=== PATIENT | female | born 1940 | race Caucasian/White ===

== ENCOUNTER → 2016-04-09 | Outpatient (CLI) | payer OTHER ==
[~2016-04-09] MED LIST: ASPCH81 PO; ASPI-232 PO; ATOR-24 PO; ATV5 PO; CEPH500C PO; CHOL1000 PO; CITA40TA12 PO; FLUT0.15 NAE; FRS/40 PO; HYDR0.5T PO; HYDR200T5 PO; LEVO150T9 PO; LORA0.5T12 PO; MCR/40125 PO; MECL1TAB42 PO; METO100T44 PO; METO25TA3 PO; METO25TA56 PO; METO50TA7 PO; MULT-1092 PO; NTRGSL/4 UT; NXM/40 PO; ONDA4TAB10 SL; OXGN; POTA10CA28 PO; RANI300T2 PO; SYN150 PO; TOLT4CAP PO; TRAM-10 PO; VITACAP37 PO
--- NOTE | 2016-04-15 09:46 | CODING QUERY MEDICAL NECESSITY ---
SUPPORTING DIAGNOSIS NEEDED A supporting diagnosis is required for the test/procedure performed on this patient in order for us to be reimbursed by the patient's insurance. Please provide a supporting diagnosis for the following test/procedure listed below next to the test name along with your signature. *If there is no additional diagnosis for this patient that would support the following test/procedure please document that below next to the test/procedure. Test(s)/Procedure(s) that require a supporting diagnosis: DOS 04/09 * Bone Density Study DIAGNOSIS: Provider Signature: Date: Thank you Randi Osuna Health Information Management Once completed, please kindly fax back to [phone] For questions please call [phone]
== END | disposition home or self-care (01) ==
LOC: C.MAMM 13:33
PROVIDERS: ATTEND Internal Medicine Geriatric Medicine
DX: M35.00 Sjogren syndrome, unspecified (principal)

== ENCOUNTER → 2016-06-26 | Outpatient (CLI) | payer OTHER ==
[~2016-06-26] MED LIST changes: -METO100T44 PO; +METO1TAB69 PO
[2016-06-26 15:47] LABS: BASO % 0.2 %; BASO ABS # 0.01 K/uL (0-0.2); COMPLETE YES; EOS % 4.7 %; HEMATOCRIT 40.3 % (37-47); IG% 0.4 %; LYMPH ABS # 0.75 K/uL (1.2-3.4); MEAN CELL VOLUME 87.2 fL (80-100); MEAN CORPUSCULAR HEMOGLOBIN 29.7 pg (25-34); MEAN PLATELET VOLUME 10.9 fL (7.4-10.4); MONO % 12.2 %; NEUT % 68.5 %; PLATELET COUNT 115 K/uL (130-400); RED BLOOD COUNT 4.62 M/uL (4.2-5.4); WHITE BLOOD COUNT 5.34 K/uL (4.8-10.8)
[2016-06-26 16:09] LABS: BLOOD UREA NITROGEN 19 mg/dl (7-18); BUN/CREATININE RATIO 19.8 (10-20); CALCIUM 9.5 mg/dl (8.5-10.1); CARBON DIOXIDE 30 mmol/L (21-32); CHLORIDE 104 mmol/L (98-107); CREATININE 0.97 mg/dl (0.60-1.20); GLUCOSE 94 mg/dl (70-99); POTASSIUM 4.3 mmol/L (3.5-5.1); SODIUM 141 mmol/L (136-145)
== END | disposition home or self-care (01) ==
LOC: C.LAB 14:44
PROVIDERS: ATTEND Internal Medicine Geriatric Medicine
DX: D47.9 Neoplasm of uncertain behavior of lymphoid, hematopoietic and related tissue, unspecified (principal); E55.9 Vitamin D deficiency, unspecified; I10 Essential (primary) hypertension; R73.9 Hyperglycemia, unspecified

== ENCOUNTER → 2016-07-12 | Outpatient (CLI) | payer OTHER ==
[~2016-07-12] MED LIST changes: +METO100T44 PO; -METO1TAB69 PO
--- NOTE | 2016-07-12 07:43 | DIAGNOSTIC IMAGING REPORT ---
ABDOMINAL ULTRASOUND, RIGHT UPPER QUADRANT HISTORY: Hepatic cirrhosis CIRRHOSIS. COMPARISON: None. FINDINGS: Pancreas: The pancreas demonstrates a normal echotexture. Liver: Unremarkable. Gallbladder: No gallbladder wall thickening. No gallstones. CBD: 4 mm Right kidney: No hydronephrosis. IMPRESSION: Normal study Electronically signed by: Artur Woodward M.D. 07/12/2016 7:41 AM Dictated Date/Time: 07/12/2016 7:39 AM
[2016-07-12 09:47] LABS: INR 1.1 (0.9-1.1); PROTHROMBIN TIME (PATIENT) 11.8 SECONDS (9.0-12.0)
[2016-07-12 10:26] LABS: ALT/SGPT 34 U/L (12-78); AST/SGOT 27 U/L (15-37); BLOOD UREA NITROGEN 18 mg/dl (7-18); BUN/CREATININE RATIO 20.6 (10-20); CALCIUM 9.4 mg/dl (8.5-10.1); CARBON DIOXIDE 31 mmol/L (21-32); CHLORIDE 104 mmol/L (98-107); CREATININE 0.87 mg/dl (0.60-1.20); GLUCOSE 112 mg/dl (70-99); POTASSIUM 3.8 mmol/L (3.5-5.1); SODIUM 141 mmol/L (136-145)
[2016-07-12 10:29] LABS: ALB/GLOB RATIO 1.1 (0.9-2); ALKALINE PHOSPHATASE 70 U/L (45-117)
== END | disposition home or self-care (01) ==
LOC: C.ULTR 07:18
PROVIDERS: ATTEND Internal Medicine Gastroenterology
DX: K74.60 Unspecified cirrhosis of liver (principal)

== ENCOUNTER → 2016-07-31 | Outpatient (CLI) | payer OTHER ==
--- NOTE | 2016-07-31 17:10 | MAMMOGRAPHY REPORT ---
BILATERAL DIGITAL SCREENING MAMMOGRAM WITH CAD: 07/31/2016 CLINICAL HISTORY: Routine screening. Patient has no complaints. TECHNIQUE: Bilateral CC and MLO views were obtained. Current study was also evaluated with a Compu ter Aided Detection (CAD) system. COMPARISON: Comparison is made to exams dated: 07/31/2015 mammogram, 07/26/2014 mammogram, 07/15/2013 mammogram, 07/10/2012 mammogram, and 06/27/2011 mammogram - [facility]. BREAST COMPOSITION: The tissue of both breasts is heterogeneously dense, which may obscure small ma sses. FINDINGS: There is a stable metallic biopsy marker in the approximate 9:00 middle one third of the l eft breast, at the site of benign stereotactic biopsy. There is mild architectural distortion surro unding the biopsy marker clip which has also been stable since 2011, likely representing post biopsy changes as a large hematoma was identified on the post procedure images performed after the biopsy. There are scattered and grouped benign-appearing punctate microcalcifications and a few benign coa rse calcifications throughout the breasts. No new suspicious mass, architectural distortion or clus ter of microcalcifications is seen. IMPRESSION: ACR BI-RADS CATEGORY 1: NEGATIVE There is no mammographic evidence of malignancy. A 1 year screening mammogram is recommended. The p atient will receive written notification of the results. Approximately 10% of breast cancers are not detected with mammography. A negative mammographic repor t should not delay biopsy if a clinically suggestive mass is present. Khadijah Barragan M.D. ay/:07/31/2016 16:21:00 Data Modeler: Vero Catherine, [facility] letter sent: Normal 1/2 BI-RADS Code: ACR BI-RADS Category 1: Negative
== END | disposition home or self-care (01) ==
LOC: C.MAMM 13:51
PROVIDERS: ATTEND Internal Medicine Geriatric Medicine
DX: Z12.31 Encounter for screening mammogram for malignant neoplasm of breast (principal)

== ENCOUNTER → 2016-08-01 | Outpatient (CLI) | payer OTHER ==
[~2016-08-01] MED LIST changes: +OPTIRAY 320 IV PRN
--- NOTE | 2016-08-01 13:58 | DIAGNOSTIC IMAGING REPORT ---
CT ANGIOGRAM OF THE NECK COMBO CLINICAL HISTORY: Carotid artery stenosis. COMPARISON STUDY: Carotid artery ultrasound dated 06/13/2008. CT scan of the neck dated 08/09/2008. TECHNIQUE: Before and following the IV administration of 110 of Optiray 320, CT angiogram of the neck was performed from the aortic arch to the skull base. Images are reviewed in the axial, sagittal, and coronal planes. 3-D MIPS images are created and assessed. IV contrast was administered without complication. All measurements were calculated based on NASCET criteria. CT DOSE: 969.75 mGy.cm FINDINGS: Thoracic aorta: There is atherosclerotic calcification of the imaged thoracic aorta which is normal in caliber. The aortic arch demonstrates standard 3-vessel anatomy. Subclavian arteries: There is mild stenosis at the origin of the left subclavian artery (less than 50%). The remainder of the left subclavian as well as the right subclavian artery are widely patent. Right carotid arterial system: The right common carotid artery is widely patent. There is dense calcific plaque identified in the right carotid bulb with near complete occlusion of the bulb. Only trace flow is identified and this extends 8 mm in length. The remainder of the right internal carotid artery as well as the right external carotid artery are widely patent. Left carotid arterial system: The left common carotid artery is widely patent, as are the left internal and external carotid arteries. There is mild atherosclerotic plaque in the left carotid bulb. Vertebral arteries: The vertebral arteries are widely patent and codominant. Intracranial vasculature: The imaged intracranial vessels at the skull base appear patent. Jugular veins: Widely patent bilaterally. Brain parenchyma: The visualized brain parenchyma the skull base is within normal limits. Upper chest: Midline sternotomy wires are noted. Intralobular septal thickening is present in the lower lobes and there is mild perihilar groundglass attenuation. The appearance suggests congestive failure. Mildly enlarged mediastinal lymph nodes identified. A high right peritracheal node measures 9 mm in short axis. A right paratracheal node on image #92 at the thoracic inlet measures 1.9 x 1.5 cm. Soft tissues: The visualized pharyngeal soft tissues are normal in appearance noting angiographic phase technique. The oropharyngeal airway appears widely patent. The thyroid gland is atrophic. The salivary gland are normal in appearance. No cervical lymphadenopathy is seen. Orbits: The bony orbits are intact. Orbital contents are within normal limits. Skeletal structures: The visualized calvarium at the skull base appears intact. The imaged cervical spine is within normal limits. Sinuses and mastoids: There is evidence of previous paranasal sinus surgery. The paranasal sinuses and mastoid air cells are clear. IMPRESSION: 1. There is dense calcified plaque causing near complete thrombosis of the right carotid bulb with only trace flow identified. This extends 8 mm in length. 2. The carotid arterial vessels are otherwise widely patent bilaterally. 3. The vertebral arteries are widely patent. 4. The appearance of the upper lobe lung parenchyma suggests congestive failure. Correlation with clinical findings will be required. Consider chest x-ray for further assessment. 5. There are mildly enlarged mediastinal lymph nodes. The largest is in the right paratracheal region at the thoracic inlet and measures up to 1.9 cm. These have increased in size from the 2009 examination. Electronically signed by: Go Trujillo M.D. 08/01/2016 1:57 PM Dictated Date/Time: 08/01/2016 1:45 PM
== END | disposition home or self-care (01) ==
LOC: C.CTS 12:37
PROVIDERS: ATTEND Physician Assistant
DX: I65.21 Occlusion and stenosis of right carotid artery (principal)

== ENCOUNTER 2016-08-02 11:04 | Emergency (ER) | payer OTHER ==
[~2016-08-02] VITALS: Ht 160 cm; Wt 82.2 kg
[~2016-08-02 11:04] MED LIST changes: -ASPI-232 PO; -CEPH500C PO; -CHOL1000 PO; -FLUT0.15 NAE; -HYDR200T5 PO; -LEVO150T9 PO; -LORA0.5T12 PO; -MECL1TAB42 PO; -METO25TA3 PO; -METO25TA56 PO; -METO50TA7 PO; -MULT-1092 PO; -ONDA4TAB10 SL; -OPTIRAY 320 IV PRN; -TRAM-10 PO; -VITACAP37 PO
[2016-08-02 11:11] VITALS: TEMP 36.4; Ht 160 cm; Wt 82.2 kg
--- NOTE | 2016-08-02 12:19 | EMERGENCY ROOM VISIT NOTE ---
History Report prepared by Yanet: Dwayne Peterson Under the Supervision of: Dr. Tianna Cervantes D.O. First contact with patient: 11:59 Chief Complaint: DIZZY Stated Complaint: DIZZY - SICK STOMACH History of Present Illness The patient is a 76 year old female who presents to the Emergency Room with complaints of persistent nausea that started around 0300 this morning. She says that she got up to go to the bathroom around 0300, and while walking through the hallway, she had to stagger against the wall and hold onto the wall. She went to the bathroom and then went back to bed. However, when she woke up this morning, she stood up off the bed, but then had to lay back onto the bed because she felt nauseous and off-balance. She says that the room has been spinning intermittently for her. The patient then ate 3 bites of oatmeal, but vomited. She also notes that she had a headache this morning. The patient's symptoms have mostly resolved, except for the nausea, which has persisted. She notes that her stomach is empty, because she could not eat anything this morning. The patient says that she was very restless last night, and it took her a couple hours to fall asleep, which is unusual for her. She also notes that she took a fluid pill last night around dinner time, because her primary care physician told her to take a fluid pill if she gets short of breath on exertion. The patient felt a bit of chest pain last night when going up and down stairs, and felt a bit wheezy, so she decided to take the fluid pill. The patient says that she rarely takes the pill. The patient's states that the patient has had balance problems in the past, and has gone to therapy for it. Her primary care physician has noted that the patient has vertigo. The patient says that her symptoms today are different than when she had vertigo, because the room is not spinning too much for her today. The patient notes that she is checked by her primary care physician every 3 months due to intermittent hypotension. She is slated to have surgery with Dr. 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 The patient's left carotid artery only has 1% blockage. The patient had a heart attack and a quadruple bypass in 1998. She refused an echo stress 6 months ago, even though her primary care physician recommended it. The patient denies any chest pain, shortness of breath, ringing in ears, blurry vision, double vision, change in bowels, urinary symptoms, or swelling in legs. The patient is an ex-smoker and does not drink any alcohol. She notes that she has been having seasonal allergies, with a cough. She uses Flonase for the allergies. The patient has no CHF history. Source of History: patient, spouse/significant other Onset: 0300 this morning Position: other (global - nausea) Timing: other (persistent) Associated Symptoms: + vomiting, No SOB, No chest pain, No urinary symptoms Note: Associated symptoms: Off-balance. Room spinning intermittently. Denies ringing in ears, blurry vision, double vision, change in bowels, leg swelling. Review of Systems See HPI for pertinent positives & negatives. A total of 10 systems reviewed and were otherwise negative. Past Medical & Surgical Medical Problems: (1) Asthma (2) Bronchitis (3) CAD (coronary artery disease) (4) ITP (idiopathic thrombocytopenic purpura) (5) Lymphadenopathy (6) IL (myocardial infarction) (7) Sj gren's syndrome (8) Splenomegaly Surgical Problems: (1) H/O hysterectomy with oophorectomy Family History Diabetes mellitus Heart disease Hypertension Lung disease Social History Smoking Status: Former Smoker Alcohol Use: none Drug Use: none Marital Status: Housing Status: lives with family Occupation Status: retired Current/Historical Medications Scheduled Aspirin (Aspir-81), 1 TAB PO DAILY Atorvastatin (Lipitor), 40 MG PO HS Cephalexin Monohydrate (Keflex), 500 MG PO BID Cholecalciferol (Vitamin D3), 3 TAB PO DAILY Citalopram Hydrobromide (Celexa), 20 MG PO HS Esomeprazole Magnesium (Nexium), 40 MG PO QAM Hydroxychloroquine Sulfate (Plaquenil), 200 MG PO BID Levothyroxine Sodium (Levothyroxine Sodium), 1 TAB PO DAILY Metoprolol Tartrate (Lopressor) (Lopressor), 1 TAB PO QAM Metoprolol Tartrate (Lopressor) (Lopressor), 50 MG PO QPM Nitroglycerin (Nitrostat), 0.4 MG UT PRN Ondasetron Odt (Zofran Odt), 4 MG SL Q6H Oxygen (Oxygen), 2 LITERS NA HS Ranitidine Hcl (Zantac), 300 MG PO HS Telmisartan/Hctz (Micardis Hct 40MG/12.5MG), 1 TAB PO QAM Tolterodine Tartrate (Detrol La), 4 MG PO QAM Scheduled PRN Furosemide (Lasix), 40 MG PO DAILY PRN for SWELLING Lorazepam (Lorazepam), 1 TAB PO BID PRN for Anxiety Meclizine Hcl (Meclizine Hcl), 25 MG PO TID PRN for Dizziness Potassium Chloride (Micro-K Ext Rel), 10 MEQ PO DAILY PRN PRN for WITH FUROSEMIDE Allergies Coded Allergies: Ciprofloxacin (Verified Allergy, Intermediate, RASH, 08/02/16) patient gets a periorbital redness and discharge from the tear ducts Meperidine (Verified Allergy, Mild, 08/02/16) Morphine (Verified Allergy, Mild, 08/02/16) Adhesives (Verified Allergy, Unknown, ADHESIVE TAPE, 08/02/16) Codeine (Unverified Allergy, Unknown, Nausea, 08/02/16) Acetaminophen (Verified Adverse Reaction, Severe, NAUSEA/VOMITING, 08/02/16 ) CAN ONLY TAKE TYLENOL FOR PAIN Oxycodone (Verified Adverse Reaction, Severe, NAUSEA/VOMITING, 08/02/16) CAN ONLY TAKE TYLENOL FOR PAIN Physical Exam Vital Signs Date Time Temp Pulse Resp B/P Pulse Ox O2 Delivery O2 Flow Rate FiO2 08/02/16 16:49 58 16 146/55 96 08/02/16 16:13 61 20 140/52 96 Nasal Cannula 2.0 08/02/16 14:55 59 08/02/16 14:40 60 12 142/60 94 Nasal Cannula 1.0 08/02/16 13:58 61 20 133/64 95 Nasal Cannula 2.0 08/02/16 13:12 62 133/64 89 Room Air 08/02/16 12:48 96 Nasal Cannula 1.0 08/02/16 12:36 95 Nasal Cannula 2.0 08/02/16 12:34 60 08/02/16 12:29 58 14 143/61 95 Room Air 08/02/16 12:03 52 16 152/63 89 Room Air 08/02/16 11:11 36.4 56 18 169/77 90 Room Air Physical Exam GENERAL: alert, well appearing, well nourished, no distress, non-toxic EYE EXAM: normal conjunctiva, PERRL and EOM's grossly intact OROPHARYNX: no exudate, no erythema, lips, buccal mucosa, and tongue normal and mucous membranes are moist NECK: supple, no nuchal rigidity, no adenopathy, non-tender LUNGS: Clear to auscultation. Normal chest wall mechanics CHEST: Well-healed vertical midline sternotomy scar. HEART: no murmurs, S1 normal and S2 normal ABDOMEN: abdomen soft, non-tender, normo-active bowel sounds, no masses, no rebound or guarding. BACK: Back is symmetrical on inspection and there is no deformity, no midline tenderness, no CVA tenderness. SKIN: no rashes and no bruising UPPER EXTREMITIES: upper extremities are grossly normal. LOWER EXTREMITIES: No pitting edema. NEURO EXAM: Normal sensorium, cranial nerves II-XII grossly intact, normal speech, no gross weakness of arms, no gross weakness of legs. Negative pronator drift. Finger to nose intact. Gross sensation intact. HINTS exam normal. Medical Decision & Procedures ER Provider Diagnostic Interpretation: Xray results per the radiologist and my interpretation. Other results have been interpreted by the radiologist and reviewed by me. CT SCAN OF THE BRAIN WITHOUT IV CONTRAST CLINICAL HISTORY: Nausea and dizziness. COMPARISON STUDY: CT of the brain dated 09/08/2007. TECHNIQUE: Unenhanced axial CT scan of the brain is performed from the vertex to the skull base. CT DOSE: 638.56 mGycm FINDINGS: Brain parenchyma: There are age-related involutional changes noting mild subcortical and periventricular microangiopathic change. There is no hemorrhage, mass effect, or evidence of acute territorial ischemia by CT criteria. Garces-white matter is preserved. No extra-axial fluid collection is seen. Ventricles, sulci, cisterns: Prominent secondary to involutional change. Intracranial vasculature: There is atherosclerotic calcification of the cavernous carotid and vertebral arteries. Calvarium: Unremarkable. Sinuses and mastoids: There is evidence of previous paranasal sinus surgery. The visualized paranasal sinuses are clear. The mastoid air cells are well pneumatized. Orbits: The bony orbits are grossly intact. There are bilateral ocular lens implants. IMPRESSION: There is no hemorrhage, mass effect, or evidence of acute territorial ischemia by CT criteria. Electronically signed by: Go Trujillo M.D. 08/02/2016 1:17 PM Dictated Date/Time: 08/02/2016 1:15 PM CHEST ONE VIEW PORTABLE CLINICAL HISTORY: dizzy NAUSEA COMPARISON STUDY: 12/28/2014 FINDINGS: The heart is borderline enlarged. There are postsurgical changes of a midline sternotomy. There is mild interstitial thickening. There is no focal pulmonary consolidation. There are no pleural effusions. There is a calcified right midlung zone granuloma.[ IMPRESSION: No active disease in the chest. Electronically signed by: Guerrero Hughes M.D. 08/02/2016 12:38 PM Dictated Date/Time: 08/02/2016 12:37 PM Laboratory Results 08/02/16 11:55 Red Blood Count 4.56, Mean Corpuscular Volume 87.9, Mean Corpuscular Hemoglobin 30.0, Mean Corpuscular Hemoglobin Concent 34.2, Mean Platelet Volume 10.8, Neutrophils (%) (Auto) 82.5, Lymphocytes (%) (Auto) 6.5, Monocytes (%) (Auto) 8.1, Eosinophils (%) (Auto) 2.3, Basophils (%) (Auto) 0.2, Neutrophils # (Auto) 4.57, Lymphocytes # (Auto) 0.36, Monocytes # (Auto) 0.45, Eosinophils # (Auto) 0.13, Basophils # (Auto) 0.01 08/02/16 11:55 Test 08/02/16 11:55 08/02/16 13:53 08/02/16 16:11 White Blood Count 5.54 K/uL (4.8-10.8) Red Blood Count 4.56 M/uL (4.2-5.4) Hemoglobin 13.7 g/dL (12.0-16.0) Hematocrit 40.1 % (37-47) Mean Corpuscular Volume 87.9 fL (80-100) Mean Corpuscular Hemoglobin 30.0 pg (25-34) Mean Corpuscular Hemoglobin Concent 34.2 g/dl (32-36) Platelet Count 106 K/uL (130-400) Mean Platelet Volume 10.8 fL (7.4-10.4) Neutrophils (%) (Auto) 82.5 % Lymphocytes (%) (Auto) 6.5 % Monocytes (%) (Auto) 8.1 % Eosinophils (%) (Auto) 2.3 % Basophils (%) (Auto) 0.2 % Neutrophils # (Auto) 4.57 K/uL (1.4-6.5) Lymphocytes # (Auto) 0.36 K/uL (1.2-3.4) Monocytes # (Auto) 0.45 K/uL (0.11-0.59) Eosinophils # (Auto) 0.13 K/uL (0-0.5) Basophils # (Auto) 0.01 K/uL (0-0.2) RDW Standard Deviation 44.1 fL (36.4-46.3) RDW Coefficient of Variation 13.7 % (11.5-14.5) Immature Granulocyte % (Auto) 0.4 % Immature Granulocyte # (Auto) 0.02 K/uL (0.00-0.02) Anion Gap 7.0 mmol/L (3-11) Est Creatinine Clear Calc Drug Dose 51.7 ml/min Estimated GFR () 70.0 Estimated GFR (Non- 60.4 BUN/Creatinine Ratio 19.8 (10-20) Calcium Level 9.6 mg/dl (8.5-10.1) Total Bilirubin 1.6 mg/dl (0.2-1) Aspartate Amino Transf (AST/SGOT) 26 U/L (15-37) Alanine Aminotransferase (ALT/SGPT) 33 U/L (12-78) Alkaline Phosphatase 76 U/L (45-117) Pro-B-Type Natriuretic Peptide 300 pg/ml (0-1800) Total Protein 7.6 gm/dl (6.4-8.2) Albumin 3.9 gm/dl (3.4-5.0) Globulin 3.7 gm/dl (2.5-4.0) Albumin/Globulin Ratio 1.1 (0.9-2) Urine Color YELLOW Urine Appearance CLOUDY (CLEAR) Urine pH 6.5 (4.5-7.5) Urine Specific [place] 1.021 (1.000-1.030) Urine Protein NEG (NEG) Urine Glucose (UA) NEG (NEG) Urine Ketones NEG (NEG) Urine Occult Blood NEG (NEG) Urine Nitrite POS (NEG) Urine Bilirubin NEG (NEG) Urine Urobilinogen NEG (NEG) Urine Leukocyte Esterase LARGE (NEG) Urine WBC (Auto) >30 /hpf (0-5) Urine RBC (Auto) 0-4 /hpf (0-4) Urine Hyaline Casts (Auto) 1-5 /lpf (0-5) Urine Epithelial Cells (Auto) 0-5 /lpf (0-5) Urine Bacteria (Auto) 4+ (NEG) Troponin I < 0.015 ng/ml (0-0.045) Laboratory results per my review. Medications Administered Medications (Trade) Dose Ordered Sig/Luis Route Start Time Stop Time Status Last Admin Dose Admin Sodium Chloride (Nss 1000ml) 1,000 ml @ 125 mls/hr Q8H STAT IV 08/02/16 12:23 08/02/16 17:50 DC 08/02/16 12:28 125 MLS/HR Ondansetron HCl (Zofran Inj) 4 mg NOW STAT IV 08/02/16 12:23 08/02/16 12:24 DC 08/02/16 12:27 4 MG Meclizine HCl (Antivert Tab) 25 mg NOW STAT PO 08/02/16 14:09 08/02/16 14:10 DC 08/02/16 14:39 25 MG Cephalexin Monohydrate (Keflex Cap) 500 mg NOW ONCE PO 08/02/16 16:30 08/02/16 16:31 DC 08/02/16 16:49 500 MG ECG Indication: nausea Rate (beats per minute): 56 Rhythm: sinus bradycardia Findings: 1st degree AV block, no acute ischemic change, no ectopy, other ( normal axis, normal intervals) ED Course 1200: The patient was evaluated in room C2B. A complete history and physical exam was performed. 1223: Ordered Zofran Inj 4 mg IV, NSS 1000 ml @ 125 mls/hr IV. 1334: I reevaluated the patient and she is resting comfortably. 1406: I discussed the patient with Dr. Ruth Amaro vascular surgery - he does not think her symptoms are coming from the neck. He does not think the patient needs any more imaging. 1409: Ordered Antivert Tab 25 mg PO. 1520: I reevaluated the patient and she feels much better. 1600: I reevaluated the patient and she denies any shortness of breath, chest pain, or chest pressure. She wears oxygen at night only, and is able to go up and down stairs comfortably at home. The patient verbally expressed understanding and agreement of the treatment plan. The patient will be discharged. 1630: Ordered Keflex Cap 500 mg PO. 1635: I discussed the patient with Sol Paz from Dr. Muniz's office - she states that the patient has been mildly hypoxic in the past, and has been worked up, and has never been symptomatic. They are happy to do close follow up next week with the patient. 1642: I reevaluated the patient and she is resting comfortably. The patient verbally expressed understanding and agreement of the treatment plan. The patient will be discharged. Medical Decision Differential diagnosis includes etiologies such as benign positional vertigo, dehydration, hypovolemia, anemia, tumor, infection, hypoglycemia, electrolyte abnormalities, cardiac sources, intracerebral event, toxicologic, neurologic, as well as others were entertained. Patient improved her family remonstration of Zofran and meclizine. No recurrent vomiting and able to tolerate by mouth. Patient's imaging and labs reassuring, and no evidence of cardiac etiology. Patient found to have urinary tract infection also which may explain patient's symptoms. Patient started on antibiotics, and culture sent. Patient with episode of desatting off oxygen. Patient with pulmonary history and wears home O2 at night. Doubt ACS, PE, effusion, infiltrate, dissection. In light of this case discussed with FERNANDO for patient's primary care physician who upon review of old records That This Is Chronic for the Patient. Patient Was Asymptomatic during This Event. Patient Also Previously Had an Evaluation for This As an Outpatient. Patient Infiltrated with a Steady Gait at Discharge and Well-Appearing. Patient Aware of All Results and Need for Close Follow-Up with Family Doctor, Taking Antibiotics As Prescribed, and Continued Plan for Follow-Up with Vascular Surgery. Discussed with Patient's Symptoms Watch and Return for, She and Verbalized Understanding of All This, All Questions Were Answered Bedside, and They Were Agreeable with Plan. Patient with history of chronic thrombocytopenia. Consults Time Called: 1350 Consulting Physician: Dr. Ruth Amaro vascular surgery Returned Call: [phone] I discussed the patient with Dr. Ruth Amaro vascular surgery - he does not think her symptoms are coming from the neck. He does not think the patient needs any more imaging. If the patient if fine, Dr. Miranda is comfortable with the patient going home. Additional Consults: Time Called: 1620 Consulted Physician: Sol Paz from Dr. Muniz's office Returned Call: [phone] Additional Comments: I discussed the patient with Sol Paz from Dr. Muniz's office - she states that the patient has been mildly hypoxic in the past, and has been worked up, and has never been symptomatic. They are happy to do close follow up next week with the patient. Impression Primary Impression: Dizziness Additional Impression: UTI (urinary tract infection) Scribe Attestation The scribe's documentation has been prepared under my direction and personally reviewed by me in its entirety. I confirm that the note above accurately reflects all work, treatment, procedures, and medical decision making performed by me. Departure Information Dispostion Home / Self-Care Prescriptions Ondasetron Odt (ZOFRAN ODT) 4 Mg Tab 4 MG SL Q6H for Nausea, #20 TAB Prov: Tianna Cervantes, DO 08/02/16 Meclizine Hcl (MECLIZINE HCL) 25 Mg Tab 25 MG PO TID Y for Dizziness, #20 TAB Prov: Tianna Cervantes, DO 08/02/16 Cephalexin Monohydrate (Keflex) 500 Mg Cap 500 MG PO BID, #14 CAP Prov: Tianna Cervantes, DO 08/02/16 Referrals Yaya Muniz M.D. (PCP) Patient Instructions My [facility] Additional Instructions Please take the antibiotic as prescribed. Please continue your other medications. Please keep your appointment preprocedure next week. He may use the dizzy medication as needed and the nausea medication as prescribed. If you have any recurrent episodes of worsening sense of off balance or dizziness, develop fevers or chills, abdominal pain, chest pain, trouble breathing, noticed a change in her bowel or bladder function, develop trouble speaking or swallowing, a change in your vision, or you have any other new or concerning symptoms, please return to emergency room. Problem Qualifiers Additional Impression: UTI (urinary tract infection) Urinary tract infection type: acute cystitis Hematuria presence: without hematuria Qualified Codes: N30.00 - Acute cystitis without hematuria
[2016-08-02] MEDS ORDERED: ONDANSETRON INJ 2 MG/ML 2 ML VIAL IV STA (12:23)
[2016-08-02] MEDS ORDERED: SODIUM CHLORIDE 0.9% 1000ML 1,000 ML IV STA (12:23)
[2016-08-02 12:31] LABS: BASO % 0.2 %; BASO ABS # 0.01 K/uL (0-0.2); COMPLETE YES; EOS % 2.3 %; HEMATOCRIT 40.1 % (37-47); IG% 0.4 %; LYMPH % 6.5 %; LYMPH ABS # 0.36 K/uL (1.2-3.4); MEAN CELL VOLUME 87.9 fL (80-100); MEAN CORPUSCULAR HGB CONC 34.2 g/dl (32-36); MEAN PLATELET VOLUME 10.8 fL (7.4-10.4); MONO % 8.1 %; NEUT % 82.5 %; PLATELET COUNT 106 K/uL (130-400); RED BLOOD COUNT 4.56 M/uL (4.2-5.4); WHITE BLOOD COUNT 5.54 K/uL (4.8-10.8)
[2016-08-02 12:37] LABS: ALT/SGPT 33 U/L (12-78); BLOOD UREA NITROGEN 18 mg/dl (7-18); BUN/CREATININE RATIO 19.8 (10-20); CARBON DIOXIDE 31 mmol/L (21-32); CHLORIDE 101 mmol/L (98-107); CREATININE 0.91 mg/dl (0.60-1.20); GLUCOSE 131 mg/dl (70-99); POTASSIUM 3.9 mmol/L (3.5-5.1); SODIUM 139 mmol/L (136-145)
[2016-08-02 12:39] LABS: CALCIUM 9.6 mg/dl (8.5-10.1)
--- NOTE | 2016-08-02 12:39 | DIAGNOSTIC IMAGING REPORT ---
CHEST ONE VIEW PORTABLE CLINICAL HISTORY: dizzy NAUSEA COMPARISON STUDY: 12/28/2014 FINDINGS: The heart is borderline enlarged. There are postsurgical changes of a midline sternotomy. There is mild interstitial thickening. There is no focal pulmonary consolidation. There are no pleural effusions. There is a calcified right midlung zone granuloma.[ IMPRESSION: No active disease in the chest. Electronically signed by: Guerrero Hughes M.D. 08/02/2016 12:38 PM Dictated Date/Time: 08/02/2016 12:37 PM
[2016-08-02 12:43] LABS: ALB/GLOB RATIO 1.1 (0.9-2); ALKALINE PHOSPHATASE 76 U/L (45-117); AST/SGOT 26 U/L (15-37)
[2016-08-02] MEDS ORDERED: CHOL1000 PO (12:54)
[2016-08-02] MEDS ORDERED: METO25TA3 PO (12:54)
[2016-08-02] MEDS ORDERED: LORA0.5T12 PO (12:54)
[2016-08-02] MEDS ORDERED: LEVO150T9 PO (12:54)
[2016-08-02] MEDS ORDERED: METO50TA7 PO (12:54)
[2016-08-02] MEDS ORDERED: ASPI-232 PO (12:54)
[2016-08-02] MEDS ORDERED: HYDR200T5 PO (12:54)
[2016-08-02] MEDS ORDERED: METO25TA56 PO ×2 (12:58)
--- NOTE | 2016-08-02 13:19 | DIAGNOSTIC IMAGING REPORT ---
CT SCAN OF THE BRAIN WITHOUT IV CONTRAST CLINICAL HISTORY: Nausea and dizziness. COMPARISON STUDY: CT of the brain dated 09/08/2007. TECHNIQUE: Unenhanced axial CT scan of the brain is performed from the vertex to the skull base. CT DOSE: 638.56 mGycm FINDINGS: Brain parenchyma: There are age-related involutional changes noting mild subcortical and periventricular microangiopathic change. There is no hemorrhage, mass effect, or evidence of acute territorial ischemia by CT criteria. Garces-white matter is preserved. No extra-axial fluid collection is seen. Ventricles, sulci, cisterns: Prominent secondary to involutional change. Intracranial vasculature: There is atherosclerotic calcification of the cavernous carotid and vertebral arteries. Calvarium: Unremarkable. Sinuses and mastoids: There is evidence of previous paranasal sinus surgery. The visualized paranasal sinuses are clear. The mastoid air cells are well pneumatized. Orbits: The bony orbits are grossly intact. There are bilateral ocular lens implants. IMPRESSION: There is no hemorrhage, mass effect, or evidence of acute territorial ischemia by CT criteria. Electronically signed by: Go Trujillo M.D. 08/02/2016 1:17 PM Dictated Date/Time: 08/02/2016 1:15 PM
[2016-08-02] MEDS ORDERED: MECLIZINE HCL 25 MG TAB PO STA (14:09)
[2016-08-02 14:21] LABS: MANUAL MICROSCOPIC REQUIRED? NO; REVIEW REQ? NO; URINE APPEARANCE CLOUDY (CLEAR); URINE BILIRUBIN NEG (NEG); URINE COLOR YELLOW; URINE EPITHELIAL CELL AUTO 0-5 /lpf (0-5); URINE NITRITE POS (NEG); URINE PH 6.5 (4.5-7.5); URINE SPECIFIC GRAVITY 1.021 (1.000-1.030); UROBILINOGEN NEG (NEG); ZZUR CULT IF INDIC CLEAN CATCH YES
[2016-08-02] MEDS ORDERED: CEPHALEXIN MONOHYDRATE 250 MG CAP PO ONE (16:30)
[2016-08-02] MEDS ORDERED: MECL1TAB42 PO (16:40)
[2016-08-02] MEDS ORDERED: ONDA4TAB10 SL (16:40)
[2016-08-02] MEDS ORDERED: CEPH500C PO (16:40)
[2016-08-02 16:49] VITALS: BP 146/55; PULSE 58; O2SAT 96
[2016-08-14] MEDS ORDERED: VITACAP37 PO (15:03)
[2016-08-14] MEDS ORDERED: MECL1TAB42 PO (15:05)
[2016-08-14] MEDS ORDERED: FLUT0.15 NAE (15:05)
[2016-09-12] MEDS ORDERED: TRAM-10 PO (07:46)
== END 2016-08-02 16:51 | disposition home or self-care (01) ==
LOC: C.EDB 11:05 → C.EDC 16:51
DX: R42 Dizziness and giddiness (principal); N39.0 Urinary tract infection, site not specified; I25.10 Atherosclerotic heart disease of native coronary artery without angina pectoris; J45.909 Unspecified asthma, uncomplicated; I25.2 Old myocardial infarction; Z87.891 Personal history of nicotine dependence; Z90.710 Acquired absence of both cervix and uterus; Z79.82 Long term (current) use of aspirin; Z79.899 Other long term (current) drug therapy; Z88.2 Allergy status to sulfonamides; Z88.5 Allergy status to narcotic agent; Z88.6 Allergy status to analgesic agent; Z88.8 Allergy status to other drugs, medicaments and biological substances; Z83.3 Family history of diabetes mellitus; Z82.49 Family history of ischemic heart disease and other diseases of the circulatory system

== ENCOUNTER → 2016-08-06 | Outpatient (CLI) | payer OTHER ==
[~2016-08-06] MED LIST changes: -ASPCH81 PO; +ASPI-232 PO; -ATV5 PO; +CEPH500C PO; +CHOL1000 PO; +FLUT0.15 NAE; -HYDR0.5T PO; +HYDR200T5 PO; +LEVO150T9 PO; +LORA0.5T12 PO; +MECL1TAB42 PO; -METO100T44 PO; +METO25TA56 PO; +MULT-1092 PO; +ONDA4TAB10 SL; -SYN150 PO; +TRAM-10 PO; +VITACAP37 PO
[2016-08-06 17:00] LABS: URINE APPEARANCE CLEAR (CLEAR); URINE BILIRUBIN NEG (NEG); URINE COLOR YELLOW; URINE EPITHELIAL CELL AUTO 0-5 /lpf (0-5); URINE NITRITE NEG (NEG); URINE PH 6.5 (4.5-7.5); URINE SPECIFIC GRAVITY 1.007 (1.000-1.030); UROBILINOGEN NEG (NEG)
[2016-08-06 17:01] LABS: MANUAL MICROSCOPIC REQUIRED? NO; REVIEW REQ? NO
== END | disposition home or self-care (01) ==
LOC: C.LABBC 13:02
PROVIDERS: ATTEND Physician Assistant Medical
DX: N39.0 Urinary tract infection, site not specified (principal)

== ENCOUNTER → 2016-08-22 | Outpatient (CLI) | payer OTHER ==
[~2016-08-22] MED LIST changes: -CEPH500C PO; -ONDA4TAB10 SL; +REGADENOSON 0.4 MG/5 ML SYR ONE
--- NOTE | 2016-08-22 22:15 | MYOCARDIAL PERFUSION SCAN ---
NUCLEAR STRESS TEST STUDY REQUESTED BY: Ar Fish PA-C. PRIMARY CARE PHYSICIAN: Yaya Muniz M.D. STUDY TITLE: ONE-DAY NUCLEAR MEDICINE TECHNETIUM-99M CARDIOLITE MYOCARDIAL PERFUSION SCAN. INDICATION: Preoperative evaluation, history of prior coronary artery disease status post prior CABG. ELECTROCARDIOGRAM: Sinus rhythm with first degree AV block and nonspecific ST abnormality. STRESS ELECTROCARDIOGRAM: Resting heart rate 57 up to 85 with Lexiscan representing 59% of maximum predicted heart rate. There were no significant stress induced ST changes or arrhythmias. Blood pressure esthela from 150/60-166/71. The patient was asymptomatic. TECHNIQUE: For the stress portion of the study 31.6 mCi of technetium-99m Cardiolite IV was injected at 11:20 a.m. on 08/22/2016. Thirty minutes following injection, imaging of the heart was performed in multiple projections. For the rest portion of the study, 10.7 mCi of technetium-99m Cardiolite IV was injected at 9:30 a.m. One hour following injection, imaging of the heart was performed in the same projections. FINDINGS: Raw images were reviewed in detail. There was a significant gut uptake impacting the inferior imaging border of the heart. There was a uniform breast shadow over the anterior anterolateral surface of the heart. There was no significant extracardiac pathologic uptake. The short axis, vertical long axis, horizontal long axis images were reviewed in detail. There was no significant visual TID. There was a small primarily fixed inferior inferolateral defect involving the mid and apical segments in this corresponding region, there were no significant wall motion abnormalities and feel this defect likely represents an artifact in the setting of significant gut bordering uptake. LV function was normal with an EF of 67% and no regional wall motion abnormalities. LV size was normal with an end-diastolic volume of 58 mL IMPRESSION: 1. Negative Lexiscan myocardial perfusion scan for ischemia. 2. Small mild inferior-inferolateral fixed resting perfusion defect in the setting of normal regional wall motion abnormality that likely represents artifact. Less likely small PDA/posterolateral branch distribution infarct. 3. Normal left ventricular size and function, ejection fraction 67% with no regional wall motion abnormalities. 4. Nondiagnostic Lexiscan electrocardiogram due to inability to reach target heart rate. MTDD
== END | disposition home or self-care (01) ==
LOC: C.NUCL 09:03
PROVIDERS: ATTEND Physician Assistant Medical
DX: I20.8 Other forms of angina pectoris (principal); I25.10 Atherosclerotic heart disease of native coronary artery without angina pectoris

== ENCOUNTER 2016-09-11 05:23 | Inpatient (IN) | payer OTHER ==
[2016-08-14 15:07] VITALS: Ht 160 cm; Wt 78.8 kg
--- NOTE | 2016-08-14 15:59 | PAT Medication Instructions ---
Service Date August 14, 2016. Current Home Medication List Aspirin (Aspir-81), 1 TAB PO QAM Atorvastatin (Lipitor), 40 MG PO HS Cholecalciferol (Vitamin D3), 3,000 UNITS PO QAM Citalopram Hydrobromide (Celexa), 20 MG PO HS Esomeprazole Magnesium (Nexium), 40 MG PO QAM Fluticasone Propionate (Nasal) (Flonase Allergy Relief), 1 SPRAY KRISTAL QAM PRN for RN Furosemide (Lasix), 40 MG PO DAILY PRN for SWELLING Hydroxychloroquine Sulfate (Plaquenil), 400 MG PO QPM Levothyroxine Sodium (Levothyroxine Sodium), 1 TAB PO QAM Lorazepam (Lorazepam), 1 TAB PO HS PRN for Anxiety Meclizine Hcl (Meclizine Hcl), 1 TAB PO TID PRN for N Metoprolol Tartrate (Lopressor) (Lopressor), 1 TAB PO QAM Metoprolol Tartrate (Lopressor) (Lopressor), 50 MG PO QPM Nitroglycerin (Nitrostat), 0.4 MG UT PRN Oxygen (Oxygen), 2 LITERS NA HS Potassium Chloride (Micro-K Ext Rel), 10 MEQ PO DAILY PRN PRN for WITH FUROSEMIDE Ranitidine Hcl (Zantac), 300 MG PO HS Telmisartan/Hctz (Micardis Hct 40MG/12.5MG), 1 TAB PO QAM Tolterodine Tartrate (Detrol La), 4 MG PO QAM Vitamin E (E-400), 400 UNITS PO QAM Medication Instructions For Your Scheduled Surgery Hydroxychloroquine Sulfate (Plaquenil), 400 MG PO QPM (patient will check with Dr Muniz for instructions) Meclizine Hcl (Meclizine Hcl), 1 TAB PO TID PRN (not taking currently) Nitroglycerin (Nitrostat), 0.4 MG UT PRN (if needed) - Hold the following medications 2 weeks prior to surgery: Vitamin E (E-400), 400 UNITS PO QAM - Hold the following medications the morning of surgery: Tolterodine Tartrate (Detrol La), 4 MG PO QAM Telmisartan/Hctz (Micardis Hct 40MG/12.5MG), 1 TAB PO QAM Potassium Chloride (Micro-K Ext Rel), 10 MEQ PO DAILY PRN PRN for WITH FUROSEMIDE Furosemide (Lasix), 40 MG PO DAILY PRN for SWELLING Fluticasone Propionate (Nasal) (Flonase Allergy Relief), 1 SPRAY KRISTAL QAM PRN for RN Cholecalciferol (Vitamin D3), 3,000 UNITS PO QAM - Take the following medications the morning of surgery with a sip of water: Metoprolol Tartrate (Lopressor) (Lopressor), 1 TAB PO QAM Levothyroxine Sodium (Levothyroxine Sodium), 1 TAB PO QAM Esomeprazole Magnesium (Nexium), 40 MG PO QAM Aspirin (Aspir-81), 1 TAB PO QAM (continue per surgeon) - Take the following medications as scheduled the night before surgery: Ranitidine Hcl (Zantac), 300 MG PO HS Oxygen (Oxygen), 2 LITERS NA HS Metoprolol Tartrate (Lopressor) (Lopressor), 50 MG PO QPM Lorazepam (Lorazepam), 1 TAB PO HS PRN for Anxiety Citalopram Hydrobromide (Celexa), 20 MG PO HS Atorvastatin (Lipitor), 40 MG PO HS If you have any questions please call us at [phone] or [phone] ( Jacqueline) or [phone]
[2016-08-14 16:24] LABS: BASO % 0.2 %; BASO ABS # 0.01 K/uL (0-0.2); COMPLETE YES; HEMATOCRIT 39.2 % (37-47); IG% 0.2 %; LYMPH % 12.8 %; LYMPH ABS # 0.62 K/uL (1.2-3.4); MEAN CELL VOLUME 90.5 fL (80-100); MEAN CORPUSCULAR HEMOGLOBIN 30.3 pg (25-34); MEAN CORPUSCULAR HGB CONC 33.4 g/dl (32-36); MEAN PLATELET VOLUME 10.8 fL (7.4-10.4); MONO % 12.6 %; NEUT % 68.2 %; PLATELET COUNT 116 K/uL (130-400); RED BLOOD COUNT 4.33 M/uL (4.2-5.4); WHITE BLOOD COUNT 4.85 K/uL (4.8-10.8)
[2016-08-14 16:42] LABS: INR 1.1 (0.9-1.1); PARTIAL THROMBOPLASTIN RATIO 1.1; PROTHROMBIN TIME (PATIENT) 11.9 SECONDS (9.0-12.0)
[2016-08-14 17:20] LABS: BUN/CREATININE RATIO 22.3 (10-20); CALCIUM 9.3 mg/dl (8.5-10.1); CREATININE 0.94 mg/dl (0.60-1.20); POTASSIUM 4.5 mmol/L (3.5-5.1)
[~2016-09-11] VITALS: Ht 160 cm; Wt 78.8 kg
[2016-09-11] VITALS (8 sets, daily range): BP systolic 97–128; BP diastolic 47–68; PULSE 55–66; TEMP 36.4–36.9; O2SAT 93–96
[~2016-09-11 05:23] MED LIST changes: -MULT-1092 PO; -REGADENOSON 0.4 MG/5 ML SYR ONE; -TRAM-10 PO
[2016-09-11] MEDS ORDERED: LACTATED RINGER'S 1000ML 1,000 ML IV SCH (06:00)
[2016-09-11] MEDS ORDERED: SODIUM CHLORIDE 0.9% 1000ML IV SCH (06:00)
--- NOTE | 2016-09-11 06:24 | History and Physical ---
History & Physical Date of Service Sep 11, 2016. History & Physical CC: Carotid artery stenosis, right side HPI: Ms. Varela states she had no known history of carotid artery disease, although she does have a history of coronary artery disease, which previously required coronary stents as well as a 4-vessel bypass. The patient denies any complaints related to this aside from occasional vertigo or balance issues, but that she has never fallen from it or had any severe problems. The patient states that on a routine followup by her family physician, he was concerned due to hearing "something in her neck" and sent her for an ultrasound. She states that she was referred here a day or two later. She denies any vision changes or amaurosis. She had a CTA which showed a severe right intrernal carotid artery stenosis. She denies facial droop, difficulty speaking or swallowing and unilateral extremity weakness, numbness or tingling. She denies headaches, fevers, chills, dizziness, chest pain, shortness of breath, abdominal pain, nausea, vomiting, diarrhea, constipation, dysuria, hematuria, rest pain, claudication, nonhealing wounds or ulcers or other complaints. ALLERGIES: CODEINE, MORPHINE AND TAPE . HOME MEDICATIONS: Reconciled and include the following: Aspirin, atorvastatin , Centrum Silver, citalopram, Detrol-LA, Flonase, fluconazole, furosemide, hydroxychloroquine, levothyroxine, lorazepam, metoprolol succinate, metoprolol tartrate, Micardis HCT, Nexium, Nitrostat, oxygen at bedtime, potassium chloride , ranitidine, vitamin D3, vitamin E and Voltaren gel. PAST MEDICAL HISTORY: Positive for asthma, anxiety, coronary artery disease status post CABG, liver cirrhosis and fatty liver, dyslipidemia, gastroesophageal reflux disease, hypertension, hypothyroidism, Sjogren's syndrome, osteoarthritis, myocardial infarction, osteopenia, lymphoproliferative disease and vertigo. PAST SURGICAL HISTORY: Positive for colonoscopy, esophageal biopsy, breast biopsy, coronary artery angioplasty with stent insertion, coronary artery bypass graft x4, a second colonoscopy, shave biopsy, tonsillectomy, adenoidectomy and total abdominal hysterectomy and bilateral salpingo- oophorectomy. FAMILY HISTORY: Positive for cancer, LA in her father, COPD, diabetes mellitus , hypertension and varicose veins in her mother. SOCIAL HISTORY: Positive for a past history of tobacco use. The patient used to smoke one pack a day for 20 years and quit in 1983. On physical exam, her vital signs today were as follows: Blood pressure of 138/ 64 in the right, 138/60 in the left, heart rate 58, oxygen 94% on room air. The patient is 160.02 cm tall and weighs 82.6 kilograms. Constitutional: In general, patient is a generally healthy for age appearing, well-nourished, well- developed elderly female in no acute distress. She is active, alert and oriented x4 with normal recent and remote memory. Head is normocephalic, atraumatic. Eyes are EOMI. Her ENMT exam demonstrates no hearing loss, rhinorrhea or pharyngeal erythema. Neck is supple, nontender with midline trachea without masses or crepitus. Lung exam demonstrates no dyspnea. They are decreased somewhat, but clear bilaterally. Cardiovascular exam demonstrates a nondisplaced apical impulse and a regular rate and rhythm. She does have a loud systolic ejection murmur which does radiate to her bilateral carotids. There are no gallops or heaves. Her vascular exam demonstrates normal pulses in her carotid, brachial, radial and femoral pulses. Bilateral lower extremity distal pulses are +2. She has brisk capillary refill and no signs of distal ischemia. The patient does demonstrate bilateral carotid bruits versus radiation of her systolic ejection murmur. She has no abdominal or femoral bruits. Abdomen is soft, nontender with normoactive bowel sounds in all 4 quadrants without guarding or rebound. There is no flank or CVA tenderness. I am unable to appreciate any pulsatile mass. Her bilateral upper extremities demonstrate no cyanosis, edema, clubbing, varicosities or ulcers. Her bilateral lower extremities do demonstrate 1+ edema of her left ankle, which she says is chronic since she had her saphenous vein removed for her bypass. She does have some varicosities, superficial spider varicosities in that area. Neurologic: The patient has grossly intact cranial nerves and grossly intact sensation. There are no focal deficits. Imp: Severe right internal caroitd artery stenosis Plan: Patient is admitted for a RCEA. I have discussed the risks options and benefits of the procedure with the patient. The patient understands the risks options and benefits and agrees to the procedure.
[2016-09-11] MEDS ORDERED: FENTANYL CITRATE INJ 50 MCG/1 ML 2 ML VIAL ONE (06:38)
[2016-09-11] MEDS ORDERED: MIDAZOLAM HCL 1 MG/ML 2ML VIAL ONE (06:38)
[2016-09-11] MEDS ORDERED: LIDOCAINE HCL 1% 20 ML VIAL ONE (07:04)
[2016-09-11] MEDS ORDERED: GELATIN SPONGE SZ 100 ONE (07:04)
[2016-09-11] MEDS ORDERED: BUPIVACAINE/EPINEPHRINE 0.5% MPF 1:200,000 30 ML VIAL ONE (07:04)
[2016-09-11] MEDS ORDERED: THROMBIN FOR SOLN 20000 UNIT KIT ONE (07:04)
[2016-09-11] MEDS ORDERED: HEPARIN SOD (PORCINE) 1000 UNIT/ML 10 ML VIAL ONE ×2 (07:04→09:15)
[2016-09-11] MEDS ORDERED: BACITRACIN 50000 UNIT VIAL ONE (07:05)
[2016-09-11] MEDS ORDERED: CEFAZOLIN SOD 1 GM VIAL ONE (07:10)
[2016-09-11] MEDS: CEFAZOLIN 2000 MG/60 ML D5W IV SCH ×3 (07:30→08:35)
[2016-09-11] MEDS ORDERED: DEXAMETHASONE SOD INJ 4 MG/ML VIAL ONE (08:14)
[2016-09-11] MEDS ORDERED: NITROGLYCERIN 5 MG/ML 10 ML VIAL ONE (08:14)
[2016-09-11] MEDS ORDERED: GLYCOPYRROLATE INJ 0.2 MG/ML VIAL ONE (08:14)
[2016-09-11] MEDS ORDERED: NEOSTIGMINE METHYLSULFATE 5 MG/5 ML SYR ONE (08:14)
[2016-09-11] MEDS ORDERED: ESMOLOL HCL 10 MG/ML 10 ML VIAL ONE (08:14)
[2016-09-11] MEDS ORDERED: LIDOCAINE HCL 2% 2 ML VIAL (20MG/ML) ONE (08:14)
[2016-09-11] MEDS ORDERED: PROPOFOL IV EMULSION 10 MG/ML 20 ML VIAL IV ONE (08:14)
[2016-09-11] MEDS ORDERED: ONDANSETRON INJ 2 MG/ML 2 ML VIAL ONE (08:14)
[2016-09-11] MEDS ORDERED: EpHEDrine SULFATE 50MG/5ML SYR ONE (08:44)
[2016-09-11] MEDS ORDERED: PHENYLEPHRINE HCL INJ 10 MG/ML VIAL ONE (08:44)
[2016-09-11] MEDS ORDERED: FENTANYL CITRATE INJ 50 MCG/1 ML 2 ML VIAL IV PRN (08:45)
[2016-09-11] MEDS ORDERED: EpHEDrine SULFATE INJ 50 MG/ML AMP IV PRN (08:45)
[2016-09-11] MEDS ORDERED: ONDANSETRON INJ 2 MG/ML 2 ML VIAL IV PRN ×2 (08:45→11:00)
[2016-09-11] MEDS ORDERED: PROMETHAZINE HCL INJ 6.25 MG in SODIUM CHLORIDE 0.9% 50ML 50 ML IV PRN (08:45)
[2016-09-11] MEDS ORDERED: ATROPINE SULFATE 0.1 MG/ML 5ML SYR IV PRN (08:45)
[2016-09-11] MEDS ORDERED: LARYING-O-JET KIT (LTA) ONE ×2 (08:50)
[2016-09-11] MEDS ORDERED: SODIUM NITROPRUSSIDE SOLN INJ 50 MG in DEXTROSE 5% 500ML 500 ML IV PRN (10:52)
[2016-09-11] MEDS ORDERED: PHENYLEPHRINE HCL INJ 20 MG in DEXTROSE 5% 500ML 500 ML IV PRN (10:52)
[2016-09-11] MEDS ORDERED: NITROGLYCERIN/D5W 100 MCG/ML 250 ML IV PRN (10:52)
--- NOTE | 2016-09-11 10:52 | [facility] Post Operative Brief Note ---
Immediate Operative Summary Operative Date Sep 11, 2016. Pre-Operative Diagnosis Severe right internal carotid artery stenosis Post-Operative Diagnosis Same as pre-operative Procedure(s) Performed Right carotid endarterectomy with patch graft Surgeon Dr. Serafin Miranda MD Coordinate Measuring Machine Programmer Surgeon(s) Lyndsey Cisneros MD Estimated Blood Loss 80 Findings severe stenosis right ica Specimens Plaque from right carotid artery Anesthesia Gen Complication(s) None Disposition Recovery Room / PACU
[2016-09-11] MEDS ORDERED: LORAZEPAM 0.5 MG TAB PO PRN (11:00)
[2016-09-11] MEDS ORDERED: ACETAMINOPHEN 325 MG TAB PO PRN (11:00)
[2016-09-11] MEDS ORDERED: FUROSEMIDE 40 MG TAB PO PRN (11:00)
[2016-09-11] MEDS ORDERED: METOPROLOL TARTRATE 1 MG/ML VIAL IV PRN (11:00)
[2016-09-11] MEDS ORDERED: MECLIZINE HCL 25 MG TAB PO PRN (11:00)
[2016-09-11] MEDS ORDERED: POTASSIUM CHLORIDE 10 MEQ TABCR PO PRN (11:00)
[2016-09-11] MEDS ORDERED: TRAMADOL HCL 50 MG TAB PO PRN (11:00)
[2016-09-11] MEDS ORDERED: NITROGLYCERIN 0.4 MG SL PER TAB CHARGE UT PRN (11:00)
[2016-09-11] MEDS ORDERED: FLUTICASONE PROPIONATE NA SPR 16 GM BTL NAE PRN (11:00)
--- NOTE | 2016-09-11 11:36 | Anesthesiology Progress Note ---
Anesthesia Post Op Note Date & Time Sep 11, 2016 at 11:34 Vital Signs Pain Intensity: 0 Vital Signs Past 12 Hours Date Time Temp Pulse Resp B/P (MAP) Pulse Ox O2 Delivery O2 Flow Rate FiO2 09/11/16 11:05 63 18 99/58 (72) 96 Mask 10 124/54 09/11/16 10:55 65 15 113/49 92 Mask 10 127/53 09/11/16 10:47 36.8 64 16 116/40 93 Mask 10 09/11/16 06:07 36.9 58 18 128/68 93 Room Air 112/66 Notes Mental Status: alert / awake / arousable, participated in evaluation Pt Amnestic to Procedure: Yes Nausea / Vomiting: adequately controlled Pain: adequately controlled Airway Patency, RR, SpO2: stable & adequate BP & HR: stable & adequate Hydration State: stable & adequate Anesthetic Complications: no major complications apparent Patient had some lower facial asymmetry noted in recovery. Otherwise her neurologic exam was non focal and the patient had no pain or mental status changes. Suspect that this may be temporary due to nerve retraction in the surgical field. Dr Miranda also evaluated the patient in recovery and will follow her clinical course in the ICU/Floor.
--- NOTE | 2016-09-11 11:49 | OPERATIVE REPORT ---
DATE OF OPERATION: 09/11/2016 PREOPERATIVE DIAGNOSIS: Severe right internal carotid artery stenosis. POSTOPERATIVE DIAGNOSIS: Severe right internal carotid artery stenosis. PROCEDURE: Right carotid endarterectomy with [place] Acuseal patch angioplasty. SURGEON: Dr. Serafin Miranda. TOBACCO DRYING MACHINE OPERATOR: Dr. Maria Elena Cisneros. ESTIMATED BLOOD LOSS: 80 mL. COMPLICATIONS: None. CONDITION: Stable. INDICATIONS: Mrs. Yulisa Varela is a 76-year-old woman with history of asthma, anxiety, coronary artery disease, status post CABG, cirrhosis, hyperlipidemia, GERD, hypertension, hypothyroidism, Sjogren's syndrome, [place], osteopenia, lymphoproliferative disease, vertigo, and asymptomatic severe right internal carotid artery stenosis. Given that she has progressed to severe right-sided carotid stenosis she was recommended to undergo right carotid endarterectomy for prevention of stroke. Risks, benefits and alternatives to the procedure were discussed with the patient and she consented to the procedure. DESCRIPTION OF PROCEDURE: The patient was taken to the operating room and placed in a supine position. General anesthesia was induced by our anesthesia colleagues and a right-sided A-line was placed in her radial artery. The patient's right neck and chest were prepped and draped in the usual sterile fashion. A safety timeout was performed and the patient, procedure, and side were all correctly identified. An incision was made along the anterior border of the right sternocleidomastoid muscle. Electrocautery was used to dissect through subcutaneous tissues. The platysma was divided. The sternocleidomastoid was identified. Dissection was continued along the anterior border of the sternocleidomastoid and the internal jugular was identified. We entered the carotid sheath and identified the common carotid artery. We extended our dissection more proximally and identified the facial vein which was ligated and divided with 2-0 silk ties. The external carotid, superior thyroid, and internal carotid, and common carotid were all dissected circumferentially. A 2-0 silk tie was used to control the superior thyroid artery, a red vessel loop was placed around the external carotid artery. The patient was systemically heparinized with 7000 units of IV heparin. After approximately 5 minutes, clamps were placed on first the internal carotid, then common carotid, then external carotid artery was controlled with the vessel loops. An 11 blade scalpel was used to make a longitudinal arteriotomy. This was extended with Park scissors. A shunt with Doppler cord was brought onto the field and placed into the internal carotid artery through the arteriotomy and at the previously placed clamp was replaced with a [place] clamp. There was brisk backbleeding from the internal carotid through the shunt. The distal end of the shunt was then placed into the common carotid artery and the previously placed clamp was exchanged for a [place] clamp as well. The Doppler cord was connected and there appeared to be good flow through the shunt. We then extended our arteriotomy proximally and distally. We turned our attention to the plaque. A plaque elevator was used to remove the carotid plaque which appeared focal. There were no signs of hemorrhage or ulceration. Following plaque removal, the artery was flushed with heparinized saline and any small areas of plaque were removed. At the proximal aspect of the internal carotid there was an area of plaque that was difficult to remove. A 7-0 stitch was placed to tack this area of plaque to the artery wall. The artery was flushed again and there did not appear to be any residual loose plaque. An Acuseal patch was brought onto the field. This was sewn into place using a Brisbane-Chaka CV6 suture beginning at the internal carotid. A second CV [place]-Chaka suture was brought onto the field and used to secure the distal end of the patch to the common carotid artery. The anastomosis was completed in a 4 quadrant fashion. When we were near completion of the lateral aspect of the patch, the shunt was removed and all arteries were back bled. There appeared to be good backbleeding from all arteries. The patch was completed and Gelfoam and thrombin was used to control small bleeding from needle holes. There was a good pulse in the patch following completion. The wound was irrigated and appeared hemostatic. The platysma was closed with 3-0 Vicryl. Skin was reapproximated with 4-0 Vicryl in a running subcuticular fashion. Dermabond skin glue was applied to the surgical incision. The patient was awakened from anesthesia and was moving all 4 extremities and following commands in all 4 extremities. Her tongue protruded midline. She appeared to have tolerated the procedure well and was in stable condition. She was transferred to the postanesthesia care unit for further monitoring. Dr. Serafin Miranda was present and scrubbed for the entire procedure. I, Dr. Miranda was present and scrubed for the entire procedure. I attest to the content of the Intraoperative Record and any orders documented therein. Any exceptions are noted below. MTDD
[2016-09-11] MEDS: CEFAZOLIN IV 2,000 MG in DEXTROSE 5% 50ML 50 ML IV SCH ×2 (14:01→21:38)
[2016-09-11] MEDS: D5W AND 1/2NSS 1,000 ML IV SCH ×2 (14:11→21:38)
--- NOTE | 2016-09-11 16:22 | Critical Care Consultation ---
Critical Care Consultation Date of Consultation: Sep 11, 2016. Attending Physician: Serafin Miranda M.D. Reason for Consultation: Post-CEA, ICU Management History of Present Illness Mrs Varela is a 76 yo F with known CAD s/p CABG in 2000 and known carotid artery stenosis, who underwent R carotid endartectomy with Dr Miranda today. She denies any pain or concerns. She had some numbness in her hand after the procedure initially but this has resolved now. She has no weakness in her arms or legs otherwise. Past Medical/Surgical History Medical Problems: (1) Asthma (2) Bronchitis (3) CAD (coronary artery disease) (4) ITP (idiopathic thrombocytopenic purpura) (5) Lymphadenopathy (6) FL (myocardial infarction) (7) Sj gren's syndrome (8) Splenomegaly (9) Stenosis of right internal carotid artery Surgical Problems: (1) H/O hysterectomy with oophorectomy (2) CABG x 4 Family History Diabetes mellitus Heart disease Hypertension Lung disease Social History Smoking Status: Former Smoker Drug Use: none Marital Status: Housing Status: lives with family Occupation Status: retired Allergies Coded Allergies: Ciprofloxacin (Verified Allergy, Intermediate, RASH, 09/11/16) patient gets a periorbital redness and discharge from the tear ducts Meperidine (Verified Allergy, Mild, NAUSEA AND VOMITING, 09/11/16) Morphine (Verified Allergy, Mild, NAUSEA AND VOMITING, 09/11/16) Adhesives (Verified Allergy, Unknown, ADHESIVE TAPE-BLISTERS, 09/11/16) Clindamycin (Unverified Allergy, Unknown, per PCP records , 09/11/16) Codeine (Unverified Allergy, Unknown, Nausea, 09/11/16) Oxycodone (Verified Adverse Reaction, Severe, NAUSEA/VOMITING, 09/11/16) CAN ONLY TAKE TYLENOL FOR PAIN Home Medications Scheduled Aspirin (Aspir-81), 1 TAB PO QAM Atorvastatin (Lipitor), 40 MG PO HS Cholecalciferol (Vitamin D3), 3,000 UNITS PO QAM Citalopram Hydrobromide (Celexa), 20 MG PO HS Esomeprazole Magnesium (Nexium), 40 MG PO QAM Hydroxychloroquine Sulfate (Plaquenil), 400 MG PO QPM Levothyroxine Sodium (Levothyroxine Sodium), 1 TAB PO QAM Metoprolol Tartrate (Lopressor) (Lopressor), 1 TAB PO QAM Metoprolol Tartrate (Lopressor) (Lopressor), 50 MG PO QPM Nitroglycerin (Nitrostat), 0.4 MG UT PRN Oxygen (Oxygen), 2 LITERS NA HS Ranitidine Hcl (Zantac), 300 MG PO HS Telmisartan/Hctz (Micardis Hct 40MG/12.5MG), 1 TAB PO QAM Tolterodine Tartrate (Detrol La), 4 MG PO QAM Vitamin E (E-400), 400 UNITS PO QAM Scheduled PRN Fluticasone Propionate (Nasal) (Flonase Allergy Relief), 1 SPRAY KRISTAL QAM PRN for RN Furosemide (Lasix), 40 MG PO DAILY PRN for SWELLING Lorazepam (Lorazepam), 1 TAB PO HS PRN for Anxiety Meclizine Hcl (Meclizine Hcl), 1 TAB PO TID PRN for N Potassium Chloride (Micro-K Ext Rel), 10 MEQ PO DAILY PRN PRN for WITH FUROSEMIDE Tramadol (Ultram), 50 MG PO Q8H PRN for Pain Current Inpatient Medications Current Inpatient Medications Medications (Trade) Dose Ordered Sig/Luis Route Start Time Stop Time Status Last Admin Dose Admin Cefazolin Sodium 60 ml @ 100 mls/hr PREOP IV 09/11/16 06:00 09/11/16 18:00 09/11/16 07:50 100 MLS/HR Sodium Chloride 1,000 ml @ 80 mls/hr [id number] IV 09/11/16 06:00 09/11/16 18:00 Lactated Ringer's 1,000 ml @ 15 mls/hr Q24H IV 09/11/16 06:00 09/11/16 18:00 Acetaminophen (Tylenol Tab) 650 mg Q4H PRN PO 09/11/16 11:00 10/11/16 10:59 Ondansetron HCl (Zofran Inj) 4 mg Q6H PRN IV 09/11/16 11:00 10/11/16 10:59 Cefazolin Sodium 2000 mg/Dextrose 60 ml @ 100 mls/hr Q8H IV 09/11/16 14:00 09/11/16 22:35 09/11/16 14:01 100 MLS/HR Metoprolol Tartrate (Lopressor Iv) 5 mg Q10M PRN IV 09/11/16 11:00 10/11/16 10:59 Nitroglycerin/ Dextrose 250 ml @ 0 mls/hr Q0M PRN IV 09/11/16 10:52 10/11/16 10:51 Sodium Nitroprusside 50 mg/Dextrose 502 ml @ 0 mls/hr Q0M PRN IV 09/11/16 10:52 10/11/16 10:51 Dextrose/Sodium Chloride 1,000 ml @ 125 mls/hr Q8H IV 09/11/16 13:30 10/11/16 10:51 09/11/16 14:11 125 MLS/HR Phenylephrine HCl 20 mg/Dextrose 502 ml @ 0 mls/hr Q0M PRN IV 09/11/16 10:52 10/11/16 10:51 Tramadol HCl (Ultram Tab) 50 mg Q4H PRN PO 09/11/16 11:00 10/11/16 10:59 Aspirin (Ecotrin Tab) 81 mg QAM PO 09/12/16 09:00 10/12/16 08:59 Atorvastatin Calcium (Lipitor Tab) 40 mg HS PO 09/11/16 21:00 10/11/16 20:59 Cholecalciferol (Vitamin D Tab) 3,000 inter.unit QAM PO 09/12/16 09:00 10/12/16 08:59 Citalopram Hydrobromide (celeXA TAB) 20 mg HS PO 09/11/16 21:00 10/11/16 20:59 Fluticasone Propionate (Flonase Nasal [place]) 1 sprays QAM PRN KRISTAL 09/11/16 11:00 10/11/16 10:59 Furosemide (Lasix Tab) 40 mg DAILY PRN PO 09/11/16 11:00 10/11/16 10:59 Hydroxychloroquine Sulfate (Plaquenil Tab) 400 mg QPM PO 09/11/16 21:00 10/11/16 20:59 Levothyroxine Sodium (Synthroid Tab) 150 mcg DAILYBB PO 09/12/16 06:00 10/12/16 05:59 Lorazepam (Ativan Tab) 0.5 mg HS PRN PO 09/11/16 11:00 10/11/16 10:59 Meclizine HCl (Antivert Tab) 25 mg TID PRN PO 09/11/16 11:00 10/11/16 10:59 Metoprolol Tartrate (Lopressor Tab) 25 mg QAM PO 09/12/16 09:00 10/12/16 08:59 Metoprolol Tartrate (Lopressor Tab) 50 mg QPM PO 09/11/16 21:00 10/11/16 20:59 Nitroglycerin (Nitrostat Tab) 0.4 mg PRN PRN UT 09/11/16 11:00 10/11/16 10:59 Potassium Chloride (Klor-Con M10) 10 meq DAILY PRN PO 09/11/16 11:00 10/11/16 10:59 Ranitidine HCl (zANTac TAB) 300 mg HS PO 09/11/16 21:00 10/11/16 20:59 Tolterodine Tartrate (Detrol LA Cap) 4 mg QAM PO 09/12/16 09:00 10/12/16 08:59 eg-Lvmns-Agxpdojalt Acetate (Vitamin E Cap) 400 interunit QAM PO 09/12/16 09:00 10/12/16 08:59 Pantoprazole Sodium (Protonix Tab) 40 mg QAM PO 09/12/16 09:00 10/12/16 08:59 Telmisartan (Micardis Tab) 40 mg QAM PO 09/12/16 09:00 10/12/16 08:59 Hydrochlorothiazide (Hydrochlorothiazide Tab) 12.5 mg QAM PO 09/12/16 09:00 10/12/16 08:59 Review of Systems Constitutional: No fever, No chills, No sweats, No weight loss, No weakness Eyes: No worsening of vision ENT: No hearing loss Respiratory: No cough, No sputum, No shortness of breath, No dyspnea on exertion, No dyspnea at rest Cardiovascular: No chest pain, No edema Abdomen: No pain, No nausea, No vomiting, No diarrhea Musculoskeletal: No joint pain Genitourinary - Female: No dysuria, No hematuria Neurologic: No memory loss, No weakness, No numbness/tingling, No vertigo Psychiatric: No depression symptoms, No anxiety Endocrine: No fatigue Hematologic / Lymphatic: No abnormal bleeding/bruising Integumentary: No rash Allergic / Immunologic: No environmental allergies Physical Exam Date Time Temp Pulse Resp B/P (MAP) Pulse Ox O2 Delivery O2 Flow Rate FiO2 09/11/16 14:00 36.5 64 22 99/52 (68) 93 4.0 09/11/16 12:15 62 13 107/53 (68) 97 Nasal Cannula 4 97/41 (60) 09/11/16 12:00 58 15 104/48 (67) 97 Nasal Cannula 4 95/42 (58) 09/11/16 11:45 62 13 121/52 94 Nasal Cannula 4 96/66 (72) 09/11/16 11:35 36.8 57 12 108/49 96 Nasal Cannula 4 109/46 (68) 09/11/16 11:25 63 15 111/56 93 Nasal Cannula 4 94/65 (74) 09/11/16 11:15 60 16 92 Nasal Cannula 4 115/52 (73) 09/11/16 11:05 63 18 99/58 (72) 96 Mask 10 124/54 09/11/16 10:55 65 15 113/49 92 Mask 10 127/53 09/11/16 10:47 36.8 64 16 116/40 93 Mask 10 09/11/16 06:07 36.9 58 18 128/68 93 Room Air 112/66 GENERAL: Awake, alert, well-appearing, in no acute distress, ice pack over R neck HENT: Normocephalic, atraumatic. Oropharynx unremarkable. EYES: Normal conjunctiva. Sclera non-icteric. NECK: Supple. No nuchal rigidity. FROM. No JVD. RESPIRATORY: Clear to auscultation. CARDIAC: Regular rate, normal rhythm. Extremities warm and well perfused. Pulses equal. ABDOMEN: Soft, non-distended. No tenderness to palpation. No rebound or guarding. No masses. MUSCULOSKELETAL: Chest examination reveals no tenderness. The back is symmetrical on inspection without obvious abnormality. There is no CVA tenderness to palpation. No joint edema. LOWER EXTREMITIES: Calves are equal size bilaterally and non-tender. No edema. No discoloration. NEURO: Normal sensorium. No sensory or motor deficits noted. SKIN: No rash or jaundice noted. Assessment & Plan NEURO: No pain, no concerns about mental status CVS: Telemetry monitoring overnight Home meds restarted GI: Resume regular diet as tolerated ENDO: BSG AC and HS ID: Cefazolin post-op x 2 doses RENAL: D5NS at 125mL/hour CODE STATUS: FULL DISPO: Monitor in telemetry overnight Resident Physician Supervision Note: Dr. Lakhani was resident physician during care of patient. I separately evaluated patient and did history and exam. I discussed the case with the resident and generally agree with the findings and plan. Routine post-op management Documented By: Michael Tim DO Resident Tracking Resident Involvement: Resident Care Provided Care Provided: Adult [facility]
[2016-09-11] MEDS ORDERED: RANITIDINE HCL 150 MG TAB PO SCH (21:00)
[2016-09-11] MEDS ORDERED: CITALOPRAM 20 MG TAB PO SCH (21:00)
[2016-09-11] MEDS ORDERED: METOPROLOL TARTRATE 50 MG TAB PO SCH (21:00)
[2016-09-11] MEDS ORDERED: ATORVASTATIN 40 MG TAB PO SCH (21:00)
[2016-09-11] MEDS ORDERED: HYDROXYCHLOROQUINE SULFATE 200 MG TAB PO SCH (21:00)
[2016-09-12] VITALS (9 sets, daily range): BP systolic 104–139; BP diastolic 45–59; PULSE 52–58; TEMP 36.5; O2SAT 93–97
[2016-09-12 05:46] LABS: HEMATOCRIT 31.9 % (37-47); MEAN CELL VOLUME 88.9 fL (80-100); MEAN CORPUSCULAR HGB CONC 32.6 g/dl (32-36); RED BLOOD COUNT 3.59 M/uL (4.2-5.4)
--- NOTE | 2016-09-12 05:57 | Critical Care Progress Note ---
Critical Care Progress Note Date of Service Sep 12, 2016. ICU Day ICU Day Number: [address] Tim Subjective No acute events over night. Pt remains stable s/p Right CEA by Dr. Miranda. Pt was out of bed and walked around the ICU twice overnight. She has been up to urinate regularly as well overnight without dizziness or lightheadedness. Pt denies fever, chills, chest pain or trouble breathing. Does complain of 4/10 throat pain with swallowing. She refuses pain medications; stating she can handle what minimal discomfort she has. Objective Vital Signs - as noted Laboratory Data - as noted Physical Exam: General - NAD, resting comfortably in bed Eyes - PERRL, EOMI No icterus, gaze conjugate ENT - Mucosa moist, no lesions or candidiasis Neck - Supple, trachea midline, no masses or lymphadenopathy, no JVD or bruits, CEA incision dry and intact, minimal swelling noted Lungs - No paradoxical chest wall movement, clear to auscultation bilaterally, no wheezes, rales, or rhonchi Heart - Reg rate and rhythm, No murmur, rubs, clicks, or gallops appreciated Abdomen - BS present, no bruits noted, tympanic to percussion, soft, mild chronic tenderness to LUQ (enlarged spleen noted), nondistended Extremities - No edema, pedal pulses intact Neuro - A&O X 4 Strength extremities equal and appropriate bilaterally Reflexes: normal and equal CN:PERRL, EOMI, no facial asymmetry, uvula/tongue midline Current SOFA Score SOFA Score Response (Comments) Value Platelets (x10) < 150 1 Bilirubin (mg/dL) < 1.2 0 Sherita Coma Score 15 0 Level of Hypotension No Hypotension 0 Creatinine (mg/dL) < 1.2 0 Total 1 Assessment & Plan Neuro: * No acute changes overnight * No unilateral symptoms * Pain well controlled Pulm: * Pt on room air and clear * Monitor Saturations * Supplemental O2 as needed Cards: * NSR with occasional asymptomatic bradycardia overnight * Hemodynamically stable * Continue home medications: * ASA * Lipitor * Lopressor * Nitro * Monitor on telemetry : * Adequate UOP; continue to monitor output * D5 1/2nss @ 125mL/hr * Follow daily labs * Continue home medications as documented in chart Endocrine: * Hypothyroidism * Continue home dose of Levothyroxine GI: * Tolerating diet well * Monitor for BM * Continue home Ranitidine dose * GI Prophylaxis: Not indicated but on home H2 Vikram I.D.: * Prophylactic david-surgical antibiotics given. * Completed Cefazolin 2g * Monitor fever curve * Monitor daily CBC Heme: * H&H stable; review today's AM labs * DVT Prophylaxis: SCDs in place Access: [address] Disposition: Stable for downgrading CCT: 0minutes Level 2 In-patient Billing; Not including any billable procedures. Thank you for including us in the care of this patient. Please review Dr. Michael Tim's addendum for further recommendations. I have personally evaluated and examined this patient. I agree with assessment and plan of Timmy Dewey home today after discussion with Dr. Miranda Consults & Procedures Consultants: None Procedures: Arterial Line placed in O.R. 09/11/16 [Removed prior to ICU transfer] Data Medications: Current Inpatient Medications Medications (Trade) Dose Ordered Sig/Luis Route Start Time Stop Time Status Last Admin Dose Admin Acetaminophen (Tylenol Tab) 650 mg Q4H PRN PO 09/11/16 11:00 10/11/16 10:59 Ondansetron HCl (Zofran Inj) 4 mg Q6H PRN IV 09/11/16 11:00 10/11/16 10:59 Metoprolol Tartrate (Lopressor Iv) 5 mg Q10M PRN IV 09/11/16 11:00 10/11/16 10:59 Nitroglycerin/ Dextrose 250 ml @ 0 mls/hr Q0M PRN IV 09/11/16 10:52 10/11/16 10:51 Sodium Nitroprusside 50 mg/Dextrose 502 ml @ 0 mls/hr Q0M PRN IV 09/11/16 10:52 10/11/16 10:51 Dextrose/Sodium Chloride 1,000 ml @ 125 mls/hr Q8H IV 09/11/16 13:30 10/11/16 10:51 09/11/16 21:38 125 MLS/HR Phenylephrine HCl 20 mg/Dextrose 502 ml @ 0 mls/hr Q0M PRN IV 09/11/16 10:52 10/11/16 10:51 Tramadol HCl (Ultram Tab) 50 mg Q4H PRN PO 09/11/16 11:00 10/11/16 10:59 Aspirin (Ecotrin Tab) 81 mg QAM PO 09/12/16 09:00 10/12/16 08:59 Atorvastatin Calcium (Lipitor Tab) 40 mg HS PO 09/11/16 21:00 10/11/16 20:59 09/11/16 20:22 40 MG Cholecalciferol (Vitamin D Tab) 3,000 inter.unit QAM PO 09/12/16 09:00 10/12/16 08:59 Citalopram Hydrobromide (celeXA TAB) 20 mg HS PO 09/11/16 21:00 10/11/16 20:59 09/11/16 20:22 20 MG Fluticasone Propionate (Flonase Nasal [place]) 1 sprays QAM PRN KRISTAL 09/11/16 11:00 10/11/16 10:59 Furosemide (Lasix Tab) 40 mg DAILY PRN PO 09/11/16 11:00 10/11/16 10:59 Hydroxychloroquine Sulfate (Plaquenil Tab) 400 mg QPM PO 09/11/16 21:00 10/11/16 20:59 09/11/16 20:21 400 MG Levothyroxine Sodium (Synthroid Tab) 150 mcg DAILYBB PO 09/12/16 06:00 10/12/16 05:59 Lorazepam (Ativan Tab) 0.5 mg HS PRN PO 09/11/16 11:00 10/11/16 10:59 Meclizine HCl (Antivert Tab) 25 mg TID PRN PO 09/11/16 11:00 10/11/16 10:59 Metoprolol Tartrate (Lopressor Tab) 25 mg QAM PO 09/12/16 09:00 10/12/16 08:59 Metoprolol Tartrate (Lopressor Tab) 50 mg QPM PO 09/11/16 21:00 10/11/16 20:59 Nitroglycerin (Nitrostat Tab) 0.4 mg PRN PRN UT 09/11/16 11:00 10/11/16 10:59 Potassium Chloride (Klor-Con M10) 10 meq DAILY PRN PO 09/11/16 11:00 10/11/16 10:59 Ranitidine HCl (zANTac TAB) 300 mg HS PO 09/11/16 21:00 10/11/16 20:59 09/11/16 20:22 300 MG Tolterodine Tartrate (Detrol LA Cap) 4 mg QAM PO 09/12/16 09:00 10/12/16 08:59 za-Qsoef-Dxruyrweuh Acetate (Vitamin E Cap) 400 interunit QAM PO 09/12/16 09:00 10/12/16 08:59 Pantoprazole Sodium (Protonix Tab) 40 mg QAM PO 09/12/16 09:00 10/12/16 08:59 Telmisartan (Micardis Tab) 40 mg QAM PO 09/12/16 09:00 10/12/16 08:59 Hydrochlorothiazide (Hydrochlorothiazide Tab) 12.5 mg QAM PO 09/12/16 09:00 10/12/16 08:59 Vital Signs: Date Time Temp Pulse Resp B/P (MAP) Pulse Ox O2 Delivery O2 Flow Rate FiO2 09/12/16 04:02 36.5 57 26 135/59 (84) 96 2.0 09/12/16 04:00 96 Nasal Cannula 2.0 09/12/16 03:02 58 13 104/46 (65) 95 09/12/16 02:02 58 21 139/59 (85) 96 09/12/16 01:02 55 14 107/51 (69) 94 09/12/16 00:02 36.5 57 16 107/49 94 09/12/16 00:02 36.5 57 19 107/49 (68) 94 09/11/16 23:59 96 Nasal Cannula 3.0 09/11/16 23:02 57 16 125/53 (77) 96 2.0 09/11/16 22:00 55 20 111/48 (69) 94 Nasal Cannula 3.0 09/11/16 20:00 36.4 58 18 125/61 (82) 96 Nasal Cannula 3.0 09/11/16 20:00 96 Nasal Cannula 3.0 09/11/16 18:00 36.5 56 16 110/50 (70) 96 Nasal Cannula 4.0 09/11/16 16:00 36.5 66 22 97/47 (64) 93 Nasal Cannula 4.0 09/11/16 16:00 Nasal Cannula 4.0 09/11/16 14:00 36.5 64 22 99/52 (68) 93 4.0 09/11/16 12:15 62 13 107/53 (68) 97 Nasal Cannula 4 97/41 (60) 09/11/16 12:00 58 15 104/48 (67) 97 Nasal Cannula 4 95/42 (58) 09/11/16 11:45 62 13 121/52 94 Nasal Cannula 4 96/66 (72) 09/11/16 11:35 36.8 57 12 108/49 96 Nasal Cannula 4 109/46 (68) 09/11/16 11:25 63 15 111/56 93 Nasal Cannula 4 94/65 (74) 09/11/16 11:15 60 16 92 Nasal Cannula 4 115/52 (73) 09/11/16 11:05 63 18 99/58 (72) 96 Mask 10 124/54 09/11/16 10:55 65 15 113/49 92 Mask 10 127/53 09/11/16 10:47 36.8 64 16 116/40 93 Mask 10 09/11/16 06:07 36.9 58 18 128/68 93 Room Air 112/66 Laboratory Results: Last 24 Hours Test 09/11/16 17:09 09/11/16 20:34 09/12/16 04:44 Bedside Glucose 201 mg/dl 143 mg/dl
[2016-09-12] MEDS ORDERED: LEVOTHYROXINE 150 MCG TAB PO SCH (06:00)
[2016-09-12 06:18] LABS: MEAN PLATELET VOLUME 10.4 fL (7.4-10.4); PLATELET COUNT 92 K/uL (130-400)
[2016-09-12 06:22] LABS: BUN/CREATININE RATIO 17.1 (10-20); CREATININE 0.74 mg/dl (0.60-1.20); MAGNESIUM 2.1 mg/dl (1.8-2.4); POTASSIUM 3.9 mmol/L (3.5-5.1)
[2016-09-12 06:23] LABS: PHOSPHORUS 3.3 mg/dl (2.5-4.9); PLT ESTIMATE DECREASED
[2016-09-12] MEDS: D5W AND 1/2NSS 1,000 ML IV SCH (06:28)
[2016-09-12] MEDS ORDERED: TRAM-10 PO (07:46)
--- NOTE | 2016-09-12 07:48 | Discharge Instructions ---
Discharge Instructions Date of Service Sep 12, 2016. Admission Reason for Admission: Right Internal Carotid Artery Stenosis Discharge Discharge Diagnosis / Problem: Right internal carotid artery stenosis, post endarterectomy Discharge Goals Goal(s): Therapeutic intervention Activity Recommendations Activity Limitations: per Instructions/Follow-up section Lifting Limitations: no more than 25 pounds Exercise/Sports Limitations: gradually increase as tolerated Shower/Bathe: no limitations Driving or Machine Use: resume 3 days after discharge . Instructions / Follow-Up Instructions / Follow-Up Call [phone] to schedule a follow up appointment if one not already scheduled. SPECIAL CARE INSTRUCTIONS: Medications: * Continue to take Aspirin as directed. Incision Care: * You may shower, but do not rub incision. You may let the warm soapy water run over it. Be sure to dry the incision well after bathing. * Do not shave directly over the incision until it is healed. * DO NOT IMMERSE THE INCISION IN A TUB/POOL/etc. UNTIL HEALED. Restrictions: * Do not drive for at least one week or if you are still taking any narcotic pain medication. * Do not lift anything heavier than a gallon of milk for one week after going home. Possible Complications: * Numbness - It is normal to have some numbness around the incision. Numbness can extend beyond the incision to areas of the neck, ear and face. The numbness is due to bruising of nerves during the surgery and will gradually improve over a period of months. * Hoarseness/Difficulty Speaking and Swallowing - The bruising of nerves in the neck can also cause a hoarse voice, difficulty speaking or swallowing. This may improve over time, HOWEVER, if it continues for more than a few days please contact our office ([phone]). * Excessive Swelling - There will be some swelling immediately after surgery which usually resolves within one week. If you notice that the swelling is getting worse, notify your surgeon ([phone]). * Drainage/Bleeding - If there is any drainage or bleeding, it should be a very small amount (less than a teaspoon per day). If you have excessive bleeding or drainage from the incision, call your surgeon ([phone]) right away. ACTIVATION OF EMERGENCY MEDICAL SYSTEM: Call [phone], immediately, if you experience any of the following: Warning Signs and Symptoms of Stroke: * Sudden numbness or weakness of the face, arm or leg, especially on one side of the body * Sudden confusion, trouble speaking or understanding * Sudden trouble seeing in one or both eyes * Sudden trouble walking, dizziness, loss of balance or coordination * Sudden severe headache with no cause Do not delay calling 911 if you experience any warning signs or symptoms of a stroke. Delay in seeking medical attention may affect what treatments can be given to you. Risk Factors for Stroke: You can reduce your chances of stroke by working with your medical provider to adopt a healthy lifestyle. Some specific ways to lower your chance of stroke are: * If you are a smoker, now is the time to stop smoking cigarettes * If you are diabetic, improve the control of your blood sugars * Avoid excessive amounts of alcohol * Control high blood pressure * Lose weight if you are overweight * Be sure to lead an active lifestyle * Eat a healthy diet low in salt, cholesterol and fat You should know about other risk factors for stroke that you are unable to control. These include: * Age 55 years or older * Male gender * Certain racial groups: , or / * Family History of Stroke, Mini stroke or Heart Attack * Sickle Cell Disease You will be receiving a call from the Vascular Surgery Nurse after you are discharged. FOLLOW UP VISIT: It is important for you to keep your follow up appointments with your medical provider. Keep any scheduled doctor appointments. Current Hospital Diet Patient's current hospital diet: AHA Diet (Heart Healthy) Discharge Diet Recommended Diet: AHA Diet (Heart Healthy) Procedures Procedures Performed: Right carotid endarterectomy with patch graft Pending Studies Studies pending at discharge: no Medical Emergencies . Who to Call and When: Medical Emergencies: If at any time you feel your situation is an emergency, please call 911 immediately. . Non-Emergent Contact Non-Emergency issues call your: Surgeon . "Provider Documentation" section prepared by Serafin Miranda. . VTE Core Measure Inpt VTE Proph given/why not?: SCD's
--- NOTE | 2016-09-12 07:53 | Progress Note ---
Progress Note Date of Service: Sep 12, 2016. Subjective Awake and alert. No complaints. Swallowing without difficulty Problem List Medical Problems: (1) Dizziness Status: Acute (2) UTI (urinary tract infection) Status: Acute Objective Vital Signs Vital Signs Past 12 Hours Date Time Temp Pulse Resp B/P (MAP) Pulse Ox O2 Delivery O2 Flow Rate FiO2 09/12/16 06:00 52 16 119/45 (69) 97 Room Air 09/12/16 04:02 36.5 57 26 135/59 (84) 96 2.0 09/12/16 04:00 96 Nasal Cannula 2.0 09/12/16 03:02 58 13 104/46 (65) 95 09/12/16 02:02 58 21 139/59 (85) 96 09/12/16 01:02 55 14 107/51 (69) 94 09/12/16 00:02 36.5 57 16 107/49 94 09/12/16 00:02 36.5 57 19 107/49 (68) 94 09/11/16 23:59 96 Nasal Cannula 3.0 09/11/16 23:02 57 16 125/53 (77) 96 2.0 09/11/16 22:00 55 20 111/48 (69) 94 Nasal Cannula 3.0 09/11/16 20:00 36.4 58 18 125/61 (82) 96 Nasal Cannula 3.0 09/11/16 20:00 96 Nasal Cannula 3.0 Exam VSS Afebrile Incision clean and dry. Minimal swelling. No neuro deficits. Laboratory and Microbiology Results Past 24 Hours Test 09/11/16 17:09 09/11/16 20:34 09/12/16 05:15 Range/Units Bedside Glucose 201 143 70-90 mg/dl White Blood Count 5.90 4.8-10.8 K/uL Red Blood Count 3.59 4.2-5.4 M/uL Hemoglobin 10.4 12.0-16.0 g/dL Hematocrit 31.9 37-47 % Mean Corpuscular Volume 88.9 80-100 fL Mean Corpuscular Hemoglobin 29.0 25-34 pg Mean Corpuscular Hemoglobin Concent 32.6 32-36 g/dl RDW Standard Deviation 44.5 36.4-46.3 fL RDW Coefficient of Variation 13.7 11.5-14.5 % Platelet Count 92 130-400 K/uL Mean Platelet Volume 10.4 7.4-10.4 fL Platelet Estimate DECREASED Sodium Level 139 136-145 mmol/L Potassium Level 3.9 3.5-5.1 mmol/L Chloride Level 103 98-107 mmol/L Carbon Dioxide Level 32 21-32 mmol/L Anion Gap 4.0 3-11 mmol/L Blood Urea Nitrogen 13 7-18 mg/dl Creatinine 0.74 0.60-1.20 mg/dl Est Creatinine Clear Calc Drug Dose 64.0 ml/min Estimated GFR () 89.9 Estimated GFR (Non- 77.6 BUN/Creatinine Ratio 17.1 10-20 Random Glucose 127 70-99 mg/dl Calcium Level 8.0 8.5-10.1 mg/dl Phosphorus Level 3.3 2.5-4.9 mg/dl Magnesium Level 2.1 1.8-2.4 mg/dl Microbiology Results 09/11/16 MRSA DNA Surveillance Screen - Final, Complete Specimen Negative for MRSA by DNA Probe Imp: Post right CEA Plan: Patient doing well. Will d/c today.
[2016-09-12] MEDS ORDERED: PANTOprazole SOD 40 MG TAB PO SCH (09:00)
[2016-09-12] MEDS ORDERED: HCTZ PO SCH (09:00)
[2016-09-12] MEDS ORDERED: CHOLECALCIFEROL 1000 INTER.UNIT TAB PO SCH (09:00)
[2016-09-12] MEDS ORDERED: TOCOPHERYL, DL-ALPHA 400 INTER.UNIT CAP PO SCH (09:00)
[2016-09-12] MEDS ORDERED: TELMISARTAN 40 MG TAB PO SCH (09:00)
[2016-09-12] MEDS ORDERED: METOPROLOL TARTRATE 25 MG TAB PO SCH (09:00)
[2016-09-12] MEDS ORDERED: TOLTERODINE TARTRATE LA 4 MG CAPCR PO SCH (09:00)
[2016-09-12] MEDS ORDERED: ASPIRIN 81 MG ECTAB PO SCH (09:00)
[2016-09-12] MEDS ORDERED: HYDROCHLOROTHIAZIDE 25 MG TAB PO SCH (09:00)
[2016-09-12] MEDS ORDERED: TELMISARTAN PO SCH (09:00)
--- NOTE | 2016-09-13 13:15 | DISCHARGE SUMMARY ---
ADMISSION DIAGNOSIS: Severe right internal carotid artery stenosis. DISCHARGE DIAGNOSES: 1. Status post right carotid endarterectomy with patch. 2. Severe right internal carotid artery stenosis. DISCHARGE CONDITION: Stable. CONSULTATIONS IN THE HOSPITAL: Included a critical care during her overnight stay there. PROCEDURE IN THE HOSPITAL: Included: 1. Right carotid endarterectomy with patch which was performed on 09/11/2016 and was performed without any significant complications. She did have an EBL of 80 mL. HISTORY OF PRESENT ILLNESS: Ms. Varela is a 76-year-old female who initially presented to our office due to asymptomatic right internal carotid artery stenosis which was noted on a recent testing. The patient stated that she had had an ultrasound performed after her family physician, heard "something in her neck" and sent her for ultrasound, the ultrasound demonstrated severe stenosis and she underwent a CTA evaluation for verification. She did not have any symptoms at that time. She specifically denied any severe headaches, unilateral weakness, numbness or tingling, vision changes or amaurosis, or other complaints. She was recommended to consider undergoing her right carotid endarterectomy due to over 90% stenosis of her right internal carotid artery. The procedure, risks, benefits, alternatives were discussed with the patient. She expressed understanding and agreement to proceed. HOSPITAL COURSE: The patient was admitted on 09/11/2016 after undergoing her right carotid endarterectomy. This was performed without any significant complications and an EBL of 80 mL. Her labs remained essentially stable. Her vital signs remained stable as well postoperatively. She did generally well. She increased her activity level. Her pain was under good control. She had neurological deficits and was felt to be stable enough for discharge on postop day #1. PHYSICAL EXAMINATION: VITAL SIGNS: On day of discharge, her vital signs were as follows: A temperature of 36.5, pulse of 57, respiratory rate of 16, blood pressure of 107/59, pulse oximetry 94% on room air. CONSTITUTIONAL AND GENERAL: The patient is a mildly chronically ill appearing elderly female in no acute distress. She is active, alert and oriented x4 with normal recent and remote memory. HEAD: Normocephalic and atraumatic. EYES: EOMI. ENT: Demonstrated no hearing loss, rhinorrhea or pharyngeal erythema. On the right side of her neck, did have a moderate tenderness and ecchymosis and edema; however, her trachea remained midline and there was no drainage or erythema noted from her incision. LUNGS: Demonstrated no dyspnea, decreased somewhat, but clear bilaterally. CARDIOVASCULAR: Demonstrated nondisplaced apical impulse with a regular rate and rhythm. She does have a systolic ejection murmur which radiates to her carotids. VASCULAR: Demonstrated normal pulses in her carotid, brachial, radial and femoral pulses. Lower extremity distal pulses were +2. She had no abdominal or femoral bruits. ABDOMEN: Soft, nontender with normoactive bowel sounds in all 4 quadrants without guarding or rebound. EXTREMITIES: Her bilateral upper extremity demonstrated no cyanosis, edema, clubbing, varicosities or ulcers. Lower extremity did demonstrate 1+ edema of her ankles. NEUROLOGIC: She had grossly intact cranial nerves and grossly intact sensation without any focal deficits. DIET UPON DISCHARGE: Should be a low-cholesterol AHA diet. MEDICATIONS UPON DISCHARGE: Were reconciled in the chart and are as per her discharge instructions. FOLLOWUP: Should be with Dr. Miranda or his PA, Saima Coles in 2 weeks for evaluation. She was advised to call the office with any other questions or concerns.
== END 2016-09-12 10:10 | disposition home or self-care (01) | DRG 39 ==
LOC: C.ACU 05:23 → C.MSICU 10:57 → ENRESERV 12:06
PROVIDERS: ADMIT Surgery Vascular Surgery; ATTEND Surgery Vascular Surgery
PROC: 03UK0JZ Supplement Right Internal Carotid Artery with Synthetic Substitute, Open Approach (ICD-10-PCS; principal; 2016-09-11 07:30)
PROC: 03CK0ZZ Extirpation of Matter from Right Internal Carotid Artery, Open Approach (ICD-10-PCS; principal; 2016-09-11 07:30)
DX: I65.21 Occlusion and stenosis of right carotid artery (principal); E78.5 Hyperlipidemia, unspecified; K21.9 Gastro-esophageal reflux disease without esophagitis; I10 Essential (primary) hypertension; E03.9 Hypothyroidism, unspecified; I25.2 Old myocardial infarction; Z79.82 Long term (current) use of aspirin; Z79.899 Other long term (current) drug therapy; Z95.1 Presence of aortocoronary bypass graft; Z87.891 Personal history of nicotine dependence; M35.00 Sjogren syndrome, unspecified

== ENCOUNTER → 2016-10-01 | Outpatient (CLI) | payer OTHER ==
[~2016-10-01] MED LIST changes: +TRAM-10 PO
[2016-10-01 12:12] LABS: BASO % 0.5 %; BASO ABS # 0.03 K/uL (0-0.2); COMPLETE YES; EOS % 4.7 %; HEMATOCRIT 39.5 % (37-47); IG% 0.3 %; LYMPH % 11.6 %; LYMPH ABS # 0.74 K/uL (1.2-3.4); MEAN CELL VOLUME 89.4 fL (80-100); MEAN CORPUSCULAR HEMOGLOBIN 30.1 pg (25-34); MEAN CORPUSCULAR HGB CONC 33.7 g/dl (32-36); MEAN PLATELET VOLUME 10.1 fL (7.4-10.4); MONO % 9.7 %; NEUT % 73.2 %; PLATELET COUNT 136 K/uL (130-400); RED BLOOD COUNT 4.42 M/uL (4.2-5.4); WHITE BLOOD COUNT 6.36 K/uL (4.8-10.8)
[2016-10-01 14:25] LABS: ALT/SGPT 27 U/L (12-78); BLOOD UREA NITROGEN 18 mg/dl (7-18); BUN/CREATININE RATIO 18.6 (10-20); CALCIUM 9.1 mg/dl (8.5-10.1); CARBON DIOXIDE 32 mmol/L (21-32); CHLORIDE 101 mmol/L (98-107); CHOLESTEROL 115 mg/dl (0-200); CREATININE 0.96 mg/dl (0.60-1.20); GLUCOSE 106 mg/dl (70-99); POTASSIUM 4.2 mmol/L (3.5-5.1); SODIUM 137 mmol/L (136-145); TRIGLYCERIDES 266 mg/dl (0-150); VERY LOW DENSITY LIPOPROT CALC 53 mg/dl
[2016-10-01 14:35] LABS: ALKALINE PHOSPHATASE 69 U/L (45-117); AST/SGOT 25 U/L (15-37); CHOLESTEROL/HDL RATIO 3.3; HDL CHOLESTEROL 35 mg/dl; LDL CHOLESTEROL CALCULATED 27 mg/dl
== END | disposition home or self-care (01) ==
LOC: C.LAB 11:27
PROVIDERS: ATTEND Internal Medicine Geriatric Medicine
DX: E78.5 Hyperlipidemia, unspecified (principal); I10 Essential (primary) hypertension; E03.9 Hypothyroidism, unspecified; D47.9 Neoplasm of uncertain behavior of lymphoid, hematopoietic and related tissue, unspecified; K74.60 Unspecified cirrhosis of liver

== ENCOUNTER 2016-10-22 08:53 | Emergency (ER) | payer OTHER ==
[~2016-10-22] VITALS: Ht 160 cm; Wt 84.3 kg
[2016-10-22 09:00] VITALS: TEMP 36.9; Ht 160 cm; Wt 84.3 kg
[2016-10-22] MEDS ORDERED: MULT-1092 PO (09:27)
[2016-10-22 10:00] LABS: BASO % 0.2 %; BASO ABS # 0.02 K/uL (0-0.2); COMPLETE YES; EOS % 2.5 %; HEMATOCRIT 36.2 % (37-47); IG% 0.1 %; LYMPH % 7.3 %; LYMPH ABS # 0.64 K/uL (1.2-3.4); MEAN CELL VOLUME 88.3 fL (80-100); MEAN PLATELET VOLUME 10.3 fL (7.4-10.4); MONO % 8.9 %; PLATELET COUNT 132 K/uL (130-400); WHITE BLOOD COUNT 8.73 K/uL (4.8-10.8)
[2016-10-22 10:09] LABS: INR 1.1 (0.9-1.1); PARTIAL THROMBOPLASTIN RATIO 1.1; PROTHROMBIN TIME (PATIENT) 11.4 SECONDS (9.0-12.0)
[2016-10-22 10:36] LABS: POTASSIUM 3.8 mmol/L (3.5-5.1)
[2016-10-22 10:39] LABS: BUN/CREATININE RATIO 20.4 (10-20); CALCIUM 8.8 mg/dl (8.5-10.1); CREATININE 0.85 mg/dl (0.60-1.20)
--- NOTE | 2016-10-22 10:58 | DIAGNOSTIC IMAGING REPORT ---
CAROTID DOPPLER NECK ART HISTORY: Pain. Status change. right sided neck swelling/lump COMPARISON: None. TECHNIQUE: Real-time, grayscale, and color Doppler sonography of the carotid arteries was performed. Imaging reviewed in the transverse and longitudinal planes. All measurements were calculated based on NASCET criteria. FINDINGS: Antegrade flow is seen in the bilateral vertebral arteries. The brachial pressures are hemodynamically similar. Moderate plaque bilaterally The peak systolic velocity within the right ICA is 61. The right systolic ratio is 0.8. The peak systolic velocity within the left ICA is 89. The left systolic ratio is 1.2. IMPRESSION: 1. Moderate plaque dimension bilaterally. 2. No significant stenosis of the internal or common carotid arteries. 3. Moderate stenosis right external carotid artery The above report was generated using voice recognition software. It may contain grammatical, syntax or spelling errors. Electronically signed by: Artur Woodward M.D. 10/22/2016 10:57 AM Dictated Date/Time: 10/22/2016 10:56 AM
[2016-10-22 11:01] VITALS: BP 126/56; PULSE 60; O2SAT 94
--- NOTE | 2016-10-22 11:17 | DIAGNOSTIC IMAGING REPORT ---
SOFT TISS HEAD/NECK-THYROID HISTORY: Right-sided neck swelling with palpable abnormality. History of prior carotid endarterectomy. COMPARISON: Head CT 08/02/2016, CTA of the neck 08/01/2016 TECHNIQUE: Multiple real time sonographic images of the right neck parotid area were obtained accessing carrizales scale appearance and color doppler flow. FINDINGS: The right parotid gland appears moderately heterogeneous and somewhat enlarged without focal mass or drainable collection identified. Linear hypoechoic avascular structure measuring up to 5 mm is seen suggesting dilated parotid duct without shadowing calculus. The left parotid was imaged for comparison and appears normal. IMPRESSION: 1. Enlarged heterogeneous right parotid gland without focal mass or drainable collection suggests parotiditis. 2. There also appears to be dilation of the right parotid duct without obstructing sialolith identified. These findings could be further evaluated with CT of the neck if clinically indicated. The above report was generated using voice recognition software. It may contain grammatical, syntax or spelling errors. Electronically signed by: Rocky Clements M.D. 10/22/2016 11:15 AM Dictated Date/Time: 10/22/2016 11:10 AM
--- NOTE | 2016-10-23 07:31 | EMERGENCY ROOM VISIT NOTE ---
ED Visit Note First contact with patient: 09:18 Chief Complaint: Right-sided facial swelling. History of Present Illness: Ms. Stevens is a 76-year-old white female who ambulates into the ED accompanied by her complaining of left-sided facial "swelling and a lump". Patient reports that she had right carotid endarterectomy on September 11; surgery was performed by Dr. Miranda, on her 2 week follow-up visit she reports she was feeling fine and had no concerning symptoms. Patient then reports this past Friday night, approximately 48 hours ago, she reports she noted some swelling and a lump over the body of the left mandible. Associated with the symptoms she reports intermittently she has been having a sore throat, painful swallowing and pain with opening her mouth. She has not identified any aggravating or alleviating factors related to these intermittent symptoms. They do wax and wane in intensity and coming go. She has not had a take any medications for these symptoms prior to arrival at the hospital. Her worst discomfort is swallowing which has gotten to a level of 5/10 here he currently she is pain-free. She denies fevers, chills, sweats, skin eruptions, skin color changes, headache , dizziness, lightheadedness, other upper respiratory tract symptoms, inability to swallow, voice changes, drooling, neck pain/stiffness, cough, wheezing, shortness of breath, abnormal neurological symptoms, decreased appetite, nausea/ vomiting. Review of Systems: As noted above in history of present illness. All body systems were reviewed and found to be negative as noted above. Past Medical History: As previously noted, nonalcoholic liver cirrhosis, rheumatoid arthritis, status post hysterectomy, nasal polyp removal Current Medications: Medications Dose Route/Sig Max Daily Dose Days Date Category Dose Instructions Centrum Silver 50+Women (Multiple Vitamins W/ Minerals) 1 Tab Tab 1 Tab PO DAILY 10/22/16 Reported Ultram (Tramadol HCl) 50 Mg Tab 50 Mg PO Q8H PRN 09/12/16 Rx Meclizine Hcl 25 Mg Tab 1 Tab PO TID PRN 10 08/14/16 Reported Flonase Allergy Relief (Fluticasone Propionate (Nasal)) 50 Mcg/Act Spr 1 [place] KRISTAL QAM PRN 08/14/16 Reported E-400 (Vitamin E) 400 Unit Cap 400 Units PO QAM 08/14/16 Reported Lopressor (Metoprolol Tartrate) 25 Mg Tab 50 Mg PO QPM 08/02/16 Reported Lopressor (Metoprolol Tartrate) 25 Mg Tab 1 Tab PO QAM 08/02/16 Reported Vitamin D3 (Cholecalciferol) 1,000 Unit Tab 3,000 Units PO QAM 08/02/16 Reported Aspir-81 (Aspirin) 81 Mg Tab 1 Tab PO QAM 08/02/16 Reported Plaquenil (Hydroxychloroquine Sulfate) 200 Mg Tab 400 Mg PO QPM 08/02/16 Reported Lorazepam 0.5 Mg Tab 1 Tab PO HS PRN 30 08/02/16 Reported Levothyroxine Sodium 150 Mcg Tab 1 Tab PO QAM 08/02/16 Reported Nitrostat (Nitroglycerin) 0.4 Mg Tab 0.4 Mg UT PRN 04/19/14 Reported DIRECTED Oxygen Gas 2 Liters NA HS 03/22/14 Reported Zantac (Ranitidine HCl) 300 Mg Tab 300 Mg PO HS 03/05/13 Reported Lasix (Furosemide) 40 Mg Tab 40 Mg PO DAILY PRN 03/05/13 Reported Detrol La (Tolterodine Tartrate) 4 Mg Cap 4 Mg PO QAM 03/05/13 Reported Celexa (Citalopram Hydrobromide) 40 Mg Tab 20 Mg PO HS 03/05/13 Reported Nexium (Esomeprazole Magnesium) 40 Mg Capcr 40 Mg PO QAM 03/05/13 Reported Micardis Hct 40MG/12.5MG (Telmisartan/Hydrochlorothiazide) Tab 1 Tab PO QAM 02/13/08 Reported Micro-K Ext Rel (Potassium Chloride) 10 Meq Capcr 10 Meq PO DAILY PRN PRN 02/13/08 Reported Lipitor (Atorvastatin Calcium) 40 Mg Tab 40 Mg PO HS 02/13/08 Reported Allergies to Medications: Adhesive tape, ciprofloxacin, clindamycin, codeine, meperidine, morphine, oxycodone. Social History: Patient is not employed; she just her and feels safe in her home environment; she denies tobacco and alcohol use. Physical Examination: Vital Signs: Date Time Temp Pulse Resp B/P (MAP) Pulse Ox O2 Delivery O2 Flow Rate FiO2 10/22/16 11:01 60 18 126/56 94 Room Air 10/22/16 09:24 68 10/22/16 09:00 36.9 71 18 152/67 91 Room Air GENERAL: 76-year-old female in mild distress due to symptoms, nontoxic-appearing , afebrile and hemodynamically stable. NEUROLOGICAL: Awake, alert and oriented to person, place and time. Answering questions appropriately and following commands. Normal gait. Good hand eye coordination. No focal motor sensory deficits. SKIN: Warm, dry and pink. No soft tissue eruptions or trauma noted. HEENT: Atraumatic and normocephalic. No external ear tenderness. Auditory canals are pink and patent. Tympanic membranes are obscured by wax. Sclera white and conjunctiva pink. No drainage from naris. Oral cavity moist and pink. Airway is patent. Pharynx is nonerythematous or edematous. Swallowing without erythema was noted over the parotid gland. No palpable stones. Speech normal. No lymphadenopathy. Trachea midline. No jugular venous distention. Surgical site is clean dry and intact without any signs of infection. BACK: No tenderness over the bony cervical and thoracic spine. Full range of motion of the cervical spine. THORAX: Lungs sounds are clear to auscultation and equal bilaterally with symmetrical chest wall. No wheezing, rales or rhonchi. No crepitus, tenderness , subcutaneous air or deformities noted. ED Course: Patient is assessed as noted above. Patient's medication list was reviewed. Laboratory Testing: Test 10/22/16 09:44 Range/Units White Blood Count 8.73 4.8-10.8 K/uL Red Blood Count 4.10 4.2-5.4 M/uL Hemoglobin 12.3 12.0-16.0 g/dL Hematocrit 36.2 37-47 % Mean Corpuscular Volume 88.3 80-100 fL Mean Corpuscular Hemoglobin 30.0 25-34 pg Mean Corpuscular Hemoglobin Concent 34.0 32-36 g/dl Platelet Count 132 130-400 K/uL Mean Platelet Volume 10.3 7.4-10.4 fL Neutrophils (%) (Auto) 81.0 % Lymphocytes (%) (Auto) 7.3 % Monocytes (%) (Auto) 8.9 % Eosinophils (%) (Auto) 2.5 % Basophils (%) (Auto) 0.2 % Neutrophils # (Auto) 7.06 1.4-6.5 K/uL Lymphocytes # (Auto) 0.64 1.2-3.4 K/uL Monocytes # (Auto) 0.78 0.11-0.59 K/uL Eosinophils # (Auto) 0.22 0-0.5 K/uL Basophils # (Auto) 0.02 0-0.2 K/uL RDW Standard Deviation 45.1 36.4-46.3 fL RDW Coefficient of Variation 13.9 11.5-14.5 % Immature Granulocyte % (Auto) 0.1 % Immature Granulocyte # (Auto) 0.01 0.00-0.02 K/uL Prothrombin Time 11.4 9.0-12.0 SECONDS Prothromb Time International Ratio 1.1 0.9-1.1 Activated Partial Thromboplast Time 28.4 21.0-31.0 SECONDS Partial Thromboplastin Ratio 1.1 Sodium Level 141 136-145 mmol/L Potassium Level 3.8 3.5-5.1 mmol/L Chloride Level 104 98-107 mmol/L Carbon Dioxide Level 29 21-32 mmol/L Anion Gap 4.0 3-11 mmol/L Blood Urea Nitrogen 17 7-18 mg/dl Creatinine 0.85 0.60-1.20 mg/dl Est Creatinine Clear Calc Drug Dose 56.1 ml/min Estimated GFR () 76.1 Estimated GFR (Non- 65.6 BUN/Creatinine Ratio 20.4 10-20 Random Glucose 132 70-99 mg/dl Calcium Level 8.8 8.5-10.1 mg/dl Carotid Doppler Ultrasound: Was reviewed by myself and read by the radiologist showing antegrade flow is seen and bilateral vertebral arteries, brachial pressures are hemodynamically similar, moderate plaque bilaterally, systolic velocity within the right internal carotid artery is 61 and the right systolic ratio is 0.8, peak systolic velocity in the left internal carotid artery is 89 and the systolic ratio is 1.2, moderate stenosis right internal carotid artery. Soft Tissue Neck Ultrasound: Was reviewed by myself and read by the radiologist showing enlarged heterogeneous right parotid gland without focal mass or drainable collection suggestion parotiditis, dilatation of the right parotid duct without obstructing sialolith. IV lock was initiated and patient refused medications. Patient was reassessed multiple times during her stay in the emergency department. Patient's case was reviewed with Dr. Whiteside; we agreed on diagnostic approach, treatment, disposition and plan. Patient's case was consulted with Dr. Miranda, vascular surgeon; patient was encouraged to continue her current follow-up scheduled. Patient was educated about today's findings and instructed on her treatment plan ; she verbalizes understanding and agreement with this plan. Clinical Impression: Acute parotiditis. Decision-Making: Initially my differential diagnosis I considered surgical infection, abscess, parotiditis, dental abscess, and other causes. Disposition: Patient discharged home in stable condition accompanied by her ; prior to departure she was reassessed and remained pain free. Plan: Patient was encouraged to continue her current medications as prescribed. Patient has a prescription for Ultram from her recent surgery and she was encouraged to use the Ultram as needed for pain. Patient was encouraged to contact her PCP for follow-up care and treatment. Patient was encouraged return the ED for worsening/uncontrolled pain, worsening facial swelling, fevers, inability to swallow or any new/concerning symptoms.
== END 2016-10-22 11:45 | disposition home or self-care (01) ==
LOC: C.EDB 08:55 → C.EDA 11:45
DX: K11.21 Acute sialoadenitis (principal); Z98.890 Other specified postprocedural states; K74.60 Unspecified cirrhosis of liver; M06.9 Rheumatoid arthritis, unspecified; Z90.710 Acquired absence of both cervix and uterus; Z79.899 Other long term (current) drug therapy; I65.23 Occlusion and stenosis of bilateral carotid arteries

== ENCOUNTER → 2016-10-30 | Outpatient (CLI) | payer OTHER ==
[~2016-10-30] MED LIST changes: +MULT-1092 PO; +OPTIRAY 320 IV PRN
--- NOTE | 2016-10-30 15:09 | DIAGNOSTIC IMAGING REPORT ---
SOFT TISSUE NECK WITH CLINICAL HISTORY: K11.20 Parotitis include parotid gland E X0D E [id number] pain TECHNIQUE: Transaxial acquisition with multi axial reformatted images COMPARISON STUDY: 08/01/2016 FINDINGS: Moderate nonspecific generalized infiltrative/inflammatory change of the right parotid. Slightly complex 1.3 cm nodule within the mid right parotid with a 4 mm low-density nodule in the deeper aspect of the parotid posterior to the right mandible. Additional 6 mm cystic nodule medially posterior to the parotid several small surrounding nodes measuring up to 6 mm. Left parotid appears to be unremarkable. The submandibular glands are symmetric. Structures the posterior oral and hypopharynx appear unremarkable. There are findings of mild infiltrative changes of the subcutaneous fat anterior to the right parotid gland and superficial to the right submandibular gland. IMPRESSION: 1. Nonspecific generalized infiltrative change of the right submandibular gland with several low-density nodules within the substance of the parotid as well as in the periparotid fat. 2. Diagnostic considerations include inflammatory process with microabscesses, versus the possibility of an inflammatory neoplastic process. Ultrasound may be of further assistance to quantify/evaluate the possibility of microabscesses versus nodular pathology. The above report was generated using voice recognition software. It may contain grammatical, syntax or spelling errors. Electronically signed by: Artur Woodward M.D. 10/30/2016 3:08 PM Dictated Date/Time: 10/30/2016 3:02 PM
== END | disposition home or self-care (01) ==
LOC: C.CTS 14:38
PROVIDERS: ATTEND Physician Assistant Medical
DX: K11.20 Sialoadenitis, unspecified (principal)

== ENCOUNTER → 2017-04-11 | Outpatient (CLI) | payer OTHER ==
[~2017-04-11] MED LIST changes: -OPTIRAY 320 IV PRN; -TRAM-10 PO
[2017-04-11 13:52] LABS: BASO % 0.2 %; BASO ABS # 0.01 K/uL (0-0.2); EOS % 5.2 %; EOS ABS # 0.29 K/uL (0-0.5); HEMATOCRIT 37.9 % (37-47); HEMOGLOBIN 12.9 g/dL (12.0-16.0); IG# 0.01 K/uL (0.00-0.02); LYMPH % 10.2 %; LYMPH ABS # 0.57 K/uL (1.2-3.4); MEAN CELL VOLUME 89.6 fL (80-100); MEAN CORPUSCULAR HEMOGLOBIN 30.5 pg (25-34); MEAN PLATELET VOLUME 11.6 fL (7.4-10.4); MONO % 10.2 %; MONO ABS # 0.57 K/uL (0.11-0.59); NEUT ABS # 4.12 K/uL (1.4-6.5); PLATELET COUNT 117 K/uL (130-400); RED CELL DISTRIBUTION WIDTH CV 14.7 % (11.5-14.5); RED CELL DISTRIBUTION WIDTH SD 47.8 fL (36.4-46.3); WHITE BLOOD COUNT 5.57 K/uL (4.8-10.8)
[2017-04-11 15:18] LABS: BLOOD UREA NITROGEN 27 mg/dl (7-18); CALCIUM 9.1 mg/dl (8.5-10.1); CARBON DIOXIDE 30 mmol/L (21-32); CREATININE 0.93 mg/dl (0.60-1.20); GLUCOSE 89 mg/dl (70-99); POTASSIUM 3.9 mmol/L (3.5-5.1); SODIUM 135 mmol/L (136-145)
== END | disposition home or self-care (01) ==
LOC: C.LABBC 10:02
PROVIDERS: ATTEND Internal Medicine Geriatric Medicine
DX: I10 Essential (primary) hypertension (principal); E03.9 Hypothyroidism, unspecified; D47.9 Neoplasm of uncertain behavior of lymphoid, hematopoietic and related tissue, unspecified

== ENCOUNTER → 2017-07-14 | Outpatient (CLI) | payer OTHER ==
--- NOTE | 2017-07-14 09:07 | DIAGNOSTIC IMAGING REPORT ---
ABDOMINAL ULTRASOUND, RIGHT UPPER QUADRANT HISTORY: CIRRHOSIS. COMPARISON: Abdomen and pelvis CT 12/17/2013. FINDINGS: Pancreas: There is a 2.2 x 2.0 x 1.0 cm hypoechoic lobulated nodule adjacent to the pancreatic head. This favors a lymph node. Otherwise, the visualized pancreas is unremarkable. The pancreatic tail is obscured by overlying bowel gas. Liver: Slightly nodular contour to the liver consistent with cirrhosis. The liver is normal in size. No hepatic masses. Gallbladder: No gallbladder wall thickening. No gallstones. CBD: 5 mm. Right kidney: No hydronephrosis. IMPRESSION: 1. Cirrhotic liver. No hepatic masses. 2. A 2.2 x 2.0 1.0 cm lobulated hypoechoic nodule adjacent to the pancreatic head. This favors a lymph node. Electronically signed by: Meet Henry M.D. 07/14/2017 9:06 AM Dictated Date/Time: 07/14/2017 9:04 AM
== END | disposition home or self-care (01) ==
LOC: C.ULTR 08:23
PROVIDERS: ATTEND Internal Medicine Gastroenterology
DX: K74.60 Unspecified cirrhosis of liver (principal); K86.89 Other specified diseases of pancreas

== ENCOUNTER → 2017-08-01 | Outpatient (CLI) | payer OTHER | END | disposition home or self-care (01) | LOC: C.LABSPEC 10:01 | PROVIDERS: ATTEND Internal Medicine Geriatric Medicine | DX: R19.7 Diarrhea, unspecified (principal) ==

== ENCOUNTER → 2017-08-01 | Outpatient (CLI) | payer OTHER ==
--- NOTE | 2017-08-04 07:50 | MAMMOGRAPHY REPORT ---
BILATERAL DIGITAL SCREENING MAMMOGRAM TOMOSYNTHESIS WITH CAD: 08/01/2017 CLINICAL HISTORY: Routine screening. TECHNIQUE: Breast tomosynthesis in addition to standard 2D mammography was performed. Current study was also evaluated with a Computer Aided Detection (CAD) system. COMPARISON: Comparison is made to exams dated: 07/31/2016 mammogram, 07/31/2015 mammogram, 07/26/2014 m ammogram, 07/15/2013 mammogram, 07/10/2012 mammogram, and 06/27/2011 mammogram - [facility] nter. BREAST COMPOSITION: The tissue of both breasts is heterogeneously dense, which may obscure small mas ses. FINDINGS: No suspicious masses, calcifications, or areas of architectural distortion are noted in ei ther breast. There has been no significant interval change compared to prior exams. Scattered bilater al benign-appearing calcifications are not significantly changed. A biopsy marker clip and associate d postbiopsy architectural distortion is again noted within the left upper inner quadrant. IMPRESSION: ACR BI-RADS CATEGORY 2: BENIGN There is no mammographic evidence of malignancy. A 1 year screening mammogram is recommended. The pa tient will receive written notification of the results. Approximately 10% of breast cancers are not detected with mammography. A negative mammographic report should not delay biopsy if a clinically suggestive mass is present. Judy Hanna M.D. /:08/01/2017 14:39:24 Mail Processing Clerk: Raegan DAVIS)(Lupe), [facility] letter sent: Normal 1/2 BI-RADS Code: ACR BI-RADS Category 2: Benign
== END | disposition home or self-care (01) ==
LOC: C.MAMM 14:00
PROVIDERS: ATTEND Internal Medicine Geriatric Medicine
DX: Z12.31 Encounter for screening mammogram for malignant neoplasm of breast (principal)

== ENCOUNTER 2019-11-25 11:48 | Inpatient (IN) ==
[2019-11-25] MEDS ORDERED: ASPIRIN CHEW 324 MG PO STA (12:22)
[2019-11-25] MEDS ORDERED: NITROGLYCERIN SL 0.4 MG/TAB TAB SL PRN (12:22)
--- NOTE | 2019-11-25 12:27 | Emergency Department Note ---
Impression & Plan Non-ST elevation NJ (NSTEMI), Chest pain, Hypoxia ED Provider Note NAME: RICO SCHMITZ AGE: 79 SEX: F : 1940 ARRIVES VIA: Walk-In INFORMANT: Patient ED PROVIDER(S): Hermann Victoria DO CHIEF COMPLAINT: Chest pain HPI: Patient is an 79-year-old female that presents the ER for chest pain. She notes that she was at her doctor's office around 11 AM to give a urine was unable to. She got sick to her stomach and vomited as she got very upset because she was unable to give a UA. Pt has been having left-sided chest pain since then. She describes as an ache. She denies any shortness of breath. Goes up to bilateral jaws. Her arms and legs feel weak. Pain is a 5 out of 10 currently. It has not gone away. She notes that she does have a history of a CABG back in 1998 and a previous NJ. She has had pain with exertion and will go away with rest. No other exacerbating or remitting factors at this time. ROS: See above HPI for pertinent positives & negatives. A total of 10 systems reviewed and were otherwise negative. PAST MEDICAL HISTORY:See Below PAST SURGICAL HISTORY:See Below FAMILY HISTORY:See Below SOCIAL HISTORY:See Below HOME MEDICATIONS:See Below ALLERGIES:See Below VITALS:See Below PHYSICAL EXAMINATION: GENERAL: Sitting up in bed, alert, no acute distress, anxious EYE EXAM: normal conjunctiva. NECK: supple, no nuchal rigidity, no adenopathy, non-tender LUNGS: Clear to auscultation. Normal chest wall mechanics HEART: no murmurs, S1 normal and S2 normal ABDOMEN: abdomen soft, non-tender, normo-active bowel sounds, no masses, no re bound or guarding. BACK: Back is symmetrical on inspection and there is no deformity, no midline te nderness, no CVA tenderness. SKIN: no rashes and no bruising UPPER EXTREMITIES: upper extremities are grossly normal. LOWER EXTREMITIES: No pitting edema. Calves are equal bilateral NEURO EXAM: Normal sensorium, cranial nerves II-XII grossly intact, normal speech, no gross weakness of arms, no gross weakness of legs. MEDICAL DECISION MAKING: Patient is an 79-year-old female with a past medical history of a CABG that presents the ER for chest pain. She notes that all started when she got worked up at her doctor's office because she was unable to give a urine. She started having chest pain at that time. She came to the ER. IV was established blood was obtained. Labs show no significant leukocytosis or anemia. INR was unremarkable. BMP with mild hyponatremia. LFTs were unremarkable. Bilirubin slightly elevated at 1.9. Troponin was elevated at 0.4. Lipase is negative. She was given aspirin nitroglycerin in the ER. Her chest pain completely lupe madelyn. Her EKG did not show any acute ischemia. She was slightly hypoxic. Uncertain of the true cause of this consequently CT Liv of the chest was performed and showed no PEs pneumonia or pleural effusion. On reevaluation she was comfortable with no complaints. We did repeat a troponin which again showed no overt ischemia and she was asymptomatic. At this time I discussed with the hospitalist for admission as she was pain-free with a positive troponin with hypoxia. She was found to be 83 to 85% on room air. Patient remained on 2 L nasal cannula throughout her stay in the ER. I question if the elevated troponin is secondary to this versus true ACS versus d stress from her working herself up at the office. Triage Nursing notes reviewed. Prior medical records reviewed Vital Signs: reviewed and remarkable for hypertensive Differential diagnosis: Differential diagnoses includes but is not limited to acute coronary syndrome, myocardial infarction, pericarditis, pulmonary embolus, aortic dissection, pneumonia, pneumothorax, musculoskeletal, shingles, esophageal. ER treatment provided: See below Diagnostics interpreted by me: ECG: Sinus rhythm rate of 68 First-degree AV block Normal axis Incomplete right bundle branch block Normal QTC Nonspecific T wave flattening in the inferior leads Cardiac Monitoring: An order was placed for continuous cardiac monitoring. The monitor shows a rate of 63 with sinus rhythm. Laboratory studies: As stated above and show below. Imaging studies: CT Liv of the chest shows no PEs. Chest x-ray was unremarkable. Consultation(s): Discussed with hospitalist for admission ED COURSE: Procedures: none Critical Care: I have personally spent 35 minutes of critical care time in the direct management of this patient. This includes bedside care, interpretation of diagnostic studies, and testing, discussion with consultants, patient, and family members, and other required patient management activities. This 35 minutes is in excess of all separately billable procedures. Past Med/Surg History Medical History Allergic rhinitis Aortic stenosis, mild Asthma CAD (coronary artery disease) Chronic osteoarthritis Chronic stable angina Cirrhosis, nonalcoholic Followed By Sondra Chao Dependence on nocturnal oxygen therapy Dependence on nocturnal oxygen therapy (~2015) Depression with anxiety Dupuytren's contracture of hand Dyslipidemia GERD (gastroesophageal reflux disease) Hypertension Hypothyroidism ITP (idiopathic thrombocytopenic purpura) (~09/2011) Knee pain, bilateral NJ (myocardial infarction) Sjogrens syndrome Splenomegaly (~09/2011) Surgical History H/O colonoscopy 06/2015 neg, 10 yr f/u Dr. Harman History of carotid endarterectomy Right, 2016 History of cataract surgery History of heart artery stent History of hysterectomy History of tonsillectomy Hx of CABG 1997 Family History Unknown Hypertension Mother Diabetes Father Heart disease Myocardial infarction Hypertension Cancer Aunt Lung cancer Denies family history of Ovarian cancer Prostate cancer Breast cancer Colorectal cancer Stroke Social History Smoking Status: Former smoker Smoking End Date: 1983; Second Hand Exposure: No; Hx Alcohol Use: No Hx Substance Use: No Preferred Language: Tuvaluan Communication Ability: Effective Visual Impairment: Limited Hearing Ability: Normal Remote Control Assembler Required: No Beliefs That Will Affect Care: None marital status: Current Living Situation: Spouse current occupational status: retired How many Children do You have: 1 Other Information That Helps Us Care for You: No Feels Safe at Home: Yes Safety Concerns: Feels Safe At This Time Childhood Exposure to Second-Hand Smoke: Yes caffeine: Yes Dental Care, Regularly: Yes Physical Activity Frequency: 1-2 Times per Week Seatbelt Use: always Sunscreen Use: Yes Allergies Allergies Allergy/AdvReac Type Severity Reaction Status Date / Time Cipro Allergy Intermediate RASH Verified 10/22/16 09:26 meperidine Allergy Mild NAUSEA AND Verified 11/25/19 14:54 VOMITING morphine Allergy Mild NAUSEA AND Verified 11/25/19 14:54 VOMITING adhesive Allergy Unknown ADHESIVE Verified 11/25/19 14:54 TAPE-BLISTERS clindamycin Allergy Unknown per PCP Verified 11/25/19 14:54 records codeine Allergy Unknown Nausea Verified 11/25/19 14:54 ciprofloxacin Allergy Verified 11/25/19 14:54 oxycodone AdvReac Severe NAUSEA/VOMI Verified 11/25/19 14:54 TING Home Meds Home Medications Medication Instructions Recorded Confirmed vitamin E (dl, acetate) 400 unit 400 units PO QAM 10/27/18 11/25/19 capsule nitroglycerin 0.4 mg sublingual 0.4 mg SL ONCE PRN #25 tab 11/24/18 11/25/19 tablet lactobacillus combination no.9 4 4,000 mmu cells PO QAM 02/04/19 11/25/19 billion cell capsule citalopram 40 mg tablet 20 mg PO HS tab 05/17/19 11/25/19 famotidine 20 mg tablet 20 mg PO HS 06/14/19 11/25/19 levothyroxine 175 mcg tablet 175 mcg PO QAM 06/14/19 11/25/19 Oxygen Home #1 ea 08/11/19 11/11/19 cholecalciferol (vitamin D3) 100 5,000 units PO QAM cap 08/11/19 11/25/19 mcg (4,000 unit) capsule aspirin 81 mg PO QAM 11/25/19 11/25/19 atorvastatin 40 mg PO HS 11/25/19 11/25/19 azelastine 2 sprays INTNAS HS 11/25/19 11/25/19 esomeprazole magnesium [Nexium] 40 mg PO QAM 11/25/19 11/25/19 fluticasone propionate 2 spray INTNAS QAM 11/25/19 11/25/19 hydroxychloroquine 400 mg PO QDD 11/25/19 11/25/19 isosorbide mononitrate 120 mg PO QAM 11/25/19 11/25/19 metoprolol tartrate 50 mg PO HS 11/25/19 11/25/19 telmisartan-hydrochlorothiazid 1 tab PO QAM 11/25/19 11/25/19 tolterodine [Detrol LA] 4 mg PO QAM 11/25/19 11/25/19 Previous Rx's Medication Instructions Recorded furosemide 40 mg tablet 40 mg PO .COMPLEX #24 tab 06/16/19 potassium chloride 10 mEq 10 meq PO .COMPLEX #24 cap 06/16/19 capsule,extended release diclofenac sodium 1 % topical gel 4 gm TOPICAL QID PRN #300 gm 08/11/19 metoprolol tartrate 25 mg tablet 25 mg PO QAM #90 tab 08/23/19 lorazepam 0.5 mg tablet 0.5 mg PO DAILY PRN #30 tab 11/19/19 Results & Data (ED) Vital Signs Vital Signs - 24 hr 11/25/19 11:54 11/25/19 12:17 11/25/19 13:10 Temperature 36.8 C Temperature Source Oral Pulse Rate 70 65 Pulse Rate from SpO2 Sensor 65 Respiratory Rate 20 Blood Pressure 162/77 H 130/62 Blood Pressure Mean 105 90 Pulse Oximetry 93 82 L Oxygen Delivery Method Room Air Room Air Room Air Oxygen Flow Rate Sepsis Recent Fever Within 48 Hours No Sepsis New/Unexplained Change in Mental Status No Sepsis Action Taken by Nursing No Action Required Oxygen Flow Rate - Titration Pulse Oximetry Post Tiitration 11/25/19 13:12 11/25/19 13:25 11/25/19 13:30 Temperature Temperature Source Pulse Rate 60 Pulse Rate from SpO2 Sensor 61 Respiratory Rate Blood Pressure 138/64 Blood Pressure Mean 96 Pulse Oximetry 82 L 99 97 Oxygen Delivery Method Room Air Nasal Cannula Nasal Cannula Oxygen Flow Rate 0 4 2 Sepsis Recent Fever Within 48 Hours Sepsis New/Unexplained Change in Mental Status Sepsis Action Taken by Nursing Oxygen Flow Rate - Titration 4 2 Pulse Oximetry Post Tiitration 97 97 11/25/19 14:10 11/25/19 14:30 11/25/19 15:16 Temperature Temperature Source Pulse Rate 67 67 Pulse Rate from SpO2 Sensor 70 67 67 Respiratory Rate 20 20 23 Blood Pressure 165/71 H 148/73 H 145/70 H Blood Pressure Mean 88 103 106 Pulse Oximetry 98 95 97 Oxygen Delivery Method Nasal Cannula Nasal Cannula Nasal Cannula Oxygen Flow Rate 2 2 2 Sepsis Recent Fever Within 48 Hours Sepsis New/Unexplained Change in Mental Status Sepsis Action Taken by Nursing Oxygen Flow Rate - Titration Pulse Oximetry Post Tiitration 11/25/19 15:30 11/25/19 16:00 11/25/19 16:19 Temperature Temperature Source Pulse Rate 67 70 66 Pulse Rate from SpO2 Sensor 67 69 65 Respiratory Rate 19 19 17 Blood Pressure 155/69 H 167/79 H 133/67 Blood Pressure Mean 105 104 82 Pulse Oximetry 96 97 93 Oxygen Delivery Method Nasal Cannula Nasal Cannula Nasal Cannula Oxygen Flow Rate 2 2 2 Sepsis Recent Fever Within 48 Hours Sepsis New/Unexplained Change in Mental Status Sepsis Action Taken by Nursing Oxygen Flow Rate - Titration Pulse Oximetry Post Tiitration Laboratory Data Result diagrams: 11/25/19 13:00 11/25/19 13:00 Lab Results 11/25/19 11/25/19 11/25/19 Range/Units 13:00 13:00 13:00 WBC 10.45 (4.8-10.8) K/uL RBC 4.22 (4.2-5.4) M/uL Hgb 12.6 (12.0-16.0) g/dL Hct 36.3 L (37-47) % MCV 86.0 (80-100) fL MCH 29.9 (25-34) pg MCHC 34.7 (32-36) g/dL RDW Std Deviation 43.0 (36.4-46.3) fL RDW Coeff of Suleman 13.7 (11.5-14.5) % Plt Count 161 (130-400) K/uL MPV 10.1 (7.4-10.4) fL Immature Gran % (Auto) 0.3 % Neut % (Auto) 87.6 % Lymph % (Auto) 7.3 % Calhoun % (Auto) 2.6 % Eos % (Auto) 2.0 % Baso % (Auto) 0.2 % Neut # (Auto) 9.16 H (1.4-6.5) K/uL Lymph # (Auto) 0.76 L (1.2-3.4) K/uL Calhoun # (Auto) 0.27 (0.11-0.59) K/uL Eos # (Auto) 0.21 (0-0.5) K/uL Baso # (Auto) 0.02 (0-0.2) K/uL Immature Gran # (Auto) 0.03 H (0.00-0.02) K/uL PT 11.3 (9.0-12.0) Seconds INR 1.1 (0.9-1.1) APTT 28.5 (21.0-31.0) Seconds PTT Ratio 1.0 Sodium 131 L (136-145) mmol/L Potassium 4.0 (3.5-5.1) mmol/L Chloride 94 L (98-107) mmol/L Carbon Dioxide 30 (21-32) mmol/L Anion Gap 6.0 (3-11) BUN 24 H (7-18) mg/dl Creatinine 1.01 (0.6-1.2) mg/dl Est Cr Clr Drug Dosing 44.8 ml/min Est GFR ( Amer) 60.5 Est GFR (Non-Af Amer) 52.2 BUN/Creatinine Ratio 23.7 H (10-20) Glucose 120 H (70-99) mg/dl Calcium 9.3 (8.5-10.1) mg/dl Total Bilirubin 1.9 H (0.2-1) mg/dl AST 25 (15-37) U/L ALT 22 (12-78) U/L Alkaline Phosphatase 63 (45-117) U/L Troponin I 0.492 H* (0-0.045) ng/ml Total Protein 7.4 (6.4-8.2) gm/dl Albumin 3.9 (3.4-5.0) gm/dl Globulin 3.5 (2.5-4.0) gm/dl Albumin/Globulin Ratio 1.1 (0.9-2) Lipase 87 (73-393) U/L 11/25/19 Range/Units 16:15 WBC (4.8-10.8) K/uL RBC (4.2-5.4) M/uL Hgb (12.0-16.0) g/dL Hct (37-47) % MCV (80-100) fL MCH (25-34) pg MCHC (32-36) g/dL RDW Std Deviation (36.4-46.3) fL RDW Coeff of Suleman (11.5-14.5) % Plt Count (130-400) K/uL MPV (7.4-10.4) fL Immature Gran % (Auto) % Neut % (Auto) % Lymph % (Auto) % Calhoun % (Auto) % Eos % (Auto) % Baso % (Auto) % Neut # (Auto) (1.4-6.5) K/uL Lymph # (Auto) (1.2-3.4) K/uL Calhoun # (Auto) (0.11-0.59) K/uL Eos # (Auto) (0-0.5) K/uL Baso # (Auto) (0-0.2) K/uL Immature Gran # (Auto) (0.00-0.02) K/uL PT (9.0-12.0) Seconds INR (0.9-1.1) APTT (21.0-31.0) Seconds PTT Ratio Sodium (136-145) mmol/L Potassium (3.5-5.1) mmol/L Chloride (98-107) mmol/L Carbon Dioxide (21-32) mmol/L Anion Gap (3-11) BUN (7-18) mg/dl Creatinine (0.6-1.2) mg/dl Est Cr Clr Drug Dosing ml/min Est GFR ( Amer) Est GFR (Non-Af Amer) BUN/Creatinine Ratio (10-20) Glucose (70-99) mg/dl Calcium (8.5-10.1) mg/dl Total Bilirubin (0.2-1) mg/dl AST (15-37) U/L ALT (12-78) U/L Alkaline Phosphatase (45-117) U/L Troponin I 1.520 H* (0-0.045) ng/ml Total Protein (6.4-8.2) gm/dl Albumin (3.4-5.0) gm/dl Globulin (2.5-4.0) gm/dl Albumin/Globulin Ratio (0.9-2) Lipase (73-393) U/L Administered Medications Heparin Sodium/Dextrose (Heparin Sodium/Dextrose) 25,000 units in 500 mls @ 16 mls/hr IV .Q24H MAURICIO; Protocol Stop: 12/25/19 15:59 Last Admin: 11/25/19 16:25 Dose: 800 units/hr, 16 mls/hr Documented by: [id number] Cosigned by: [id number] Nitroglycerin (Nitroglycerin Sl 0.4 Mg/Tab Tab) 0.4 mg SL PRN PRN PRN Reason: cp Stop: 12/25/19 12:21 Last Admin: 11/25/19 16:14 Dose: 0.4 mg Documented by: [id number] Nitroglycerin (Nitroglycerin 2% Ointment 30gm Tube) 1 inch EXT Q6H MAURICIO Stop: 12/25/19 17:59 Last Admin: 11/25/19 18:36 Dose: Not Given Documented by: [id number] Discontinued Medications Acetaminophen (Acetaminophen 325 Mg Tab) 650 mg PO NOW STA Stop: 11/25/19 16:19 Last Admin: 11/25/19 16:49 Dose: 650 mg Documented by: [id number] Aspirin (Aspirin Chew 324 Mg) 324 mg PO NOW STA Stop: 11/25/19 12:23 Last Admin: 11/25/19 13:09 Dose: 324 mg Documented by: [id number] Heparin Sodium (Porcine) (Heparin Sod 5,000 Unit/0.5 Ml Vial) Confirm Administered Dose 5,000 units .ROUTE .STK-MED ONE Stop: 11/25/19 16:12 Last Admin: 11/25/19 16:25 Dose: 4,000 units Documented by: [id number] Cosigned by: [id number] Heparin Sodium/Dextrose (Heparin Iv Low Dose With Bolus) 1 ea IV NOW STA; Protocol Stop: 11/25/19 14:45 Last Admin: 11/25/19 14:59 Dose: Not Given Documented by: [id number] Heparin Sodium/Dextrose (Heparin 60007 Unit/500 Ml D5w) Confirm Administered Dose 25,000 units IV .STK-MED ONE Stop: 11/25/19 16:12 Last Admin: 11/25/19 16:28 Dose: Not Given Documented by: [id number] Heparin Sodium/Dextrose (Heparin Sodium/Dextrose) 25,000 units in 500 mls @ 0.02 mls/hr IV .Q24H [facility]; Protocol Stop: 12/25/19 14:44 Last Admin: 11/25/19 14:59 Dose: Not Given Documented by: [id number] Ioversol (Optiray 320 125ml) 120 ml IV ONCE ONE Stop: 11/25/19 14:00 Last Admin: 11/25/19 13:59 Dose: 120 ml Documented by: [id number] Menthol (Cough Drop (Sugar Free) Teddy 24 Teddy/1 Box) Confirm Administered Dose 24 teddy BUCCAL .STK-MED ONE Stop: 11/25/19 18:16 Last Admin: 11/25/19 18:36 Dose: 24 teddy Documented by: [id number] Nitroglycerin (Nitroglycerin 2% Ointment 30gm Tube) Confirm Administered Dose 18 inch .ROUTE .STK-MED ONE Stop: 11/25/19 16:40 Last Admin: 11/25/19 16:53 Dose: 18 inch Documented by: [id number] Ondansetron HCl (Ondansetron Inj 2 Mg/Ml 2 Ml Vial) Confirm Administered Dose 4 mg .ROUTE .STK-MED ONE Stop: 11/25/19 13:06 Last Admin: 11/25/19 13:07 Dose: 4 mg Documented by: [id number] Ondansetron HCl (Ondansetron Inj 2 Mg/Ml 2 Ml Vial) 4 mg IV NOW STA Stop: 11/25/19 13:08 Last Admin: 11/25/19 13:10 Dose: Not Given Documented by: [id number] Discharge Plan Visit Data Chief Complaint: Cardiac Assessment Stated Complaint: JAW PAIN & SICK IN STOMACH ED Provider: Hermann Victoria Discharge Problem: Non-ST elevation [place] (NSTEMI), Chest pain, Hypoxia Patient Disposition: Admitted As Inpatient Discharge Instructions Interventions: ED Discharge Assessment Last Done: 11/25/19 17:32 Discharge Problem: Chest pain Qualifiers: Chest pain type: unspecified Qualified Code(s): R07.9 - Chest pain, unspecified
[2019-11-25] MEDS ORDERED: ONDANSETRON INJ 2 MG/ML 2 ML VIAL ONE (13:05)
[2019-11-25] MEDS ORDERED: ONDANSETRON INJ 2 MG/ML 2 ML VIAL IV STA (13:07)
[2019-11-25 13:10] LABS: Basophils # (auto) 0.02 K/uL (0-0.2); Basophils % (auto) 0.2 %; Eosinophils # (auto) 0.21 K/uL (0-0.5); Hematocrit (blood only) 36.3 % (37-47); Hemoglobin 12.6 g/dL (12.0-16.0); Immature Granulocytes # (auto) 0.03 K/uL (0.00-0.02); Immature Granulocytes % (auto) 0.3 %; Lymphocytes # (auto) 0.76 K/uL (1.2-3.4); Lymphocytes % (auto) 7.3 %; Mean Corpuscular Hemoglobin 29.9 pg (25-34); Mean Corpuscular Hgb Conc 34.7 g/dL (32-36); Mean Platelet Volume 10.1 fL (7.4-10.4); Monocytes # (auto) 0.27 K/uL (0.11-0.59); Monocytes % (auto) 2.6 %; Neutrophils # (auto) 9.16 K/uL (1.4-6.5); Neutrophils % (auto) 87.6 %; Platelet Count 161 K/uL (130-400); RDW Coefficient of Variation 13.7 % (11.5-14.5); Red Blood Count 4.22 M/uL (4.2-5.4); White Blood Count 10.45 K/uL (4.8-10.8)
[2019-11-25 13:24] LABS: INR 1.1 (0.9-1.1); Partial Thromboplastin Time 28.5 Seconds (21.0-31.0); Prothrombin Time 11.3 Seconds (9.0-12.0)
--- NOTE | 2019-11-25 13:30 | XRay Report ---
XR chest 1V portable HISTORY: Atypical Chest Pain COMPARISON: Chest 08/12/2018. FINDINGS: No pneumothorax. No pleural effusions. The heart remains mildly enlarged. There is progress lauri interstitial and vascular thickening consistent with mild congestive change. There are poststerno salud changes. No new focal lung consolidations to suggest pneumonia. Calcified right midlung zone gra nuloma. Linear scarlike densities within the right lower lung zone are noted. IMPRESSION: Cardiomegaly with mild congestive change. This has slightly progressed in the interval. ACT 112: Negative or not required by law. Electronically signed by: Meet Henry M.D. 11/25/2019 1:29 PM
[2019-11-25 13:31] LABS: Albumin Level 3.9 gm/dl (3.4-5.0); BUN Creatinine Ratio 23.7 (10-20); Calcium 9.3 mg/dl (8.5-10.1); Creatinine Clr Calc Pharmacy 44.8 ml/min; Est GFR (African American) 60.5; Est GFR (Non-African American) 52.2
[2019-11-25 13:42] LABS: Albumin Globulin Ratio 1.1 (0.9-2); Bilirubin,Total 1.9 mg/dl (0.2-1); Globulin 3.5 gm/dl (2.5-4.0); Total Protein 7.4 gm/dl (6.4-8.2); Troponin I 0.492 ng/ml (0-0.045)
[2019-11-25] MEDS ORDERED: OPTIRAY 320 125ml IV ONE (13:59)
--- NOTE | 2019-11-25 14:18 | CT Scan Report ---
CT ANGIOGRAM OF THE CHEST CLINICAL HISTORY: Atypical chest pain. Hypoxia. COMPARISON STUDY: 11/22/2015 TECHNIQUE: Following the IV administration of 120 mL of Optiray-320, CT angiogram of the thorax was p erformed from the thoracic inlet to the lung bases utilizing the pulmonary embolus protocol. Images a re reviewed in the axial, sagittal, and coronal planes. IV contrast was administered without complica tion. MIP imaging was performed. A dose lowering technique was utilized adhering to the principles o f ALARA. CT DOSE: 522.65 mGycm FINDINGS: There is suspected splenomegaly. There is a small hiatal hernia. There are mildly enlarged mediastinal lymph nodes. A pretracheal node measures 12 mm in short axis. T hese nodes remain similar to the preceding study. There was no evidence of thoracic aortic dilatation. There were no pulmonary artery filling defects to indicate acute pulmonary embolism. No pleural effusions are visualized. There is no lobar consolidation. There is mild thickening of the interlobular septa. There is a 1 cm groundglass nodule within the left lower lobe. There is a right lower lobe calcified granuloma. There is a right upper lobe calcified granuloma IMPRESSION: 1. No evidence of acute pulmonary embolism 2. Mildly enlarged mediastinal lymph nodes unchanged from the prior study 3. 1 cm groundglass nodule within the left lower lobe. 6-12 month follow-up is recommended per Fleisc hner guidelines. 4. Mild interlobular septal edema 5. Suspected mild splenomegaly Please refer to below summary of Fleischner criteria recommendations for follow-up of incidental CT n odules (Paula Cabrera, Guidelines for management of small pulmonary nodules detected on CT scans: A sta tement from the Fleischner Society, Radiology 237: [phone].) SOLID NODULES Solitary nodule size: <6 mm * low risk patients: no follow-up needed * high risk patients: optional CT at 12 months Solitary nodule size: 6-8 mm * low risk patients: follow-up at 6-12 months, then consider further follow-up at 18-24 months * high risk patients: initial follow-up CT at 6-12 months and then at 18-24 months if no change Solitary nodule size: >8 mm * either low or high risk patients - consider follow-up CT at 3 months, and/or CT-PET, and/or biopsy Multiple nodules size: <6 mm * low risk patients: no routine follow-up * high risk patients: optional CT at 12 months Multiple nodules size: 6-8 mm * low risk patients: follow-up at 3-6 months, then consider further follow-up at 18-24 months * high risk patients: follow-up at 3-6 months, then at 18-24 months if no change Multiple nodules size: >8 mm * low risk patients: follow-up at 3-6 months, then consider further follow-up at 18-24 months * high risk patients: follow-up at 3-6 months, then at 18-24 months if no change Note: newly detected indeterminate nodule in persons 35 years of age or older. * low risk patients: minimal or absent history of smoking and/or other known risk factors * high risk patients: history of smoking or of other known risk factors (e.g. first degree relative with lung cancer, or exposure to asbestos, radon, uranium) * if a nodule up to 8 mm is partly solid or is ground glass further follow-up is required after [address] to exclude possible slow growing adenocarcinoma (LATASHA) SUBSOLID NODULES Solitary pure ground-glass nodule * nodule size <6 mm - no CT follow-up required * nodule size >=6 mm - follow-up CT at 6-12 months, then every 2 years until 5 years Solitary part-solid nodule * nodule size <6 mm - no CT follow-up required * nodule size >=6 mm - follow-up CT at 3-6 months. If unchanged, and solid component remains <6 mm, then annual follow-up for 5 years Multiple subsolid nodules * nodule size <6 mm - follow-up CT at 3-6 months, consider further follow-up at 2 and 4 years if sta ble * nodule size >=6 mm - follow-up CT at 3-6 months, subsequent management based on the most suspiciou s nodule(s) ACT 112: Negative or not required by law. Electronically signed by: Guerrero Hguhes M.D. 11/25/2019 2:17 PM
[2019-11-25] MEDS ORDERED: Heparin IV Low Dose WITH Bolus IV STA (14:44)
[2019-11-25] MEDS ORDERED: HEPARIN SODIUM/DEXTROSE 25,000 UNITS/500 ML BAG IV SCH (14:45)
--- NOTE | 2019-11-25 15:58 | History & Physical Report ---
Date of Service November 25, 2019 Assessment & Plan (1) NSTEMI (non-ST elevated myocardial infarction): ASA 324mg PO given in ER. Continue 81 mg p.o. daily. Add Plavix if cardiac catheterization not planned Continue her usual metoprolol tartrate dosing with 25 mg every morning and 50 mg at bedtime Continue atorvastatin 40 mg p.o. daily Second EKG reported as atrial fibrillation although P waves, irregularity appears to be junctional/PACs, monitor on telemetry in PCU Nitropaste 1 inch If ongoing left shoulder/jaw/chest pain will need to transfer to ICU for nitroglycerin IV drip TTE HbA1c and lipid panel with a.m. labs Trend troponin overnight N.p.o. after midnight Consult cardiology for potential need of cardiac cath (2) Hypoxia: Possibly secondary to mild interlobular septal edema seen on CTA versus reduced cardiac output due to NSTEMI. Aim O2 sats > 94% in setting of NSTEMI above. (3) Hyponatremia: Mild pulmonary edema on CT however she does not appear hypervolemic, therefore will defer treatment with Lasix at present. Mucous membranes are dry but this may be due to her Sjogren's. She does not usually take Lasix at home, but has this PRN. Does not weigh herself daily. No increased leg swelling per patient. Hold hydrochlorothiazide Repeat BMP with a.m. labs (4) Cirrhosis, nonalcoholic: Notable history of this increasing likelihood of hypovolemic state. (5) Depression with anxiety: Continue citalopram 20 mg p.o. at bedtime Lorazepam as needed (6) Hypothyroidism: TSH recently WNL Continue levothyroxine 175 mcg p.o. every morning (7) GERD (gastroesophageal reflux disease): Switch his omeprazole for pantoprazole as per hospital formulary Continue her usual famotidine 20 mg p.o. at bedtime (8) Sjogrens syndrome: Suspect this is why she takes hydroxychloroquine 400 mg p.o. daily. Recommend rheumatology follow-up given her liver cirrhosis. (9) DVT prophylaxis: On heparin IV drip as above Admission and Anticipated Discharge Date Admission Date: 11/25/2019 History of Present Illness Chief Complaint: Chest pain Primary Care Provider: DO Jeffery Berrya Avery is an 79-year-old female with known coronary artery disease s/p CABG and chronic stable angina who presents to the ER with chest pain radiating to her jaw and left arm. The pain started around 11 AM when she was giving her annual urine drug screen. Started on the left side of her chest but radiated up to her left shoulder and left arm, severity 6/10, worse on exertion but was persistent until she came to the ER and was given aspirin. Initially she reported her chest pain had resolved although on further questioning she was still having left arm and left shoulder pain, which subsequently was relieved with sublingual nitroglycerin. She reports taking all her usual medications morning. The pain today was different from her usual stable anginal pain which is substernal and relieved with rest. In addition she is having left-sided back pain that came on while in the ER and was not present earlier. This is worse on palpation and movements. Left side of her back. Aching. Severity 6/10 when seen. This was not present earlier when seen by the ER physician. Allergies Allergy/AdvReac Type Severity Reaction Status Date / Time Cipro Allergy Intermediate RASH Verified 10/22/16 09:26 meperidine Allergy Mild NAUSEA AND Verified 11/25/19 14:54 VOMITING morphine Allergy Mild NAUSEA AND Verified 11/25/19 14:54 VOMITING adhesive Allergy Unknown ADHESIVE Verified 11/25/19 14:54 TAPE-BLISTERS clindamycin Allergy Unknown per PCP Verified 11/25/19 14:54 records codeine Allergy Unknown Nausea Verified 11/25/19 14:54 ciprofloxacin Allergy Verified 11/25/19 14:54 oxycodone AdvReac Severe NAUSEA/VOMI Verified 11/25/19 14:54 TING Home Medications Home Medications Medication Instructions Recorded Confirmed Type vitamin E (dl, acetate) 400 unit 400 units PO QAM 10/27/18 11/25/19 History capsule nitroglycerin 0.4 mg sublingual 0.4 mg SL ONCE PRN #25 tab 11/24/18 11/25/19 History tablet lactobacillus combination no.9 4 4,000 mmu cells PO QAM 02/04/19 11/25/19 History billion cell capsule citalopram 40 mg tablet 20 mg PO HS tab 05/17/19 11/25/19 History famotidine 20 mg tablet 20 mg PO HS 06/14/19 11/25/19 History levothyroxine 175 mcg tablet 175 mcg PO QAM 06/14/19 11/25/19 History furosemide 40 mg tablet 40 mg PO .COMPLEX #24 tab 06/16/19 11/25/19 Rx potassium chloride 10 mEq 10 meq PO .COMPLEX #24 cap 06/16/19 11/25/19 Rx capsule,extended release Oxygen Home #1 ea 08/11/19 11/11/19 History cholecalciferol (vitamin D3) 100 5,000 units PO QAM cap 08/11/19 11/25/19 History mcg (4,000 unit) capsule diclofenac sodium 1 % topical gel 4 gm TOPICAL QID PRN #300 gm 08/11/19 11/25/19 Rx metoprolol tartrate 25 mg tablet 25 mg PO QAM #90 tab 08/23/19 11/25/19 Rx lorazepam 0.5 mg tablet 0.5 mg PO DAILY PRN #30 tab 11/19/19 11/25/19 Rx aspirin 81 mg PO QAM 11/25/19 11/25/19 History atorvastatin 40 mg PO HS 11/25/19 11/25/19 History azelastine 2 sprays INTNAS HS 11/25/19 11/25/19 History esomeprazole magnesium [Nexium] 40 mg PO QAM 11/25/19 11/25/19 History fluticasone propionate 2 spray INTNAS QAM 11/25/19 11/25/19 History hydroxychloroquine 400 mg PO QDD 11/25/19 11/25/19 History isosorbide mononitrate 120 mg PO QAM 11/25/19 11/25/19 History metoprolol tartrate 50 mg PO HS 11/25/19 11/25/19 History telmisartan-hydrochlorothiazid 1 tab PO QAM 11/25/19 11/25/19 History tolterodine [Detrol LA] 4 mg PO QAM 11/25/19 11/25/19 History Past Med/Surg History Medical History Allergic rhinitis Aortic stenosis, mild Asthma CAD (coronary artery disease) Chronic osteoarthritis Chronic stable angina Cirrhosis, nonalcoholic Followed By Sondra Chao 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 Harman History of carotid endarterectomy Right, 2016 History of cataract surgery History of heart artery stent History of hysterectomy History of tonsillectomy Hx of CABG 1997 Family History Unknown Hypertension Mother Diabetes Father Heart disease Myocardial infarction Hypertension Cancer Aunt Lung cancer Denies family history of Ovarian cancer Prostate cancer Breast cancer Colorectal cancer Stroke Social History Smoking Status: Former smoker Smoking End Date: 1983; Second Hand Exposure: No; Hx Alcohol Use: No Hx Substance Use: No Preferred Language: Turkmen Communication Ability: Effective Visual Impairment: Limited Hearing Ability: Normal 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 Beliefs That Will Affect Care: None marital status: Current Living Situation: Spouse current occupational status: retired How many Children do You have: 1 Other Information That Helps Us Care for You: No Feels Safe at Home: Yes Safety Concerns: Feels Safe At This Time Childhood Exposure to Second-Hand Smoke: Yes caffeine: Yes Dental Care, Regularly: Yes Physical Activity Frequency: 1-2 Times per Week Seatbelt Use: always Sunscreen Use: Yes Review of Systems Review of Systems: All systems reviewed & are unremarkable except as noted in HPI & below Psychiatric: High anxiety levels with her current chest pain Physical Exam Constitutional: well developed, well nourished and + obese; no acute distress Eyes: + anicteric sclerae; normal pupil size ENMT: external ear and nose normal, oropharynx normal Neck: trachea midline, no thyromegaly Respiratory: normal respiratory effort, lungs clear to auscultation Cardiovascular: Rate/Rhythm: regular rate and regular rhythm (Occasional skipped beats) Heart Sounds: no murmur Vessels: no JVD Extremities: normal capillary refill and + pedal edema (Trace bilateral ankles, equal); no calf tenderness Gastrointestinal (Abdomen): normal bowel sounds, soft, nontender, no hepatosplenomegaly Musculoskeletal: no cyanosis or clubbing, extremities motor strength 5/5 Skin: no rashes, warm and dry Neurologic: moves all extremities and awake; not confused Psychiatric: A+Ox3, euthymic affect Lymphatic: no cervical or axillary lymphadenopathy Results & Data Results & Data ([facility]) Vital Signs (Past 12 Hours) Vital Signs Temp Pulse Resp BP Pulse Ox 11/25/19 13:30 60 138/64 97 11/25/19 13:25 99 11/25/19 13:12 82 L 11/25/19 13:10 65 130/62 82 L 11/25/19 11:54 36.8 C 70 20 162/77 H 93 Diagnostic Findings XR chest 1V portable IMPRESSION: Cardiomegaly with mild congestive change. This has slightly progressed in the interval. CT ANGIOGRAM OF THE CHEST IMPRESSION: 1. No evidence of acute pulmonary embolism 2. Mildly enlarged mediastinal lymph nodes unchanged from the prior study 3. 1 cm groundglass nodule within the left lower lobe. 6-12 month follow-up is recommended per Fleischner guidelines. 4. Mild interlobular septal edema 5. Suspected mild splenomegaly Code Status & VTE Plan Code Status Full VTE Prophylaxis Plan VTE Prophylaxis will be ordered: Yes PG Care Time/CCT Total # of Minutes Spent Total Time Spent with Patient: Total time spent is greater than 50% in coordination of care (as documented) at patient's floor/unit and/or counseling patient: Coding Level of Care Code 92885 Initial Inpt Care Lvl 3 Diagnoses NSTEMI (non-ST elevated myocardial infarction) I21.4 Hypoxia R09.02 Hyponatremia E87.1 Cirrhosis, nonalcoholic K74.60 Depression with anxiety F41.8 Hypothyroidism E03.9 GERD (gastroesophageal reflux disease) K21.9 Sjogrens syndrome M35.00 DVT prophylaxis Z29.9
[2019-11-25] MEDS ORDERED: Heparin IV Low Dose WITH Bolus IV SCH (16:02)
[2019-11-25] MEDS ORDERED: HEPARIN 25000 UNIT/500 ML D5W IV ONE (16:11)
[2019-11-25] MEDS ORDERED: HEPARIN SOD 5,000 UNIT/0.5 ML VIAL ONE (16:11)
[2019-11-25] MEDS ORDERED: ACETAMINOPHEN 325 MG TAB PO STA (16:18)
[2019-11-25] MEDS: HEPARIN SODIUM/DEXTROSE 25,000 UNITS/500 ML BAG IV SCH (16:25)
[2019-11-25] MEDS ORDERED: NITROGLYCERIN 2% OINTMENT 30GM TUBE ONE (16:39)
[2019-11-25 17:16] LABS: Troponin I 1.52 ng/ml (0-0.045)
[2019-11-25] MEDS ORDERED: DICLOFENAC SOD 1% GEL 100 GM TUBE EXT PRN (17:52)
[2019-11-25] MEDS ORDERED: ACETAMINOPHEN 325 MG TAB PO PRN (17:52)
[2019-11-25] MEDS ORDERED: COUGH DROP (SUGAR FREE) LOZ 24 LOZ/1 BOX BUCCAL ONE (18:15)
[2019-11-25] MEDS: NITROGLYCERIN 2% OINTMENT 30GM TUBE EXT SCH (18:36)
[2019-11-25] MEDS: HYDROXYCHLOROQUINE SULFATE 200 MG TAB PO SCH (18:41)
[2019-11-25] MEDS: LORazepam 0.5 MG TAB PO PRN (20:29)
[2019-11-25] MEDS: METOPROLOL TARTRATE 50 MG TAB PO SCH (20:29)
[2019-11-25] MEDS: FAMOTIDINE 20 MG TAB PO SCH (20:30)
[2019-11-25] MEDS: ATORVASTATIN 40 MG TAB PO SCH (20:30)
[2019-11-25] MEDS: CITALOPRAM 20 MG TAB PO SCH (20:30)
[2019-11-25] MEDS ORDERED: NON-FORMULARY MEDICATION (Azelastine 2 SPRAYS) INTNAS SCH (21:00)
[2019-11-25 23:14] LABS: Partial Thromboplastin Ratio 2.3
[2019-11-25 23:20] LABS: Partial Thromboplastin Time 63.5 Seconds (21.0-31.0)
[2019-11-26] MEDS: NITROGLYCERIN 2% OINTMENT 30GM TUBE EXT SCH ×2 (00:14→06:09)
--- NOTE | 2019-11-26 05:39 | Electrocardiogram Report ---
Test Reason : Blood Pressure : / mmHG Vent. Rate : 068 BPM Atrial Rate : 068 BPM P-R Int : 296 ms QRS Dur : 122 ms QT Int : 434 ms P-R-T Axes : 041 025 016 degrees QTc Int : 461 ms Sinus rhythm with 1st degree A-V block RSR' or QR pattern in V1 suggests right ventricular conduction delay Borderline ECG When compared with ECG of 02-AUG-2016 11:45, No significant change was found Confirmed by José Luis Araujo ([id number]) on 11/26/2019 5:39:06 AM Referred By: REFERRED SELF Confirmed By:José Luis Araujo
--- NOTE | 2019-11-26 05:53 | Electrocardiogram Report ---
Test Reason : Blood Pressure : / mmHG Vent. Rate : 067 BPM Atrial Rate : 375 BPM P-R Int : 300 ms QRS Dur : 124 ms QT Int : 438 ms P-R-T Axes : 000 043 035 degrees QTc Int : 463 ms Sinus rhythm with 1st degree A-V block Premature atrial complexes RSR' or QR pattern in V1 suggests right ventricular conduction delay Abnormal ECG When compared with ECG of 25-Nov-2019 12:08, Premature atrial complexes are now Present Confirmed by José Luis Araujo ([id number]) on 11/26/2019 5:52:59 AM Referred By: REFERRED SELF Confirmed By:José Luis Araujo
[2019-11-26] MEDS: LEVOTHYROXINE SODIUM 175 MCG TABLET PO SCH (06:05)
[2019-11-26 07:02] LABS: Basophils # (auto) 0.02 K/uL (0-0.2); Basophils % (auto) 0.3 %; Eosinophils # (auto) 0.33 K/uL (0-0.5); Eosinophils % (auto) 5.3 %; Hematocrit (blood only) 35.5 % (37-47); Hemoglobin 12.1 g/dL (12.0-16.0); Immature Granulocytes # (auto) 0.03 K/uL (0.00-0.02); Immature Granulocytes % (auto) 0.5 %; Lymphocytes # (auto) 0.57 K/uL (1.2-3.4); Lymphocytes % (auto) 9.1 %; Mean Corpuscular Hemoglobin 30.2 pg (25-34); Mean Corpuscular Hgb Conc 34.1 g/dL (32-36); Mean Corpuscular Volume 88.5 fL (80-100); Mean Platelet Volume 10.1 fL (7.4-10.4); Monocytes # (auto) 0.72 K/uL (0.11-0.59); Monocytes % (auto) 11.5 %; Neutrophils # (auto) 4.57 K/uL (1.4-6.5); Neutrophils % (auto) 73.3 %; Platelet Count 137 K/uL (130-400); RDW Coefficient of Variation 13.8 % (11.5-14.5); RDW Standard Deviation 45.1 fL (36.4-46.3); Red Blood Count 4.01 M/uL (4.2-5.4); White Blood Count 6.24 K/uL (4.8-10.8)
[2019-11-26 07:14] LABS: Estimated Average Glucose 100 mg/dl; Hemoglobin A1C 5.1 % (4.5-5.6)
[2019-11-26 07:24] LABS: BUN Creatinine Ratio 22.1 (10-20); Calcium 9.1 mg/dl (8.5-10.1); Creatinine Clr Calc Pharmacy 39.4 ml/min; Est GFR (African American) 51.7; Est GFR (Non-African American) 44.6; Potassium 3.7 mmol/L (3.5-5.1)
[2019-11-26 07:31] LABS: Partial Thromboplastin Time 55.5 Seconds (21.0-31.0)
[2019-11-26 07:37] LABS: Troponin I 1.29 ng/ml (0-0.045)
[2019-11-26] MEDS: FLUTICASONE PROPIONATE NA SPR 16 GM BTL NAE SCH (08:13)
[2019-11-26] MEDS: ASPIRIN 81 MG ECTAB PO SCH (08:13)
[2019-11-26] MEDS: TOLTERODINE TARTRATE LA 4 MG CAPCR PO SCH (08:13)
[2019-11-26] MEDS: METOPROLOL TARTRATE 25 MG TAB PO SCH (08:14)
[2019-11-26] MEDS: ISOSORBIDE MONO EXTENDED REL 60 MG TABCR PO SCH (08:14)
[2019-11-26] MEDS: LACTOBACILLUS ACIDOPHILUS (FLORANEX) TAB PO SCH (08:14)
[2019-11-26] MEDS: TELMISARTAN 40 MG TAB PO SCH (08:15)
[2019-11-26] MEDS: TOCOPHERYL, DL-ALPHA 400 UNITS CAP PO SCH (08:15)
[2019-11-26] MEDS: PANTOprazole 40 MG TAB PO SCH (08:15)
[2019-11-26] MEDS: CHOLECALCIFEROL 1,000 UNITS 25 MCG TAB PO SCH (08:15)
[2019-11-26] MEDS ORDERED: TELMISARTAN HYDROCHLOROTHIAZID PO SCH (09:00)
[2019-11-26] MEDS ORDERED: hydroCHLOROthiazide 25 MG TAB PO SCH (09:00)
[2019-11-26] MEDS ORDERED: POTASSIUM CHLORIDE 20 MEQ TABCR PO STA (09:22)
[2019-11-26] MEDS ORDERED: FUROSEMIDE 40 MG in SYRINGE 0 ML IV ONE (10:00)
[2019-11-26] MEDS ORDERED: Nursing to Pharmacy Communication SCH (10:15)
[2019-11-26] MEDS ORDERED: CLOPIDOGREL BISULFATE 300 MG TAB PO STA (10:16)
[2019-11-26] MEDS: cefTRIAXone SODIUM 2,000 MG in DEXTROSE 5% 50 ML IV SCH (10:39)
--- NOTE | 2019-11-26 11:42 | Hospitalist Progress Note ---
Date of Service November 26, 2019 Assessment & Plan (1) NSTEMI (non-ST elevated myocardial infarction): Continue heparin drip. Cardiology consultation appreciated. Patient refuses to consider cardiac catheterization and medical management is the prescribed course of action at this time. Continue aspirin, metoprolol, and atorvastatin. Cardiac echo reveals normal left ventricular ejection fraction with no regional wall motion abnormalities. (2) Hypoxia: Due to acute diastolic CHF. Supplemental oxygen to maintain saturation greater than 90%. Treat underlying CHF. Wean oxygen off as tolerated. (3) Hyponatremia: Mild. Treat CHF. Serial lab studies. (4) Cirrhosis, nonalcoholic: Noted. Supportive care (5) Depression with anxiety: Continue citalopram 20 mg p.o. at bedtime Lorazepam as needed (6) Hypothyroidism: TSH recently WNL Continue levothyroxine 175 mcg p.o. every morning (7) GERD (gastroesophageal reflux disease): Pantoprazole therapy . Continue her usual famotidine 20 mg p.o. at bedtime (8) Sjogrens syndrome: Suspect this is why she takes hydroxychloroquine 400 mg p.o. daily. Recommend rheumatology follow-up given her liver cirrhosis. (9) DVT prophylaxis: On heparin IV drip as above (10) Acute diastolic (congestive) heart failure: Preserved ejection fraction with no regional wall motion abnormalities on cardiac echo. Lasix diuresis today. Serial chest x-ray (11) UTI (urinary tract infection): Obtain urine analysis and urine culture. Start Rocephin, day 1 Admission and Anticipated Discharge Date Admission Date: November 25, 2019 Subjective Alert and oriented. No current chest pain. Case discussed with cardiology. She will not consider cardiac catheterization at this time. Medical management is indicated. She does have dysuria and foul-smelling urine. Urine analysis and urine culture ordered and Rocephin started. She appears to have mild congestive heart failure with BNP 3930. Will administer intravenous Lasix today. She remains on a heparin drip Review of Systems Review of Systems: Constitutional-no fever or chills ENT-no blurred vision, no double vision, no epistaxis, no sore throat Respiratory-no cough, no wheezing, no shortness of breath Cardiac-no palpitations, no syncope. Chest discomfort has resolved GI-no nausea, vomiting, diarrhea, melena, hematochezia -dysuria for several days. No hematuria Musculoskeletal-no joint pain, no muscle tenderness Skin-no bruising, no rashes, no pruritus Neuro-no isolated weakness, no paresthesia, no weakness Psych-no depression, no anxiety Physical Exam Physical Exam: General-alert and oriented x3, no fevers, no chills HEENT-head atraumatic and normocephalic, TMs intact bilaterally, pupils equal and reactive to light, extraocular muscles intact Neck-no lymphadenopathy or thyromegaly, trachea midline Chest-bibasilar inspiratory fine rales. No dullness to percussion. No wheezing Cardiac-regular rate and rhythm, normal S1 and S2, no murmurs Abdomen-normal bowel sounds, nontender, no hepatosplenomegaly Extremities-no cyanosis, clubbing, or edema Neuro-cranial nerves II through XII intact, motor and sensory function within normal limits, strength symmetrical 5/5, no focal deficits Psych-normal affect, normal mood Results & Data Results & [facility] ([facility]) Vital Signs (Past 12 Hours) Vital Signs Temp Pulse Resp BP Pulse Ox 11/26/19 10:43 36.5 C 50 L 19 117/59 L 95 11/26/19 07:53 36.6 C 57 L 19 125/66 94 11/26/19 03:20 36.7 C 53 L 16 113/67 95 11/25/19 23:38 36.8 C 52 L 18 126/65 98 Laboratory Results 11/26/19 06:46 11/26/19 06:46 PG Care Time/CCT Total # of Minutes Spent Total Time Spent with Patient: Total time spent is greater than 50% in coordination of care (as documented) at patient's floor/unit and/or counseling patient: Coding Level of Care Code 46142 Subseq Hosp Care Lvl 3 Diagnoses NSTEMI (non-ST elevated myocardial infarction) I21.4 Hypoxia R09.02 Hyponatremia E87.1 Cirrhosis, nonalcoholic K74.60 Depression with anxiety F41.8 Hypothyroidism E03.9 GERD (gastroesophageal reflux disease) K21.9 Sjogrens syndrome M35.00 DVT prophylaxis Z29.9 Acute diastolic (congestive) heart failure I50.31 UTI (urinary tract infection) N39.0
[2019-11-26 12:57] LABS: Appearance Urine Clear (Clear); Bacteria Urine Automated 2+ (Negative); Bilirubin Urine Negative (Negative); Blood Urine Negative (Negative); Color Urine Yellow; Epithelial Cell Urine Auto 0-5 /lpf (0-5); Glucose Urine UA Negative (Negative); Ketones Urine Negative (Negative); Leukocyte Esterase Urine 1+ (Negative); Nitrite Urine Positive (Negative); Protein Urine Negative (Negative); RBC Urine Automated 0-4 /hpf (0-4); Urobilinogen Urine Negative (Negative); pH Urine 6.5 (4.5-7.5)
--- NOTE | 2019-11-26 13:02 | Cardiology Consultation ---
Date of Consultation November 26, 2019 Assessment & Plan (1) Non-ST elevation [place] (NSTEMI): it is curious that the patient's symptoms yesterday were distinct from her typical angina. However, she does have elevated biomarkers in a pattern consistent with an event yesterday. We have had a discussion previously on an outpatient basis regarding the utility of cardiac catheterization. Apparently she had a bad experience during her initial catheterization over 2 decades ago. She is very reluctant to undergo repeat catheterization. While I did recommend this as the preferred approach given her circumstances, she has elected to try a more conservative therapy 1st. As such, will continue her heparin infusion for 48 hours. I will load her with Plavix and continue Plavix on a daily basis. At some point will need to assess her symptoms with ambulation. Her biomarkers appear to be trending downward. She continues to have some symptoms of neck discomfort but this may in fact be musculoskeletal in nature. I think we can try stopping the nitroglycerin. We can continue her outpatient isosorbide and metoprolol. (2) CAD (coronary artery disease): She reportedly underwent percutaneous intervention to an unknown vessel prior to her bypass in 1998. known bypass anatomy : BRITTON to LAD Saphenous vein graft to diagonal saphenous vein graft to PDA radial graft to circumflex will continue her on aggressive secondary prevention which includes metoprolol, aspirin and high-dose atorvastatin (3) Aortic stenosis, mild: this appears unchanged over the past few years. I do not believe this is producing symptoms. (4) Acute diastolic (congestive) heart failure: Dyspnea is not a prominent feature of her presentation. However, she is known to have an element of diastolic heart failure at times. N terminal proBNP was markedly elevated and she will be given an extra dose of Lasix. History of Present Illness Reason for Consultation: Chest pain Requesting Physician: Becca Attending Physician: Jason Jensen MD History of Present Illness 79-year-old woman with longstanding history of vascular disease to include carotid stenosis and coronary disease. For some time she has been having symptoms of exertional chest discomfort consistent with angina. This has been well controlled on medical therapy and not changed appreciably over several months. However, yesterday she was quite upset about an inability to produce a urine sample for renewal of her lorazepam prescription. Shortly after a prolonged attempt to produce urine sample she began to experience symptoms of jaw discomfort. She also had an element of left shoulder and left arm discomfort. This was atypical in nature and not characteristic of her typical a ngina. However, the symptoms persisted and she presented to the emergency room for evaluation. Apparently she did take a nitroglycerin was some improvement in the symptoms. She has a very mild associated dyspnea. She is not appear to have dizziness or lightheadedness. No sense of palpitation. In the emergency room her symptoms appear to have resolved and she is unclear what improved her pain. She also had some element of back discomfort that was felt to be reproducible with palpation. The patient was started on heparin and placed on transdermal nitroglycerin. Over the course of the evening she appeared to do well. Currently she is describing some neck pain. This appears to be mostly posterior. She continues to have an element of back discomfort. Both of these are positional and familiar to her as "arthritis". Allergies Allergy/AdvReac Type Severity Reaction Status Date / Time Cipro Allergy Intermediate RASH Verified 10/22/16 09:26 meperidine Allergy Mild NAUSEA AND Verified 11/25/19 14:54 VOMITING morphine Allergy Mild NAUSEA AND Verified 11/25/19 14:54 VOMITING adhesive Allergy Unknown ADHESIVE Verified 11/25/19 14:54 TAPE-BLISTERS clindamycin Allergy Unknown per PCP Verified 11/25/19 14:54 records codeine Allergy Unknown Nausea Verified 11/25/19 14:54 ciprofloxacin Allergy Verified 11/25/19 14:54 oxycodone AdvReac Severe NAUSEA/VOMI Verified 11/25/19 14:54 TING Home Medications Home Medications Medication Instructions Recorded Confirmed Type vitamin E (dl, acetate) 400 unit 400 units PO QAM 10/27/18 11/25/19 History capsule nitroglycerin 0.4 mg sublingual 0.4 mg SL ONCE PRN #25 tab 11/24/18 11/25/19 History tablet lactobacillus combination no.9 4 4,000 mmu cells PO QAM 02/04/19 11/25/19 History billion cell capsule citalopram 40 mg tablet 20 mg PO HS tab 05/17/19 11/25/19 History famotidine 20 mg tablet 20 mg PO HS 06/14/19 11/25/19 History levothyroxine 175 mcg tablet 175 mcg PO QAM 06/14/19 11/25/19 History furosemide 40 mg tablet 40 mg PO .COMPLEX #24 tab 06/16/19 11/25/19 Rx potassium chloride 10 mEq 10 meq PO .COMPLEX #24 cap 06/16/19 11/25/19 Rx capsule,extended release Oxygen Home #1 ea 08/11/19 11/11/19 History cholecalciferol (vitamin D3) 100 5,000 units PO QAM cap 08/11/19 11/25/19 History mcg (4,000 unit) capsule diclofenac sodium 1 % topical gel 4 gm TOPICAL QID PRN #300 gm 08/11/19 11/25/19 Rx metoprolol tartrate 25 mg tablet 25 mg PO QAM #90 tab 08/23/19 11/25/19 Rx lorazepam 0.5 mg tablet 0.5 mg PO DAILY PRN #30 tab 11/19/19 11/25/19 Rx aspirin 81 mg PO QAM 11/25/19 11/25/19 History atorvastatin 40 mg PO HS 11/25/19 11/25/19 History azelastine 2 sprays INTNAS HS 11/25/19 11/25/19 History esomeprazole magnesium [Nexium] 40 mg PO QAM 11/25/19 11/25/19 History fluticasone propionate 2 spray INTNAS QAM 11/25/19 11/25/19 History hydroxychloroquine 400 mg PO QDD 11/25/19 11/25/19 History isosorbide mononitrate 120 mg PO QAM 11/25/19 11/25/19 History metoprolol tartrate 50 mg PO HS 11/25/19 11/25/19 History telmisartan-hydrochlorothiazid 1 tab PO QAM 11/25/19 11/25/19 History tolterodine [Detrol LA] 4 mg PO QAM 11/25/19 11/25/19 History Patient History Medical History Allergic rhinitis Aortic stenosis, mild Asthma CAD (coronary artery disease) Chronic osteoarthritis Chronic stable angina Cirrhosis, nonalcoholic Followed By Sondra Chao Dependence on nocturnal oxygen therapy Dependence on nocturnal oxygen therapy (~2015) Depression with anxiety Dupuytren's contracture of hand Dyslipidemia GERD (gastroesophageal reflux disease) Hypertension Hypothyroidism ITP (idiopathic thrombocytopenic purpura) (~09/2011) Knee pain, bilateral KS (myocardial infarction) Sjogrens syndrome Splenomegaly (~09/2011) Surgical History H/O colonoscopy 06/2015 neg, 10 yr f/u Dr. Harman History of carotid endarterectomy Right, 2016 History of cataract surgery History of heart artery stent History of hysterectomy History of tonsillectomy Hx of CABG 1998 [facility] BRITTON to LAD, saphenous vein graft to PDA, saphenous vein graft to diagonal, radial graft to circumflex Family History Unknown Hypertension Mother Diabetes Father Heart disease Myocardial infarction Hypertension Cancer Aunt Lung cancer Denies family history of Ovarian cancer Prostate cancer Breast cancer Colorectal cancer Stroke Social History Smoking Status: Former smoker Smoking End Date: 1983; Second Hand Exposure: No; Hx Alcohol Use: No Hx Substance Use: No Preferred Language: Danish Communication Ability: Effective Visual Impairment: Limited Hearing Ability: Normal Traveling Missionary Required: No Beliefs That Will Affect Care: None marital status: Current Living Situation: Spouse current occupational status: retired How many Children do You have: 1 Other Information That Helps Us Care for You: No Feels Safe at Home: Yes Safety Concerns: Feels Safe At This Time Childhood Exposure to Second-Hand Smoke: Yes caffeine: Yes Dental Care, Regularly: Yes Physical Activity Frequency: 1-2 Times per Week Seatbelt Use: always Sunscreen Use: Yes Review of Systems Review of Systems: All systems reviewed & are unremarkable except as noted in HPI & below Physical Exam Physical Exam: She is alert and oriented x3. Mood affect appear normal. She answered all questions appropriately. HEENT: Sclerae are anicteric. Pupils are equal and reactive to light and accommodation. Extraocular movements were intact. Neuro: Cranial nerves intact Neck: Examination of the submandibular region did not reveal any significant lymphadenopathy. Carotids are palpable bilaterally and free of bruits on auscultation. There was no evidence of jugular venous distention. The thyroid was not enlarged. Lungs: Lungs are clear to auscultation bilaterally. There are no rales wheezes or rhonchi. She has normal respiratory effort without use of accessory muscles. There is normal pulmonary excursion. Cardiac: The rhythm was regular. S1 and S2 were normal. crescendo systolic. The PMI was not markedly displaced on palpation. Abdomen: The abdomen was soft and nontender. Extremities: normal right radial pulse. Absent left radial pulse. There is no evidence cyanosis or clubbing. There was no evidence of significant peripheral edema bilaterally. Somewhat diminished right femoral pulse without bruit Skin: There are no rashes noted on examination today. Results & Data ([facility]) Vital Signs (Past 12 Hours) Vital Signs Temp Pulse Resp BP Pulse Ox 11/26/19 10:43 36.5 C 50 L 19 117/59 L 95 11/26/19 07:53 36.6 C 57 L 19 125/66 94 11/26/19 03:20 36.7 C 53 L 16 113/67 95 Laboratory Results Abnormal Lab Results 11/25/19 11/25/19 11/25/19 13:00 13:00 13:00 WBC 10.45 RBC 4.22 Hgb 12.6 Hct 36.3 L MCV 86.0 MCH 29.9 MCHC 34.7 RDW Std Deviation 43.0 RDW Coeff of [place] 13.7 Plt Count 161 MPV 10.1 Immature Gran % (Auto) 0.3 Neut % (Auto) 87.6 Lymph % (Auto) 7.3 [place] % (Auto) 2.6 Eos % (Auto) 2.0 Baso % (Auto) 0.2 Neut # (Auto) 9.16 H Lymph # (Auto) 0.76 L [place] # (Auto) 0.27 Eos # (Auto) 0.21 Baso # (Auto) 0.02 Immature Gran # (Auto) 0.03 H PT 11.3 INR 1.1 APTT 28.5 PTT Ratio 1.0 Sodium 131 L Potassium 4.0 Chloride 94 L Carbon Dioxide 30 Anion Gap 6.0 BUN 24 H Creatinine 1.01 Est Cr Clr Drug Dosing 44.8 Est GFR ( Amer) 60.5 Est GFR (Non-Af Amer) 52.2 BUN/Creatinine Ratio 23.7 H Glucose 120 H Estimat Average Glucose Hemoglobin A1c Calcium 9.3 Magnesium Total Bilirubin 1.9 H AST 25 ALT 22 Alkaline Phosphatase 63 Troponin I 0.492 H* NT-Pro-B Natriuret Pep Total Protein 7.4 Albumin 3.9 Globulin 3.5 Albumin/Globulin Ratio 1.1 Triglycerides Cholesterol LDL Cholesterol, Calc VLDL Cholesterol, Calc HDL Cholesterol Cholesterol/HDL Ratio Lipase 87 11/25/19 11/25/19 11/25/19 16:15 22:28 22:28 WBC RBC Hgb Hct MCV MCH MCHC RDW Std Deviation RDW Coeff of [place] Plt Count MPV Immature Gran % (Auto) Neut % (Auto) Lymph % (Auto) [place] % (Auto) Eos % (Auto) Baso % (Auto) Neut # (Auto) Lymph # (Auto) [place] # (Auto) Eos # (Auto) Baso # (Auto) Immature Gran # (Auto) PT INR APTT 63.5 H* PTT Ratio 2.3 Sodium Potassium Chloride Carbon Dioxide Anion Gap BUN Creatinine Est Cr Clr Drug Dosing Est GFR ( Amer) Est GFR (Non-Af Amer) BUN/Creatinine Ratio Glucose Estimat Average Glucose Hemoglobin A1c Calcium Magnesium 2.0 Total Bilirubin AST ALT Alkaline Phosphatase Troponin I 1.520 H* 1.710 H* NT-Pro-B Natriuret Pep Total Protein Albumin Globulin Albumin/Globulin Ratio Triglycerides Cholesterol LDL Cholesterol, Calc VLDL Cholesterol, Calc HDL Cholesterol Cholesterol/HDL Ratio Lipase 11/26/19 11/26/19 11/26/19 06:46 06:46 06:46 WBC 6.24 RBC 4.01 L Hgb 12.1 Hct 35.5 L MCV 88.5 MCH 30.2 MCHC 34.1 RDW Std Deviation 45.1 RDW Coeff of [place] 13.8 Plt Count 137 MPV 10.1 Immature Gran % (Auto) 0.5 Neut % (Auto) 73.3 Lymph % (Auto) 9.1 [place] % (Auto) 11.5 Eos % (Auto) 5.3 Baso % (Auto) 0.3 Neut # (Auto) 4.57 Lymph # (Auto) 0.57 L [place] # (Auto) 0.72 H Eos # (Auto) 0.33 Baso # (Auto) 0.02 Immature Gran # (Auto) 0.03 H PT INR APTT PTT Ratio Sodium 131 L Potassium 3.7 Chloride 93 L Carbon Dioxide 30 Anion Gap 8.0 BUN 25 H Creatinine 1.15 Est Cr Clr Drug Dosing 39.4 Est GFR ( Amer) 51.7 Est GFR (Non-Af Amer) 44.6 BUN/Creatinine Ratio 22.1 H Glucose 95 Estimat Average Glucose 100 Hemoglobin A1c 5.1 Calcium 9.1 Magnesium Total Bilirubin AST ALT Alkaline Phosphatase Troponin I 1.290 H* NT-Pro-B Natriuret Pep Total Protein Albumin Globulin Albumin/Globulin Ratio Triglycerides 121 Cholesterol 109 LDL Cholesterol, Calc 44 VLDL Cholesterol, Calc 24 HDL Cholesterol 41 Cholesterol/HDL Ratio 3 Lipase 11/26/19 11/26/19 06:46 06:46 WBC RBC Hgb Hct MCV MCH MCHC RDW Std Deviation RDW Coeff of [place] Plt Count MPV Immature Gran % (Auto) Neut % (Auto) Lymph % (Auto) [place] % (Auto) Eos % (Auto) Baso % (Auto) Neut # (Auto) Lymph # (Auto) [place] # (Auto) Eos # (Auto) Baso # (Auto) Immature Gran # (Auto) PT INR APTT 55.5 H* PTT Ratio 2.0 Sodium Potassium Chloride Carbon Dioxide Anion Gap BUN Creatinine Est Cr Clr Drug Dosing Est GFR ( Amer) Est GFR (Non-Af Amer) BUN/Creatinine Ratio Glucose Estimat Average Glucose Hemoglobin A1c Calcium Magnesium Total Bilirubin AST ALT Alkaline Phosphatase Troponin I NT-Pro-B Natriuret Pep 3930 H Total Protein Albumin Globulin Albumin/Globulin Ratio Triglycerides Cholesterol LDL Cholesterol, Calc VLDL Cholesterol, Calc HDL Cholesterol Cholesterol/HDL Ratio Lipase Diagnostic Findings chest x-ray was obtained at the time of admission. No acute cardiopulmonary findings chest CTA was also obtained which revealed some lymphadenopathy but no evidence of aortic dissection or pulmonary embolus. Echocardiogram was performed today which revealed normal LV systolic function without regional wall motion abnormality. Mild aortic stenosis and regurgitation. Mild mitral regurgitation. Essentially unchanged from prior PG Care Time/CCT Total # of Minutes Spent Total Time Spent with Patient: Total time spent is greater than 50% in coordination of care (as documented) at patient's floor/unit and/or counseling patient: Coding Level of Care Code 10549 Initial Inpt Care Lvl 3 Diagnoses Non-ST elevation [place] (NSTEMI) I21.4 CAD (coronary artery disease) I25.119 Associated angina: with unspecified angina Coronary Disease-Associated Artery/Lesion type: unspecified vessel or lesion type [place] vs. transplanted heart: unspecified whether ute or transplanted heart Aortic stenosis, mild I35.0 Acute diastolic (congestive) heart failure I50.31 (1) CAD (coronary artery disease) Associated angina: with unspecified angina Coronary Disease-Associated Artery/Lesion type: unspecified vessel or lesion type [place] vs. transplanted heart: unspecified whether ute or transplanted heart Qualified Code(s): I25.119 - Atherosclerotic heart disease of [place] coronary artery with unspecified angina pectoris
--- NOTE | 2019-11-26 14:39 | Electrocardiogram Report ---
Test Reason : Blood Pressure : / mmHG Vent. Rate : 064 BPM Atrial Rate : 441 BPM P-R Int : 000 ms QRS Dur : 118 ms QT Int : 464 ms P-R-T Axes : 000 041 035 degrees QTc Int : 478 ms Normal sinus rhythm with 1st degree A-V block Incomplete right bundle branch block Abnormal ECG When compared with ECG of 25-NOV-2019 14:25, No significant change Confirmed by Master Ashley [id number]) on 11/26/2019 2:39:37 PM Referred By: REFERRED SELF Confirmed By:Master Ashley
--- NOTE | 2019-11-26 15:50 | XCELERA ---
[id number]
[2019-11-26] MEDS: HEPARIN SODIUM/DEXTROSE 25,000 UNITS/500 ML BAG IV SCH (16:22)
[2019-11-26] MEDS: HYDROXYCHLOROQUINE SULFATE 200 MG TAB PO SCH (16:53)
[2019-11-26] MEDS: ATORVASTATIN 40 MG TAB PO SCH (20:50)
[2019-11-26] MEDS: FAMOTIDINE 20 MG TAB PO SCH (20:50)
[2019-11-26] MEDS: CITALOPRAM 20 MG TAB PO SCH (20:50)
[2019-11-26] MEDS: METOPROLOL TARTRATE 50 MG TAB PO SCH (20:50)
[2019-11-27] MEDS: LORazepam 0.5 MG TAB PO PRN ×2 (00:30→20:39)
[2019-11-27] MEDS: HEPARIN SODIUM/DEXTROSE 25,000 UNITS/500 ML BAG IV SCH (00:31)
[2019-11-27] MEDS: LEVOTHYROXINE SODIUM 175 MCG TABLET PO SCH (06:35)
[2019-11-27 07:26] LABS: Basophils # (auto) 0.01 K/uL (0-0.2); Basophils % (auto) 0.2 %; Eosinophils % (auto) 5.5 %; Hematocrit (blood only) 35.5 % (37-47); Immature Granulocytes # (auto) 0.01 K/uL (0.00-0.02); Immature Granulocytes % (auto) 0.2 %; Lymphocytes # (auto) 0.55 K/uL (1.2-3.4); Mean Corpuscular Hemoglobin 30.2 pg (25-34); Mean Corpuscular Hgb Conc 33.8 g/dL (32-36); Mean Corpuscular Volume 89.4 fL (80-100); Mean Platelet Volume 10.5 fL (7.4-10.4); Monocytes # (auto) 0.69 K/uL (0.11-0.59); Monocytes % (auto) 12.6 %; Neutrophils # (auto) 3.92 K/uL (1.4-6.5); Neutrophils % (auto) 71.5 %; Platelet Count 127 K/uL (130-400); RDW Coefficient of Variation 13.7 % (11.5-14.5); RDW Standard Deviation 45.2 fL (36.4-46.3); Red Blood Count 3.97 M/uL (4.2-5.4); White Blood Count 5.48 K/uL (4.8-10.8)
[2019-11-27 07:40] LABS: BUN Creatinine Ratio 21.4 (10-20); Calcium 9.1 mg/dl (8.5-10.1); Est GFR (African American) 57.7; Est GFR (Non-African American) 49.8
[2019-11-27 07:44] LABS: Partial Thromboplastin Ratio 1.7
[2019-11-27 07:45] LABS: Partial Thromboplastin Time 48.4 Seconds (21.0-31.0)
[2019-11-27] MEDS: TELMISARTAN 40 MG TAB PO SCH (08:02)
[2019-11-27] MEDS: ASPIRIN 81 MG ECTAB PO SCH (08:02)
[2019-11-27] MEDS: PANTOprazole 40 MG TAB PO SCH (08:02)
[2019-11-27] MEDS: METOPROLOL TARTRATE 25 MG TAB PO SCH (08:02)
[2019-11-27] MEDS: TOLTERODINE TARTRATE LA 4 MG CAPCR PO SCH (08:02)
[2019-11-27] MEDS: LACTOBACILLUS ACIDOPHILUS (FLORANEX) TAB PO SCH (08:02)
[2019-11-27] MEDS: CHOLECALCIFEROL 1,000 UNITS 25 MCG TAB PO SCH (08:02)
[2019-11-27] MEDS: TOCOPHERYL, DL-ALPHA 400 UNITS CAP PO SCH (08:03)
[2019-11-27] MEDS: FLUTICASONE PROPIONATE NA SPR 16 GM BTL NAE SCH (08:03)
[2019-11-27] MEDS: ISOSORBIDE MONO EXTENDED REL 60 MG TABCR PO SCH (08:03)
[2019-11-27] MEDS: CLOPIDOGREL BISULFATE 75 MG TAB PO SCH (08:03)
[2019-11-27] MEDS: cefTRIAXone SODIUM 2,000 MG in DEXTROSE 5% 50 ML IV SCH (10:01)
--- NOTE | 2019-11-27 11:08 | Cardiology Progress Note ---
Date of Service November 27, 2019 Assessment & Plan (1) Non-ST elevation [place] (NSTEMI): She had a small myocardial infarction, her echocardiogram does not show wall motion abnormalities or left ventricular dysfunction and her cardiac enzymes were relatively low. Hopefully she will not have any difficulty with this. I would recommend continued aspirin and statin therapy. (2) Chest pain: She had some atypical left-sided chest discomfort today, I do not know that that was angina based on her feeling that it was not. She should try to walk around the halls today in anticipation of going home, if she continues to have chest discomfort suggestive of angina we should probably reconsider catheterization. She does not seem totally opposed to it although she would prefer medical therapy. Admission and Anticipated Discharge Date Admission Date: November 25, 2019 Subjective She has not been up and around very much, only to the bathroom. She still has IVs running. She tells me she had a little bit of left-sided chest discomfort lasting several minutes when she went to the bathroom and back to bed, but she also tells me that this is not the type of discomfort she gets when she has angina which she describes as being in her anterior chest. She has not had any of that but has not been very active. Her main complaint is that of nausea. Apparently this is ongoing. Physical Exam Physical Exam: Constitutional: Alert, cooperative and in no distress. HEENT: Unremarkable Neck: No jugular venous distention, carotid pulses are normal and equal bilaterally without bruits. Pulmonary: Clear to auscultation bilaterally. Cardiac: Regular rhythm with no murmur, gallop or rub. Abdomen: Soft, nontender with normal bowel sounds. Extremities: No edema. Distal pulses intact. Neurologic: No focal findings. Gait is steady. Skin: No rash, ecchymoses or petechiae. Results & Data ([facility]) Vital Signs (Past 12 Hours) Vital Signs Temp Pulse Pulse Resp BP BP Pulse Ox 11/27/19 08:00 54 L 11/27/19 07:14 36.7 C 55 L 18 125/67 98 11/27/19 04:02 36.4 C L 49 L 18 120/71 96 11/27/19 00:30 54 L Laboratory Results Coagulation 11/27/19 Range/Units 06:50 APTT 48.4 H* (21.0-31.0) Seconds CBC 11/27/19 Range/Units 06:50 WBC 5.48 (4.8-10.8) K/uL RBC 3.97 L (4.2-5.4) M/uL Hgb 12.0 (12.0-16.0) g/dL Hct 35.5 L (37-47) % Plt Count 127 L (130-400) K/uL Neut # (Auto) 3.92 (1.4-6.5) K/uL Lymph # (Auto) 0.55 L (1.2-3.4) K/uL [place] # (Auto) 0.69 H (0.11-0.59) K/uL Eos # (Auto) 0.30 (0-0.5) K/uL Baso # (Auto) 0.01 (0-0.2) K/uL Comprehensive Metabolic Panel 11/27/19 Range/Units 06:50 Sodium 132 L (136-145) mmol/L Potassium 4.0 (3.5-5.1) mmol/L Chloride 95 L (98-107) mmol/L Carbon Dioxide 31 (21-32) mmol/L BUN 23 H (7-18) mg/dl Creatinine 1.05 (0.6-1.2) mg/dl Glucose 105 H (70-99) mg/dl Calcium 9.1 (8.5-10.1) mg/dl Intake and Output 11/26/19 11/27/19 11/27/19 22:59 06:59 14:59 Intake Total 662.733 / 1578.133 176.000 / 1578.133 207.6 / 207.6 Output Total 900 / 1300 Balance -237.267 / 278.133 176.000 / 278.133 207.6 / 207.6 Intake: IV 187.733 / 528.133 76.000 / 528.133 207.6 / 207.6 HEPARIN SODIUM/DEXTROSE 25,000 187.733 / 458.133 76.000 / 458.133 137.6 / 137.6 units In 500 ml @ 800 UNITS/HR 16 mls/hr IV .Q24H MAURICIO Rx#: [id number] Rocephin 2,000 mg In D5w 50 ml 70 / 70 @ 100 mls/hr IV Q24H MAURICIO Rx#: [id number] Oral 475 / 1050 100 / 1050 Output: Urine 900 / 1300 Other: # Unmeasured Voids 1 Weight 83.3 kg Diagnostic Findings Telemetry: Sinus bradycardia, rate 40s to 50s. Echocardiogram November 26, 2019 shows normal left ventricular systolic function with mild aortic stenosis and mild aortic regurgitation. PG Care Time/CCT Total # of Minutes Spent Total Time Spent with Patient: Total time spent is greater than 50% in coordination of care (as documented) at patient's floor/unit and/or counseling patient: Coding Level of Care Code 46037 Subseq Hosp Care Lvl 3 Diagnoses Non-ST elevation [place] (NSTEMI) I21.4 Chest pain R07.9 Chest pain type: unspecified (1) Chest pain Chest pain type: unspecified Qualified Code(s): R07.9 - Chest pain, unspecified
[2019-11-27] MEDS: HYDROXYCHLOROQUINE SULFATE 200 MG TAB PO SCH (17:01)
[2019-11-27] MEDS ORDERED: SODIUM CHLORIDE 0.65% NA SOLN 45 ML (OCEAN) ONE (17:03)
[2019-11-27] MEDS ORDERED: SODIUM CHLORIDE 0.65% NA SOLN 45 ML (OCEAN) PRN (17:51)
--- NOTE | 2019-11-27 19:54 | Hospitalist Progress Note ---
Date of Service November 27, 2019 Assessment & Plan (1) Non-ST elevation IN (NSTEMI): Patient with prior history of CAD requiring stents 20 years ago at [facility] followed by open heart surgery Patient is ambivalent about further catheterization due to her poor experience at that time Patient had elevated troponins which have peaked are now trending downward Started on heparin drip as well as clopidogrel Continue aspirin, atorvastatin, metoprolol tartrate Continue on telemetry Ambulate prior to discharge to rule out chest pain with exertion (2) CAD (coronary artery disease): Previous history of intervention: * BRITTON to the LAD * Saphenous vein graft to diagonal * Saphenous vein graft to PDA * Radial graft to circumflex Continue beta-doug, aspirin, statin, clopidogrel (3) Acute diastolic (congestive) heart failure: Elevated proBNP on admission at 3930 Furosemide administered No significant dyspnea Patient does use chronic supplemental oxygen at home at 2 L at bedtime (4) Hypertension: Continue meds as listed above Currently well managed Cardiology consulted and following (5) UTI (urinary tract infection): Urine culture with pinpoint growth; re-incubating Continue ceftriaxone Afebrile No leukocytosis No difficulty with urination (6) Hypoxia: Most likely secondary to demand ischemia with non-ST elevated IN Patient does have supplemental oxygen at home for use at bedtime We will need a two-step prior to discharge No chest pain or discomfort (7) Sjogrens syndrome: Continue hydroxychloroquine Consider rheumatology consult on discharge secondary to cirrhosis (8) Hypothyroidism: Continue levothyroxine (9) GERD (gastroesophageal reflux disease): Pantoprazole daily (10) Dyslipidemia: Atorvastatin (11) Depression with anxiety: Citalopram daily for depression Lorazepam as needed (12) Hyponatremia: Sodium 132 Follow serial labs (13) Cirrhosis, nonalcoholic: Outpatient follow-up Supportive care (14) DVT prophylaxis: Chemical prophylaxis with heparin drip Ambulate in halls as tolerated No asymmetrical edema noted Admission and Anticipated Discharge Date Admission Date: November 25, 2019 Subjective Is a pleasant 79-year-old female that presented with chest pain and found to have a non-ST elevated IN. She was seen by cardiology and opted not to have cardiac catheterization. She was started on a heparin drip as well as clopidogrel and is currently being followed by cardiology. She has no further chest pain or tightness. She has no shortness of breath. She does have some irritation in the sinus area but nothing in the lower jaw or shoulder. She denies nausea or vomiting. She has no other acute complaints. Review of Systems Review of Systems: All systems reviewed & are unremarkable except as noted in HPI & below Physical Exam Physical Exam: GENERAL : No acute distress EYES: No icterus, gaze conjugate NOSE: No evidence of epistaxis MOUTH: No lesions or candidiasis NECK: Supple LUNGS: CTA B/L, no wheezes, rales or rhonchi HEART: Regular, rate controlled. No appreciation of murmur or ectopic beats ABDOMEN: Soft, NT, ND, BS Present EXTREMITIES: No LE edema, pedal pulses intact NEURO: A&OX3 Results & Data Results & Data ([facility]) Vital Signs (Past 12 Hours) Vital Signs Temp Pulse Pulse Resp BP BP Pulse Ox 11/27/19 16:55 54 L 11/27/19 15:05 36.5 C 48 L 16 109/66 92 11/27/19 11:12 36.4 C L 46 L 18 100/58 L 98 11/27/19 08:00 54 L Laboratory Results 11/27/19 06:50 11/27/19 06:50 INR 1.1 (0.9-1.1) 11/25/19 13:[address] ANGIOGRAM OF THE CHEST CLINICAL HISTORY: Atypical chest pain. Hypoxia. COMPARISON STUDY: 11/22/2015 TECHNIQUE: Following the IV administration of 120 mL of Optiray-320, CT angiogram of the thorax was performed from the thoracic inlet to the lung bases utilizing the pulmonary embolus protocol. Images are reviewed in the axial, sagittal, and coronal planes. IV contrast was administered without complication. MIP imaging was performed. A dose lowering technique was utilized adhering to the principles of ALARA. CT DOSE: 522.65 mGycm FINDINGS: There is suspected splenomegaly. There is a small hiatal hernia. There are mildly enlarged mediastinal lymph nodes. A pretracheal node measures 12 mm in short axis. These nodes remain similar to the preceding study. There was no evidence of thoracic aortic dilatation. There were no pulmonary artery filling defects to indicate acute pulmonary embolism. No pleural effusions are visualized. There is no lobar consolidation. There is mild thickening of the interlobular septa. There is a 1 cm groundglass nodule within the left lower lobe. There is a right lower lobe calcified granuloma. There is a right upper lobe calcified granuloma IMPRESSION: 1. No evidence of acute pulmonary embolism 2. Mildly enlarged mediastinal lymph nodes unchanged from the prior study 3. 1 cm groundglass nodule within the left lower lobe. 6-12 month follow-up is recommended per Fleischner guidelines. 4. Mild interlobular septal edema 5. Suspected mild splenomegaly Please refer to below summary of Fleischner criteria recommendations for follow- up of incidental CT nodules (Paula Cabrera, Guidelines for management of small pulmonary nodules detected on CT scans: A statement from the Fleischner Society, Radiology 237: [phone].) SOLID NODULES Solitary nodule size: <6 mm * low risk patients: no follow-up needed * high risk patients: optional CT at 12 months Solitary nodule size: 6-8 mm * low risk patients: follow-up at 6-12 months, then consider further follow-up at 18-24 months * high risk patients: initial follow-up CT at 6-12 months and then at 18-24 months if no change Solitary nodule size: >8 mm * either low or high risk patients - consider follow-up CT at 3 months, and/or CT-PET, and/or biopsy Multiple nodules size: <6 mm * low risk patients: no routine follow-up * high risk patients: optional CT at 12 months Multiple nodules size: 6-8 mm * low risk patients: follow-up at 3-6 months, then consider further follow-up at 18-24 months * high risk patients: follow-up at 3-6 months, then at 18-24 months if no change Multiple nodules size: >8 mm * low risk patients: follow-up at 3-6 months, then consider further follow-up at 18-24 months * high risk patients: follow-up at 3-6 months, then at 18-24 months if no change Note: newly detected indeterminate nodule in persons 35 years of age or older. * low risk patients: minimal or absent history of smoking and/or other known risk factors * high risk patients: history of smoking or of other known risk factors (e.g. first degree relative with lung cancer, or exposure to asbestos, radon, uranium) * if a nodule up to 8 mm is partly solid or is ground glass further follow-up is required after 24 months to exclude possible slow growing adenocarcinoma ([place]) SUBSOLID NODULES Solitary pure ground-glass nodule * nodule size <6 mm - no CT follow-up required * nodule size >=6 mm - follow-up CT at 6-12 months, then every 2 years until 5 years Solitary part-solid nodule * nodule size <6 mm - no CT follow-up required * nodule size >=6 mm - follow-up CT at 3-6 months. If unchanged, and solid component remains <6 mm, then annual follow-up for 5 years Multiple subsolid nodules * nodule size <6 mm - follow-up CT at 3-6 months, consider further follow-up at 2 and 4 years if stable * nodule size >=6 mm - follow-up CT at 3-6 months, subsequent management based on the most suspicious nodule(s) Electronically signed by: Guerrero Hughes M.D. 11/25/2019 2:17 PM PG Care Time/CCT Total # of Minutes Spent Total Time Spent with Patient: Total time spent is greater than 50% in coor dination of care (as documented) at patient's floor/unit and/or counseling patient: 35 minutes including discussion with Coding Level of Care Code 62208 Subseq Hosp Care Lvl 2 Diagnoses Non-ST elevation IN (NSTEMI) I21.4 CAD (coronary artery disease) I25.119 Associated angina: with unspecified angina Coronary Disease-Associated Artery/Lesion type: unspecified vessel or lesion type [place] vs. transplanted heart: unspecified whether [place] or transplanted heart Acute diastolic (congestive) heart failure I50.31 Hypertension I10 UTI (urinary tract infection) N39.0 Hypoxia R09.02 Sjogrens syndrome M35.00 Hypothyroidism E03.9 GERD (gastroesophageal reflux disease) K21.9 Dyslipidemia E78.5 Depression with anxiety F41.8 Hyponatremia E87.1 Cirrhosis, nonalcoholic K74.60 DVT prophylaxis Z29.9 Time Spent (min) 35 (1) CAD (coronary artery disease) Associated angina: with unspecified angina Coronary Disease-Associated Artery/Lesion type: unspecified vessel or lesion type [place] vs. transplanted heart: unspecified whether [place] or transplanted heart Qualified Code(s): I25.119 - Atherosclerotic heart disease of [place] coronary artery with unspecified angina pectoris
[2019-11-27] MEDS: ATORVASTATIN 40 MG TAB PO SCH (20:36)
[2019-11-27] MEDS: CITALOPRAM 20 MG TAB PO SCH (20:36)
[2019-11-27] MEDS: METOPROLOL TARTRATE 50 MG TAB PO SCH (20:37)
[2019-11-27] MEDS: FAMOTIDINE 20 MG TAB PO SCH (20:37)
[2019-11-28] MEDS: LEVOTHYROXINE SODIUM 175 MCG TABLET PO SCH (04:37)
[2019-11-28 05:29] LABS: Basophils # (auto) 0.01 K/uL (0-0.2); Basophils % (auto) 0.2 %; Eosinophils # (auto) 0.23 K/uL (0-0.5); Eosinophils % (auto) 5.2 %; Hemoglobin 11.3 g/dL (12.0-16.0); Immature Granulocytes # (auto) 0.01 K/uL (0.00-0.02); Immature Granulocytes % (auto) 0.2 %; Lymphocytes # (auto) 0.49 K/uL (1.2-3.4); Lymphocytes % (auto) 11.1 %; Mean Corpuscular Hemoglobin 29.8 pg (25-34); Mean Corpuscular Hgb Conc 34.2 g/dL (32-36); Mean Corpuscular Volume 87.1 fL (80-100); Mean Platelet Volume 10.1 fL (7.4-10.4); Monocytes # (auto) 0.65 K/uL (0.11-0.59); Monocytes % (auto) 14.7 %; Neutrophils # (auto) 3.03 K/uL (1.4-6.5); Neutrophils % (auto) 68.6 %; Platelet Count 114 K/uL (130-400); RDW Coefficient of Variation 13.6 % (11.5-14.5); RDW Standard Deviation 43.6 fL (36.4-46.3); Red Blood Count 3.79 M/uL (4.2-5.4); White Blood Count 4.42 K/uL (4.8-10.8)
[2019-11-28 05:45] LABS: BUN Creatinine Ratio 19.7 (10-20); Calcium 8.7 mg/dl (8.5-10.1); Est GFR (African American) 67.7; Est GFR (Non-African American) 58.4; Potassium 4.1 mmol/L (3.5-5.1)
[2019-11-28 05:49] LABS: Partial Thromboplastin Ratio 1.7
[2019-11-28 06:03] LABS: Partial Thromboplastin Time 46.3 Seconds (21.0-31.0)
[2019-11-28] MEDS: FLUTICASONE PROPIONATE NA SPR 16 GM BTL NAE SCH (08:03)
[2019-11-28] MEDS: CHOLECALCIFEROL 1,000 UNITS 25 MCG TAB PO SCH (08:04)
[2019-11-28] MEDS: ASPIRIN 81 MG ECTAB PO SCH (08:04)
[2019-11-28] MEDS: CLOPIDOGREL BISULFATE 75 MG TAB PO SCH (08:04)
[2019-11-28] MEDS: TOLTERODINE TARTRATE LA 4 MG CAPCR PO SCH (08:04)
[2019-11-28] MEDS: PANTOprazole 40 MG TAB PO SCH (08:04)
[2019-11-28] MEDS: TELMISARTAN 40 MG TAB PO SCH (08:04)
[2019-11-28] MEDS: LACTOBACILLUS ACIDOPHILUS (FLORANEX) TAB PO SCH (08:04)
[2019-11-28] MEDS: TOCOPHERYL, DL-ALPHA 400 UNITS CAP PO SCH (08:05)
[2019-11-28] MEDS: ISOSORBIDE MONO EXTENDED REL 60 MG TABCR PO SCH (08:05)
[2019-11-28] MEDS: METOPROLOL TARTRATE 25 MG TAB PO SCH (08:05)
[2019-11-28] MEDS: HEPARIN SODIUM/DEXTROSE 25,000 UNITS/500 ML BAG IV SCH (09:24)
[2019-11-28] MEDS: cefTRIAXone SODIUM 2,000 MG in DEXTROSE 5% 50 ML IV SCH (09:24)
--- NOTE | 2019-11-28 14:04 | Cardiology Progress Note ---
Date of Service November 28, 2019 Assessment & Plan (1) Non-ST elevation IA (NSTEMI): She had a small myocardial infarction, her echocardiogram does not show wall motion abnormalities or left ventricular dysfunction and her cardiac enzymes were relatively low. Hopefully she will not have any difficulty with this. I would recommend continued aspirin and statin therapy. (2) Chest pain: She continues to have atypical chest discomfort, she describes many different types of chest discomfort and is worried that some of them could represent coronary artery disease which is certainly possible although they are different from what she presented with which was left jaw and shoulder discomfort. She is still debating whether she should have a catheterization. She had some type of left-sided chest discomfort when she was ambulatory earlier, we are going to have her ambulate again and certainly if she gets typical chest discomfort we should consider catheterization, if not I think it is still optional. Her and her are leaning toward going home, I will leave that up to them if they do not want to consider catheterization although it has been indicated for some time. If she wants to stay for catheterization I would certainly agree with that. Admission and Anticipated Discharge Date Admission Date: November 25, 2019 Subjective She is feeling perhaps better, however she describes multiple different discomfort that she has been having in various places on her chest. Some of them seem exertional, some do not. She clearly describes having left jaw and left shoulder discomfort which sounds anginal on presentation, she is clear that she has not had that here. She is however worried about the other discomforts that she has. Physical Exam Physical Exam: Constitutional: Alert, cooperative and in no distress. HEENT: Unremarkable Neck: No jugular venous distention, carotid pulses are normal and equal bilaterally without bruits. Pulmonary: Clear to auscultation bilaterally. Cardiac: Regular rhythm with no murmur, gallop or rub. Abdomen: Soft, nontender with normal bowel sounds. Extremities: No edema. Distal pulses intact. Neurologic: No focal findings. Gait is steady. Skin: No rash, ecchymoses or petechiae. Results & Data ([facility]) Vital Signs (Past 12 Hours) Vital Signs Temp Pulse Pulse Pulse Resp BP BP 11/28/19 11:11 36.7 C 62 19 136/61 11/28/19 08:13 36.6 C 54 L 19 154/79 H 11/28/19 08:00 54 L 11/28/19 04:30 36.5 C 59 L 18 120/64 Pulse Ox 11/28/19 11:11 91 11/28/19 08:13 95 11/28/19 08:00 11/28/19 04:30 95 Laboratory Results Coagulation 11/28/19 Range/Units 05:15 APTT 46.3 H* (21.0-31.0) Seconds CBC 11/28/19 Range/Units 05:15 WBC 4.42 L (4.8-10.8) K/uL RBC 3.79 L (4.2-5.4) M/uL Hgb 11.3 L (12.0-16.0) g/dL Hct 33.0 L (37-47) % Plt Count 114 L (130-400) K/uL Neut # (Auto) 3.03 (1.4-6.5) K/uL Lymph # (Auto) 0.49 L (1.2-3.4) K/uL [place] # (Auto) 0.65 H (0.11-0.59) K/uL Eos # (Auto) 0.23 (0-0.5) K/uL Baso # (Auto) 0.01 (0-0.2) K/uL Comprehensive Metabolic Panel 11/28/19 Range/Units 05:15 Sodium 132 L (136-145) mmol/L Potassium 4.1 (3.5-5.1) mmol/L Chloride 96 L (98-107) mmol/L Carbon Dioxide 31 (21-32) mmol/L BUN 18 (7-18) mg/dl Creatinine 0.92 (0.6-1.2) mg/dl Glucose 103 H (70-99) mg/dl Calcium 8.7 (8.5-10.1) mg/dl Intake and Output 11/27/19 11/28/19 11/28/19 22:59 06:59 14:59 Intake Total 240 / 797.6 432.4 / 432.4 Balance 240 / 297.6 432.4 / 432.4 Intake: IV 432.4 / 432.4 HEPARIN SODIUM/DEXTROSE 25,000 362.4 / 362.4 units In 500 ml @ 800 UNITS/HR 16 mls/hr IV .[facility] Rx#: [id number] Rocephin 2,000 mg In D5w 50 ml 70 / 70 @ 100 mls/hr IV Q24H [facility] Rx#: [id number] Oral 240 / 590 Other: # Unmeasured Voids 2 Diagnostic Findings Telemetry: Sinus rhythm, rate 40 to 60 bpm PG Care Time/CCT Total # of Minutes Spent Total Time Spent with Patient: Total time spent is greater than 50% in coordination of care (as documented) at patient's floor/unit and/or counseling patient: Coding Level of Care Code 01301 Subseq Hosp Care Lvl 2 Diagnoses Non-ST elevation IA (NSTEMI) I21.4 Chest pain R07.9 Chest pain type: unspecified (1) Chest pain Chest pain type: unspecified Qualified Code(s): R07.9 - Chest pain, unspecified
[2019-11-28] MEDS: HYDROXYCHLOROQUINE SULFATE 200 MG TAB PO SCH (15:48)
--- NOTE | 2019-11-28 17:27 | Discharge Summary ---
Date of Service November 28, 2019 Admission HPI Per Admitting Provider Yulisa Varela is an 79-year-old female with known coronary artery disease s/p CABG and chronic stable angina who presents to the ER with chest pain radiating to her jaw and left arm. The pain started around 11 AM when she was giving her annual urine drug screen. Started on the left side of her chest but radiated up to her left shoulder and left arm, severity 6/10, worse on exertion but was persistent until she came to the ER and was given aspirin. Initially she reported her chest pain had resolved although on further questioning she was still having left arm and left shoulder pain, which subsequently was relieved with sublingual nitroglycerin. She reports taking all her usual medications morning. The pain today was different from her usual stable anginal pain which is substernal and relieved with rest. In addition she is having left-sided back pain that came on while in the ER and was not present earlier. This is worse on palpation and movements. Left side of her back. Aching. Severity 6/10 when seen. This was not present earlier when seen by the ER physician. Admission Exam Per Admitting Provider Constitutional: well developed, well nourished and + obese; no acute distress Eyes: + anicteric sclerae; normal pupil size ENMT: external ear and nose normal, oropharynx normal Neck: trachea midline, no thyromegaly Respiratory: normal respiratory effort, lungs clear to auscultation Cardiovascular: Rate/Rhythm: regular rate and regular rhythm (Occasional skipped beats) Heart Sounds: no murmur Vessels: no JVD Extremities: normal capillary refill and + pedal edema (Trace bilateral ankles, equal); no calf tenderness Gastrointestinal (Abdomen): normal bowel sounds, soft, nontender, no hepatosplenomegaly Musculoskeletal: no cyanosis or clubbing, extremities motor strength 5/5 Skin: no rashes, warm and dry Neurologic: moves all extremities and awake; not confused Psychiatric: A+Ox3, euthymic affect Lymphatic: no cervical or axillary lymphadenopathy Principal Diagnosis Non-ST elevated myocardial infarction Discharge Exam GENERAL : No acute distress EYES: No icterus, gaze conjugate NOSE: No evidence of epistaxis MOUTH: No lesions or candidiasis NECK: Supple LUNGS: CTA B/L, no wheezes, rales or rhonchi HEART: Regular, rate controlled ABDOMEN: Soft, NT, ND, BS Present EXTREMITIES: No LE edema, pedal pulses intact NEURO: A&OX3 Discharge Data Allergies Allergy/AdvReac Type Severity Reaction Status Date / Time Cipro Allergy Intermediate RASH Verified 10/22/16 09:26 meperidine Allergy Mild NAUSEA AND Verified 12/01/19 15:44 VOMITING morphine Allergy Mild NAUSEA AND Verified 12/01/19 15:44 VOMITING adhesive Allergy Unknown ADHESIVE Verified 12/01/19 15:44 TAPE-BLISTERS clindamycin Allergy Unknown per PCP Verified 12/01/19 15:44 records codeine Allergy Unknown Nausea Verified 12/01/19 15:44 ciprofloxacin Allergy Verified 12/01/19 15:44 oxycodone AdvReac Severe NAUSEA/VOMI Verified 12/01/19 15:44 TING Consultations 11/25/19 14:29 ED Decision to Admit Stat 11/25/19 16:30 Consult Cardiology Routine Ordered Studies 11/25/19 13:14 CT angio chest PE protocol Stat CT ANGIOGRAM OF THE CHEST CLINICAL HISTORY: Atypical chest pain. Hypoxia. COMPARISON STUDY: 11/22/2015 TECHNIQUE: Following the IV administration of 120 mL of Optiray-320, CT angiogram of the thorax was performed from the thoracic inlet to the lung bases utilizing the pulmonary embolus protocol. Images are reviewed in the axial, sagittal, and coronal planes. IV contrast was administered without complication. MIP imaging was performed. A dose lowering technique was utilized adhering to the principles of ALARA. CT DOSE: 522.65 mGycm FINDINGS: There is suspected splenomegaly. There is a small hiatal hernia. There are mildly enlarged mediastinal lymph nodes. A pretracheal node measures 12 mm in short axis. These nodes remain similar to the preceding study. There was no evidence of thoracic aortic dilatation. There were no pulmonary artery filling defects to indicate acute pulmonary embolism. No pleural effusions are visualized. There is no lobar consolidation. There is mild thickening of the interlobular septa. There is a 1 cm groundglass nodule within the left lower lobe. There is a right lower lobe calcified granuloma. There is a right upper lobe calcified granuloma IMPRESSION: 1. No evidence of acute pulmonary embolism 2. Mildly enlarged mediastinal lymph nodes unchanged from the prior study 3. 1 cm groundglass nodule within the left lower lobe. 6-12 month follow-up is recommended per Fleischner guidelines. 4. Mild interlobular septal edema 5. Suspected mild splenomegaly Please refer to below summary of Fleischner criteria recommendations for follow- up of incidental CT nodules (Paula Cabrera, Guidelines for management of small pulmonary nodules detected on CT scans: A statement from the Fleischner Society, Radiology 237: [phone].) SOLID NODULES Solitary nodule size: <6 mm * low risk patients: no follow-up needed * high risk patients: optional CT at 12 months Solitary nodule size: 6-8 mm * low risk patients: follow-up at 6-12 months, then consider further follow-up at 18-24 months * high risk patients: initial follow-up CT at 6-12 months and then at 18-24 months if no change Solitary nodule size: >8 mm * either low or high risk patients - consider follow-up CT at 3 months, and/or CT-PET, and/or biopsy Multiple nodules size: <6 mm * low risk patients: no routine follow-up * high risk patients: optional CT at 12 months Multiple nodules size: 6-8 mm * low risk patients: follow-up at 3-6 months, then consider further follow-up at 18-24 months * high risk patients: follow-up at 3-6 months, then at 18-24 months if no change Multiple nodules size: >8 mm * low risk patients: follow-up at 3-6 months, then consider further follow-up at 18-24 months * high risk patients: follow-up at 3-6 months, then at 18-24 months if no change Note: newly detected indeterminate nodule in persons 35 years of age or older. * low risk patients: minimal or absent history of smoking and/or other known risk factors * high risk patients: history of smoking or of other known risk factors (e.g. first degree relative with lung cancer, or exposure to asbestos, radon, uranium) * if a nodule up to 8 mm is partly solid or is ground glass further follow-up is required after 24 months to exclude possible slow growing adenocarcinoma ([place]) SUBSOLID NODULES Solitary pure ground-glass nodule * nodule size <6 mm - no CT follow-up required * nodule size >=6 mm - follow-up CT at 6-12 months, then every 2 years until 5 years Solitary part-solid nodule * nodule size <6 mm - no CT follow-up required * nodule size >=6 mm - follow-up CT at 3-6 months. If unchanged, and solid component remains <6 mm, then annual follow-up for 5 years Multiple subsolid nodules * nodule size <6 mm - follow-up CT at 3-6 months, consider further follow-up at 2 and 4 years if stable * nodule size >=6 mm - follow-up CT at 3-6 months, subsequent management based on the most suspicious nodule(s) ACT 112: Negative or not required by law. Electronically signed by: Guerrero Hughes M.D. 11/25/2019 2:17 PM Hospital Course (1) Non-ST elevation NE (NSTEMI): Patient with prior history of CAD requiring stents 20 years ago at [facility] followed by open heart surgery Patient is ambivalent about further catheterization due to her poor experience at that time Patient had elevated troponins which have peaked are now trending downward Started on heparin drip as well as clopidogrel Continue aspirin, atorvastatin, metoprolol tartrate and clopidogrel on discharge No indication for anticoagulation on discharge No chest pain with exertion while ambulating halls Follow-up with Dr. Mcdonald to evaluate for elective cardiac catheterization (2) CAD (coronary artery disease): Previous history of intervention: * BRITTON to the LAD * Saphenous vein graft to diagonal * Saphenous vein graft to PDA * Radial graft to circumflex Continue beta-doug, aspirin, statin, clopidogrel (3) Acute diastolic (congestive) heart failure: Elevated proBNP on admission at 3930 Furosemide administered No shortness of breath at time of discharge Patient does use chronic supplemental oxygen at home at 2 L at bedtime -continue (4) Hypertension: Continue meds as listed above Currently well managed Cardiology consulted and will continue to follow patient on discharge (5) UTI (urinary tract infection): Urine culture with pinpoint growth; re-incubating Completed course of ceftriaxone. Culture with lactobacillus species Afebrile No leukocytosis No difficulty with urination (6) Hypoxia: Most likely secondary to demand ischemia with non-ST elevated NE Patient does have supplemental oxygen at home for use at bedtime No chest pain or discomfort Oxygenating well on room air at time of discharge (7) Sjogrens syndrome: Continue hydroxychloroquine Consider rheumatology consult on discharge secondary to cirrhosis (8) Hypothyroidism: Continue levothyroxine (9) GERD (gastroesophageal reflux disease): Pantoprazole daily (10) Dyslipidemia: Atorvastatin (11) Depression with anxiety: Citalopram daily for depression Lorazepam as needed (12) Hyponatremia: Sodium stable at 132 Follow outpatient labs (13) Cirrhosis, nonalcoholic: Outpatient follow-up Supportive care (14) DVT prophylaxis: Chemical prophylaxis with heparin drip Ambulating in halls No asymmetrical edema noted (15) Pulmonary nodule 1 cm or greater in diameter: Incidental finding of 1 cm left lower lobe groundglass opacity Should have outpatient follow-up CT in 3 months We will follow Fleischner criteria Total Time Total Time Spent Total Time Spent (In Minutes): 40 Total Time Includes: Examination of the Patient, Discharge Planning, Medication Reconciliation, Communication With Other Providers and Other (Discussion with cardiology regarding outpatient plan) Discharge Plan Discharge Items Patient Disposition: Home - Self-Care Reason For Visit: NSTEMI Discharge Diagnosis: Non ST Elevated Myocardial Infarction Condition on Discharge: Fair Health Concerns: Risk for further cardiac events explained to patient and Goals: Follow up with Dr. Mcdonald ([facility]) to discuss cardiac catheterization as an outpatient Activity: Resume your previous activity Activity Comment: Report to the ED with any chest pain with exertion Lifting: Gradually increase as tolerated Bathing: No limitations Sexual Activity: When tolerated Exercise/Sports: Gradually increase as tolerated Driving/Machine Use: No limitations Weightbearing: Full weightbearing Non-emergency contact: Primary Care Provider and [employer] Call non-emergency contact if: you have any medication questions and your symptoms worsen Follow-up/Referrals: Michael Christie DO [Primary Care Provider] - 12/01/19 10:00 am Diet: Heart Healthy Addtl Attending Provider Instructions: Report immediately to the ED by ambulance with any chest pain with exertion Pending Studies at Discharge: No Stand-Alone Forms: [facility] Medications and DC Order Prescriptions: New clopidogrel 75 mg Tablet 75 mg PO QAM Qty: 30 RF: 0 telmisartan 40 mg Tablet 40 mg PO QAM Qty: 30 RF: 0 sodium chloride [Saline Mist] 0.65 % Aerosol,[place] 2 spray NA Q1H PRN (Reason: dry nasal passages) Qty: 15 RF: 0 Continued furosemide [Lasix] 40 mg tablet 40 mg PO .COMPLEX Qty: 24 RF: 3 potassium chloride 10 mEq capsule, extended release 10 meq PO .COMPLEX Qty: 24 RF: 3 metoprolol tartrate 25 mg tablet 25 mg PO QAM Qty: 90 RF: 3 nitroglycerin 0.4 mg tablet, sublingual 0.4 mg SL ONCE PRN (Reason: Chest Pain) Qty: 25 RF: 0 vitamin E (dl, acetate) 400 unit capsule 400 units PO QAM RF: 0 cholecalciferol (vitamin D3) 100 mcg (4,000 unit) capsule 5,000 units PO QAM RF: 0 (DME) Oxygen Home Liters Per Minute See Dose Instructions .ROUTE .MEDSUPPLY Qty: 1 RF: 0 Adult 50 Plus Probiotic 4 billion cell capsule 4,000 mmu cells PO QAM RF: 0 levothyroxine 175 mcg tablet 175 mcg PO QAM RF: 0 famotidine 20 mg tablet 20 mg PO HS RF: 0 diclofenac sodium 1 % gel 4 gm topical QID PRN (Reason: chronic osteoarthritis) Qty: 300 RF: 5 citalopram 40 mg tablet 20 mg PO HS RF: 0 aspirin 81 mg Tablet,Delayed Release (Dr/Ec) 81 mg PO QAM RF: 0 telmisartan-hydrochlorothiazid 40-12.5 mg tablet 1 tab PO QAM RF: 0 atorvastatin 40 mg tablet 40 mg PO HS RF: 0 tolterodine [Detrol LA] 4 mg capsule,extended release 24hr 4 mg PO QAM RF: 0 isosorbide mononitrate 120 mg tablet extended release 24 hr 120 mg PO QAM RF: 0 esomeprazole magnesium [Nexium] 40 mg capsule,delayed release(DR/EC) 40 mg PO QAM RF: 0 metoprolol tartrate 50 mg tablet 50 mg PO HS RF: 0 hydroxychloroquine 200 mg tablet 400 mg PO QDD RF: 0 fluticasone propionate 50 mcg/actuation spray,suspension 2 spray INTNAS QAM RF: 0 azelastine 0.15 % (205.5 mcg) spray,non-aerosol 2 sprays INTNAS HS RF: 0 No Action lorazepam 0.5 mg tablet 0.5 mg PO DAILY PRN (Reason: anxiety) Qty: 30 RF: 3 Discharge Orders: Discharge Order (Routine); Ordered 11/28/19 Ordered By: Go Lewis/Other Patient Handouts: Heart Attack: Leaving the Hospital, Heart Attack: Back at Home Admission Data Admit Date/Time: 11/25/19 16:20 Attending Provider: Dima Arias Admit Provider: Jerman Hudson Primary Care Provider: Michael Christie Other Providers: Ralph Mcdonald Other Interventions: Discharge Summary Assessment (RN) Last Done: 11/28/19 15:26 Supervising Physician Co-Signing Physician Notes During my face to face encounter with the patient, I discussed discharge plan with the patient and performed a physical examination. Patient had no further questions. I reviewed above document and agree with it after discussing case with Go PARKER. Patient was seen and evaluated for NSTEMI. Patient was heparinized and treated with metoprolol, clodiogrel, atorvastatin and ASA. Patient does not need anticoagulant on discharge. Coding Level of Care Code D/C Day Management >30 mins Diagnoses Non-ST elevation NE (NSTEMI) I21.4 CAD (coronary artery disease) I25.119 Associated angina: with unspecified angina Coronary Disease-Associated Artery/Lesion type: unspecified vessel or lesion type [place] vs. transplanted heart: unspecified whether [place] or transplanted heart Acute diastolic (congestive) heart failure I50.31 Hypertension I10 UTI (urinary tract infection) N39.0 Hypoxia R09.02 Sjogrens syndrome M35.00 Hypothyroidism E03.9 GERD (gastroesophageal reflux disease) K21.9 Dyslipidemia E78.5 Depression with anxiety F41.8 Hyponatremia E87.1 Cirrhosis, nonalcoholic K74.60 DVT prophylaxis Z29.9 Pulmonary nodule 1 cm or greater in diameter R91.1 Time Spent (min) 40
== END 2019-11-28 15:56 | disposition home or self-care (01) | DRG 280 ==
LOC: ED 11:48 → 2S 16:20 → SUATTDRO 16:20 → 2S 17:32

== ENCOUNTER 2021-08-09 19:07 | Observation (INO) ==
[2021-08-09] MEDS ORDERED: POTASSIUM CHLORIDE CRTAB 20 MEQ TABCR PO STA ×2 (19:44→22:22)
[2021-08-09] MEDS: SODIUM CHLORIDE 0.9% 1000ML 1,000 ML IV SCH (20:10)
--- NOTE | 2021-08-09 20:22 | Emergency Department Note ---
History of Present Illness General Chief complaint: Abnormal Labs/Diagnostic Testing Stated complaint: LOW POTASSIUM/SODIUM, IRREGULAR BLOOD WORK Time Seen by Provider: 08/09/21 19:20 Source: patient Mode of arrival: ambulatory Limitations: no limitations History of Present Illness Provider complaint: Abnormal outpatient labs Treatments prior to arrival: none This is an 81-year-old female who presents the emergency department after being referred to the emergency room by her PCP after finding abnormal outpatient labs. Patient states she was told she has low sodium and low potassium. She denies any prior similar events. Patient states she had been ill over the last week with nausea, weakness, and diarrhea. Patient states she has not had diarrhea now for 2 days and has started being able to tolerate eating and drinking again. Patient denied any abdominal pain, black or bloody stools. Patient denied any known sick contact. Unclear etiology of her symptoms. Patient states 2 weeks ago she did take a course of Bactrim for a UTI. Patient states she has felt very weak and dizzy, has had difficulty walking and her has had to help her even with using her cane. Patient denies any recent fevers although she states she had fevers and chills at the beginning of her ill ness. Patient denies any history of kidney problems. Pt seen during a time of high acuity and national emergency pandemic while wearing PPE. Home Medications Medication Instructions Recorded Confirmed Type vitamin E (dl, acetate) 180 mg 400 units PO QAM 10/27/18 08/09/21 History (400 unit) capsule lactobacillus combination no.9 4 4,000 mmu cells PO QAM 02/04/19 08/09/21 History billion cell capsule (Adult 50 Plus Probiotic) cholecalciferol (vitamin D3) 100 5,000 units PO QAM cap 08/11/19 08/09/21 H istory mcg (4,000 unit) capsule aspirin 81 mg tablet,delayed 81 mg PO QAM 11/25/19 08/09/21 History release nitroglycerin 0.4 mg sublingual 0.4 mg SL ONCE PRN #25 tab 12/07/19 08/09/21 Rx tablet furosemide 40 mg tablet (Lasix) 40 mg PO DAILY PRN tab 05/31/20 08/09/21 History potassium chloride 10 mEq 10 meq PO DAILY PRN #90 cap 10/06/20 08/09/21 Rx capsule,extended release fluticasone propionate 50 2 spray INTNAS QAM #15.8 ml 12/22/20 08/09/21 Rx mcg/actuation nasal spray,suspension isosorbide mononitrate 60 mg 60 mg PO DAILY #30 tab 01/22/21 08/09/21 Rx tablet,extended release 24 hr esomeprazole magnesium 40 mg 40 mg PO QAM #90 cap 03/05/21 08/09/21 Rx capsule,delayed release (Nexium) tolterodine 4 mg capsule,extended See Rx Instructions .ROUTE 03/08/21 08/09/21 Rx release 24 hr .COMPLEX #90 cap clopidogrel 75 mg tablet 75 mg PO QAM #90 tab 03/23/21 08/09/21 Rx mecobalamin (vitamin B12) 1,000 2,000 mcg PO DAILY tab 03/27/21 08/09/21 History mcg chewable tablet atorvastatin 80 mg tablet 80 mg PO QPM #90 tab 04/10/21 08/09/21 Rx levothyroxine 175 mcg tablet 175 mcg PO QAM #90 tab 05/02/21 08/09/21 Rx econazole 1 % topical cream See Rx Instructions TOPICAL DAILY 05/04/21 08/09/21 Rx PRN #30 gm icosapent ethyl 1 gram capsule 2 g PO BID #120 cap 05/08/21 08/09/21 Rx (Vascepa) famotidine 40 mg tablet 40 mg PO HS #90 tab 05/15/21 08/09/21 Rx lorazepam 0.5 mg tablet 0.5 mg PO Q OTHER DAY PRN #30 tab 05/25/21 08/09/21 Rx escitalopram oxalate 20 mg tablet 20 mg PO DAILY #30 tab 05/28/21 08/09/21 Rx amlodipine 2.5 mg tablet 2.5 mg PO DAILY #90 tab 06/15/21 08/09/21 Rx azelastine 205.5 mcg (0.15 %) 2 spray INTNAS HS #30 ml 06/19/21 08/09/21 Rx nasal spray metoprolol tartrate 25 mg tablet 25 mg PO BID #90 tab 06/29/21 08/09/21 Rx hydroxychloroquine 200 mg tablet 200 mg PO DAILY #90 tab 07/13/21 08/09/21 Rx mupirocin 2 % topical ointment 1 applic TOPICAL BID PRN 08/09/21 08/09/21 History Allergies Allergy/AdvReac Type Severity Reaction Status Date / Time Cipro Allergy Intermediate RASH Verified 10/22/16 09:26 meperidine Allergy Mild NAUSEA AND Verified 08/09/21 14:32 VOMITING morphine Allergy Mild NAUSEA AND Verified 08/09/21 14:32 VOMITING adhesive Allergy Unknown ADHESIVE Verified 08/09/21 14:32 TAPE-BLISTERS clindamycin Allergy Unknown per PCP Verified 08/09/21 14:32 records codeine Allergy Unknown Nausea Verified 08/09/21 14:32 ciprofloxacin Allergy Verified 08/09/21 14:32 oxycodone AdvReac Severe NAUSEA/VOMI Verified 08/09/21 14:32 TING Past Med/Surg History Medical History Allergic rhinitis Aortic stenosis, mild Asthma CAD (coronary artery disease) Chest pain Chronic osteoarthritis Chronic stable angina Cirrhosis, nonalcoholic Followed By Sondra Chao 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 Harman History of carotid endarterectomy Right, 2016 History of cataract surgery History of heart artery stent RCA stent 12/2019 History of hysterectomy History of tonsillectomy Hx of CABG 1998 [facility] to LAD, saphenous vein graft to PDA, saphenous vein graft to diagonal, radial graft to circumflex Family History Unknown Hypertension Mother Diabetes Father Heart disease Myocardial infarction Hypertension Cancer Aunt Lung cancer Denies family history of Ovarian cancer Prostate cancer Breast cancer Colorectal cancer Stroke Social History Smoking Status: Former smoker Tobacco Type: Cigarettes Cigarettes Per Day: 1 pack a day.; Second Hand Exposure: No; Hx Alcohol Use: No Hx Substance Use: No Preferred Language: Sammarinese Communication Ability: Effective Visual Impairment: Limited Hearing Ability: Normal [place] She[place] Required: No Beliefs That Will Affect Care: None marital status: Current Living Situation: Spouse current occupational status: retired How many Children do You have: 1 Feels Safe at Home: Yes Childhood Exposure to Second-Hand Smoke: Yes caffeine: Yes Dental Care, Regularly: Yes Physical Activity Frequency: 1-2 Times per Week Seatbelt Use: always Sunscreen Use: Yes Assistive Devices: None Review of Systems A total of 10 systems reviewed and were otherwise negative All systems reviewed & are unremarkable except as noted in HPI & below Physical Exam Vital Signs Vital Signs - 24 hr 08/09/21 19:15 08/09/21 21:30 Temperature 36.5 C Temperature Source Temporal Artery Scan Pulse Rate 65 Pulse Rate [Finger] 74 Respiratory Rate 18 18 Respiratory Effort / Characteristics Non-Labored Spontaneous Respiratory Depth Normal Respiratory Pattern Regular Blood Pressure 140/59 L Blood Pressure [Left Arm] 154/78 H Blood Pressure Mean 86 Blood Pressure Mean [Left Arm] 103 Blood Pressure Position Sitting Pulse Oximetry 96 96 Oxygen Delivery Method Room Air Room Air Sepsis Recent Fever Within 48 Hours No Sepsis New/Unexplained Change in Mental Status No Sepsis Action Taken by Nursing No Action Required GENERAL: alert, well appearing, well nourished, no distress, non-toxic EYE EXAM: normal conjunctiva, PERRL and EOM's grossly intact OROPHARYNX: no exudate, no erythema, lips, buccal mucosa, and tongue normal and mucous membranes are moist NECK: supple, no nuchal rigidity, no adenopathy, non-tender LUNGS: Clear to auscultation. Normal chest wall mechanics, no w/r/r HEART: no murmurs, S1 normal and S2 normal ABDOMEN: abdomen soft, non-tender, normo-active bowel sounds, no masses, no rebound or guarding. BACK: Back is symmetrical on inspection and there is no deformity, no midline tenderness, no CVA tenderness. SKIN: no rashes and no bruising UPPER EXTREMITIES: upper extremities are grossly normal. FROM, nml pulses b/l. LOWER EXTREMITIES: No pitting edema. FROM, nml pulses b/l. NEURO EXAM: Normal sensorium, cranial nerves II-XII grossly intact, normal speech, no gross weakness of arms, no gross weakness of legs. Gross sensation intact. Course Administered Medications Discontinued Medications Amlodipine Besylate (Amlodipine Besylate 5 Mg Tab) 2.5 mg PO DAILY [facility] Stop: 09/09/21 08:59 Last Admin: 08/11/21 07:32 Dose: 2.5 mg Documented by: [id number] Admin: 08/10/21 09:07 Dose: 2.5 mg Documented by: [id number] Aspirin (Aspirin 81 Mg Ectab) 81 mg PO [facility] Stop: 09/09/21 08:59 Last Admin: 08/11/21 07:32 Dose: 81 mg Documented by: [id number] Admin: 08/10/21 09:07 Dose: 81 mg Documented by: [id number] Atorvastatin Calcium (Atorvastatin 40 Mg Tab) 80 mg PO QPM [facility] Stop: 09/09/21 20:59 Last Admin: 08/10/21 20:17 Dose: 80 mg Documented by: [id number] Azelastine HCl (Azelastine Hcl 0.1% Nasal 200 Sprays/27,400 Mcg Btl) 2 sprays NA [facility] Stop: 09/09/21 20:59 Last Admin: 08/10/21 20:18 Dose: 2 sprays Documented by: [id number] Clopidogrel Bisulfate (Clopidogrel Bisulfate 75 Mg Tab) 75 mg PO [facility] Stop: 09/09/21 08:59 Last Admin: 08/11/21 07:32 Dose: 75 mg Documented by: [id number] Admin: 08/10/21 09:07 Dose: 75 mg Documented by: [id number] Escitalopram Oxalate (Escitalopram Oxalate 20 Mg Tab) 20 mg PO DAILY [facility] Stop: 09/09/21 08:59 Last Admin: 08/11/21 07:33 Dose: 20 mg Documented by: [id number] Admin: 08/10/21 09:07 Dose: 20 mg Documented by: [id number] Famotidine (Famotidine 40 Mg Tablet) 40 mg PO [facility] Stop: 09/09/21 20:59 Last Admin: 08/10/21 20:17 Dose: 40 mg Documented by: [id number] Fluticasone Propionate (Fluticasone Propionate Na Spr 16 Gm Btl) 2 sprays NA [facility] Stop: 09/09/21 08:59 Last Admin: 08/11/21 07:33 Dose: 2 sprays Documented by: [id number] Admin: 08/10/21 09:08 Dose: 2 sprays Documented by: [id number] Hydroxychloroquine Sulfate (Hydroxychloroquine Sulfate 200 Mg Tab) 200 mg PO DAILY [facility] Stop: 09/09/21 08:59 Last Admin: 08/11/21 07:32 Dose: 200 mg Documented by: [id number] Admin: 08/10/21 09:07 Dose: 200 mg Documented by: [id number] Sodium Chloride (Nss 1000ml) 1,000 mls @ 125 mls/hr IV .Q8H [facility] Stop: 09/08/21 19:44 Last Infusion: 08/10/21 11:10 Dose: 0 mls/hr Documented by: [id number] Admin: 08/10/21 07:36 Dose: 125 mls/hr Documented by: [id number] Infusion: 08/10/21 07:36 Dose: 125 mls/hr Documented by: [id number] Admin: 08/10/21 04:06 Dose: 125 mls/hr Documented by: [id number] Infusion: 08/10/21 04:06 Dose: 125 mls/hr Documented by: [id number] Admin: 08/09/21 20:10 Dose: 125 mls/hr Documented by: [id number] Isosorbide Mononitrate (Isosorbide [place] Extended Rel 60 Mg Tabcr) 60 mg PO DAILY [facility] Stop: 09/09/21 08:59 Last Admin: 08/11/21 07:32 Dose: 60 mg Documented by: [id number] Admin: 08/10/21 09:06 Dose: 60 mg Documented by: [id number] Levothyroxine Sodium (Levothyroxine Sodium 175 Mcg Tablet) 175 mcg PO DAILYBB [facility] Stop: 09/09/21 06:29 Last Admin: 08/11/21 06:19 Dose: 175 mcg Documented by: [id number] Admin: 08/10/21 06:17 Dose: 175 mcg Documented by: [id number] Metoprolol Tartrate (Metoprolol Tartrate 25 Mg Tab) 25 mg PO BID [facility] Stop: 09/09/21 08:59 Last Admin: 08/11/21 07:33 Dose: 25 mg Documented by: [id number] Admin: 08/10/21 20:17 Dose: 25 mg Documented by: [id number] Admin: 08/10/21 09:07 Dose: 25 mg Documented by: [id number] Miscellaneous (Vascepa~Order Awaiting Action) 1 ea N/A QS [facility] Stop: 09/09/21 07:59 Last Admin: 08/11/21 07:31 Dose: Not Given Documented by: [id number] Admin: 08/10/21 21:08 Dose: Not Given Documented by: [id number] Admin: 08/10/21 09:59 Dose: Not Given Documented by: [id number] Admin: 08/10/21 07:37 Dose: Not Given Documented by: [id number] Pantoprazole Sodium (Pantoprazole 40 Mg Tab) 40 mg PO QAM [facility] Stop: 09/09/21 08:59 Last Admin: 08/11/21 07:32 Dose: 40 mg Documented by: [id number] Admin: 08/10/21 09:06 Dose: 40 mg Documented by: [id number] Potassium Chloride (Potassium Chloride Crtab 20 Meq Tabcr) 40 meq PO NOW STA Stop: 08/09/21 19:45 Last Admin: 08/09/21 20:09 Dose: 40 meq Documented by: [id number] Potassium Chloride (Potassium Chloride Crtab 20 Meq Tabcr) 60 meq PO NOW STA Stop: 08/09/21 22:23 Last Admin: 08/09/21 22:39 Dose: 60 meq Documented by: [id number] Sodium Chloride (Sodium Chloride 1 Gm Tablet) 1 gm PO ONE ONE Stop: 08/10/21 16:40 Last Admin: 08/10/21 17:07 Dose: 1 gm Documented by: [id number] Tolterodine Tartrate (Tolterodine Tartrate [place] 4 Mg Capcr) 4 mg PO DAILY [facility] Stop: 09/09/21 08:59 Last Admin: 08/11/21 07:32 Dose: 4 mg Documented by: [id number] Admin: 08/10/21 09:06 Dose: 4 mg Documented by: [id number] Medical Decision Making Differential Diagnosis Differential Diagnosis includes but is not limited to dehydration, stroke, anemia, hypoglycemia, hyponatremia, hypernatremia, urinary tract infection, pneumonia, bronchitis, sepsis, gastroenteritis, additional abdominal pathology, metabolic abnormalities and infections. Medical Records Attestation: I reviewed the patient's medical records. Home Medications Current Medication List: was personally reviewed by me Laboratory Data Attestation: I reviewed the patient's lab results. Result diagrams: 08/11/21 08:27 Lab Results 08/09/21 08/09/21 08/09/21 Range/Units 20:05 20:35 21:01 Sodium (136-145) mmol/L Potassium (3.5-5.1) mmol/L Chloride (98-107) mmol/L Carbon Dioxide (21-32) mmol/L Anion Gap (3-11) BUN (6-23) mg/dl Creatinine (0.6-1.2) mg/dl Est Cr Clr Drug Dosing ml/min Est GFR ( Amer) ml/min Est GFR (Non-Af Amer) ml/min BUN/Creatinine Ratio (10-20) Glucose (70-99(Fasting)) mg/dl Osmolality (280-300) mOsm/kg Calcium (8.5-10.1) mg/dl Magnesium 1.8 (1.7-2.4) mg/dl Urine Color Yellow Urine Appearance Clear (Clear) Urine pH 5.5 (4.5-7.5) Ur Specific [place] 1.005 (1.000-1.030) Urine Protein Negative (Negative) Urine Glucose (UA) Negative (Negative) Urine Ketones Negative (Negative) Urine Blood Negative (Negative) Urine Nitrite Negative (Negative) Urine Bilirubin Negative (Negative) Urine Urobilinogen Negative (Negative) Ur Leukocyte Esterase Trace H (Negative) Urine WBC (Auto) 10-30 H (0-5) /hpf Urine RBC (Auto) 0-4 (0-4) /hpf U Hyaline Cast (Auto) 0 (0-5) /lpf U Epithel Cells (Auto) 10-20 H (0-5) /lpf Urine Bacteria (Auto) Negative (Negative) Urine Osmolality (500-800) mOsm/kg Ur Random Sodium mmol/L Anaplasma Smear See Comment Babesia Smear See Comment Lyme Disease IgG Ab (Negative) Lyme Disease IgM Ab (Negative) SARS-CoV-2, RNA, NAAT (NEGATIVE) 08/09/21 08/09/21 08/09/21 Range/Units 21:01 21:01 21:01 Sodium 127 L (136-145) mmol/L Potassium 2.7 L (3.5-5.1) mmol/L Chloride 89 L (98-107) mmol/L Carbon Dioxide 31 (21-32) mmol/L Anion Gap 7 (3-11) BUN 15 (6-23) mg/dl Creatinine 0.70 (0.6-1.2) mg/dl Est Cr Clr Drug Dosing 62.0 ml/min Est GFR ( Amer) 92.9 ml/min Est GFR (Non-Af Amer) 80.1 ml/min BUN/Creatinine Ratio 21.4 H (10-20) Glucose 119 H (70-99(Fasting)) mg/dl Osmolality 266 L (280-300) mOsm/kg Calcium 8.8 (8.5-10.1) mg/dl Magnesium (1.7-2.4) mg/dl Urine Color Urine Appearance (Clear) Urine pH (4.5-7.5) Ur Specific [place] (1.000-1.030) Urine Protein (Negative) Urine Glucose (UA) (Negative) Urine Ketones (Negative) Urine Blood (Negative) Urine Nitrite (Negative) Urine Bilirubin (Negative) Urine Urobilinogen (Negative) Ur Leukocyte Esterase (Negative) Urine WBC (Auto) (0-5) /hpf Urine RBC (Auto) (0-4) /hpf U Hyaline Cast (Auto) (0-5) /lpf U Epithel Cells (Auto) (0-5) /lpf Urine Bacteria (Auto) (Negative) Urine Osmolality (500-800) mOsm/kg Ur Random Sodium mmol/L Anaplasma Smear Babesia Smear Lyme Disease IgG Ab Negative (Negative) Lyme Disease IgM Ab Negative (Negative) SARS-CoV-2, RNA, NAAT (NEGATIVE) 08/09/21 08/09/21 08/09/21 Range/Units 21:01 21:01 22:20 Sodium (136-145) mmol/L Potassium (3.5-5.1) mmol/L Chloride (98-107) mmol/L Carbon Dioxide (21-32) mmol/L Anion Gap (3-11) BUN (6-23) mg/dl Creatinine (0.6-1.2) mg/dl Est Cr Clr Drug Dosing ml/min Est GFR ( Amer) ml/min Est GFR (Non-Af Amer) ml/min BUN/Creatinine Ratio (10-20) Glucose (70-99(Fasting)) mg/dl Osmolality (280-300) mOsm/kg Calcium (8.5-10.1) mg/dl Magnesium (1.7-2.4) mg/dl Urine Color Urine Appearance (Clear) Urine pH (4.5-7.5) Ur Specific [place] (1.000-1.030) Urine Protein (Negative) Urine Glucose (UA) (Negative) Urine Ketones (Negative) Urine Blood (Negative) Urine Nitrite (Negative) Urine Bilirubin (Negative) Urine Urobilinogen (Negative) Ur Leukocyte Esterase (Negative) Urine WBC (Auto) (0-5) /hpf Urine RBC (Auto) (0-4) /hpf U Hyaline Cast (Auto) (0-5) /lpf U Epithel Cells (Auto) (0-5) /lpf Urine Bacteria (Auto) (Negative) Urine Osmolality 170 L (500-800) mOsm/kg Ur Random Sodium 30 mmol/L Anaplasma Smear Babesia Smear Lyme Disease IgG Ab (Negative) Lyme Disease IgM Ab (Negative) SARS-CoV-2, RNA, NAAT NEGATIVE (NEGATIVE) MDM Narrative An order was placed for continuous cardiac monitoring. The monitor shows a rate of _78__ with _normal sinus_ rhythm. This is an 81-year-old female presents emergency department with generalized weakness, difficulty walking, recent GI illness including diarrhea, having followed up with your PCP and been found as an outpatient to have hyponatremia and hypokalemia and sent to the emergency room for additional evaluation and treatment. Patient does appear mildly dehydrated. Patient does have a prior history of CHF. Labs did not show significant hyponatremia at 126 which is worse compared to prior. Hypokalemia at 2.9. Patient denied any chest pain or palpitations. Patient was started on gentle IV fluid rehydration. However she will need to be monitored closely due to her history of congestive heart failure. No apparent ODTETE. Despite recent UTI with antibiotic treatment I do not suspect C. difficile. No significant leukocytosis, and diarrhea has since resolved. Patient was afebrile and hemodynamically stable while here. Case discussed with hospitalist for additional evaluation and management. Magnesium was added as a precaution. No ectopy or dysrhythmia noted on tele. Impression & Plan Generalized weakness, Hyponatremia, Hypokalemia, Diarrhea, Dehydration Discharge Plan Visit Data Chief Complaint: Abnormal Labs/Diagnostic Testing Stated Complaint: LOW POTASSIUM/SODIUM, IRREGULAR BLOOD WORK ED Provider: Tianna Cervantes Discharge Problem: Generalized weakness, Hyponatremia, Hypokalemia, Diarrhea, Dehydration Patient Disposition: Admitted As Inpatient Discharge Instructions Interventions: ED Discharge Assessment Last Done: 08/09/21 23:21 Discharge Problem: Diarrhea Qualifiers: Diarrhea type: unspecified type Qualified Code(s): R19.7 - Diarrhea, unspe cified
[2021-08-09 20:56] LABS: Appearance Urine Clear (Clear); Bacteria Urine Automated Negative (Negative); Bilirubin Urine Negative (Negative); Blood Urine Negative (Negative); Cast Urine Automated 0 /lpf (0-5); Color Urine Yellow; Glucose Urine UA Negative (Negative); Ketones Urine Negative (Negative); Leukocyte Esterase Urine Trace (Negative); Nitrite Urine Negative (Negative); Protein Urine Negative (Negative); RBC Urine Automated 0-4 /hpf (0-4); Specific Gravity Urine 1.005 (1.000-1.030); Urobilinogen Urine Negative (Negative); pH Urine 5.5 (4.5-7.5)
[2021-08-09 21:37] LABS: BUN Creatinine Ratio 21.4 (10-20); Calcium 8.8 mg/dl (8.5-10.1); Est GFR (African American) 92.9 ml/min; Est GFR (Non-African American) 80.1 ml/min; Potassium 2.7 mmol/L (3.5-5.1)
--- NOTE | 2021-08-09 22:13 | History & Physical Report ---
Date of Service August 09, 2021 Assessment & Plan (1) Sjogrens syndrome: (2) Dehydration with hyponatremia: (3) Hypokalemia: (4) Hypertension: (5) CAD (coronary artery disease): (6) Aortic stenosis, mild: (7) Dyslipidemia: (8) History of heart artery stent: (9) Cirrhosis, nonalcoholic: (10) Dependence on nocturnal oxygen therapy: (11) Hypothyroidism: (12) GERD (gastroesophageal reflux disease): (13) Depression with anxiety: Plan: Yulisa is an 81 year old female w/ PmHx CAD, NSTEMI, aortic stenosis on clopidogrel and aspirin, dyslipidemia, non-alcoholic cirrhosis, GERD, asthma, need for O2 at night, Sjogrens disease admitted for observation in the setting of dehydration with hyponatremia and hypokalemia. Weakness/Dehydration with Hyponatremia: -Serum Osm 266 (low), serum Na+ 126, urine osm 170, urine sodium 30. -W/ capillary refill ~3sec patient in hypovolemic hyponatremic state most likely 2/2 diarrhea + diuretic use. -Holding telmisartan-hydrochlorothiazide diuretic in setting of dehydration. -Tick panel ordered for possible contribution to weakness. Lyme negative. -Continue w/ 1L NSS @ 125ml/hr rehydration, can reassess fluid status after done for additional fluid bag. -Patient put on heart healthy diet. -AM CMP. Hypokalemia: -K+ 2.9 on admission, 2.7 six hours later. -Replenished 40meq + 60meq. -AM CMP Hx of non-alcoholic cirrhosis: -AST 46, ALT 59, T. bili 1.1 on admission. -Trend with AM CMP. CAD/Aortic stenosis: -Continue home clopidogrel, aspirin. HLD: -Continue home icosapent ethyl, atorvastatin. HTN: -Continue home amlodipine and metoprolol. -Hold home telmisartan-hydrochlorothiazide. GERD: -Continue home Nexium, famotidine. Depression/Anxiety: -Continue home escitalopram. Hypothyroidism: -Continue home levothyroxine. Sjogren's: -Continue home hydroxychloroquine and DVT Prophylaxis: SCDs + clopidogrel & Aspirin F/E/N/GI: Heart healthy diet. Code Status: Full code Dispo: Med/Surg. History of Present Illness Chief Complaint: Weakness/Dehydration Primary Care Provider: Michael Christie DO Márquez is an 81 year old female w/ PmHx CAD, NSTEMI, aortic stenosis on clopidogrel and aspirin, dyslipidemia, non-alcoholic cirrhosis, GERD, asthma, need for O2 at night, Sjogrens disease coming in for weakness for the past few days. According to the patient she had been treated for a UTI w/ Bactrim two weeks ago, finished the course of the antibiotic last Friday. She started to get feverish with a temperature up to 101-102F over the weekend along with bouts of diarrhea. However diarrhea went away 2 days prior and she had a normal bowel movement. She has not had a bowel movement since two days ago. Denies nausea except when eating and patient endorses drinking a lot over the past few days. Denies any current fevers, chills, shortness of breath, chest pain, abdominal pain. Patient saying she feels better already with the hydration she has received so far. Allergies Allergy/AdvReac Type Severity Reaction Status Date / Time Cipro Allergy Intermediate RASH Verified 10/22/16 09:26 meperidine Allergy Mild NAUSEA AND Verified 08/09/21 14:32 VOMITING morphine Allergy Mild NAUSEA AND Verified 08/09/21 14:32 VOMITING adhesive Allergy Unknown ADHESIVE Verified 08/09/21 14:32 TAPE-BLISTERS clindamycin Allergy Unknown per PCP Verified 08/09/21 14:32 records codeine Allergy Unknown Nausea Verified 08/09/21 14:32 ciprofloxacin Allergy Verified 08/09/21 14:32 oxycodone AdvReac Severe NAUSEA/VOMI Verified 08/09/21 14:32 TING Home Medications Medication Instructions Recorded Confirmed Type vitamin E (dl, acetate) 180 mg 400 units PO QAM 10/27/18 08/09/21 History (400 unit) capsule lactobacillus combination no.9 4 4,000 mmu cells PO QAM 02/04/19 08/09/21 History billion cell capsule (Adult 50 Plus Probiotic) cholecalciferol (vitamin D3) 100 5,000 units PO QAM cap 08/11/19 08/09/21 History mcg (4,000 unit) capsule aspirin 81 mg tablet,delayed 81 mg PO QAM 11/25/19 08/09/21 History release nitroglycerin 0.4 mg sublingual 0.4 mg SL ONCE PRN #25 tab 12/07/19 08/09/21 Rx tablet furosemide 40 mg tablet (Lasix) 40 mg PO DAILY PRN tab 05/31/20 08/09/21 History potassium chloride 10 mEq 10 meq PO DAILY PRN #90 cap 10/06/20 08/09/21 Rx capsule,extended release fluticasone propionate 50 2 spray INTNAS QAM #15.8 ml 12/22/20 08/09/21 Rx mcg/actuation nasal spray,suspension isosorbide mononitrate 60 mg 60 mg PO DAILY #30 tab 01/22/21 08/09/21 Rx tablet,extended release 24 hr telmisartan 80 1 tab PO DAILY #90 tab 02/27/21 08/09/21 Rx mg-hydrochlorothiazide 12.5 mg tablet esomeprazole magnesium 40 mg 40 mg PO QAM #90 cap 03/05/21 08/09/21 Rx capsule,delayed release (Nexium) tolterodine 4 mg capsule,extended See Rx Instructions .ROUTE 03/08/21 08/09/21 Rx release 24 hr .COMPLEX #90 cap clopidogrel 75 mg tablet 75 mg PO QAM #90 tab 03/23/21 08/09/21 Rx mecobalamin (vitamin B12) 1,000 2,000 mcg PO DAILY tab 03/27/21 08/09/21 History mcg chewable tablet atorvastatin 80 mg tablet 80 mg PO QPM #90 tab 04/10/21 08/09/21 Rx levothyroxine 175 mcg tablet 175 mcg PO QAM #90 tab 05/02/21 08/09/21 Rx econazole 1 % topical cream See Rx Instructions TOPICAL DAILY 05/04/21 08/09/21 Rx PRN #30 gm icosapent ethyl 1 gram capsule 2 g PO BID #120 cap 05/08/21 08/09/21 Rx (Vascepa) famotidine 40 mg tablet 40 mg PO HS #90 tab 05/15/21 08/09/21 Rx lorazepam 0.5 mg tablet 0.5 mg PO Q OTHER DAY PRN #30 tab 05/25/21 08/09/21 Rx escitalopram oxalate 20 mg tablet 20 mg PO DAILY #30 tab 05/28/21 08/09/21 Rx amlodipine 2.5 mg tablet 2.5 mg PO DAILY #90 tab 06/15/21 08/09/21 Rx azelastine 205.5 mcg (0.15 %) 2 spray INTNAS HS #30 ml 06/19/21 08/09/21 Rx nasal spray metoprolol tartrate 25 mg tablet 25 mg PO BID #90 tab 06/29/21 08/09/21 Rx hydroxychloroquine 200 mg tablet 200 mg PO DAILY #90 tab 07/13/21 08/09/21 Rx mupirocin 2 % topical ointment 1 applic TOPICAL BID PRN 08/09/21 08/09/21 History Past Med/Surg History Medical History Allergic rhinitis Aortic stenosis, mild Asthma CAD (coronary artery disease) Chest pain Chronic osteoarthritis Chronic stable angina Cirrhosis, nonalcoholic Followed By Sondra Chao Dependence on nocturnal oxygen therapy Dependence on nocturnal oxygen therapy (~2015) Depression with anxiety Dupuytren's contracture of hand Dyslipidemia GERD (gastroesophageal reflux disease) Gout Hip pain Hypertension Hypothyroidism Hypoxia ITP (idiopathic thrombocytopenic purpura) (~09/2011) Knee pain, bilateral VT (myocardial infarction) Sjogrens syndrome Splenomegaly (~09/2011) Surgical History H/O colonoscopy 06/2015 neg, 10 yr f/u Dr. Harman History of carotid endarterectomy Right, 2016 History of cataract surgery History of heart artery stent RCA stent 12/2019 History of hysterectomy History of tonsillectomy Hx of CABG 1998 [facility] [place] to LAD, saphenous vein graft to PDA, saphenous vein graft to diagonal, radial graft to circumflex Family History Unknown Hypertension Mother Diabetes Father Heart disease Myocardial infarction Hypertension Cancer Aunt Lung cancer Denies family history of Ovarian cancer Prostate cancer Breast cancer Colorectal cancer Stroke Social History Smoking Status: Never smoker Tobacco Type: Cigarettes Second Hand Exposure: No; Hx Alcohol Use: No Hx Substance Use: No Preferred Language: [place] Communication Ability: Effective Visual Impairment: Limited Hearing Ability: Normal Sales Supervisor Required: No Beliefs That Will Affect Care: None marital status: Current Living Situation: Spouse current occupational status: retired How many Children do You have: 1 Feels Safe at Home: Yes Childhood Exposure to Second-Hand Smoke: Yes caffeine: Yes Dental Care, Regularly: Yes Physical Activity Frequency: 1-2 Times per Week Seatbelt Use: always Sunscreen Use: Yes Assistive Devices: Glasses Review of Systems Constitutional: as per Subjective / HPI Physical Exam Constitutional: WD/WN, vitals as above Eyes: PERRL, conjunctivae normal, anicteric sclerae Respiratory: normal respiratory effort, lungs clear to auscultation Cardiovascular: RRR, no murmur, no edema Capillary refill 3 seconds. Gastrointestinal (Abdomen): normal bowel sounds, soft, nontender, no hepatosplenomegaly Results & Data Results & Data ([facility]) Vital Signs (Past 12 Hours) Vital Signs Temp Pulse Resp BP Pulse Ox 08/09/21 19:15 36.5 C 65 18 140/59 L 96 Resident Activity Tracking Resident Involvement: Resident Care Provided Care Provided: Adult Hospital Medicine (1) CAD (coronary artery disease) Associated angina: with unspecified angina Coronary Disease-Associated Artery/Lesion type: unspecified vessel or lesion type [place] vs. transplanted heart: unspecified whether [place] or transplanted heart Qualified Code(s): I25.119 - Atherosclerotic heart disease of [place] coronary artery with unsp ecified angina pectoris
[2021-08-09 22:15] LABS: Lyme Ab IgG w/WB Rflx Negative (Negative); Lyme Ab IgM w/WB Rflx Negative (Negative)
--- NOTE | 2021-08-10 01:33 | Billing Data ---
Date of Service August 09, 2021 Coding Level of Care Code 06463 Initial Inpt Care Lvl 2
[2021-08-10] MEDS: SODIUM CHLORIDE 0.9% 1000ML 1,000 ML IV SCH ×2 (04:06→07:36)
[2021-08-10] MEDS: LEVOTHYROXINE SODIUM 175 MCG TABLET PO SCH (06:17)
[2021-08-10] MEDS: VASCEPA~ORDER AWAITING ACTION SCH ×3 (07:37→21:08)
--- NOTE | 2021-08-10 07:50 | Hospitalist Progress Note ---
Date of Service August 10, 2021 Assessment & Plan (1) Dehydration with hyponatremia: Plan: Yulisa is an 81 year old female w/ PmHx CAD, NSTEMI, aortic stenosis on clopidogrel and aspirin, dyslipidemia, non-alcoholic cirrhosis, GERD, asthma, need for O2 at night, Sjogrens disease admitted for observation in the setting of dehydration with hyponatremia and hypokalemia. 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 hypovolemic hyponatremic state most likely 2/2 diarrhea + diuretic use. -Holding telmisartan-hydrochlorothiazide diuretic in setting of dehydration. -Tick panel ordered Lyme negative no anaplasmosis or babesia on peripheral smear. -now place on fluid restriction and give one gm of salt . (2) Sjogrens syndrome: (3) Hypokalemia: (4) Hypertension: (5) CAD (coronary artery disease): (6) Aortic stenosis, mild: (7) Dyslipidemia: (8) History of heart artery stent: (9) Cirrhosis, nonalcoholic: (10) Dependence on nocturnal oxygen therapy: (11) Hypothyroidism: (12) GERD (gastroesophageal reflux disease): (13) Depression with anxiety: Plan: Hypokalemia:replete Hx of non-alcoholic cirrhosis: -AST 46, ALT 59, T. bili 1.1 on admission. -no ascites on exam CAD/Aortic stenosis: -Continue home clopidogrel, aspirin. HLD: -Continue home icosapent ethyl, atorvastatin. HTN: -Continue home amlodipine and metoprolol. -Hold home telmisartan-hydrochlorothiazide. GERD: -Continue home Nexium, famotidine. Depression/Anxiety: -Continue home escitalopram. Hypothyroidism: -Continue home levothyroxine. Sjogren's: -Continue home hydroxychloroquine and DVT Prophylaxis: SCDs + clopidogrel & Aspirin F/E/N/GI: Heart healthy diet. Code Status: Full code Dispo: Med/Surg. Admission and Anticipated Discharge Date Admission Date: August 09, 2021 Subjective pt feels much improved, her sodium esthela to 132 but then fell to 131 she states she has resolved confusion, inial eval and ua is negative for other reversible causes Review of Systems Review of Systems: no further distress or fatigue no headache, no visual changes no speech or swallowing issues no chest pain, pressure or palpitations no shortness of breath, cough or wheezes no abdominal pain, nausea or vomiting, no further diarrhea in fact no bowel movements for 2 days no dysuria, hematuria or frequency no focal joint pain or swelling no back pain, CVA tenderness or radicular pain no bruising, bleeding or rashes no focal signs of weakness or numbness or altered sensation no complaints of anxiety or depression.. Physical Exam Physical Exam: The patient appeared well nourished and normally developed. Vital signs as documented. Head exam is normocephalic atraumatic Neck is without JVD, thyromegaly, or carotid bruits. Lungs are clear to auscultation, no focal loss of breath sounds Cardiac exam, Rhythm is regular.. JORGE A Abdominal exam reveals normal bowel sounds, soft non tender, no masses Extremities are nonedematous and both pedal pulses are present Neurologic exam is alert and oriented, no focal loss of strength or sensation Skin is without bruises or rashes Psychologically is without concerns for anxiety or depression.. Results & Data Results & Data ([facility]) Vital Signs (Past 12 Hours) Vital Signs Temp Pulse Resp BP Pulse Ox 08/09/21 23:25 97.7 F 78 14 175/68 H 93 08/09/21 23:00 75 16 152/83 H 96 08/09/21 21:30 74 18 154/78 H 96 PG Care Time/CCT Total # of Minutes Spent Total Time Spent with Patient: Total time spent is greater than 50% in coordination of care (as documented) at patient's floor/unit and/or counseling patient: Coding Level of Care Code 05584 Subseq Hosp Care Lvl 2 Diagnoses Sjogrens syndrome M35.00 Dehydration with hyponatremia E86.0; E87.1 Hypokalemia E87.6 Hypertension I10 CAD (coronary artery disease) I25.119 Associated angina: with unspecified angina Coronary Disease-Associated Artery/Lesion type: unspecified vessel or lesion type [place] vs. transplanted heart: unspecified whether [place] or transplanted heart Aortic stenosis, mild I35.0 Dyslipidemia E78.5 History of heart artery stent Z95.5 Cirrhosis, nonalcoholic K74.60 Dependence on nocturnal oxygen therapy Z99.81 Hypothyroidism E03.9 GERD (gastroesophageal reflux disease) K21.9 Depression with anxiety F41.8 (1) CAD (coronary artery disease) Associated angina: with unspecified angina Coronary Disease-Associated Artery/Lesion type: unspecified vessel or lesion type [place] vs. transplanted heart: unspecified whether [place] or transplanted heart Qualified Code(s): I25.119 - Atherosclerotic heart disease of [place] coronary artery with unspecified angina pectoris
[2021-08-10] MEDS: ISOSORBIDE MONO EXTENDED REL 60 MG TABCR PO SCH (09:06)
[2021-08-10] MEDS: TOLTERODINE TARTRATE LA 4 MG CAPCR PO SCH (09:06)
[2021-08-10] MEDS: PANTOprazole 40 MG TAB PO SCH (09:06)
[2021-08-10] MEDS: HYDROXYCHLOROQUINE SULFATE 200 MG TAB PO SCH (09:07)
[2021-08-10] MEDS: amLODIPine BESYLATE 5 MG TAB PO SCH (09:07)
[2021-08-10] MEDS: ASPIRIN 81 MG ECTAB PO SCH (09:07)
[2021-08-10] MEDS: METOPROLOL TARTRATE 25 MG TAB PO SCH ×2 (09:07→20:17)
[2021-08-10] MEDS: ESCITALOPRAM OXALATE 20 MG TAB PO SCH (09:07)
[2021-08-10] MEDS: CLOPIDOGREL BISULFATE 75 MG TAB PO SCH (09:07)
[2021-08-10] MEDS: FLUTICASONE PROPIONATE NA SPR 16 GM BTL SCH (09:08)
[2021-08-10 09:11] LABS: Albumin Globulin Ratio 1.2 (0.9-2); Albumin Level 3.1 gm/dl (3.4-5.0); BUN Creatinine Ratio 18.8 (10-20); Bilirubin,Total 0.8 mg/dl (0.2-1.0); Calcium 8.3 mg/dl (8.5-10.1); Creatinine Clr Calc Pharmacy 65.7 ml/min; Est GFR (African American) 95.6 ml/min; Est GFR (Non-African American) 82.5 ml/min; Globulin 2.5 gm/dl (2.5-4.0); Potassium 3.9 mmol/L (3.5-5.1); Total Protein 5.6 gm/dl (6.0-8.3)
[2021-08-10 15:16] LABS: BUN Creatinine Ratio 18.2 (10-20); Calcium 8.5 mg/dl (8.5-10.1); Creatinine Clr Calc Pharmacy 63.7 ml/min; Est GFR (African American) 94.7 ml/min; Est GFR (Non-African American) 81.7 ml/min; Potassium 3.8 mmol/L (3.5-5.1)
[2021-08-10] MEDS ORDERED: SODIUM CHLORIDE 1 GM TABLET PO ONE (16:39)
[2021-08-10] MEDS ORDERED: ATORVASTATIN 40 MG TAB PO SCH (21:00)
[2021-08-10] MEDS ORDERED: FAMOTIDINE 40 MG TABLET PO SCH (21:00)
[2021-08-10] MEDS ORDERED: AZELASTINE HCL 0.1% NASAL 200 SPRAYS/27,400 MCG BTL SCH (21:00)
[2021-08-11] MEDS: LEVOTHYROXINE SODIUM 175 MCG TABLET PO SCH (06:19)
[2021-08-11] MEDS: VASCEPA~ORDER AWAITING ACTION SCH (07:31)
[2021-08-11] MEDS: CLOPIDOGREL BISULFATE 75 MG TAB PO SCH (07:32)
[2021-08-11] MEDS: HYDROXYCHLOROQUINE SULFATE 200 MG TAB PO SCH (07:32)
[2021-08-11] MEDS: ASPIRIN 81 MG ECTAB PO SCH (07:32)
[2021-08-11] MEDS: TOLTERODINE TARTRATE LA 4 MG CAPCR PO SCH (07:32)
[2021-08-11] MEDS: PANTOprazole 40 MG TAB PO SCH (07:32)
[2021-08-11] MEDS: amLODIPine BESYLATE 5 MG TAB PO SCH (07:32)
[2021-08-11] MEDS: ISOSORBIDE MONO EXTENDED REL 60 MG TABCR PO SCH (07:32)
[2021-08-11] MEDS: ESCITALOPRAM OXALATE 20 MG TAB PO SCH (07:33)
[2021-08-11] MEDS: FLUTICASONE PROPIONATE NA SPR 16 GM BTL SCH (07:33)
[2021-08-11] MEDS: METOPROLOL TARTRATE 25 MG TAB PO SCH (07:33)
[2021-08-11 09:24] LABS: BUN Creatinine Ratio 16.9 (10-20); Calcium 8.6 mg/dl (8.5-10.1); Creatinine Clr Calc Pharmacy 64.7 ml/min; Est GFR (African American) 95.2 ml/min; Est GFR (Non-African American) 82.1 ml/min; Potassium 3.8 mmol/L (3.5-5.1)
--- NOTE | 2021-08-11 11:25 | Discharge Summary ---
Date of Service August 11, 2021 Admission HPI Per Admitting Provider Yulisa is an 81 year old female w/ PmHx CAD, NSTEMI, aortic stenosis on clopidogrel and aspirin, dyslipidemia, non-alcoholic cirrhosis, GERD, asthma, need for O2 at night, Sjogrens disease coming in for weakness for the past few days. According to the patient she had been treated for a UTI w/ Bactrim two weeks ago, finished the course of the antibiotic last Friday. She started to get feverish with a temperature up to 101-102F over the weekend along with bouts of diarrhea. However diarrhea went away 2 days prior and she had a normal bowel movement. She has not had a bowel movement since two days ago. Denies nausea except when eating and patient endorses drinking a lot over the past few days. Denies any current fevers, chills, shortness of breath, chest pain, abdominal pain. Patient saying she feels better already with the hydration she has received so far. Principal Diagnosis symptomatic hyponatremia resolved Discharge Exam The patient appeared well Vital signs as documented. Lungs are clear to auscultation and appear unlabored Cardiac exam, Rhythm is regular.. Systolic ejection murmur Abdominal exam reveals normal bowel sounds, soft non tender, no masses Extremities are nonedematous and both pedal pulses are normal. Neurologic exam is alert and oriented, no focal loss of strength or sensation Skin is without bruises or rashes Psychologically is without concerns for anxiety or depression. Discharge Data Allergies Allergy/AdvReac Type Severity Reaction Status Date / Time Cipro Allergy Intermediate RASH Verified 10/22/16 09:26 meperidine Allergy Mild NAUSEA AND Verified 08/09/21 14:32 VOMITING morphine Allergy Mild NAUSEA AND Verified 08/09/21 14:32 VOMITING adhesive Allergy Unknown ADHESIVE Verified 08/09/21 14:32 TAPE-BLISTERS clindamycin Allergy Unknown per PCP Verified 08/09/21 14:32 records codeine Allergy Unknown Nausea Verified 08/09/21 14:32 ciprofloxacin Allergy Verified 08/09/21 14:32 oxycodone AdvReac Severe NAUSEA/VOMI Verified 08/09/21 14:32 TING Consultations 08/09/21 20:26 ED Decision to Admit Stat Hospital Course (1) Dehydration with hyponatremia: Yulisa is an 81 year old female w/ PmHx CAD, NSTEMI, aortic stenosis on clopidogrel and aspirin, dyslipidemia, non-alcoholic cirrhosis, GERD, asthma, need for O2 at night, Sjogrens disease admitted for observation in the setting of dehydration with hyponatremia and hypokalemia. 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 hypovolemic hyponatremic state most likely 2/2 diarrhea + diuretic use. -Holding telmisartan-hydrochlorothiazide and lasix diuretic at the time of discharge with lab recheck next week -Tick panel ordered Lyme negative no anaplasmosis or babesia on peripheral smear. -now place on fluid restriction and give one gm of salt . (2) Sjogrens syndrome: (3) Hypokalemia: (4) Hypertension: (5) CAD (coronary artery disease): (6) Aortic stenosis, mild: (7) Dyslipidemia: (8) History of heart artery stent: (9) Cirrhosis, nonalcoholic: (10) Dependence on nocturnal oxygen therapy: (11) Hypothyroidism: (12) GERD (gastroesophageal reflux disease): (13) Depression with anxiety: Hypokalemia:replete Hx of non-alcoholic cirrhosis: -AST 46, ALT 59, T. bili 1.1 on admission. -no ascites on exam CAD/Aortic stenosis: -Continue home clopidogrel, aspirin. HLD: -Continue home icosapent ethyl, atorvastatin. HTN: -Continue home amlodipine and metoprolol. -Holding home telmisartan-hydrochlorothiazide and lasix prn GERD: -Continue home Nexium, famotidine. Depression/Anxiety: -Continue home escitalopram. Hypothyroidism: -Continue home levothyroxine. Sjogren's: -Continue home hydroxychloroquine DVT Prophylaxis: SCDs + clopidogrel & Aspirin F/E/N/GI: Heart healthy diet. Code Status: Full code Dispo: Med/Surg. Total Time Total Time Spent Total Time Spent (In Minutes): The patient appeared well Vital signs as documented. Lungs are clear to auscultation and appear unlabored Cardiac exam, Rhythm is regular.. No murmurs, rubs or gallops. Abdominal exam reveals normal bowel sounds, soft non tender, no masses Extremities are nonedematous and both pedal pulses are normal. Neurologic exam is alert and oriented, no focal loss of strength or sensation Skin is without bruises or rashes Psychologically is without concerns for anxiety or depression. Discharge Plan Discharge Items Patient Disposition: Home - Self-Care Reason For Visit: DEHYDRATION, HYPONATREMIA Discharge Diagnosis: low blood sodium causing confusion Activity: Per Instructions section Non-emergency contact: Primary Care Provider and Dough Machine Operator Call non-emergency contact if: your symptoms worsen Follow-up/Referrals: Michael Christie, [Primary Care Provider] - Diet: Heart Healthy Ambulatory Orders: Basic Metabolic Panel (Routine) Timeframe: 1 Week Location: Determined by Patient Ordered By: Jerry Pereira Attending Provider Instructions: you did have low blood sodium that was influenced by some of your medicines, we will ask that you only drink fluids if you are thirst and try to drink fluids other than plain water as that may dilute your sodium we will ask that you not limit sodium containing foods, and follow up with your primary care doctor this week. Please get some blood work the day prior to your appointment so your doctor can review at your appointment Pending Studies at Discharge: No Stand-Alone Forms: [facility] [employer], Smoking Cessation Medications and DC Order Prescriptions: Continued potassium chloride 10 mEq capsule, extended release 10 meq PO DAILY PRN (Reason: with lasix) Qty: 90 RF: 1 fluticasone propionate 50 mcg/actuation spray,suspension 2 spray INTNAS QAM Qty: 15.8 RF: 8 isosorbide mononitrate 60 mg tablet extended release 24 hr 60 mg PO DAILY Qty: 30 RF: 11 esomeprazole magnesium [Nexium] 40 mg capsule,delayed release(DR/EC) 40 mg PO QAM Qty: 90 RF: 3 tolterodine 4 mg capsule,extended release 24hr See Rx Instructions .ROUTE .COMPLEX Qty: 90 RF: 3 clopidogrel 75 mg tablet 75 mg PO QAM Qty: 90 RF: 3 atorvastatin 80 mg tablet 80 mg PO QPM Qty: 90 RF: 3 levothyroxine 175 mcg tablet 175 mcg PO QAM Qty: 90 RF: 3 econazole 1 % cream See Rx Instructions topical DAILY PRN (Reason: fungus) Qty: 30 RF: 3 icosapent ethyl [Vascepa] 1 gram capsule 2 g PO BID Qty: 120 RF: 2 famotidine 40 mg tablet 40 mg PO HS Qty: 90 RF: 0 lorazepam 0.5 mg tablet 0.5 mg PO Q OTHER DAY PRN (Reason: anxiety) Qty: 30 RF: 2 escitalopram oxalate 20 mg tablet 20 mg PO DAILY Qty: 30 RF: 2 amlodipine 2.5 mg tablet 2.5 mg PO DAILY Qty: 90 RF: 3 azelastine 205.5 mcg (0.15 %) spray,non-aerosol 2 spray INTNAS HS Qty: 30 RF: 5 metoprolol tartrate 25 mg tablet 25 mg PO BID Qty: 90 RF: 3 hydroxychloroquine 200 mg tablet 200 mg PO DAILY Qty: 90 RF: 1 vitamin E (dl, acetate) 400 unit capsule 400 units PO QAM RF: 0 cholecalciferol (vitamin D3) 100 mcg (4,000 unit) capsule 5,000 units PO QAM RF: 0 Adult 50 Plus Probiotic 4 billion cell capsule 4,000 mmu cells PO QAM RF: 0 nitroglycerin 0.4 mg tablet, sublingual 0.4 mg SL ONCE PRN (Reason: Chest Pain) Qty: 25 RF: 4 furosemide [Lasix] 40 mg tablet 40 mg PO DAILY PRN (Reason: edema) RF: 0 mecobalamin (vitamin B12) 1,000 mcg tablet,chewable 2,000 mcg PO DAILY RF: 0 aspirin 81 mg Tablet,Delayed Release (Dr/Ec) 81 mg PO QAM RF: 0 mupirocin 2 % ointment 1 applic topical BID PRN (Reason: flare up) RF: 0 Discontinued telmisartan-hydrochlorothiazid 80-12.5 mg tablet 1 tab PO DAILY Qty: 90 RF: 3 Discharge Orders: Discharge Order (Routine); Ordered 08/11/21 Ordered By: Jerry Lewis/Other Patient Handouts: Hyponatremia Dc Admission Data Admit Date/Time: 08/09/21 22:55 Attending Provider: Jerry Kraus Admit Provider: Kervin Bellamy Primary Care Provider: Michael Christie Other Providers: Amalia Trejo Other Interventions: Discharge Summary Assessment (RN) Last Done: 08/11/21 09:36 Coding Level of Care Code D/C DAY MANAGEMENT >30 MINS Diagnoses Dehydration with hyponatremia E86.0; E87.1 Sjogrens syndrome M35.00 Hypokalemia E87.6 Hypertension I10 CAD (coronary artery disease) I25.119 Associated angina: with unspecified angina Coronary Disease-Associated Artery/Lesion type: unspecified vessel or lesion type [place] vs. transplanted heart: unspecified whether [place] or transplanted heart Aortic stenosis, mild I35.0 Dyslipidemia E78.5 History of heart artery stent Z95.5 Cirrhosis, nonalcoholic K74.60 Dependence on nocturnal oxygen therapy Z99.81 Hypothyroidism E03.9 GERD (gastroesophageal reflux disease) K21.9 Depression with anxiety F41.8
[2021-08-15 03:02] LABS: Babesia microti DNA Not Detected (Not Detected)
[2021-08-16 13:08] LABS: Ehrlichia chaff DNA Bld Negative (Negative)
== END 2021-08-11 11:06 | disposition home or self-care (01) ==
LOC: ED 19:07 → SUATTDRO 22:55 → 3N 22:55 → INTOOBSV 22:55 → 3N 23:21
DX: K74.60 Unspecified cirrhosis of liver; M35.00 Sjogren syndrome, unspecified; R05.9 Cough, unspecified; F41.8 Other specified anxiety disorders; Z79.890 Hormone replacement therapy; I51.7 Cardiomegaly; R50.9 Fever, unspecified; E87.1 Hypo-osmolality and hyponatremia; Z88.1 Allergy status to other antibiotic agents; I10 Essential (primary) hypertension; Z91.048 Other nonmedicinal substance allergy status; Z99.81 Dependence on supplemental oxygen; E78.5 Hyperlipidemia, unspecified; E03.9 Hypothyroidism, unspecified; Z79.899 Other long term (current) drug therapy; I35.0 Nonrheumatic aortic (valve) stenosis; Z88.6 Allergy status to analgesic agent; R06.00 Dyspnea, unspecified; I25.119 Atherosclerotic heart disease of native coronary artery with unspecified angina pectoris; Z00.00 Encounter for general adult medical examination without abnormal findings; E86.0 Dehydration; Z88.5 Allergy status to narcotic agent; K21.9 Gastro-esophageal reflux disease without esophagitis; Z79.82 Long term (current) use of aspirin; E87.6 Hypokalemia; Z95.5 Presence of coronary angioplasty implant and graft

== ENCOUNTER 2024-02-19 23:10 | Observation (INO) ==
--- NOTE | 2024-02-19 23:23 | Emergency Department Note ---
Impression & Plan Acute confusion, Vomiting, Acute UTI, Failure of outpatient treatment, Elevated troponin ED Provider Note NAME: RICO SCHMITZ AGE: 83 SEX: F : 1940 ARRIVES VIA: Ambulance INFORMANT: [Patient][ems] ED PROVIDER(S): [Go Warren MD] CHIEF COMPLAINT: Urinary symptoms, vomiting HISTORY OF PRESENT ILLNESS: The patient is an 83-year-old female who saw her doctor's office 2 days ago and was prescribed Bactrim for a UTI. The patient had been having dysuria for several weeks. The patient states that she has been vomiting really since starting the Bactrim. She was called today by her doctors office and switched to Keflex. She has not been able to take this medication though as she is throwing up. EMS team was called tonight because the patient had a fever and seemed confused. She was brought for evaluation. In route, she was given 4 mg of Zofran IV. She presents with a vomit bag in hand. There is vomit on her shirt. Patient currently denies any pain. She admits to feeling nauseated. She has no chest pain, there is no increased shortness of breath. Of note, looking at the urinalysis/urine culture results from 2 days ago, the culture did grow E. coli that was resistant to Bactrim. The E. coli was sensitive to cephalosporins. PMHx/PSHx/Social Hx: See Below PHYSICAL EXAM: GENERAL: Patient is in no acute distress. HEENT: No acute trauma, normocephalic atraumatic, mucous membranes moist, no nasal congestion. NECK: No stridor, no adenopathy, no meningismus, trachea is midline. LUNGS: Clear to auscultation bilaterally when listening anterior, no wheeze, no rhonchi, breath sounds equal. No respiratory distress. HEART: Without murmurs gallops or rubs, regular rate and rhythm. ABDOMEN: Soft, nontender, no peritonitis. EXTREMITIES: No cyanosis, full range of motion of all the joints without pain or difficulty. NEUROLOGIC: Awake and alert, no speech slur, no acute motor or sensory deficits, no focal weakness. SKIN: No jaundice, no diaphoresis. DIFFERENTIAL DIAGNOSIS: Medication reaction, sepsis or bacteremia, UTI, bowel obstruction, electrolyte imbalance, stroke, among others. EMERGENCY DEPARTMENT PROCEDURES: MEDICAL DECISION MAKING: There is no leukocytosis or concerning anemia. There is a normal platelet count. No worrisome coagulopathy. No renal failure. Magnesium somewhat low at 1.6. Bilirubin was elevated at 2.7, looking back at previous testing, she has had some bilirubin elevations before. Lactic acid level was not elevated making severe sepsis less likely. ECG showed a sinus rhythm, no acute ischemia. Cardiac enzyme testing x 1 was mildly elevated, this troponin elevation could be secondary to mismatch from her presentation versus cardiac injury. Urinalysis does show findings of infection. Chest x-ray shows some mild congestion/CHF. No focal pneumonia. BNP was somewhat elevated consistent with fluid overload/CHF. Brain CT showed no acute bleed or mass effect, an older small stroke like lesion was noted. Abdominal and pelvis CT shows cystitis. There were some chronic findings, no bowel obstruction or hydronephrosis. Patient presents with vomiting. She was reportedly confused earlier with a fever. She was aggressively managed, I was concerned for bacteremia/sepsis. Patient received IV cefepime as antibiotic coverage. She was initially ordered for IV fluids however, the fluids were canceled when her x-ray suggested some CHF. Patient did maintain her blood pressure here in the ED without fluid administration. The patient was given IV Zofran for nausea, IV magnesium for the lower magnesium value. Patient is currently resting comfortably. She is feeling improved. She is requiring some nasal cannula O2 supplementation to maintain her saturation, she has a history of an oxygen requirement, especially at night. I do think the patient requires a hospital stay. She has failed outpatient management. She has a somewhat resistant urinary tract infection based on the culture from a few days ago. The vomiting she is experiencing may be from the Bactrim that was prescribed versus, the infection and illness itself. I did speak with the patient, I spoke with the daughter, case management has been involved. The on-call hospitalist was consulted. Prior/Outside records/notes reviewed: Today's EMS notes describing her presentation and transport to this hospital. ECG per my interpretation: Indication was potential sepsis. The ECG shows a sinus rhythm with a first AV block. Rate was 68. There was evidence for incomplete right bundle branch block. There was no acute ST elevation, some baseline artifact was seen. No PVCs. The QTc was 446. Continuous Cardiac Monitoring per my interpretation: An order was placed for continuous cardiac monitoring. The monitor shows a rate of 80 with sinus rhythm with a first AV block. Imaging/x-ray results per my interpretation: Chest x-ray shows some parenchymal congestion consistent with some potential mild CHF. There was some rotation to the film. No obvious focal infiltrate, no free air. Chronic Medical/Social conditions affecting care: Advanced age. Care/Management discussed with: Case management, the on-call hospitalist. Level of care consideration(s): After review of the information above and other included data: --I believe the patient requires escalation of care to admission Critical Care Note: I have personally spent 45 minutes of critical care time in the direct management of this patient. This includes bedside care, interpretation of diagnostic studies, and testing, discussion with consultants, patient, and family members, and other required patient management activities. This 45 minutes is in excess of all separately billable procedures. 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 on nocturnal oxygen therapy (~2015) Sjogrens syndrome (Acute) Hypothyroidism (Acute) GERD (gastroesophageal reflux disease) (Chronic) Depression with anxiety (Acute) Lymphoproliferative disease (Acute) Vitamin D deficiency (Acute) Medical History History of inverted papilloma Gout 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 (SNHL) of both ears Hip pain Pulmonary nodule 1 cm or greater in diameter Ct 02/2021 no nodule identified Acute diastolic (congestive) heart failure NSTEMI (non-ST elevated myocardial infarction) Allergic rhinitis due to allergen Allergic rhinitis Knee pain, bilateral Chronic osteoarthritis Dupuytren's contracture of hand Splenomegaly (~09/2011) ITP (idiopathic thrombocytopenic purpura) (~09/2011) Asthma [place] (myocardial infarction) Surgical History H/O wisdom tooth extraction H/O colonoscopy History of tonsillectomy History of hysterectomy History of cataract surgery History of carotid endarterectomy Hx of CABG Family History Unknown Hypertension Mother Diabetes Father Heart disease Myocardial infarction Hypertension Cancer Aunt Lung cancer Denies family history of Ovarian cancer Prostate cancer Breast cancer Colorectal cancer Stroke Social History Smoking Status: Former smoker Tobacco Type: Cigarettes Age Started Using Tobacco: 15; Age Quit Using Tobacco: 43; packs per day: 1; Cigarettes Per Day: 1 pack a day.; Second Hand Exposure: No; Do You Dip or Chew Tobacco: No; Hx Alcohol Use: No Hx Substance Use: No Preferred Language: Azerbaijani Communication Ability: Effective Visual Impairment: Limited Hearing Ability: Normal Jig And Fixture Maker Required: No Beliefs That Will Affect Care: None marital status: Current Living Situation: Spouse current occupational status: retired How many Children do You have: 1 Feels Safe at Home: Yes Childhood Exposure to Second-Hand Smoke: Yes Diet: regular caffeine: Yes Dental Care, Regularly: Yes Physical Activity Frequency: Does not Exercise Seatbelt Use: always Sunscreen Use: Yes Assistive Devices: Cane and Glasses Allergies Allergies Allergy/AdvReac Type Severity Reaction Status Date / Time Cipro Allergy Intermediate RASH Verified 10/22/16 09:26 meperidine Allergy Mild NAUSEA AND Verified 02/18/24 13:38 VOMITING morphine Allergy Mild NAUSEA AND Verified 02/18/24 13:38 VOMITING adhesive Allergy Unknown ADHESIVE Verified 02/18/24 13:38 TAPE-BLISTERS clindamycin Allergy Unknown per PCP Verified 02/18/24 13:38 records codeine Allergy Unknown Nausea Verified 02/18/24 13:38 ciprofloxacin Allergy Verified 02/18/24 13:38 oxycodone AdvReac Severe NAUSEA/VOMI Verified 02/18/24 13:38 TING sulfamethoxazole AdvReac Vomiting Verified 02/19/24 09:18 [From Bactrim] trimethoprim [From Bactrim] AdvReac Vomiting Verified 02/19/24 09:18 Home Meds Home Medications Medication Instructions Recorded Confirmed vitamin E (dl, acetate) 180 mg 400 units PO QAM 10/27/18 02/20/24 (400 unit) capsule lactobacillus combination no.9 4 4,000 mmu cells PO QAM 02/04/19 02/20/24 billion cell capsule (Adult 50 Plus Probiotic) aspirin 81 mg tablet,delayed 81 mg PO QAM 11/25/19 02/20/24 release mecobalamin (vitamin B12) 1,000 500 mcg PO Q OTHER DAY 02/19/24 02/20/24 mcg chewable tablet cholecalciferol (vitamin D3) 125 125 mcg PO DAILY 02/20/24 02/20/24 mcg (5,000 unit) tablet (Vitamin D3) diclofenac sodium 1 % topical gel 2 g topical QID PRN Pain 02/20/24 02/20/24 (Voltaren Arthritis Pain) econazole 1 % topical cream 1 applic topical DAILY PRN fungus 02/20/24 02/20/24 famotidine 40 mg tablet 40 mg PO HS 02/20/24 02/20/24 tolterodine 4 mg capsule,extended 4 mg PO QAM 02/20/24 02/20/24 release 24 hr Previous Rx's Medication Instructions Recorded esomeprazole magnesium 40 mg 40 mg PO QAM #90 caps 03/04/23 capsule,delayed release (Nexium) clopidogrel 75 mg tablet 75 mg PO QAM #90 tabs 03/24/23 atorvastatin 80 mg tablet 80 mg PO QPM #90 tabs 04/09/23 levothyroxine 175 mcg tablet 175 mcg PO QAM #90 tabs 04/22/23 telmisartan 40 mg tablet 40 mg PO DAILY #90 tabs 06/18/23 furosemide 40 mg tablet (Lasix) 40 mg PO DAILY edema #90 tabs 09/24/23 potassium chloride 10 mEq 10 meq PO DAILY with lasix #90 caps 09/24/23 capsule,extended release Wheeled Walker #1 ea 10/06/23 amlodipine 5 mg tablet 5 mg PO DAILY #90 tabs 10/28/23 nitroglycerin 0.4 mg sublingual 0.4 mg sublingual ONCE PRN Chest 11/10/23 tablet Pain #25 tabs escitalopram oxalate 20 mg tablet 20 mg PO DAILY #90 tabs 11/18/23 icosapent ethyl 1 gram capsule 2 g (2 x 1 gram) PO BID #120 caps 11/24/23 (Vascepa) metoprolol tartrate 25 mg tablet 25 mg PO BID #180 tabs 11/25/23 isosorbide mononitrate 60 mg 60 mg PO DAILY #90 tabs 12/02/23 tablet,extended release 24 hr cephalexin 500 mg capsule 500 mg PO BID 5 days #10 caps 02/19/24 Results & Data (ED) Vital Signs Vital Signs - 24 hr 02/19/24 22:56 02/19/24 23:15 02/19/24 23:15 Temperature 37.5 C Temperature Source Oral Pulse Rate Pulse Rate [Apical] Respiratory Rate 21 Respiratory Effort / Characteristics Non-Labored Respiratory Depth Normal Respiratory Pattern Blood Pressure 123/56 L Blood Pressure [Left Arm] Blood Pressure Mean 78 Blood Pressure Mean [Left Arm] Blood Pressure Position [Left Arm] Pulse Oximetry 70 L 90 Oxygen Delivery Method Room Air Nasal Cannula Nasal Cannula Oxygen Flow Rate 5 5 Sepsis Recent Fever Within 48 Hours Yes Sepsis New/Unexplained Change in Mental Status No Sepsis Action Taken by Nursing No Action Required Oxygen Flow Rate - Titration Pulse Oximetry Post Tiitration 02/19/24 23:15 02/19/24 23:18 02/20/24 00:00 Temperature 37.5 C Temperature Source Oral Pulse Rate 80 Pulse Rate [Apical] 68 Respiratory Rate 24 Respiratory Effort / Characteristics Non-Labored Respiratory Depth Normal Normal Respiratory Pattern Regular Blood Pressure Blood Pressure [Left Arm] 113/50 L Blood Pressure Mean Blood Pressure Mean [Left Arm] 71 Blood Pressure Position [Left Arm] Pulse Oximetry 96 Oxygen Delivery Method Nasal Cannula Nasal Cannula Oxygen Flow Rate 5 Sepsis Recent Fever Within 48 Hours Sepsis New/Unexplained Change in Mental Status Sepsis Action Taken by Nursing Oxygen Flow Rate - Titration Pulse Oximetry Post Tiitration 02/20/24 00:15 02/20/24 00:15 02/20/24 00:30 Temperature Temperature Source Pulse Rate Pulse Rate [Apical] 64 65 Respiratory Rate 22 24 Respiratory Effort / Characteristics Non-Labored Non-Labored Respiratory Depth Respiratory Pattern Regular Blood Pressure Blood Pressure [Left Arm] 105/49 L 118/62 Blood Pressure Mean Blood Pressure Mean [Left Arm] 67 80 Blood Pressure Position [Left Arm] Lying Pulse Oximetry 97 99 94 Oxygen Delivery Method Room Air Nasal Cannula Nasal Cannula Oxygen Flow Rate 5 5 4 Sepsis Recent Fever Within 48 Hours Sepsis New/Unexplained Change in Mental Status Sepsis Action Taken by Nursing Oxygen Flow Rate - Titration 4 Pulse Oximetry Post Tiitration 96 02/20/24 01:00 02/20/24 01:08 02/20/24 01:30 Temperature Temperature Source Pulse Rate Pulse Rate [Apical] 63 57 L Respiratory Rate 20 18 Respiratory Effort / Characteristics Non-Labored Non-Labored Respiratory Depth Normal Respiratory Pattern Regular Regular Blood Pressure Blood Pressure [Left Arm] 111/55 L 100/51 L Blood Pressure Mean Blood Pressure Mean [Left Arm] 73 67 Blood Pressure Position [Left Arm] Pulse Oximetry 94 97 93 Oxygen Delivery Method Nasal Cannula Nasal Cannula Nasal Cannula Oxygen Flow Rate 4 4 3 Sepsis Recent Fever Within 48 Hours Sepsis New/Unexplained Change in Mental Status Sepsis Action Taken by Nursing Oxygen Flow Rate - Titration 3 Pulse Oximetry Post Tiitration 94 02/20/24 01:45 02/20/24 02:00 02/20/24 02:15 Temperature Temperature Source Pulse Rate Pulse Rate [Apical] 57 L 58 L 56 L Respiratory Rate 18 22 24 Respiratory Effort / Characteristics Non-Labored Non-Labored Non-Labored Respiratory Depth Normal Normal Normal Respiratory Pattern Regular Regular Regular Blood Pressure Blood Pressure [Left Arm] 107/45 L 113/51 L 102/50 L Blood Pressure Mean Blood Pressure Mean [Left Arm] 65 71 67 Blood Pressure Position [Left Arm] Pulse Oximetry 92 92 94 Oxygen Delivery Method Nasal Cannula Nasal Cannula Nasal Cannula Oxygen Flow Rate 3 3 3 Sepsis Recent Fever Within 48 Hours Sepsis New/Unexplained Change in Mental Status Sepsis Action Taken by Nursing Oxygen Flow Rate - Titration Pulse Oximetry Post Tiitration Home Medications Current Medication List: was personally reviewed by me Laboratory Data Attestation: I reviewed the patient's lab results. 02/19/24 23:20 02/19/24 23:20 Lab Results 02/19/24 02/19/24 02/20/24 Range/Units 23:20 23:41 01:11 WBC 7.68 (4.8-10.8) K/ul RBC 4.07 L (4.20-5.40) M/uL Hgb 12.2 (12.0-16.0) g/dl Hct 36.0 L (37.0-47.0) % MCV 88.5 (80.0-100.0) fL MCH 30.0 (25.0-34.0) pg MCHC 33.9 (32.0-36.0) g/dL RDW Std Deviation 45.9 (36.4-46.3) fL RDW Coeff of [place] 14.3 (11.5-14.5) % Plt Count 156 (130-400) K/uL MPV 10.4 (9.4-12.4) fL Immature Gran % (Auto) 0.3 % Neut % (Auto) 86.8 % Lymph % (Auto) 4.9 % [place] % (Auto) 7.3 % Eos % (Auto) 0.3 % Baso % (Auto) 0.4 % Neut # (Auto) 6.67 H (1.40-6.50) K/uL Lymph # (Auto) 0.38 L (1.20-3.40) K/uL [place] # (Auto) 0.56 (0.11-0.59) K/uL Eos # (Auto) 0.02 (0.00-0.50) K/uL Baso # (Auto) 0.03 (0.00-0.20) K/uL Immature Gran # (Auto) 0.02 (0.01-0.20) K/uL PT 12.1 H (9.0-12.0) Seconds INR 1.1 (0.9-1.1) APTT 29 (21-31) Seconds PTT Ratio 1.1 Sodium 136 (136-145) mmol/L Potassium 3.6 (3.5-5.1) mmol/L Chloride 99 (98-107) mmol/L Carbon Dioxide 29 (21-32) mmol/L Anion Gap 8 (3-11) BUN 23 (6-23) mg/dl Creatinine 0.73 (0.6-1.2) mg/dl Est Cr Clr Drug Dosing 55.2 ml/min eGFR 80.54 BUN/Creatinine Ratio 31.5 H (10-20) Glucose 140 H (70-99(Fasting)) mg/dl Lactate 0.9 (0.4-2.0) mmol/L Calcium 9.1 (8.6-10.3) mg/dl Magnesium 1.6 L (1.7-2.4) mg/dl Total Bilirubin 2.7 H (0.2-1.0) mg/dl Direct Bilirubin 0.5 H (0-0.2) mg/dl AST 17 (13-39) U/L ALT 11 (7-52) U/L Alkaline Phosphatase 53 (34-104) U/L Troponin I High Sens 164.0 H* 210.8 H* D (0-14) pg/ml B-Natriuretic Peptide 803 H (0-100) pg/ml Total Protein 6.4 (6.0-8.3) gm/dl Albumin 3.8 (3.4-5.0) gm/dl Procalcitonin < 0.02 (0-0.5) ng/ml Urine Color Yellow Urine Appearance Cloudy A (Clear) Urine pH 6.5 (4.5-7.5) Ur Specific [place] 1.012 (1.000-1.030) Urine Protein Trace H (Negative) Urine Glucose (UA) Negative (Negative) Urine Ketones Negative (Negative) Urine Blood Negative (Negative) Urine Nitrite Positive A (Negative) Urine Bilirubin Negative (Negative) Urine Urobilinogen Negative (Negative) Ur Leukocyte Esterase 2+ H (Negative) Urine WBC (Auto) >50 H (0-5) /hpf Urine RBC (Auto) 0-2 (0-2) /hpf U Hyaline Cast (Auto) 0-2 (0-2) /lpf U Epithel Cells (Auto) 0-2 (0-2) /hpf Urine Bacteria (Auto) 4+ H (None Seen) Administered Medications Discontinued Medications Sodium Chloride (Nss) 1,000 mls @ 999 mls/hr IV .Q1H1M MAURICIO Stop: 02/20/24 00:15 Last Admin: 02/20/24 00:00 Dose: Not Given Documented By: EVELYN Cefepime HCl (Maxipime 2000mg) 2,000 mg in 20 mls @ 5 mls/min IV NOW STA; Protocol Stop: 02/19/24 23:18 Last Admin: 02/19/24 23:44 Dose: 5 mls/min Documented By: EVELYN Sodium Chloride (Nss) 500 mls @ 999 mls/hr IV .Q31M ONE Stop: 02/20/24 00:28 Last Infusion: 02/20/24 01:22 Dose: 0 mls/hr Documented By: Infusion: 02/20/24 00:06 Dose: 30 mls/hr Documented By: Admin: 02/20/24 00:00 Dose: 999 mls/hr Documented By: EVELYN Magnesium Sulfate/Dextrose (Magnesium Sulfate / D5w) 1 gm in 100 mls @ 100 mls/hr IV NOW STA Stop: 02/20/24 00:59 Last Infusion: 02/20/24 01:45 Dose: Infused Documented By: Admin: 02/20/24 00:37 Dose: 100 mls/hr Documented By: EVELYN Ondansetron HCl (Ondansetron Inj 2 Mg/Ml 2 Ml Vial) 4 mg IV NOW STA Stop: 02/19/24 23:16 Last Admin: 02/19/24 23:45 Dose: 4 mg Documented By: EVELYN Imaging Data Radiologist's Impression: Head CT 02/19/24 23:15 EXAM: CT head/brain wo con CLINICAL HISTORY: CONFUSION TECHNIQUE: Axial non-contrast CT scan of the brain was performed from the skull base to the high parietal region. One of the following dose reduction techniques were utilized for this exam: Automated exposure control, adjustment of the mA and/or kV according to patient size, use of iterative reconstruction. COMPARISON: 07/28/2020 FINDINGS: Brain Parenchyma: Normal attenuation of the cerebral hemispheres, cerebellum, and brainstem. No evidence of acute infarct, hemorrhage, or mass effect. There are accentuated white matter hypodensities in both the cerebral hemispheres suggestive of microvascular ischemic changes. Focal hypodensity in the left subinsular region probably represents a lacunar infarct, subacute to chronic. Age-appropriate involutional changes are seen in the brain evident by widened extra-axial CSF spaces, deepened cortical sulci, prominent sylvian fissures and mildly dilated ventricular system Ventricular System: Ventricles are normal in size and configuration. No evidence of hydrocephalus or ventricular enlargement. Subarachnoid Spaces: Normal sulci and cisterns. No evidence of subarachnoid hemorrhage or extra-axial fluid collections. Cerebellum and Brainstem: Normal size and signal. No masses, lesions, or areas of abnormal signal. Orbits: Normal appearance of the globes, optic nerves, and extraocular muscles. No evidence of orbital masses or abnormal signal. Sinuses: Clear paranasal sinuses. No evidence of sinusitis or mucosal thickening. Mastoid Air Cells: Clear mastoid air cells. No evidence of mastoiditis. Skull and Meninges: Normal skull morphology. IMPRESSION: No acute intracranial abnoormality is appreciated. Further evaluation wwith MRI brain [as stroke protocol] may be obtained if clinically requirred. Focal hypodensity in the left subinsular region probably represents a lacunar infarct, subacute to chronic (slightly increased). Chronic microvascular ischemic changes annd senile brain atrophy (stable). Electronically signed by Radha Gomez 02-20-2024 01:24 AM Abdomen/Pelvis CT 02/20/24 00:17 EXAM: CT abd pelvis wo con CLINICAL HISTORY: TECHNIQUE: Contiguous axial images were obtained from the level of the diaphragm to the pubic symphysis without intravenous or oral contrast. Coronal and sagittal reconstructions were likewise performed and indicated to increase the sensitivity for detecting clinically relevant pathology. CT scan was performed according to ALARA (as low as reasonably achievable). COMPARISON: None. FINDINGS: Cardiomegaly is noted. Evaluation of the abdominal and pelvic visceral organs is limited without intravenous contrast. Liver shows surface nodularity and mild volume redistribution. Dilatation of the portal vein, splenic vein and proximal superior mesenteric vein is noted.. Multiple calcified granulomas are noted in liver as well as spleen. Spleen is enlarged measuring 14 cm in craniocaudal extent. The unenhanced pancreas, and adrenal glands are grossly unremarkable. Few microcalculi are noted within the gallbladder. No signs of acute cholecystitis. The kidneys are normal in size and attenuation without obvious calcification. There is no hydronephrosis or perinephric stranding. The ureters are normal in caliber. No adenopathy or fluid collections are seen. No evidence of focal or diffuse bowel wall thickening or evidence of bowel obstruction is seen. Redundancy of the sigmoid colon is noted. Fecal loading of the large bowel is seen. Small hiatus hernia is seen. Small omental fat containing umbilical hernia is noted. Defect measures 8 mm in transverse dimension. The aorta is normal in caliber. Irregularity with mild thickening of the urinary bladder wall is noted. Pelvic viscera are grossly unremarkable. No aggressive appearing osseous lesions are identified. Degenerative changes are noted in the visualized spine. Scoliosis is noted at the level of distal thoracic and proximal lumbar spine with convexity on the right side. IMPRESSION: 1. Cardiomegaly. 2. Liver shows surface nodularity and mild volume redistribution. Dilatation of the portal vein, splenic vein and proximal superior mesenteric vein is noted. Findings suggestive of chronic liver parenchymal disease with changes of portal hypertension. Suggested liver function test correlation. 3. Splenomegaly measuring 14 cm. 4. Irregularity with mild thickening of the urinary bladder wall is noted, possibility of cystitis. Suggested lab correlation. 5. Few microcalculi are noted within the gallbladder. No signs of acute cholecystitis. 6. Multiple calcified granulomas in the liver and spleen. 7. Redundancy of the sigmoid colon is noted. Fecal loading of the large bowel is seen. 8. Small hiatus hernia is seen. Electronically signed by Johnnie Rodriguez 02-20-2024 02:22 AM Discharge Plan Visit Data Chief Complaint: Urinary Symptoms Stated Complaint: UTI, Fever ED Provider: Go Warren Discharge Problem: Acute confusion, Vomiting, Acute UTI, Failure of outpatient treatment, Elevated troponin Patient Disposition: Admitted As Inpatient Condition: Fair Forms Stand Alone Forms: [facility] Prescriptions Prescriptions: No Action esomeprazole magnesium [Nexium] 40 mg capsule,delayed release(DR/EC) 40 mg PO QAM Qty: 90 3RF clopidogrel 75 mg tablet 75 mg PO QAM Qty: 90 3RF atorvastatin 80 mg tablet 80 mg PO QPM Qty: 90 3RF levothyroxine 175 mcg tablet 175 mcg PO QAM Qty: 90 3RF telmisartan 40 mg tablet 40 mg PO DAILY Qty: 90 3RF furosemide [Lasix] 40 mg tablet 40 mg PO DAILY Qty: 90 3RF potassium chloride 10 mEq capsule, extended release 10 meq PO DAILY Qty: 90 1RF (DME) Wheeled Walker Misc See Rx Instructions .Route Qty: 1 0RF Rx Instructions: WHEELED WALKER amlodipine 5 mg tablet 5 mg PO DAILY Qty: 90 3RF nitroglycerin 0.4 mg tablet, sublingual 0.4 mg SL ONCE PRN (Reason: Chest Pain) Qty: 25 4RF escitalopram oxalate 20 mg tablet 20 mg PO DAILY Qty: 90 3RF icosapent ethyl [Vascepa] 1 gram capsule 2 g PO BID Qty: 120 5RF metoprolol tartrate 25 mg tablet 25 mg PO BID Qty: 180 3RF isosorbide mononitrate 60 mg tablet extended release 24 hr 60 mg PO DAILY Qty: 90 3RF cephalexin 500 mg capsule 500 mg PO BID 5 Days Qty: 10 0RF mecobalamin (vitamin B12) 1,000 mcg tablet,chewable 500 mcg PO Q OTHER DAY vitamin E (dl, acetate) 400 unit capsule 400 units PO QAM Adult 50 Plus Probiotic 4 billion cell capsule 4,000 mmu cells PO QAM aspirin 81 mg Tablet,Delayed Release (Dr/Ec) 81 mg PO QAM tolterodine 4 mg capsule,extended release 24hr 4 mg PO QAM Rx Instructions: TAKE 1 CAPSULE BY MOUTH EVERY MORNING famotidine 40 mg tablet 40 mg PO HS econazole 1 % cream 1 applic topical DAILY PRN (Reason: fungus) Rx Instructions: 1 application topical daily PRN; diclofenac sodium [Voltaren Arthritis Pain] 1 % gel 2 g topical QID PRN (Reason: Pain) Rx Instructions: apply to single elbow, wrist or hand; for hand includes palm/fingers/back of hand cholecalciferol (vitamin D3) [Vitamin D3] 125 mcg (5,000 unit) Tablet 125 mcg PO DAILY Referrals Referrals: Michael Christie DO [Primary Care Provider] - Discharge Problem: Vomiting Qualifiers: Vomiting type: unspecified Nausea presence: with nausea Qualified Code(s): R 11.2 - Nausea with vomiting, unspecified
[2024-02-19 23:39] LABS: Basophils # (auto) 0.03 K/uL (0.00-0.20); Basophils % (auto) 0.4 %; Eosinophils # (auto) 0.02 K/uL (0.00-0.50); Eosinophils % (auto) 0.3 %; Hemoglobin 12.2 g/dl (12.0-16.0); Immature Granulocytes # (auto) 0.02 K/uL (0.01-0.20); Immature Granulocytes % (auto) 0.3 %; Lymphocytes # (auto) 0.38 K/uL (1.20-3.40); Lymphocytes % (auto) 4.9 %; Mean Corpuscular Hgb Conc 33.9 g/dL (32.0-36.0); Mean Corpuscular Volume 88.5 fL (80.0-100.0); Mean Platelet Volume 10.4 fL (9.4-12.4); Monocytes # (auto) 0.56 K/uL (0.11-0.59); Monocytes % (auto) 7.3 %; Neutrophils # (auto) 6.67 K/uL (1.40-6.50); Neutrophils % (auto) 86.8 %; Platelet Count 156 K/uL (130-400); RDW Coefficient of Variation 14.3 % (11.5-14.5); RDW Standard Deviation 45.9 fL (36.4-46.3); Red Blood Count 4.07 M/uL (4.20-5.40); White Blood Count 7.68 K/ul (4.8-10.8)
[2024-02-19] MEDS: CEFEPIME 2000MG 2,000 MG/20 ML SYR IV STA (23:44)
[2024-02-19] MEDS: ONDANSETRON INJ 2 MG/ML 2 ML VIAL IV STA (23:45)
[2024-02-19] MEDS: SODIUM CHLORIDE 0.9% 1,000 ML IV SCH (23:45)
[2024-02-19 23:56] LABS: Albumin Level 3.8 gm/dl (3.4-5.0); BUN Creatinine Ratio 31.5 (10-20); Bilirubin Direct 0.5 mg/dl (0-0.2); Bilirubin,Total 2.7 mg/dl (0.2-1.0); Calcium 9.1 mg/dl (8.6-10.3); Creatinine Clr Calc Pharmacy 55.2 ml/min; Magnesium 1.6 mg/dl (1.7-2.4); Potassium 3.6 mmol/L (3.5-5.1); Total Protein 6.4 gm/dl (6.0-8.3)
[2024-02-20] MEDS: SODIUM CHLORIDE 0.9% 500 ML IV ONE
[2024-02-20 00:09] LABS: INR 1.1 (0.9-1.1); Partial Thromboplastin Ratio 1.1; Partial Thromboplastin Time 29 Seconds (21-31); Prothrombin Time 12.1 Seconds (9.0-12.0)
[2024-02-20 00:21] LABS: Appearance Urine Cloudy (Clear); Bacteria Urine Automated 4+ (None Seen); Bilirubin Urine Negative (Negative); Blood Urine Negative (Negative); Cast Urine Automated 0-2 /lpf (0-2); Color Urine Yellow; Epithelial Cell Urine Auto 0-2 /hpf (0-2); Glucose Urine UA Negative (Negative); Ketones Urine Negative (Negative); Leukocyte Esterase Urine 2+ (Negative); Nitrite Urine Positive (Negative); Protein Urine Trace (Negative); RBC Urine Automated 0-2 /hpf (0-2); Specific Gravity Urine 1.012 (1.000-1.030); Urobilinogen Urine Negative (Negative); WBC Urine Automated >50 /hpf (0-5); pH Urine 6.5 (4.5-7.5)
[2024-02-20] MEDS: MAGNESIUM SULFATE / D5W 1 GM/100 ML BAG IV STA (00:37)
--- NOTE | 2024-02-20 01:24 | CT Scan Report ---
EXAM: CT head/brain wo con CLINICAL HISTORY: CONFUSION TECHNIQUE: Axial non-contrast CT scan of the brain was performed from the skull base to the high parietal region. One of the following dose reduction techniques were utilized for this exam: Automated exposure control, adjustment of the mA and/or kV according to patient size, use of iterative reconstruction. COMPARISON: 07/28/2020 FINDINGS: Brain Parenchyma: Normal attenuation of the cerebral hemispheres, cerebellum, and brainstem. No evidence of acute infarct, hemorrhage, or mass effect. There are accentuated white matter hypodensities in both the cerebral hemispheres suggestive of microvascular ischemic changes. Focal hypodensity in the left subinsular region probably represents a lacunar infarct, subacute to chronic. Age-appropriate involutional changes are seen in the brain evident by widened extra-axial CSF spaces, deepened cortical sulci, prominent sylvian fissures and mildly dilated ventricular system Ventricular System: Ventricles are normal in size and configuration. No evidence of hydrocephalus or ventricular enlargement. Subarachnoid Spaces: Normal sulci and cisterns. No evidence of subarachnoid hemorrhage or extra-axial fluid collections. Cerebellum and Brainstem: Normal size and signal. No masses, lesions, or areas of abnormal signal. Orbits: Normal appearance of the globes, optic nerves, and extraocular muscles. No evidence of orbital masses or abnormal signal. Sinuses: Clear paranasal sinuses. No evidence of sinusitis or mucosal thickening. Mastoid Air Cells: Clear mastoid air cells. No evidence of mastoiditis. Skull and Meninges: Normal skull morphology. IMPRESSION: No acute intracranial abnoormality is appreciated. Further evaluation wwith MRI brain [as stroke protocol] may be obtained if clinically requirred. Focal hypodensity in the left subinsular region probably represents a lacunar infarct, subacute to chronic (slightly increased). Chronic microvascular ischemic changes annd senile brain atrophy (stable). Electronically signed by Radha Gomez 02-20-2024 01:24 AM
--- NOTE | 2024-02-20 02:20 | History & Physical Report ---
Date of Service February 20, 2024 Assessment & Plan (1) Vomiting: Plan: 83yo female presenting with persistent nausea/vomiting and PO intolerance in setting of acute UTI. Nausea likely worsened with Bactrim use. Patient has received IV Zofran with improvement in symptoms. -Admit to medical with telemetry -Zofran PRN (2) Acute UTI: Plan: Urine culture from 02/17/24 with E. coli resistant to Bactrim and Intermediate to Augmentin. Patient is afebrile, HD stable at present with no leukocytosis. Does not appear to be septic. She has received Cefepime x 1 dose in the ER. She does have a history of ESBL E. coli as well from urine culture 08/25/23 but this organism is not present on the most recent cultures from 02/17/24. -Follow urine and blood cultures sent from the ER -Continue antibiotics - will start Ceftriaxone 2gm IV daily -Zofran PRN nausea (3) Elevated troponin: Plan: Patient with elevated troponin. Suspect demand ischemia in setting of illness, stress. No complaint of chest pain. No acute ischemic changes present on EKG -Telemetry monitoring -Trend troponin to peak -Consider 2D echo -Continue ASA, Atorvastatin and Plavix for now (4) CAD (coronary artery disease): Plan: Patient with CAD s/p CABG x 4V and subsequent stenting. She follows with Cardiology - last seen 02/18/24 with complaints of palpitations. No complaint of chest pain or palpitations this evening. EKG with no acute ischemic changes. Troponin however is elevated 164 --> 210.8. Most likely secondary to demand ischemia in setting of infection, vomiting -Telemetry monitoring -Trend troponin to peak -Continue home medications - ASA and Plavix, Atorvastatin -Will hold anti-hypertensive medications due to borderline low BP - Holding Amlodipine, PRN Lasix, Isosorbide mononitrate, Metoprolol and Telmisartan. Medications should be resumed with caution if blood pressure improves. (5) Cirrhosis, nonalcoholic: Plan: Compensated -Avoid hepatotoxic agents (6) GERD (gastroesophageal reflux disease): Plan: Chronic -Protonix 40mg po daily while inpatient - patient is on Nexium outpatient, consider switching to Protonix if able due to possible interaction with Plavix -Continue Pepcid Plan Hypothyroidism - chronic -Continue Synthroid Depression/Anxiety - chronic. Per review of recent documentation, patient's of 54 years recently on 01/08/24. -Continue Escitalopram F/E/N - Saline lock, electrolytes WNL, AHA diet as tolerated Ppx - Low risk for DVT Code - Full per discussion with patient Dispo - Observation to medical with telemetry History of Present Illness Chief Complaint: nausea Primary Care Provider: Michael Christie DO Geri Varela is a pleasant 83yo female presenting with UTI symptoms, nausea/vomiting. Patient reports ongoing symptoms of dysuria for several weeks. She saw ENT on 02/02/24 and was given a prescription for a 7 day course of Augmentin for purulent postnasal drip/nasopharyngitis. Symptoms temporarily improved during this course of antibiotics but did return after the prescription was complete. She was seen by her PCP on 02/17/24 and was given a prescription for Bactrim. She experienced significantly worsened nausea with use of Bactrim. She called her PCP today and was switched to Keflex but has not been able to take this medication due to ongoing nausea and vomiting. This afternoon she had ongoing nausea with multiple episodes of non-bloody/non-bilious vomiting as well as some acute confusion. She was brought to [facility] by ambulance for evaluation. Did have a recorded episode of hypoxia with saturations in the 70's. Placed on 3L NC with improvement. Patient does use O2 at times PRN. Urine culture from 02/17/24 with E. coli - resistant to Bactrim No additional complaints at this time. She denies chest pain, SOB, abdominal pain, edema or orthopnea. In the ER she is afebrile. Blood pressure is borderline low at 102/50 - patient is on multiple cardiac medications. Bradycardic at 56bpm. Saturating 94% currently on 3L NC ER Course: Magnesium 1gm NSS x 500mL Zofran 4mg IV Cefepime 2gm IV Allergies Allergy/AdvReac Type Severity Reaction Status Date / Time Cipro Allergy Intermediate RASH Verified 10/22/16 09:26 meperidine Allergy Mild NAUSEA AND Verified 02/18/24 13:38 VOMITING morphine Allergy Mild NAUSEA AND Verified 02/18/24 13:38 VOMITING adhesive Allergy Unknown ADHESIVE Verified 02/18/24 13:38 TAPE-BLISTERS clindamycin Allergy Unknown per PCP Verified 02/18/24 13:38 records codeine Allergy Unknown Nausea Verified 02/18/24 13:38 ciprofloxacin Allergy Verified 02/18/24 13:38 oxycodone AdvReac Severe NAUSEA/VOMI Verified 02/18/24 13:38 TING sulfamethoxazole AdvReac Vomiting Verified 02/19/24 09:18 [From Bactrim] trimethoprim [From Bactrim] AdvReac Vomiting Verified 02/19/24 09:18 Home Medications Medication Instructions Recorded Confirmed Type vitamin E (dl, acetate) 180 mg 400 units PO QAM 10/27/18 02/20/24 History (400 unit) capsule lactobacillus combination no.9 4 4,000 mmu cells PO QAM 02/04/19 02/20/24 History billion cell capsule (Adult 50 Plus Probiotic) aspirin 81 mg tablet,delayed 81 mg PO QAM 11/25/19 02/20/24 History release esomeprazole magnesium 40 mg 40 mg PO QAM #90 caps 03/04/23 02/20/24 Rx capsule,delayed release (Nexium) clopidogrel 75 mg tablet 75 mg PO QAM #90 tabs 03/24/23 02/20/24 Rx atorvastatin 80 mg tablet 80 mg PO QPM #90 tabs 04/09/23 02/20/24 Rx levothyroxine 175 mcg tablet 175 mcg PO QAM #90 tabs 04/22/23 02/20/24 Rx telmisartan 40 mg tablet 40 mg PO DAILY #90 tabs 06/18/23 02/20/24 Rx furosemide 40 mg tablet (Lasix) 40 mg PO DAILY edema #90 tabs 09/24/23 02/20/24 Rx potassium chloride 10 mEq 10 meq PO DAILY with lasix #90 caps 09/24/23 02/20/24 Rx capsule,extended release Wheeled Walker #1 ea 10/06/23 02/20/24 Rx amlodipine 5 mg tablet 5 mg PO DAILY #90 tabs 10/28/23 02/20/24 Rx nitroglycerin 0.4 mg sublingual 0.4 mg sublingual ONCE PRN Chest 11/10/23 02/20/24 Rx tablet Pain #25 tabs escitalopram oxalate 20 mg tablet 20 mg PO DAILY #90 tabs 11/18/23 02/20/24 Rx icosapent ethyl 1 gram capsule 2 g (2 x 1 gram) PO BID #120 caps 11/24/23 02/20/24 Rx (Vascepa) metoprolol tartrate 25 mg tablet 25 mg PO BID #180 tabs 11/25/23 02/20/24 Rx isosorbide mononitrate 60 mg 60 mg PO DAILY #90 tabs 12/02/23 02/20/24 Rx tablet,extended release 24 hr cephalexin 500 mg capsule 500 mg PO BID 5 days #10 caps 02/19/24 02/20/24 Rx mecobalamin (vitamin B12) 1,000 500 mcg PO Q OTHER DAY 02/19/24 02/20/24 History mcg chewable tablet cholecalciferol (vitamin D3) 125 125 mcg PO DAILY 02/20/24 02/20/24 History mcg (5,000 unit) tablet (Vitamin D3) diclofenac sodium 1 % topical gel 2 g topical QID PRN Pain 02/20/24 02/20/24 History (Voltaren Arthritis Pain) econazole 1 % topical cream 1 applic topical DAILY PRN fungus 02/20/24 02/20/24 History famotidine 40 mg tablet 40 mg PO HS 02/20/24 02/20/24 History tolterodine 4 mg capsule,extended 4 mg PO QAM 02/20/24 02/20/24 History release 24 hr Past Med/Surg History Problem List Elevated troponin (Acute) Failure of outpatient treatment (Acute) Acute UTI (Acute) Vomiting (Acute) Acute confusion (Acute) Nasopharyngitis Ambulatory dysfunction Dysphagia PVCs (premature ventricular contractions) Hypertension (Chronic) CAD (coronary artery disease) (Chronic) Aortic stenosis, mild (Chronic) History of heart artery stent RCA stent 12/2019 Chronic stable angina (Acute) Dyspnea on exertion Dyslipidemia (Chronic) Cirrhosis, nonalcoholic (Acute) 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) Dependence on nocturnal oxygen therapy (~2015) Sjogrens syndrome (Acute) Hypothyroidism (Acute) GERD (gastroesophageal reflux disease) (Chronic) Depression with anxiety (Acute) Lymphoproliferative disease (Acute) Vitamin D deficiency (Acute) Medical History History of inverted papilloma Gout 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 Harman History of tonsillectomy History of hysterectomy History of cataract surgery History of carotid endarterectomy Right, 2016 Hx of CABG 1998 [facility] [place] to LAD, saphenous vein graft to PDA, saphenous vein graft to diagonal, radial graft to circumflex Family History Unknown Hypertension Mother Diabetes Father Heart disease Myocardial infarction Hypertension Cancer Aunt Lung cancer Denies family history of Ovarian cancer Prostate cancer Breast cancer Colorectal cancer Stroke Social History Smoking Status: Former smoker Tobacco Type: Cigarettes Age Started Using Tobacco: 15; Age Quit Using Tobacco: 43; packs per day: 1; Cigarettes Per Day: 1 pack a day.; Second Hand Exposure: No; Do You Dip or Chew Tobacco: No; Hx Alcohol Use: No Hx Substance Use: No Preferred Language: Uzbek Communication Ability: Effective Visual Impairment: Limited Hearing Ability: Normal Aquatic Facility Manager Required: No Beliefs That Will Affect Care: None marital status: Current Living Situation: Spouse current occupational status: retired How many Children do You have: 1 Feels Safe at Home: Yes Childhood Exposure to Second-Hand Smoke: Yes Diet: regular caffeine: Yes Dental Care, Regularly: Yes Physical Activity Frequency: Does not Exercise Seatbelt Use: always Sunscreen Use: Yes Assistive Devices: Cane and Glasses Review of Systems Review of Systems: All systems reviewed & are unremarkable except as noted in HPI & below Physical Exam Physical Exam: General: patient resting comfortably, NAD, non-toxic in appearance, AA&O x 4 Skin: warm, dry, intact, no rashes or lesions HEENT: NC/AT, PERRL, EOMI, anicteric sclera, conjunctiva without injection, external ear normal to inspection and nontender, nares patent, slightly dry mucus membranes, dentition intact, no oropharyngeal lesions, neck supple, trachea midline, no LAD, no thyromegaly, no JVD Heart: +S1/S2, regular, 3/6 JORGE A at right 2nd ICS with radiation across the precordium Lungs: equal air entry bilaterally, no rales/rhonchi/wheezes Abd: +BS, soft, NT/ND, no masses/organomegaly/ascites, no suprapubic tenderness Ext: warm, 2+ pulses in UE/LE bilaterally, no clubbing/cyanosis or edema Neuro: nonfocal, patient AA&O x 4, speech intact, no facial droop, moving all extremities on command with equal strength 5/5 Results & Data Results & Data Vital Signs (Past 12 Hours) Vital Signs Temp Pulse Pulse Resp BP BP Pulse Ox 02/20/24 02:15 56 L 24 102/50 L 94 02/20/24 01:45 57 L 18 107/45 L 92 02/20/24 01:30 57 L 18 100/51 L 93 02/20/24 01:08 97 02/20/24 01:00 63 20 111/55 L 94 02/20/24 00:30 65 24 118/62 94 02/20/24 00:15 99 02/20/24 00:15 64 22 105/49 L 97 02/20/24 00:00 37.5 C 68 24 113/50 L 96 02/19/24 23:18 80 02/19/24 23:15 02/19/24 23:15 90 02/19/24 23:15 37.5 C 21 123/56 L 70 L O2 Del Method O2 Flow Rate 02/20/24 02:15 Nasal Cannula 3 02/20/24 01:45 Nasal Cannula 3 02/20/24 01:30 Nasal Cannula 3 02/20/24 01:08 Nasal Cannula 4 02/20/24 01:00 Nasal Cannula 4 02/20/24 00:30 Nasal Cannula 4 02/20/24 00:15 Nasal Cannula 5 02/20/24 00:15 Room Air 5 02/20/24 00:00 Nasal Cannula 5 02/19/24 23:18 02/19/24 23:15 Nasal Cannula 02/19/24 23:15 Nasal Cannula 5 02/19/24 23:15 Room Air, Nasal Cannula 5 Laboratory Results Laboratory Results WBC 7.68 K/ul (4.8-10.8) 02/19/24 23:20 RBC 4.07 M/uL (4.20-5.40) L 02/19/24 23:20 Hgb 12.2 g/dl (12.0-16.0) 02/19/24 23:20 Hct 36.0 % (37.0-47.0) L 02/19/24 23:20 MCV 88.5 fL (80.0-100.0) 02/19/24 23:20 MCH 30.0 pg (25.0-34.0) 02/19/24 23:20 MCHC 33.9 g/dL (32.0-36.0) 02/19/24 23:20 RDW Std Deviation 45.9 fL (36.4-46.3) 02/19/24 23:20 RDW Coeff of Suleman 14.3 % (11.5-14.5) 02/19/24 23:20 Plt Count 156 K/uL (130-400) 02/19/24 23:20 MPV 10.4 fL (9.4-12.4) 02/19/24 23:20 Immature Gran % (Auto) 0.3 % 02/19/24 23:20 Neut % (Auto) 86.8 % 02/19/24 23:20 Lymph % (Auto) 4.9 % 02/19/24 23:20 [place] % (Auto) 7.3 % 02/19/24 23:20 Eos % (Auto) 0.3 % 02/19/24 23:20 Baso % (Auto) 0.4 % 02/19/24 23:20 Neut # (Auto) 6.67 K/uL (1.40-6.50) H 02/19/24 23:20 Lymph # (Auto) 0.38 K/uL (1.20-3.40) L 02/19/24 23:20 [place] # (Auto) 0.56 K/uL (0.11-0.59) 02/19/24 23:20 Eos # (Auto) 0.02 K/uL (0.00-0.50) 02/19/24 23:20 Baso # (Auto) 0.03 K/uL (0.00-0.20) 02/19/24 23:20 Immature Gran # (Auto) 0.02 K/uL (0.01-0.20) 02/19/24 23:20 PT 12.1 Seconds (9.0-12.0) H 02/19/24 23:20 INR 1.1 (0.9-1.1) 02/19/24 23:20 APTT 29 Seconds (21-31) 02/19/24 23:20 PTT Ratio 1.1 02/19/24 23:20 Sodium 136 mmol/L (136-145) 02/19/24 23:20 Potassium 3.6 mmol/L (3.5-5.1) 02/19/24 23:20 Chloride 99 mmol/L (98-107) 02/19/24 23:20 Carbon Dioxide 29 mmol/L (21-32) 02/19/24 23:20 Anion Gap 8 (3-11) 02/19/24 23:20 BUN 23 mg/dl (6-23) 02/19/24 23:20 Creatinine 0.73 mg/dl (0.6-1.2) 02/19/24 23:20 Est Cr Clr Drug Dosing 55.2 ml/min 02/19/24 23:20 eGFR 80.54 02/19/24 23:20 BUN/Creatinine Ratio 31.5 (10-20) H 02/19/24 23:20 Glucose 140 mg/dl (70-99(Fasting)) H 02/19/24 23:20 Lactate 0.9 mmol/L (0.4-2.0) 02/19/24 23:20 Calcium 9.1 mg/dl (8.6-10.3) 02/19/24 23:20 Magnesium 1.6 mg/dl (1.7-2.4) L 02/19/24 23:20 Total Bilirubin 2.7 mg/dl (0.2-1.0) H 02/19/24 23:20 Direct Bilirubin 0.5 mg/dl (0-0.2) H 02/19/24 23:20 AST 17 U/L (13-39) 02/19/24 23:20 ALT 11 U/L (7-52) 02/19/24 23:20 Alkaline Phosphatase 53 U/L (34-104) 02/19/24 23:20 Troponin I High Sens 210.8 pg/ml (0-14) H* D 02/20/24 01:11 B-Natriuretic Peptide 803 pg/ml (0-100) H 02/20/24 01:11 Total Protein 6.4 gm/dl (6.0-8.3) 02/19/24 23:20 Albumin 3.8 gm/dl (3.4-5.0) 02/19/24 23:20 Procalcitonin < 0.02 ng/ml (0-0.5) 02/19/24 23:20 Urine Color Yellow 02/19/24 23:41 Urine Appearance Cloudy (Clear) A 02/19/24 23:41 Urine pH 6.5 (4.5-7.5) 02/19/24 23:41 Ur Specific [place] 1.012 (1.000-1.030) 02/19/24 23:41 Urine Protein Trace (Negative) H 02/19/24 23:41 Urine Glucose (UA) Negative (Negative) 02/19/24 23:41 Urine Ketones Negative (Negative) 02/19/24 23:41 Urine Blood Negative (Negative) 02/19/24 23:41 Urine Nitrite Positive (Negative) A 02/19/24 23:41 Urine Bilirubin Negative (Negative) 02/19/24 23:41 Urine Urobilinogen Negative (Negative) 02/19/24 23:41 Ur Leukocyte Esterase 2+ (Negative) H 02/19/24 23:41 Urine WBC (Auto) >50 /hpf (0-5) H 02/19/24 23:41 Urine RBC (Auto) 0-2 /hpf (0-2) 02/19/24 23:41 U Hyaline Cast (Auto) 0-2 /lpf (0-2) 02/19/24 23:41 U Epithel Cells (Auto) 0-2 /hpf (0-2) 02/19/24 23:41 Urine Bacteria (Auto) 4+ (None Seen) H 02/19/24 23:41 Impressions Chest X-Ray 02/19/24 23:15 Exam(s): XR CXR 1 VIEW EXAM: XR Chest, 1 View CLINICAL HISTORY: Reason for exam: Sepsis. TECHNIQUE: Frontal view of the chest. COMPARISON: Prior chest x-ray from April 14, 2023. FINDINGS: Lungs: Moderate to heavy peribronchial thickening of the central and lower lobe bronchi with increased interstitial opacities throughout the lungs. No consolidation. There is a 12 mm calcified granuloma in the right midlung. Pleural space: Unremarkable. No pneumothorax. Heart: Unremarkable. No cardiomegaly. Mediastinum: Unremarkable. Normal mediastinal contour. Bones/joints: Status post median sternotomy with sternal wires intact. No acute fracture. IMPRESSION: Findings concerning for bronchitis with pneumonitis, which may be of infectious or inflammatory etiologies. No consolidation or pleural effusion. Electronically signed by: Lisa Jordan MD 02/20/24 02:[address] 02/19/24 23:15 EXAM: CT head/brain wo con CLINICAL HISTORY: CONFUSION TECHNIQUE: Axial non-contrast CT scan of the brain was performed from the skull base to the high parietal region. One of the following dose reduction techniques were utilized for this exam: Automated exposure control, adjustment of the mA and/or kV according to patient size, use of iterative reconstruction. COMPARISON: 07/28/2020 FINDINGS: Brain Parenchyma: Normal attenuation of the cerebral hemispheres, cerebellum, and brainstem. No evidence of acute infarct, hemorrhage, or mass effect. There are accentuated white matter hypodensities in both the cerebral hemispheres suggestive of microvascular ischemic changes. Focal hypodensity in the left subinsular region probably represents a lacunar infarct, subacute to chronic. Age-appropriate involutional changes are seen in the brain evident by widened extra-axial CSF spaces, deepened cortical sulci, prominent sylvian fissures and mildly dilated ventricular system Ventricular System: Ventricles are normal in size and configuration. No evidence of hydrocephalus or ventricular enlargement. Subarachnoid Spaces: Normal sulci and cisterns. No evidence of subarachnoid hemorrhage or extra-axial fluid collections. Cerebellum and Brainstem: Normal size and signal. No masses, lesions, or areas of abnormal signal. Orbits: Normal appearance of the globes, optic nerves, and extraocular muscles. No evidence of orbital masses or abnormal signal. Sinuses: Clear paranasal sinuses. No evidence of sinusitis or mucosal thickening. Mastoid Air Cells: Clear mastoid air cells. No evidence of mastoiditis. Skull and Meninges: Normal skull morphology. IMPRESSION: No acute intracranial abnoormality is appreciated. Further evaluation wwith MRI brain [as stroke protocol] may be obtained if clinically requirred. Focal hypodensity in the left subinsular region probably represents a lacunar infarct, subacute to chronic (slightly increased). Chronic microvascular ischemic changes annd senile brain atrophy (stable). Electronically signed by Radha Gomez 02-20-2024 01:24 AM Abdomen/Pelvis CT 02/20/24 00:17 EXAM: CT abd pelvis wo con CLINICAL HISTORY: TECHNIQUE: Contiguous axial images were obtained from the level of the diaphragm to the pubic symphysis without intravenous or oral contrast. Coronal and sagittal reconstructions were likewise performed and indicated to increase the sensitivity for detecting clinically relevant pathology. CT scan was performed according to ALARA (as low as reasonably achievable). COMPARISON: None. FINDINGS: Cardiomegaly is noted. Evaluation of the abdominal and pelvic visceral organs is limited without intravenous contrast. Liver shows surface nodularity and mild volume redistribution. Dilatation of the portal vein, splenic vein and proximal superior mesenteric vein is noted.. Multiple calcified granulomas are noted in liver as well as spleen. Spleen is enlarged measuring 14 cm in craniocaudal extent. The unenhanced pancreas, and adrenal glands are grossly unremarkable. Few microcalculi are noted within the gallbladder. No signs of acute cholecystitis. The kidneys are normal in size and attenuation without obvious calcification. There is no hydronephrosis or perinephric stranding. The ureters are normal in caliber. No adenopathy or fluid collections are seen. No evidence of focal or diffuse bowel wall thickening or evidence of bowel obstruction is seen. Redundancy of the sigmoid colon is noted. Fecal loading of the large bowel is seen. Small hiatus hernia is seen. Small omental fat containing umbilical hernia is noted. Defect measures 8 mm in transverse dimension. The aorta is normal in caliber. Irregularity with mild thickening of the urinary bladder wall is noted. Pelvic viscera are grossly unremarkable. No aggressive appearing osseous lesions are identified. Degenerative changes are noted in the visualized spine. Scoliosis is noted at the level of distal thoracic and proximal lumbar spine with convexity on the right side. IMPRESSION: 1. Cardiomegaly. 2. Liver shows surface nodularity and mild volume redistribution. Dilatation of the portal vein, splenic vein and proximal superior mesenteric vein is noted. Findings suggestive of chronic liver parenchymal disease with changes of portal hypertension. Suggested liver function test correlation. 3. Splenomegaly measuring 14 cm. 4. Irregularity with mild thickening of the urinary bladder wall is noted, possibility of cystitis. Suggested lab correlation. 5. Few microcalculi are noted within the gallbladder. No signs of acute cholecystitis. 6. Multiple calcified granulomas in the liver and spleen. 7. Redundancy of the sigmoid colon is noted. Fecal loading of the large bowel is seen. 8. Small hiatus hernia is seen. Electronically signed by Johnnie Rodriguez 02-20-2024 02:22 AM ECG Additional Comments: EKG with SR at 68bpm, 1st degree AV block with PD=182, THS=235, PQe=173, ,no acute ischemic changes PG Care Time/CCT Total # of Minutes Spent Total Time Spent with Patient: Total time spent is greater than 50% in coordination of care (as documented) at patient's floor/unit and/or counseling patient: Coding Level of Care Code 11620 INT INP/OBS CARE 3/75MIN Diagnoses Vomiting R11.2 Nausea presence: with nausea Vomiting type: unspecified Acute UTI N39.0 Elevated troponin R79.89 CAD (coronary artery disease) I25.119 Associated angina: with unspecified angina Coronary Disease-Associated Artery/Lesion type: unspecified vessel or lesion type [place] vs. transplanted heart: unspecified whether [place] or transplanted heart Cirrhosis, nonalcoholic K74.60 GERD (gastroesophageal reflux disease) K21.9 (1) Vomiting Nausea presence: with nausea Vomiting type: unspecified Qualified Code(s): R11.2 - Nausea with vomiting, unspecified (4) CAD (coronary artery disease) Associated angina: with unspecified angina Coronary Disease-Associated Artery/Lesion type: unspecified vessel or lesion type [place] vs. transplanted heart: unspecified whether [place] or transplanted heart Qualified Code(s): I25.119 - Atherosclerotic heart disease of [place] coronary artery with unspecified angina pectoris
--- NOTE | 2024-02-20 02:31 | XRay Report ---
Exam(s): XR CXR 1 VIEW EXAM: XR Chest, 1 View CLINICAL HISTORY: Reason for exam: Sepsis. TECHNIQUE: Frontal view of the chest. COMPARISON: Prior chest x-ray from April 14, 2023. FINDINGS: Lungs: Moderate to heavy peribronchial thickening of the central and lower lobe bronchi with increased interstitial opacities throughout the lungs. No consolidation. There is a 12 mm calcified granuloma in the right midlung. Pleural space: Unremarkable. No pneumothorax. Heart: Unremarkable. No cardiomegaly. Mediastinum: Unremarkable. Normal mediastinal contour. Bones/joints: Status post median sternotomy with sternal wires intact. No acute fracture. IMPRESSION: Findings concerning for bronchitis with pneumonitis, which may be of infectious or inflammatory etiologies. No consolidation or pleural effusion. Electronically signed by: Lisa Jordan MD 02/20/24 02:30 AM
[2024-02-20 03:42] LABS: Adenovirus PCR Not Detected (NotDetected); Bordetella parapertussis PCR Not Detected (NotDetected); Bordetella pertussis PCR Not Detected (NotDetected); Chlamydia pneumoniae PCR Not Detected (NotDetected); Coronavirus 229E PCR Not Detected (NotDetected); Coronavirus CoV-2 (COVID19)PCR Not Detected (NotDetected); Coronavirus HKU1 PCR Not Detected (NotDetected); Coronavirus NL63 PCR Not Detected (NotDetected); Coronavirus OC43PCR Not Detected (NotDetected); Human Metapneumovirus PCR Not Detected (NotDetected); Influenza A PCR Not Detected (NotDetected); Influenza B PCR Not Detected (NotDetected); Mycoplasma pneumoniae PCR Not Detected (NotDetected); Parainfluenza Virus 1 PCR Not Detected (NotDetected); Parainfluenza Virus 2 PCR Not Detected (NotDetected); Parainfluenza Virus 3 PCR Not Detected (NotDetected); Parainfluenza Virus 4 PCR Not Detected (NotDetected); Respiratory Syncytial VirusPCR Not Detected (NotDetected); Rhinovirus/Enterovirus PCR Not Detected (NotDetected)
[2024-02-20] MEDS ORDERED: ONDANSETRON INJ 2 MG/ML 2 ML VIAL IV PRN (06:09)
[2024-02-20] MEDS ORDERED: ACETAMINOPHEN 325 MG TAB PO PRN (06:09)
[2024-02-20] MEDS ORDERED: DICLOFENAC SOD 1% GEL 100 GM TUBE EXT PRN (06:09)
[2024-02-20] MEDS: LEVOTHYROXINE SODIUM 175 MCG TABLET PO SCH (06:55)
[2024-02-20] MEDS: cefTRIAXone SODIUM 2,000 MG/50 ML BAG IV SCH (09:21)
[2024-02-20] MEDS: PANTOprazole 40 MG TAB PO SCH (09:21)
[2024-02-20] MEDS: ESCITALOPRAM OXALATE 20 MG TAB PO SCH (09:21)
[2024-02-20] MEDS: CLOPIDOGREL BISULFATE 75 MG TAB PO SCH (09:21)
[2024-02-20] MEDS: ASPIRIN 81 MG ECTAB PO SCH (09:21)
--- NOTE | 2024-02-20 10:22 | Electrocardiogram Report ---
Test Reason : Blood Pressure : */* mmHG Vent. Rate : 68 BPM Atrial Rate : 68 BPM P-R Int : 264 ms QRS Dur : 124 ms QT Int : 420 ms P-R-T Axes : * 22 34 degrees QTcB Int : 446 ms Poor data quality, interpretation may be adversely affected Sinus rhythm with 1st degree A-V block Incomplete right bundle branch block Abnormal ECG When compared with ECG of 15-Jan-2020 11:58, HR has increased by 13 bpm Otherwise no significant change Confirmed by Vinnie Morley ([id number]) on 02/20/2024 10:21:52 AM Referred By: REFERRED SELF Confirmed By: Vinnie Morley
[2024-02-20] MEDS ORDERED: methylPREDNISolone 10 mg/mL (For Ped Dose < 7mg) IV SCH (12:30)
--- NOTE | 2024-02-20 13:20 | Hospitalist Progress Note ---
Date of Service February 20, 2024 Assessment & Plan (1) Vomiting: Plan: May have been a viral etiology. She may have aspirated during one of the episodes. Now resolved. Supportive care. (2) Acute respiratory failure with hypoxia: Plan: Supplemental oxygen per nasal cannula to maintain saturation greater than 90%. Wean off as tolerated (3) Pneumonitis: Plan: Suspected pneumonitis possibly from aspiration of gastric contents when vomiting. Parenteral steroid therapy. Supportive care. Serial chest x-ray (4) Acute UTI: Plan: Recent urine culture grew MSSA. Resistant to Bactrim therapy. She is now on intravenous Ancef. Will await current culture results and sensitivities and adjust antibiotics accordingly. (5) Elevated troponin: Plan: No chest pain. No EKG changes. Low probability of acute coronary syndrome. Telemetry. (6) CAD (coronary artery disease): Plan: History of CAD s/p CABG x 4V and subsequent stenting. Currently chest pain- free. Telemetry. Continue current medical management (7) Cirrhosis, nonalcoholic: Plan: Stable. Supportive care. Plan Physical therapy evaluation requested. Admitted from observation. Most likely she will be hospitalized through the weekend. Admission and Anticipated Discharge Date Admission Date: February 20, 2024 Subjective Alert and oriented. No distress. I suspect she has a degree of pneumonitis due to possible aspiration while vomiting. No past history of CHF and no CHF clinically despite elevated BNP on admission. Solu-Medrol has been added. Will wean off oxygen as tolerated. Urine culture from February 16 reveals E. coli that was resistant to Bactrim therapy she is now on Rocephin, day 1. Review of Systems 2 Review of Systems: Constitutionalno fever or chills ENTno blurred vision, no double vision, no epistaxis, no sore throat Respiratorynonproductive cough. Some wheezing. No hemoptysis. Mild dyspnea on exertion Cardiacno palpitations, no chest pain, no syncope [place] nausea, vomiting, diarrhea, melena, hematochezia GUno urinary retention, no urinary incontinence, no dysuria, no hematuria Musculoskeletalno joint pain, no muscle tenderness Skinno bruising, no rashes, no pruritus Neurono isolated weakness, no paresthesia, no weakness Psychno depression, no anxiety Physical Exam 2 Physical Exam: General-alert and oriented x3, no fever, no chills HEENT-head atraumatic and normocephalic, pupils equal and reactive to light, extraocular muscles intact Neck-no lymphadenopathy or thyromegaly, trachea midline Chest-scattered fine rhonchi. No audible wheezing. No inspiratory rales. Cardiac-regular rate and rhythm, normal S1 and S2. No HJR. No apparent JVD Abdomen-normal bowel sounds, no hepatosplenomegaly Extremities-no cyanosis, clubbing, or edema Neuro-cranial nerves II through XII intact, motor and sensory function within normal limits, strength symmetrical, no focal deficits Psych-normal affect, normal mood Results & Data Results & Data Vital Signs (Past 12 Hours) Vital Signs Temp Pulse Pulse Resp BP BP Pulse Ox 02/20/24 10:24 36.5 C 60 18 136/72 96 02/20/24 08:17 02/20/24 06:38 02/20/24 06:14 36.7 C 62 16 146/68 H 93 02/20/24 05:46 36.9 C 53 L 19 105/49 L 94 02/20/24 05:30 53 L 22 104/44 L 94 02/20/24 05:15 58 L 21 107/51 L 92 02/20/24 05:00 57 L 14 133/54 L 94 02/20/24 04:45 59 L 19 135/61 94 02/20/24 04:30 56 L 21 108/47 L 94 02/20/24 04:15 54 L 24 108/50 L 94 02/20/24 04:00 56 L 23 113/55 L 92 02/20/24 03:48 56 L 02/20/24 03:45 55 L 21 97/46 L 95 02/20/24 03:30 56 L 20 114/50 L 93 02/20/24 03:15 54 L 21 114/48 L 94 02/20/24 03:00 36.9 C 56 L 20 110/46 L 96 02/20/24 02:45 56 L 21 102/59 L 93 02/20/24 02:30 56 L 21 110/56 L 93 02/20/24 02:15 56 L 24 102/50 L 94 02/20/24 02:00 58 L 22 113/51 L 92 02/20/24 01:45 57 L 18 107/45 L 92 02/20/24 01:30 57 L 18 100/51 L 93 O2 Del Method O2 Flow Rate 02/20/24 10:24 Nasal Cannula 2.0 02/20/24 08:17 Room Air 3 02/20/24 06:38 Nasal Cannula 3 02/20/24 06:14 Nasal Cannula 2 02/20/24 05:46 Nasal Cannula 3 02/20/24 05:30 Nasal Cannula 3 02/20/24 05:15 Nasal Cannula 3 02/20/24 05:00 Nasal Cannula 3 02/20/24 04:45 Nasal Cannula 3 02/20/24 04:30 Nasal Cannula 3 02/20/24 04:15 Nasal Cannula 3 02/20/24 04:00 Nasal Cannula 3 02/20/24 03:48 02/20/24 03:45 Nasal Cannula 3 02/20/24 03:30 Nasal Cannula 3 02/20/24 03:15 Nasal Cannula 3 02/20/24 03:00 Nasal Cannula 3 02/20/24 02:45 Nasal Cannula 3 02/20/24 02:30 Nasal Cannula 3 02/20/24 02:15 Nasal Cannula 3 02/20/24 02:00 Nasal Cannula 3 02/20/24 01:45 Nasal Cannula 3 02/20/24 01:30 Nasal Cannula 3 Laboratory Results 02/19/24 23:20 02/19/24 23:20 PG Care Time/CCT Total # of Minutes Spent Total Time Spent with Patient: Total time spent is greater than 50% in coordination of care (as documented) at patient's floor/unit and/or counseling patient: Coding Level of Care Code 18901 SUB INP/OBS CARE 3/50MIN Diagnoses Vomiting R11.2 Nausea presence: with nausea Vomiting type: unspecified Acute respiratory failure with hypoxia J96.01 Pneumonitis J98.4 Acute UTI N39.0 Elevated troponin R79.89 CAD (coronary artery disease) I25.119 Associated angina: with unspecified angina Coronary Disease-Associated Artery/Lesion type: unspecified vessel or lesion type [place] vs. transplanted heart: unspecified whether [place] or transplanted heart Cirrhosis, nonalcoholic K74.60 (1) Vomiting Nausea presence: with nausea Vomiting type: unspecified Qualified Code(s): R 11.2 - Nausea with vomiting, unspecified (6) CAD (coronary artery disease) Associated angina: with unspecified angina Coronary Disease-Associated Artery/Lesion type: unspecified vessel or lesion type [place] vs. transplanted heart: unspecified whether [place] or transplanted heart Qualified Code(s): I 25.119 - Atherosclerotic heart disease of [place] coronary artery with unspecified angina pectoris
[2024-02-20] MEDS: ONDANSETRON INJ 2 MG/ML 2 ML VIAL ONE (13:30)
[2024-02-20] MEDS: methylPREDNISolone 40 MG in SYRINGE 0 ML IV SCH (14:04)
[2024-02-20 19:20] VITALS: RESP 18
[2024-02-20] MEDS: ATORVASTATIN 40 MG TAB PO SCH (20:42)
[2024-02-20] MEDS: FAMOTIDINE 40 MG TABLET PO SCH (20:42)
[2024-02-21 06:24] LABS: Hematocrit (blood only) 35.8 % (37.0-47.0); Hemoglobin 12.6 g/dl (12.0-16.0); Mean Corpuscular Hemoglobin 30.2 pg (25.0-34.0); Mean Corpuscular Hgb Conc 35.2 g/dL (32.0-36.0); Mean Corpuscular Volume 85.9 fL (80.0-100.0); Mean Platelet Volume 10.5 fL (9.4-12.4); Platelet Count 145 K/uL (130-400); RDW Coefficient of Variation 13.2 % (11.5-14.5); RDW Standard Deviation 41.1 fL (36.4-46.3); Red Blood Count 4.17 M/uL (4.20-5.40); White Blood Count 4.08 K/ul (4.8-10.8)
[2024-02-21 06:46] LABS: Albumin Level 3.6 gm/dl (3.4-5.0); BUN Creatinine Ratio 34.5 (10-20); Bilirubin Direct 0.3 mg/dl (0-0.2); Bilirubin,Total 1.3 mg/dl (0.2-1.0); Calcium 9.1 mg/dl (8.6-10.3); Creatinine Clr Calc Pharmacy 67.8 ml/min; Potassium 4.2 mmol/L (3.5-5.1); Total Protein 6.2 gm/dl (6.0-8.3)
[2024-02-21] MEDS ORDERED: NYSTATIN POWDER 15GM BTL EXT SCH (09:00)
--- NOTE | 2024-02-21 11:05 | Discharge Summary ---
Discharge Summary Date of Service February 21, 2024 Principal Dx & Hospital Course #1 = Principal Diagnosis (1) Vomiting: May have been of viral etiology. She may have aspirated during one of the episodes. Now resolved. Supportive care. (2) Acute respiratory failure with hypoxia: Acute on chronic. She wears oxygen at 2 L/min at bedtime. She appears to be at her baseline and will resume previous oxygen use. (3) Pneumonitis: Suspected pneumonitis possibly from aspiration of gastric contents when vomiting. Treated while hospitalized with parenteral steroid therapy. Discharged on oral prednisone taper. (4) Acute UTI: E. coli isolated. Treated while hospitalized with intravenous Ancef. Home on cephalexin. (5) Elevated troponin: No chest pain. No EKG changes. Low probability of acute coronary syndrome. Telemetry while hospitalized. (6) CAD (coronary artery disease): History of CAD s/p CABG x 4V and subsequent stenting. Currently chest pain- free. Telemetry. Continue current medical management (7) Cirrhosis, nonalcoholic: Stable. Supportive care. Plan Home today, February 20 Admission HPI Per Admitting Provider Geri Varela is a pleasant 83yo female presenting with UTI symptoms, nausea/vomiting. Patient reports ongoing symptoms of dysuria for several weeks. She saw ENT on 02/02/24 and was given a prescription for a 7 day course of Augmentin for purulent postnasal drip/nasopharyngitis. Symptoms temporarily improved during this course of antibiotics but did return after the prescription was complete. She was seen by her PCP on 02/17/24 and was given a prescription for Bactrim. She experienced significantly worsened nausea with use of Bactrim. She called her PCP today and was switched to Keflex but has not been able to take this medication due to ongoing nausea and vomiting. This afternoon she had ongoing nausea with multiple episodes of non-bloody/non-bilious vomiting as well as some acute confusion. She was brought to [facility] by ambulance for evaluation. Did have a recorded episode of hypoxia with saturations in the 70's. Placed on 3L NC with improvement. Patient does use O2 at times PRN. Urine culture from 02/17/24 with E. coli - resistant to Bactrim No additional complaints at this time. She denies chest pain, SOB, abdominal pain, edema or orthopnea. In the ER she is afebrile. Blood pressure is borderline low at 102/50 - patient is on multiple cardiac medications. Bradycardic at 56bpm. Saturating 94% currently on 3L NC ER Course: Magnesium 1gm NSS x 500mL Zofran 4mg IV Cefepime 2gm IV Discharge Exam General-alert and oriented x3, no fever, no chills HEENT-head atraumatic and normocephalic, pupils equal and reactive to light, extraocular muscles intact Neck-no lymphadenopathy or thyromegaly, trachea midline Chest-scattered fine rhonchi. No audible wheezing. No inspiratory rales. Cardiac-regular rate and rhythm, normal S1 and S2. No HJR. No apparent JVD Abdomen-normal bowel sounds, no hepatosplenomegaly Extremities-no cyanosis, clubbing, or edema Neuro-cranial nerves II through XII intact, motor and sensory function within normal limits, strength symmetrical, no focal deficits Psych-normal affect, normal mood Discharge Plan Discharge Items Patient Disposition: Home - Home Health Services Reason For Visit: UTI, NAUSEA / VOMITING Discharge Diagnosis: Nausea and vomiting of possible viral etiology, suspected aspiration pneumonitis, acute on chronic hypoxic respiratory failure, troponin elevation without acute coronary syndrome Condition on Discharge: Good Activity: Resume your previous activity Non-emergency contact: Primary Care Provider Call non-emergency contact if: you have any medication questions and your symptoms worsen Follow-up/Referrals: Michael Christie DO [Primary Care Provider] - Diet: Regular and Heart Healthy Addtl Attending Provider Instructions: Take Keflex 250 mg 3 times a day for 5 more days. Take prednisone in a tapering dose fashion as directed until gone. All other medications remain the same. Pending Studies at Discharge: No Stand-Alone Forms: My [facility], Smoking Cessation Medications and DC Order Prescriptions: New cephalexin 250 mg capsule 250 mg PO TID Qty: 15 0RF prednisone 10 mg tablet See Rx Instructions .ROUTE .COMPLEX Qty: 12 0RF Rx Instructions: 10 mg orally 3 times a day for 2 days, then 10 mg twice a day for 2 days, then 10 mg once a day for 2 days, then stop Continued esomeprazole magnesium [Nexium] 40 mg capsule,delayed release(DR/EC) 40 mg PO QAM Qty: 90 3RF clopidogrel 75 mg tablet 75 mg PO QAM Qty: 90 3RF atorvastatin 80 mg tablet 80 mg PO QPM Qty: 90 3RF levothyroxine 175 mcg tablet 175 mcg PO QAM Qty: 90 3RF telmisartan 40 mg tablet 40 mg PO DAILY Qty: 90 3RF furosemide [Lasix] 40 mg tablet 40 mg PO DAILY Qty: 90 3RF potassium chloride 10 mEq capsule, extended release 10 meq PO DAILY Qty: 90 1RF (DME) Wheeled Walker Misc See Rx Instructions .Route Qty: 1 0RF Rx Instructions: WHEELED WALKER amlodipine 5 mg tablet 5 mg PO DAILY Qty: 90 3RF nitroglycerin 0.4 mg tablet, sublingual 0.4 mg SL ONCE PRN (Reason: Chest Pain) Qty: 25 4RF escitalopram oxalate 20 mg tablet 20 mg PO DAILY Qty: 90 3RF icosapent ethyl [Vascepa] 1 gram capsule 2 g PO BID Qty: 120 5RF metoprolol tartrate 25 mg tablet 25 mg PO BID Qty: 180 3RF isosorbide mononitrate 60 mg tablet extended release 24 hr 60 mg PO DAILY Qty: 90 3RF mecobalamin (vitamin B12) 1,000 mcg tablet,chewable 500 mcg PO Q OTHER DAY vitamin E (dl, acetate) 400 unit capsule 400 units PO QAM Adult 50 Plus Probiotic 4 billion cell capsule 4,000 mmu cells PO QAM aspirin 81 mg Tablet,Delayed Release (Dr/Ec) 81 mg PO QAM tolterodine 4 mg capsule,extended release 24hr 4 mg PO QAM Rx Instructions: TAKE 1 CAPSULE BY MOUTH EVERY MORNING famotidine 40 mg tablet 40 mg PO HS econazole 1 % cream 1 applic topical DAILY PRN (Reason: fungus) Rx Instructions: 1 application topical daily PRN; diclofenac sodium [Voltaren Arthritis Pain] 1 % gel 2 g topical QID PRN (Reason: Pain) Rx Instructions: apply to single elbow, wrist or hand; for hand includes palm/fingers/back of hand cholecalciferol (vitamin D3) [Vitamin D3] 125 mcg (5,000 unit) Tablet 125 mcg PO DAILY Discontinued cephalexin 500 mg capsule 500 mg PO BID 5 Days Qty: 10 0RF Discharge Orders: Discharge Order (Routine); Ordered 02/21/24 Ordered By: Jason Jensen Admission Data Admit Date/Time: 02/20/24 12:19 Attending Provider: Mikey,Jason R. Admit Provider: Amalia Trejo Primary Care Provider: Michael Christie Other Providers: Amalia Trejo Hospital Stay Data Consultations 02/20/24 01:43 ED Decision to Admit Stat Diagnostic Imagining Performed 02/19/24 23:15 CT head/brain wo con Stat 02/20/24 00:17 CT abd pelvis wo con Stat Pending Results Patient Have Any Pending Studies at Discharge: No Discharge Instructions Given to Patient (Per Discharging Provider) Take Keflex 250 mg 3 times a day for 5 more days. Take prednisone in a tapering dose fashion as directed until gone. All other medications remain the same. Total Time Total Time Spent Total Time Spent (In Minutes): 45-minute Coding Level of Care Code 61492 INP/OBS DISCH >30 MIN Diagnoses Vomiting R11.2 Nausea presence: with nausea Vomiting type: unspecified Acute respiratory failure with hypoxia J96.01 Pneumonitis J98.4 Acute UTI N39.0 Elevated troponin R79.89 CAD (coronary artery disease) I25.119 Associated angina: with unspecified angina Coronary Disease-Associated Artery/Lesion type: unspecified vessel or lesion type [place] vs. transplanted heart: unspecified whether [place] or transplanted heart Cirrhosis, nonalcoholic K74.60
--- NOTE | 2024-02-21 11:07 | Discharge Summary ---
Discharge Summary Date of Service February 21, 2024 Principal Dx & Hospital Course #1 = Principal Diagnosis Admission HPI Per Admitting Provider Geri Varela is a pleasant 83yo female presenting with UTI symptoms, nausea/vomiting. Patient reports ongoing symptoms of dysuria for several weeks. She saw ENT on 02/02/24 and was given a prescription for a 7 day course of Augmentin for purulent postnasal drip/nasopharyngitis. Symptoms temporarily improved during this course of antibiotics but did return after the prescription was complete. She was seen by her PCP on 02/17/24 and was given a prescription for Bactrim. She experienced significantly worsened nausea with use of Bactrim. She called her PCP today and was switched to Keflex but has not been able to take this medication due to ongoing nausea and vomiting. This afternoon she had ongoing nausea with multiple episodes of non-bloody/non-bilious vomiting as well as some acute confusion. She was brought to [facility] by ambulance for evaluation. Did have a recorded episode of hypoxia with saturations in the 70's. Placed on 3L NC with improvement. Patient does use O2 at times PRN. Urine culture from 02/17/24 with E. coli - resistant to Bactrim No additional complaints at this time. She denies chest pain, SOB, abdominal pain, edema or orthopnea. In the ER she is afebrile. Blood pressure is borderline low at 102/50 - patient is on multiple cardiac medications. Bradycardic at 56bpm. Saturating 94% currently on 3L NC ER Course: Magnesium 1gm NSS x 500mL Zofran 4mg IV Cefepime 2gm IV Discharge Plan Discharge Items Patient Disposition: Home - Home Health Services Reason For Visit: UTI, NAUSEA / VOMITING Discharge Diagnosis: Nausea and vomiting of possible viral etiology, suspected aspiration pneumonitis, acute on chronic hypoxic respiratory failure, troponin elevation without acute coronary syndrome Condition on Discharge: Good Activity: Resume your previous activity Non-emergency contact: Primary Care Provider Call non-emergency contact if: you have any medication questions and your symptoms worsen Follow-up/Referrals: Michael Christie, [Primary Care Provider] - Diet: Regular and Heart Healthy Addtl Attending Provider Instructions: Take Keflex 250 mg 3 times a day for 5 more days. Take prednisone in a tapering dose fashion as directed until gone. All other medications remain the same. Pending Studies at Discharge: No Stand-Alone Forms: My [facility], Smoking Cessation Medications and DC Order Prescriptions: New cephalexin 250 mg capsule 250 mg PO TID Qty: 15 0RF prednisone 10 mg tablet See Rx Instructions .ROUTE .COMPLEX Qty: 12 0RF Rx Instructions: 10 mg orally 3 times a day for 2 days, then 10 mg twice a day for 2 days, then 10 mg once a day for 2 days, then stop Continued esomeprazole magnesium [Nexium] 40 mg capsule,delayed release(DR/EC) 40 mg PO QAM Qty: 90 3RF clopidogrel 75 mg tablet 75 mg PO QAM Qty: 90 3RF atorvastatin 80 mg tablet 80 mg PO QPM Qty: 90 3RF levothyroxine 175 mcg tablet 175 mcg PO QAM Qty: 90 3RF telmisartan 40 mg tablet 40 mg PO DAILY Qty: 90 3RF furosemide [Lasix] 40 mg tablet 40 mg PO DAILY Qty: 90 3RF potassium chloride 10 mEq capsule, extended release 10 meq PO DAILY Qty: 90 1RF (DME) Wheeled Walker Misc See Rx Instructions .Route Qty: 1 0RF Rx Instructions: WHEELED WALKER amlodipine 5 mg tablet 5 mg PO DAILY Qty: 90 3RF nitroglycerin 0.4 mg tablet, sublingual 0.4 mg SL ONCE PRN (Reason: Chest Pain) Qty: 25 4RF escitalopram oxalate 20 mg tablet 20 mg PO DAILY Qty: 90 3RF icosapent ethyl [Vascepa] 1 gram capsule 2 g PO BID Qty: 120 5RF metoprolol tartrate 25 mg tablet 25 mg PO BID Qty: 180 3RF isosorbide mononitrate 60 mg tablet extended release 24 hr 60 mg PO DAILY Qty: 90 3RF mecobalamin (vitamin B12) 1,000 mcg tablet,chewable 500 mcg PO Q OTHER DAY vitamin E (dl, acetate) 400 unit capsule 400 units PO QAM Adult 50 Plus Probiotic 4 billion cell capsule 4,000 mmu cells PO QAM aspirin 81 mg Tablet,Delayed Release (Dr/Ec) 81 mg PO QAM tolterodine 4 mg capsule,extended release 24hr 4 mg PO QAM Rx Instructions: TAKE 1 CAPSULE BY MOUTH EVERY MORNING famotidine 40 mg tablet 40 mg PO HS econazole 1 % cream 1 applic topical DAILY PRN (Reason: fungus) Rx Instructions: 1 application topical daily PRN; diclofenac sodium [Voltaren Arthritis Pain] 1 % gel 2 g topical QID PRN (Reason: Pain) Rx Instructions: apply to single elbow, wrist or hand; for hand includes palm/fingers/back of hand cholecalciferol (vitamin D3) [Vitamin D3] 125 mcg (5,000 unit) Tablet 125 mcg PO DAILY Discontinued cephalexin 500 mg capsule 500 mg PO BID 5 Days Qty: 10 0RF Discharge Orders: Discharge Order (Routine); Ordered 02/21/24 Ordered By: Jason Jensen Admission Data Admit Date/Time: 02/20/24 12:19 Attending Provider: Jason Jensen Admit Provider: Amalia Trejo Primary Care Provider: Michael Christie Other Providers: Amalia Trejo Hospital Stay Data Consultations 02/20/24 01:43 ED Decision to Admit Stat Diagnostic Imagining Performed 02/19/24 23:15 CT head/brain wo con Stat 02/20/24 00:17 CT abd pelvis wo con Stat Pending Results Patient Have Any Pending Studies at Discharge: No Discharge Instructions Given to Patient (Per Discharging Provider) Take Keflex 250 mg 3 times a day for 5 more days. Take prednisone in a tapering dose fashion as directed until gone. All other medications remain the same. Total Time Total Time Spent Total Time Spent (In Minutes): 45 minutes Coding Level of Care Code 34323 INP/OBS DISCH >30 MIN
[2024-02-21 11:18] VITALS: PULSE 69; TEMP 97.9; O2SAT 98
[2024-02-21 12:49] VITALS: BP 186/74
== END 2024-02-21 14:18 | disposition home or self-care (01) | DRG 865 ==
LOC: ED 23:10 → 2S 23:10 → SUATTDRO 02-20 02:17 → 2S 02-20 05:46

== ENCOUNTER 2024-08-12 22:43 | Inpatient (IN) ==
[2024-08-13 00:05] LABS: Basophils # (auto) 0.03 K/uL (0.00-0.20); Basophils % (auto) 0.3 %; Eosinophils # (auto) 0.15 K/uL (0.00-0.50); Eosinophils % (auto) 1.5 %; Hematocrit (blood only) 37.2 % (37.0-47.0); Hemoglobin 12.7 g/dl (12.0-16.0); Immature Granulocytes # (auto) 0.02 K/uL (0.01-0.20); Immature Granulocytes % (auto) 0.2 %; Lymphocytes # (auto) 0.45 K/uL (1.20-3.40); Lymphocytes % (auto) 4.6 %; Mean Corpuscular Hemoglobin 30.5 pg (25.0-34.0); Mean Corpuscular Hgb Conc 34.1 g/dL (32.0-36.0); Mean Corpuscular Volume 89.4 fL (80.0-100.0); Monocytes # (auto) 0.47 K/uL (0.11-0.59); Monocytes % (auto) 4.8 %; Neutrophils # (auto) 8.64 K/uL (1.40-6.50); Neutrophils % (auto) 88.6 %; Platelet Count 180 K/uL (130-400); RDW Coefficient of Variation 13.4 % (11.5-14.5); RDW Standard Deviation 43.9 fL (36.4-46.3); Red Blood Count 4.16 M/uL (4.20-5.40); White Blood Count 9.76 K/ul (4.8-10.8)
--- NOTE | 2024-08-13 00:09 | Emergency Department Note ---
Impression & Plan Urinary tract infection Admission ED Provider Note HPI: History obtained from patient. The patient is a 84-year-old female who presents the emergency department with a chief complaint of left flank pain, subjective fever, dysuria, and lightheadedness. Patient states she has had the symptoms to some degree for about the past month, her niece at the bedside presents with her and states that she gave a urine sample several days ago at her PCPs office and was contacted today and told that she had a UTI and she should go to the ER if she was not feeling well. On arrival here to the ED the patient complains of pain in her left flank, she states she also had some lightheadedness today and generally did not feel well. She states that this is similar to symptoms she had in the past with UTI. Patient is febrile on arrival at 38 Celsius, she is otherwise hemodynamically stable. ROS: - Per HPI Differential Diagnosis: Pyelonephritis, urinary tract infection, sepsis, viral upper respiratory infection with fever, pneumonia, acute kidney injury/dehydration, critical electrolyte abnormalities, amongst other potential pathologies. *Outpatient medications and allergy history reviewed. PE: General: Alert, frail-appearing HEENT: Normocephalic, trachea midline Eyes: Extraocular eye movement is intact, no scleral erythema Pulmonary: Clear to auscultation bilaterally, no wheezing Cardio: Regular rate and rhythm GI: Abdomen is soft to palpation : No suprapubic tenderness, mild left-sided CVA tenderness MSK: No evidence of trauma or malformation of the extremities, no edema Skin: No evidence of rash Neuro: Alert, no focal deficits Psychiatric: Cooperative INDEPENDENT INTERPRETATIONS: secured entrance monitor: (As interpreted by myself): - An order was placed for continuous cardiac monitoring - Patient was noted to be in sinus rhythm with a rate of 80 EKG: (As interpreted by myself): Rate: 78 Rhythm: Sinus rhythm Intervals: WA interval 232 ms, otherwise within normal limits ST changes: No ST elevation Time: 0017 Chest x-ray: (As interpreted by myself): No acute disease Interventions provided in ED: -IV fluid bolus, IV Zosyn Medical Decision Making: IV was established and lab work obtained, patient was placed on property assessment monitor. Lab work shows no leukocytosis, hemoglobin is normal, platelet count is normal, CMP does not show any evidence of any critical findings. No acute kidney injury. Procalcitonin is low. Troponin is mildly elevated at 41.2 however this appears lower than the patient's previous levels. Patient denies any chest pain. Urinalysis is consistent with infection with 2+ leukocyte esterase as well as pyuria and 1+ bacteria. Upon review of the patient's previous UA and urine culture, she grew ESBL. She was placed on Bactrim however she states this gives her nausea. She continued to have fever and worsening symptoms today despite being on Bactrim, given the resistance pattern on culture and sensitivity patient was treated here in the ED with IV Zosyn and blood cultures were obtained. CT imaging of the abdomen pelvis shows evidence of cystitis with chronic changes of the liver but no obvious pyelonephritis or obstruction in the urinary tract, no evidence of kidney stones. On my reassessment the patient is hemodynamically stable, she will require admission and IV antibiotics. Patient was in agreement to this plan. Her vital signs are stable but given her fever I do have concern that urinary tract infection could potentially develop into sepsis if not treated with IV antibiotics. I discussed the patient's presentation with the on-call hospitalist, Dr. Trejo, the patient was placed for admission in stable condition. Consultants/Discussions held with other healthcare providers: - Hospitalist, Dr. Trejo Disposition discussion held by myself with: - Patient and patient's niece at the bedside Diagnosis: 1. ESBL urinary tract infection, acute 2. Cystitis, acute 3. 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) Sjogrens syndrome (Acute) Hypothyroidism (Acute) Depression with anxiety (Acute) Lymphoproliferative disease (Acute) Vitamin D deficiency (Acute) Medical History Cirrhosis, nonalcoholic GERD (gastroesophageal reflux disease) CAD (coronary artery disease) Elevated troponin Nasopharyngitis History of inverted papilloma Gout 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 (SNHL) of both ears Hip pain Pulmonary nodule 1 cm or greater in diameter Acute diastolic (congestive) heart failure NSTEMI (non-ST elevated myocardial infarction) Allergic rhinitis due to allergen Allergic rhinitis Knee pain, bilateral Chronic osteoarthritis Dupuytren's contracture of hand Splenomegaly (~09/2011) ITP (idiopathic thrombocytopenic purpura) (~09/2011) Asthma RI (myocardial infarction) Surgical History H/O wisdom tooth extraction H/O colonoscopy History of tonsillectomy History of hysterectomy History of cataract surgery History of carotid endarterectomy Hx of CABG Family History Unknown Hypertension Mother Diabetes Father Heart disease Myocardial infarction Hypertension Cancer Aunt Lung cancer Denies family history of Ovarian cancer Prostate cancer Breast cancer Colorectal cancer Stroke Social History Smoking Status: Former smoker Tobacco Type: Cigarettes Age Started Using Tobacco: 15; Age Quit Using Tobacco: 43; packs per day: 1; Cigarettes Per Day: 1 pack a day.; Second Hand Exposure: No; Do You Dip or Chew Tobacco: No; Hx Alcohol Use: No Hx Substance Use: No Preferred Language: Japanese Communication Ability: Effective Visual Impairment: Limited Hearing Ability: Normal Disciplinary Hearing Officer Required: No Beliefs That Will Affect Care: None marital status: / Current Living Situation: Alone current occupational status: retired How many Children do You have: 1 Feels Safe at Home: Yes Childhood Exposure to Second-Hand Smoke: Yes Diet: regular caffeine: Yes during the past year weight has: decreased > 10 lbs Dental Care, Regularly: Yes Physical Activity Frequency: Does not Exercise Seatbelt Use: always Sunscreen Use: Yes Assistive Devices: Glasses and Walker Allergies Allergies Allergy/AdvReac Type Severity Reaction Status Date / Time Cipro Allergy Intermediate RASH Verified 10/22/16 09:26 meperidine Allergy Mild NAUSEA AND Verified 08/05/24 08:29 VOMITING morphine Allergy Mild NAUSEA AND Verified 08/05/24 08:29 VOMITING adhesive Allergy Unknown ADHESIVE Verified 08/05/24 08:29 TAPE-BLISTERS clindamycin Allergy Unknown per PCP Verified 08/05/24 08:29 records codeine Allergy Unknown Nausea Verified 08/05/24 08:29 ciprofloxacin Allergy Verified 08/05/24 08:29 oxycodone AdvReac Severe NAUSEA/VOMI Verified 08/05/24 08:29 TING sulfamethoxazole AdvReac Vomiting Verified 08/05/24 08:29 [From Bactrim] trimethoprim [From Bactrim] AdvReac Vomiting Verified 08/05/24 08:29 Home Meds Home Medications Medication Instructions Recorded Confirmed vitamin E (dl, acetate) 180 mg 400 units PO QAM 10/27/18 08/13/24 (400 unit) capsule lactobacillus combination no.9 4 4,000 mmu cells PO QAM 02/04/19 08/13/24 billion cell capsule (Adult 50 Plus Probiotic) aspirin 81 mg tablet,delayed 81 mg PO QAM 11/25/19 08/13/24 release mecobalamin (vitamin B12) 1,000 500 mcg PO Q OTHER DAY 02/19/24 08/13/24 mcg chewable tablet cholecalciferol (vitamin D3) 125 125 mcg PO DAILY 02/20/24 08/13/24 mcg (5,000 unit) tablet (Vitamin D3) econazole nitrate 1 % topical cream 1 applic topical DAILY PRN fungus 02/20/24 08/13/24 amlodipine 5 mg tablet 5 mg PO QAM 08/13/24 08/13/24 furosemide 40 mg tablet (Lasix) 40 mg PO QAM edema 08/13/24 08/13/24 isosorbide mononitrate 60 mg 60 mg PO QAM 08/13/24 08/13/24 tablet,extended release 24 hr telmisartan 40 mg tablet 40 mg PO QAM 08/13/24 08/13/24 Previous Rx's Medication Instructions Recorded Wheeled Walker #1 ea 10/06/23 nitroglycerin 0.4 mg sublingual 0.4 mg sublingual ONCE PRN Chest 11/10/23 tablet Pain #25 tabs metoprolol tartrate 25 mg tablet 25 mg PO BID #180 tabs 11/25/23 clopidogrel 75 mg tablet 75 mg PO QAM #90 tabs 03/09/24 esomeprazole magnesium 40 mg 40 mg PO QAM #90 caps 03/11/24 capsule,delayed release (Nexium) tolterodine 4 mg capsule,extended 4 mg PO QAM #90 caps 04/05/24 release 24 hr atorvastatin 80 mg tablet 80 mg PO QPM #90 tabs 05/06/24 icosapent ethyl 1 gram capsule 2 g (2 x 1 gram) PO BID #360 caps 05/07/24 (Vascepa) potassium chloride 10 mEq 10 meq PO DAILY with lasix #90 caps 05/20/24 capsule,extended release famotidine 40 mg tablet 40 mg PO HS #90 tabs 06/07/24 levothyroxine 125 mcg tablet 125 mcg PO QAM #60 tabs 08/05/24 ondansetron HCl 4 mg tablet 4 mg PO Q8H PRN nausea and 08/12/24 vomiting #30 tabs sulfamethoxazole 800 1 tab PO BID #14 tabs 08/12/24 mg-trimethoprim 160 mg tablet (Bactrim DS) Results & Data (ED) Vital Signs Vital Signs - 24 hr 08/12/24 22:48 08/12/24 22:56 08/12/24 22:56 Temperature 38 C H 38 C H Temperature Source Oral Oral Pulse Rate 83 Pulse Rate [Right Finger] 83 Pulse Rate from SpO2 Sensor Pulse Rhythm Regular Pulse Rhythm [Right Finger] Regular Pulse Strength Normal Pulse Strength [Right Finger] Normal Respiratory Rate 17 17 Respiratory Effort / Characteristics Non-Labored Spontaneous Non-Labored Spontaneous Respiratory Depth Normal Normal Respiratory Pattern Regular Regular Blood Pressure 117/54 L 117/54 L Blood Pressure [Right Arm] 117/54 L Blood Pressure Mean 71 75 Blood Pressure Mean [Right Arm] 75 Blood Pressure Position Lying Blood Pressure Position [Right Arm] Lying Pulse Oximetry 92 92 Oxygen Delivery Method Nasal Cannula Nasal Cannula Oxygen Flow Rate 4 4 Sepsis Recent Fever Within 48 Hours Yes Sepsis New/Unexplained Change in Mental Status No Sepsis Action Taken by Nursing No Action Required 08/12/24 23:00 08/12/24 23:03 08/12/24 23:05 Temperature Temperature Source Pulse Rate 81 80 Pulse Rate [Right Finger] Pulse Rate from SpO2 Sensor 81 Pulse Rhythm Pulse Rhythm [Right Finger] Pulse Strength Pulse Strength [Right Finger] Respiratory Rate 26 H 17 Respiratory Effort / Characteristics Respiratory Depth Respiratory Pattern Blood Pressure 119/52 L Blood Pressure [Right Arm] Blood Pressure Mean 82 Blood Pressure Mean [Right Arm] Blood Pressure Position Blood Pressure Position [Right Arm] Pulse Oximetry 92 97 Oxygen Delivery Method Room Air Oxygen Flow Rate Sepsis Recent Fever Within 48 Hours Sepsis New/Unexplained Change in Mental Status Sepsis Action Taken by Nursing 08/12/24 23:05 08/12/24 23:15 08/12/24 23:30 Temperature Temperature Source Pulse Rate 79 Pulse Rate [Right Finger] 80 Pulse Rate from SpO2 Sensor 80 Pulse Rhythm Pulse Rhythm [Right Finger] Regular Pulse Strength Pulse Strength [Right Finger] Normal Respiratory Rate 17 24 Respiratory Effort / Characteristics Non-Labored Spontaneous Respiratory Depth Normal Respiratory Pattern Regular Blood Pressure 109/47 L Blood Pressure [Right Arm] Blood Pressure Mean 79 Blood Pressure Mean [Right Arm] Blood Pressure Position Blood Pressure Position [Right Arm] Pulse Oximetry 98 94 Oxygen Delivery Method Room Air Oxygen Flow Rate Sepsis Recent Fever Within 48 Hours Sepsis New/Unexplained Change in Mental Status Sepsis Action Taken by Nursing 08/12/24 23:30 08/12/24 23:30 08/12/24 23:30 Temperature Temperature Source Pulse Rate 78 Pulse Rate [Right Finger] Pulse Rate from SpO2 Sensor 78 Pulse Rhythm Pulse Rhythm [Right Finger] Pulse Strength Pulse Strength [Right Finger] Respiratory Rate 18 Respiratory Effort / Characteristics Respiratory Depth Respiratory Pattern Blood Pressure 109/47 L 109/47 L Blood Pressure [Right Arm] Blood Pressure Mean 79 79 Blood Pressure Mean [Right Arm] Blood Pressure Position Blood Pressure Position [Right Arm] Pulse Oximetry 95 Oxygen Delivery Method Oxygen Flow Rate Sepsis Recent Fever Within 48 Hours Sepsis New/Unexplained Change in Mental Status Sepsis Action Taken by Nursing 08/12/24 23:48 08/12/24 23:54 08/13/24 00:00 Temperature Temperature Source Pulse Rate 77 79 76 Pulse Rate [Right Finger] Pulse Rate from SpO2 Sensor 77 78 Pulse Rhythm Regular Pulse Rhythm [Right Finger] Pulse Strength Pulse Strength [Right Finger] Respiratory Rate 27 H 18 25 H Respiratory Effort / Characteristics Respiratory Depth Respiratory Pattern Blood Pressure Blood Pressure [Right Arm] Blood Pressure Mean Blood Pressure Mean [Right Arm] Blood Pressure Position Blood Pressure Position [Right Arm] Pulse Oximetry 96 95 96 Oxygen Delivery Method Room Air Oxygen Flow Rate Sepsis Recent Fever Within 48 Hours Sepsis New/Unexplained Change in Mental Status Sepsis Action Taken by Nursing 08/13/24 00:21 08/13/24 01:00 08/13/24 01:00 Temperature Temperature Source Pulse Rate 79 Pulse Rate [Right Finger] Pulse Rate from SpO2 Sensor 79 Pulse Rhythm Pulse Rhythm [Right Finger] Pulse Strength Pulse Strength [Right Finger] Respiratory Rate 25 H Respiratory Effort / Characteristics Respiratory Depth Respiratory Pattern Blood Pressure 121/55 L 121/55 L Blood Pressure [Right Arm] Blood Pressure Mean 71 71 Blood Pressure Mean [Right Arm] Blood Pressure Position Blood Pressure Position [Right Arm] Pulse Oximetry 95 Oxygen Delivery Method Oxygen Flow Rate Sepsis Recent Fever Within 48 Hours Sepsis New/Unexplained Change in Mental Status Sepsis Action Taken by Nursing 08/13/24 01:03 08/13/24 01:15 08/13/24 01:24 Temperature Temperature Source Pulse Rate 80 80 78 Pulse Rate [Right Finger] Pulse Rate from SpO2 Sensor 81 Pulse Rhythm Pulse Rhythm [Right Finger] Pulse Strength Pulse Strength [Right Finger] Respiratory Rate 24 23 23 Respiratory Effort / Characteristics Respiratory Depth Respiratory Pattern Blood Pressure Blood Pressure [Right Arm] Blood Pressure Mean Blood Pressure Mean [Right Arm] Blood Pressure Position Blood Pressure Position [Right Arm] Pulse Oximetry 95 Oxygen Delivery Method Oxygen Flow Rate Sepsis Recent Fever Within 48 Hours Sepsis New/Unexplained Change in Mental Status Sepsis Action Taken by Nursing 08/13/24 01:31 08/13/24 01:31 08/13/24 01:31 Temperature Temperature Source Pulse Rate Pulse Rate [Right Finger] Pulse Rate from SpO2 Sensor Pulse Rhythm Pulse Rhythm [Right Finger] Pulse Strength Pulse Strength [Right Finger] Respiratory Rate Respiratory Effort / Characteristics Respiratory Depth Respiratory Pattern Blood Pressure 107/57 L 107/57 L 107/57 L Blood Pressure [Right Arm] Blood Pressure Mean 65 65 65 Blood Pressure Mean [Right Arm] Blood Pressure Position Blood Pressure Position [Right Arm] Pulse Oximetry Oxygen Delivery Method Oxygen Flow Rate Sepsis Recent Fever Within 48 Hours Sepsis New/Unexplained Change in Mental Status Sepsis Action Taken by Nursing 08/13/24 01:33 08/13/24 01:48 08/13/24 02:00 Temperature Temperature Source Pulse Rate 82 80 Pulse Rate [Right Finger] Pulse Rate from SpO2 Sensor 83 80 Pulse Rhythm Pulse Rhythm [Right Finger] Pulse Strength Pulse Strength [Right Finger] Respiratory Rate 24 25 H Respiratory Effort / Characteristics Respiratory Depth Respiratory Pattern Blood Pressure 134/86 Blood Pressure [Right Arm] Blood Pressure Mean 98 Blood Pressure Mean [Right Arm] Blood Pressure Position Blood Pressure Position [Right Arm] Pulse Oximetry 95 95 Oxygen Delivery Method Oxygen Flow Rate Sepsis Recent Fever Within 48 Hours Sepsis New/Unexplained Change in Mental Status Sepsis Action Taken by Nursing 08/13/24 02:00 08/13/24 02:00 Temperature Temperature Source Pulse Rate 80 Pulse Rate [Right Finger] 81 Pulse Rate from SpO2 Sensor 80 Pulse Rhythm Pulse Rhythm [Right Finger] Pulse Strength Pulse Strength [Right Finger] Respiratory Rate 23 18 Respiratory Effort / Characteristics Non-Labored Spontaneous Respiratory Depth Normal Respiratory Pattern Regular Blood Pressure Blood Pressure [Right Arm] 134/86 Blood Pressure Mean Blood Pressure Mean [Right Arm] 102 Blood Pressure Position Blood Pressure Position [Right Arm] Lying Pulse Oximetry 95 98 Oxygen Delivery Method Nasal Cannula Oxygen Flow Rate 3 Sepsis Recent Fever Within 48 Hours Sepsis New/Unexplained Change in Mental Status Sepsis Action Taken by Nursing Laboratory Data 08/12/24 22:56 08/12/24 22:56 Lab Results 08/12/24 08/13/24 08/13/24 Range/Units 22:56 00:29 01:32 WBC 9.76 (4.8-10.8) K/ul RBC 4.16 L (4.20-5.40) M/uL Hgb 12.7 (12.0-16.0) g/dl Hct 37.2 (37.0-47.0) % MCV 89.4 (80.0-100.0) fL MCH 30.5 (25.0-34.0) pg MCHC 34.1 (32.0-36.0) g/dL RDW Std Deviation 43.9 (36.4-46.3) fL RDW Coeff of Suleman 13.4 (11.5-14.5) % Plt Count 180 (130-400) K/uL MPV 11.0 (9.4-12.4) fL Immature Gran % (Auto) 0.2 % Neut % (Auto) 88.6 % Lymph % (Auto) 4.6 % [place] % (Auto) 4.8 % Eos % (Auto) 1.5 % Baso % (Auto) 0.3 % Neut # (Auto) 8.64 H (1.40-6.50) K/uL Lymph # (Auto) 0.45 L (1.20-3.40) K/uL [place] # (Auto) 0.47 (0.11-0.59) K/uL Eos # (Auto) 0.15 (0.00-0.50) K/uL Baso # (Auto) 0.03 (0.00-0.20) K/uL Immature Gran # (Auto) 0.02 (0.01-0.20) K/uL PT 11.9 (9.0-12.0) Seconds INR 1.1 (0.9-1.1) Sodium 138 (136-145) mmol/L Potassium 4.2 (3.5-5.1) mmol/L Chloride 100 (98-107) mmol/L Carbon Dioxide 32 (21-32) mmol/L Anion Gap 6 (3-11) BUN 21 (6-23) mg/dl Creatinine 0.91 (0.6-1.2) mg/dl Est Cr Clr Drug Dosing 43.4 ml/min eGFR 61.44 BUN/Creatinine Ratio 23.1 H (10-20) Glucose 129 H (70-99(Fasting)) mg/dl Lactate 1.2 (0.4-2.0) mmol/L Calcium 8.9 (8.6-10.3) mg/dl Magnesium 1.8 (1.7-2.4) mg/dl Total Bilirubin 1.7 H (0.2-1.0) mg/dl Direct Bilirubin 0.3 H (0-0.2) mg/dl AST 22 (13-39) U/L ALT 15 (7-52) U/L Alkaline Phosphatase 63 (34-104) U/L Troponin I High Sens 41.2 H (0-14) pg/ml Total Protein 6.9 (6.0-8.3) gm/dl Albumin 4.2 (3.4-5.0) gm/dl Procalcitonin < 0.02 (0-0.5) ng/ml Urine Color Yellow Urine Appearance Clear (Clear) Urine pH 6.5 (4.5-7.5) Ur Specific [place] 1.015 (1.000-1.030) Urine Protein Negative (Negative) Urine Glucose (UA) Negative (Negative) Urine Ketones Negative (Negative) Urine Blood Negative (Negative) Urine Nitrite Negative (Negative) Urine Bilirubin Negative (Negative) Urine Urobilinogen Negative (Negative) Ur Leukocyte Esterase 2+ H (Negative) Urine WBC (Auto) 21-50 H (0-5) /hpf Urine RBC (Auto) 6-10 H (0-2) /hpf U Hyaline Cast (Auto) 0-2 (0-2) /lpf U Epithel Cells (Auto) 0-2 (0-2) /hpf Urine Bacteria (Auto) 1+ H (None Seen) Urine Yeast Present A (None Prsent) Administered Medications Discontinued Medications Sodium Chloride (Nss) 1,000 mls @ 999 mls/hr IV .Q1H1M MAURICIO Stop: 08/13/24 01:45 Last Admin: 08/13/24 01:48 Dose: 999 mls/hr Documented By: Infusion: 08/13/24 01:48 Dose: Infused Documented By: Admin: 08/13/24 00:58 Dose: 999 mls/hr Documented By: CHEN Piperacillin Sod/Tazobactam Sod (Zosyn) 4.5 gm in 100 mls @ 200 mls/hr IV NOW ONE; Protocol Stop: 08/13/24 00:39 Last Infusion: 08/13/24 01:51 Dose: Infused Documented By: Admin: 08/13/24 00:58 Dose: 200 mls/hr Documented By: CHEN Imaging Data Radiologist's Impression: Chest X-Ray 08/12/24 23:54 EXAM: XR chest 1V portable CLINICAL HISTORY: Sepsis. TECHNIQUE: An X-ray image of the chest is obtained in AP projection. COMPARISON: 02/19/2024 CR. FINDINGS: Pulmonary Parenchyma: Prominent interstitial pulmonary markings, nonspecific, likely due to chronic changes. Unchanged. A small nodule is noted in the middle zone of the right lung. Unchanged. Lungs are clear bilaterally. No evidence of consolidation, collapse, or focal opacities. No evidence of pleural effusion or pleural thickening. Heart and Mediastinum: Prominent perihilar vascular markings. Cardiomegaly. Atherosclerotic changes of the aortic arch. No mediastinal widening or masses. No hilar or mediastinal lymphadenopathy. Bony Thorax: Evidence of sternotomy with sternal wires. Degenerative changes of the visualized skeleton. Bony thorax appears intact without fractures or deformities. Soft Tissues: Soft tissues overlying the chest wall are unremarkable. IMPRESSION: 1. No acute cardiopulmonary abnormalities are identified. 2. Cardiomegaly with perihilar congestion. Unchanged. 3. Unchanged small nodule in the lateral zone of the right lung. 4. No significant interval changes. Electronically signed by Doug Heredia 08-13-2024 12:47 AM Abdomen/Pelvis CT 08/13/24 00:10 EXAM: CT abd pelvis wo con CLINICAL HISTORY: L flank pain TECHNIQUE: Contiguous axial images were obtained from the level of the diaphragm to the pubic symphysis without intravenous or oral contrast. Coronal and sagittal reconstructions were likewise performed and indicated to increase the sensitivity for detecting clinically relevant pathology. CT scan was performed according to ALARA (as low as reasonable achievable). COMPARISON: 23:25:48 QUALITY ASSURANCE CALIBRATOR FINDINGS: Cardiomegaly is noted. Evaluation of the abdominal and pelvic visceral organs is limited without intravenous contrast. Liver shows surface nodularity and mild volume redistribution. Dilatation of the portal vein, splenic vein and proximal superior mesenteric vein is noted.. Multiple calcified granulomas are noted in liver as well as spleen.-stable. Spleen is normal in size measuring 12cm in craniocaudal extent. (prior it was enlarged) The unenhanced pancreas, and adrenal glands are grossly unremarkable. Few microcalculi are noted within the gallbladder. No signs of acute cholecystitis. The kidneys are normal in size and attenuation without obvious calcification. There is no hydronephrosis or perinephric stranding. The ureters are normal in caliber. No adenopathy or fluid collections are seen. No evidence of focal or diffuse bowel wall thickening or evidence of bowel obstruction is seen. Redundancy of the sigmoid colon is noted. Fecal loading of the large bowel is seen. Small hiatus hernia is seen. Small omental fat containing umbilical hernia is noted. Defect measures 8 mm in transverse dimension. The aorta is normal in caliber. Irregularity with mild thickening of the urinary bladder wall is noted. Pelvic viscera are grossly unremarkable. No aggressive appearing osseous lesions are identified. Degenerative changes are noted in the visualized spine. Scoliosis is noted at the level of distal thoracic and proximal lumbar spine with convexity on the right side. IMPRESSION: 1. Cardiomegaly.-stable. 2. Liver shows surface nodularity and mild volume redistribution. Dilatation of the portal vein, splenic vein and proximal superior mesenteric vein is noted. Findings suggestive of chronic liver parenchymal disease with changes of portal hypertension. Suggested liver function test correlation.-stable. 3. Irregularity with mild thickening of the urinary bladder wall is noted, possibility of cystitis - however, reduced as compared to prior study.- renal as is suggested. 4. Few microcalculi are noted within the gallbladder. No signs of acute cholecystitis.-stable. 5. Multiple calcified granulomas in the liver and spleen.-stable. 6. Redundancy of the sigmoid colon is noted. Fecal loading of the large bowel is seen. -same. 7. Small hiatus hernia is seen.-stable. 8. No other new interval abnormality since prior study. Electronically signed by Johnnie Rodriguez 08-13-2024 02:03 AM Discharge Plan Visit Data Chief Complaint: Urinary Symptoms Stated Complaint: UTI, Fever, L Flank Pain ED Provider: Artur Bettencourt Discharge Problem: Urinary tract infection Patient Disposition: Admitted As Inpatient Condition: Fair Forms Stand Alone Forms: [facility], Important Visit Information Prescriptions Prescriptions: No Action (DME) Sarah Ramirez Misc See Rx Instructions .Route Qty: 1 0RF Rx Instructions: SARAH RAMIREZ nitroglycerin 0.4 mg tablet, sublingual 0.4 mg SL ONCE PRN (Reason: Chest Pain) Qty: 25 4RF metoprolol tartrate 25 mg tablet 25 mg PO BID Qty: 180 3RF mecobalamin (vitamin B12) 1,000 mcg tablet,chewable 500 mcg PO Q OTHER DAY clopidogrel 75 mg tablet 75 mg PO QAM Qty: 90 3RF esomeprazole magnesium [Nexium] 40 mg capsule,delayed release(DR/EC) 40 mg PO QAM Qty: 90 3RF tolterodine 4 mg capsule,extended release 24hr 4 mg PO QAM Qty: 90 3RF Rx Instructions: TAKE 1 CAPSULE BY MOUTH EVERY MORNING atorvastatin 80 mg tablet 80 mg PO QPM Qty: 90 3RF icosapent ethyl [Vascepa] 1 gram capsule 2 g PO BID Qty: 360 3RF potassium chloride 10 mEq capsule, extended release 10 meq PO DAILY Qty: 90 3RF famotidine 40 mg tablet 40 mg PO HS Qty: 90 3RF levothyroxine 125 mcg tablet 125 mcg PO QAM Qty: 60 1RF ondansetron HCl 4 mg tablet 4 mg PO Q8H PRN (Reason: nausea and vomiting) Qty: 30 0RF sulfamethoxazole-trimethoprim [Bactrim DS] 800-160 mg tablet 1 tab PO BID Qty: 14 0RF vitamin E (dl, acetate) 400 unit capsule 400 units PO QAM Adult 50 Plus Probiotic 4 billion cell capsule 4,000 mmu cells PO QAM aspirin 81 mg Tablet,Delayed Release (Dr/Ec) 81 mg PO QAM econazole nitrate 1 % cream 1 applic topical DAILY PRN (Reason: fungus) Rx Instructions: 1 application topical daily PRN; cholecalciferol (vitamin D3) [Vitamin D3] 125 mcg (5,000 unit) Tablet 125 mcg PO DAILY amlodipine 5 mg tablet 5 mg PO QAM furosemide [Lasix] 40 mg tablet 40 mg PO QAM isosorbide mononitrate 60 mg tablet extended release 24 hr 60 mg PO QAM telmisartan 40 mg tablet 40 mg PO QAM Referrals Referrals: Michael Christie DO [Primary Care Provider] -
[2024-08-13 00:13] LABS: Albumin Level 4.2 gm/dl (3.4-5.0); BUN Creatinine Ratio 23.1 (10-20); Bilirubin Direct 0.3 mg/dl (0-0.2); Bilirubin,Total 1.7 mg/dl (0.2-1.0); Calcium 8.9 mg/dl (8.6-10.3); Creatinine Clr Calc Pharmacy 43.4 ml/min; Magnesium 1.8 mg/dl (1.7-2.4); Potassium 4.2 mmol/L (3.5-5.1); Total Protein 6.9 gm/dl (6.0-8.3)
[2024-08-13 00:20] LABS: Troponin I High Sensitivity 41.2 pg/ml (0-14)
[2024-08-13 00:34] LABS: INR 1.1 (0.9-1.1); Prothrombin Time 11.9 Seconds (9.0-12.0)
--- NOTE | 2024-08-13 00:48 | XRay Report ---
EXAM: XR chest 1V portable CLINICAL HISTORY: Sepsis. TECHNIQUE: An X-ray image of the chest is obtained in AP projection. COMPARISON: 02/19/2024 CR. FINDINGS: Pulmonary Parenchyma: Prominent interstitial pulmonary markings, nonspecific, likely due to chronic changes. Unchanged. A small nodule is noted in the middle zone of the right lung. Unchanged. Lungs are clear bilaterally. No evidence of consolidation, collapse, or focal opacities. No evidence of pleural effusion or pleural thickening. Heart and Mediastinum: Prominent perihilar vascular markings. Cardiomegaly. Atherosclerotic changes of the aortic arch. No mediastinal widening or masses. No hilar or mediastinal lymphadenopathy. Bony Thorax: Evidence of sternotomy with sternal wires. Degenerative changes of the visualized skeleton. Bony thorax appears intact without fractures or deformities. Soft Tissues: Soft tissues overlying the chest wall are unremarkable. IMPRESSION: 1. No acute cardiopulmonary abnormalities are identified. 2. Cardiomegaly with perihilar congestion. Unchanged. 3. Unchanged small nodule in the lateral zone of the right lung. 4. No significant interval changes. Electronically signed by Doug Heredia 08-13-2024 12:47 AM
[2024-08-13] MEDS: PIPERACILLIN/TAZOBACTAM 4.5 GM/100 ML BAG IV ONE (00:58)
[2024-08-13] MEDS: SODIUM CHLORIDE 0.9% 1,000 ML IV SCH (00:58)
[2024-08-13 01:57] LABS: Appearance Urine Clear (Clear); Bacteria Urine Automated 1+ (None Seen); Bilirubin Urine Negative (Negative); Blood Urine Negative (Negative); Cast Urine Automated 0-2 /lpf (0-2); Color Urine Yellow; Epithelial Cell Urine Auto 0-2 /hpf (0-2); Glucose Urine UA Negative (Negative); Ketones Urine Negative (Negative); Leukocyte Esterase Urine 2+ (Negative); Nitrite Urine Negative (Negative); Protein Urine Negative (Negative); Specific Gravity Urine 1.015 (1.000-1.030); Urobilinogen Urine Negative (Negative); WBC Urine Automated 21-50 /hpf (0-5); pH Urine 6.5 (4.5-7.5)
--- NOTE | 2024-08-13 02:04 | CT Scan Report ---
EXAM: CT abd pelvis wo con CLINICAL HISTORY: L flank pain TECHNIQUE: Contiguous axial images were obtained from the level of the diaphragm to the pubic symphysis without intravenous or oral contrast. Coronal and sagittal reconstructions were likewise performed and indicated to increase the sensitivity for detecting clinically relevant pathology. CT scan was performed according to ALARA (as low as reasonable achievable). COMPARISON: 23:25:48 [facility] [employer] OFFICER FINDINGS: Cardiomegaly is noted. Evaluation of the abdominal and pelvic visceral organs is limited without intravenous contrast. Liver shows surface nodularity and mild volume redistribution. Dilatation of the portal vein, splenic vein and proximal superior mesenteric vein is noted.. Multiple calcified granulomas are noted in liver as well as spleen.-stable. Spleen is normal in size measuring 12cm in craniocaudal extent. (prior it was enlarged) The unenhanced pancreas, and adrenal glands are grossly unremarkable. Few microcalculi are noted within the gallbladder. No signs of acute cholecystitis. The kidneys are normal in size and attenuation without obvious calcification. There is no hydronephrosis or perinephric stranding. The ureters are normal in caliber. No adenopathy or fluid collections are seen. No evidence of focal or diffuse bowel wall thickening or evidence of bowel obstruction is seen. Redundancy of the sigmoid colon is noted. Fecal loading of the large bowel is seen. Small hiatus hernia is seen. Small omental fat containing umbilical hernia is noted. Defect measures 8 mm in transverse dimension. The aorta is normal in caliber. Irregularity with mild thickening of the urinary bladder wall is noted. Pelvic viscera are grossly unremarkable. No aggressive appearing osseous lesions are identified. Degenerative changes are noted in the visualized spine. Scoliosis is noted at the level of distal thoracic and proximal lumbar spine with convexity on the right side. IMPRESSION: 1. Cardiomegaly.-stable. 2. Liver shows surface nodularity and mild volume redistribution. Dilatation of the portal vein, splenic vein and proximal superior mesenteric vein is noted. Findings suggestive of chronic liver parenchymal disease with changes of portal hypertension. Suggested liver function test correlation.-stable. 3. Irregularity with mild thickening of the urinary bladder wall is noted, possibility of cystitis - however, reduced as compared to prior study.- renal as is suggested. 4. Few microcalculi are noted within the gallbladder. No signs of acute cholecystitis.-stable. 5. Multiple calcified granulomas in the liver and spleen.-stable. 6. Redundancy of the sigmoid colon is noted. Fecal loading of the large bowel is seen. -same. 7. Small hiatus hernia is seen.-stable. 8. No other new interval abnormality since prior study. Electronically signed by Johnnie Rodriguez 08-13-2024 02:03 AM
--- NOTE | 2024-08-13 02:29 | History & Physical Report ---
Date of Service August 13, 2024 Assessment & Plan (1) Urinary tract infection: (2) Fever: (3) Elevated troponin: (4) Cirrhosis, nonalcoholic: Plan Patient is an 84-year-old female with a past medical history of CAD s/p CABG x4V, asthma on nocturnal oxygen 2l NC, diastolic CHF, nonalcoholic cirrhosis with history of prior TIA, GERD. Patient presented after failing outpatient treatment with Bactrim for ESBL E. coli, symptomatic with dysuria, flank pain, and febrile. Patient does appear sick at bedside, however does not meet SIRS criteria and has no leukocytosis. She is being admitted for IV management. #UTI/fever - Patient failed outpatient treatment of Bactrim, history of ESBL E. coli; cultures 08/10 grew ESBL susceptible to Zosyn. Patient with dysuria. Patient does appear sick, however does not meet SIRS criteria with no leukocytosis - She does have a fever with temperature 38 degrees C. Lactate and procalcitonin negative. AP CT showed cystitis, no pyelonephritis noted. Continue Zosyn - Patient does appear clinically dry; received 2L NSS in ED, continue fluid resuscitation with LR at 100 mL/hour - hold Lasix Follow urine and blood cultures Tylenol as needed for fever Trend CBC, concerns sepsis may develop #Elevated troponin Trop 41.2 -> 251.7. suspect 2/2 demand in setting of infection, similar presentation in February 2024 with troponin elevated to 210. Patient denies any chest pain. - EKG ordered - Trend troponin every 6 hours - telemetry monitoring - EKG prn for chest pain #Nonalcoholic liver cirrhosis LFTs stable. INR 1.1 - Trend CMP with Tylenol use #CAD s/p CABG x [address] Fish. - trending troponin as above - Continue aspirin, Plavix, atorvastatin, isosorbide mononitrate, metoprolol #HTN stable - Continue amlodipine and telmisartan - Holding Lasix as patient appears dry #Asthma/nocturnal hypoxia stable - 2L oxygen via nasal cannula at bedtime #GERD stable Continue PPI #Diastolic CHF stable - Holding as needed Lasix as patient appears dry #Hypothyroidism - stable - Continue Synthroid VTE ppx: SCDs, low risk and history of ITP Dispo: PCU with concern for early sepsis Admission and Anticipated Discharge Date Admission Date: 08/13/24 History of Present Illness Chief Complaint: urinary symptoms Primary Care Provider: Michael Christie DO Patient is an 84-year-old female with a past medical history of CAD s/p CABG x4V, asthma on nocturnal oxygen 2l NC, diastolic CHF, nonalcoholic cirrhosis with history of prior TIA, GERD. Patient presented after failing outpatient treatment with Bactrim for ESBL E. coli, symptomatic with dysuria, flank pain, and febrile. Patient does appear sick at bedside, however does not meet SIRS criteria and has no leukocytosis. She is being admitted for IV management. Patient seen at bedside. She is somewhat of a poor historian mildly confused. She stated that she has had dysuria that has not improved on Bactrim. She does have a history of allergy to Bactrim however they gave her Zofran to assist with this. She denies any reaction. She also noted a history of recurrent UTIs with ESBL E. coli. Patient stated she has had intermittent abdominal pain, however denies any current pain. She denies feeling feverish, dizzy, lightheaded, having shortness of breath, chest pain, hematuria. She stated she uses 2 L of oxygen at night. She missed her evening medications. She wishes to be full code. Allergies Allergy/AdvReac Type Severity Reaction Status Date / Time Cipro Allergy Intermediate RASH Verified 10/22/16 09:26 meperidine Allergy Mild NAUSEA AND Verified 08/05/24 08:29 VOMITING morphine Allergy Mild NAUSEA AND Verified 08/05/24 08:29 VOMITING adhesive Allergy Unknown ADHESIVE Verified 08/05/24 08:29 TAPE-BLISTERS clindamycin Allergy Unknown per PCP Verified 08/05/24 08:29 records codeine Allergy Unknown Nausea Verified 08/05/24 08:29 ciprofloxacin Allergy Verified 08/05/24 08:29 oxycodone AdvReac Severe NAUSEA/VOMI Verified 08/05/24 08:29 TING sulfamethoxazole AdvReac Vomiting Verified 08/05/24 08:29 [From Bactrim] trimethoprim [From Bactrim] AdvReac Vomiting Verified 08/05/24 08:29 Home Medications Medication Instructions Recorded Confirmed Type vitamin E (dl, acetate) 180 mg 400 units PO QAM 10/27/18 08/13/24 History (400 unit) capsule lactobacillus combination no.9 4 4,000 mmu cells PO QAM 02/04/19 08/13/24 History billion cell capsule (Adult 50 Plus Probiotic) aspirin 81 mg tablet,delayed 81 mg PO QAM 11/25/19 08/13/24 History release Wheeled Walker #1 ea 10/06/23 08/13/24 Rx nitroglycerin 0.4 mg sublingual 0.4 mg sublingual ONCE PRN Chest 11/10/23 08/13/24 Rx tablet Pain #25 tabs metoprolol tartrate 25 mg tablet 25 mg PO BID #180 tabs 11/25/23 08/13/24 Rx mecobalamin (vitamin B12) 1,000 500 mcg PO Q OTHER DAY 02/19/24 08/13/24 History mcg chewable tablet cholecalciferol (vitamin D3) 125 125 mcg PO DAILY 02/20/24 08/13/24 History mcg (5,000 unit) tablet (Vitamin D3) econazole nitrate 1 % topical cream 1 applic topical DAILY PRN fungus 02/20/24 08/13/24 History clopidogrel 75 mg tablet 75 mg PO QAM #90 tabs 03/09/24 08/13/24 Rx esomeprazole magnesium 40 mg 40 mg PO QAM #90 caps 03/11/24 08/13/24 Rx capsule,delayed release (Nexium) tolterodine 4 mg capsule,extended 4 mg PO QAM #90 caps 04/05/24 08/13/24 Rx release 24 hr atorvastatin 80 mg tablet 80 mg PO QPM #90 tabs 05/06/24 08/13/24 Rx icosapent ethyl 1 gram capsule 2 g (2 x 1 gram) PO BID #360 caps 05/07/24 08/13/24 Rx (Vascepa) potassium chloride 10 mEq 10 meq PO DAILY with lasix #90 caps 05/20/24 08/13/24 Rx capsule,extended release famotidine 40 mg tablet 40 mg PO HS #90 tabs 06/07/24 08/13/24 Rx levothyroxine 125 mcg tablet 125 mcg PO QAM #60 tabs 08/05/24 08/13/24 Rx ondansetron HCl 4 mg tablet 4 mg PO Q8H PRN nausea and 08/12/24 08/13/24 Rx vomiting #30 tabs sulfamethoxazole 800 1 tab PO BID #14 tabs 08/12/24 08/13/24 Rx mg-trimethoprim 160 mg tablet (Bactrim DS) amlodipine 5 mg tablet 5 mg PO QAM 08/13/24 08/13/24 History furosemide 40 mg tablet (Lasix) 40 mg PO QAM edema 08/13/24 08/13/24 History isosorbide mononitrate 60 mg 60 mg PO QAM 08/13/24 08/13/24 History tablet,extended release 24 hr telmisartan 40 mg tablet 40 mg PO QAM 08/13/24 08/13/24 History Past Med/Surg History Problem List (Updated 08/13/24 @ 03:56 by Harper Blanton PA-C) Elevated troponin Fever Urinary tract infection (Acute) Ambulatory dysfunction Hypertension (Chronic) Aortic stenosis, mild (Chronic) History of heart artery stent RCA stent 12/2019 Chronic stable angina (Acute) Dyspnea on exertion PVCs (premature ventricular contractions) Dyslipidemia (Chronic) 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, nonalcoholic Dependence on nocturnal oxygen therapy (~2015) Sjogrens syndrome (Acute) Hypothyroidism (Acute) Depression with anxiety (Acute) Lymphoproliferative disease (Acute) Vitamin D deficiency (Acute) Medical History Cirrhosis, nonalcoholic GERD (gastroesophageal reflux disease) CAD (coronary artery disease) Elevated troponin Nasopharyngitis History of inverted papilloma Gout 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 (SNHL) of both ears Hip pain Pulmonary nodule 1 cm or greater in diameter Acute diastolic (congestive) heart failure NSTEMI (non-ST elevated myocardial infarction) Allergic rhinitis due to allergen Allergic rhinitis Knee pain, bilateral Chronic osteoarthritis Dupuytren's contracture of hand Splenomegaly (~09/2011) ITP (idiopathic thrombocytopenic purpura) (~09/2011) Asthma [place] (myocardial infarction) Surgical History H/O wisdom tooth extraction H/O colonoscopy History of tonsillectomy History of hysterectomy History of cataract surgery History of carotid endarterectomy Hx of CABG Family History Unknown Hypertension Mother Diabetes Father Heart disease Myocardial infarction Hypertension Cancer Aunt Lung cancer Denies family history of Ovarian cancer Prostate cancer Breast cancer Colorectal cancer Stroke Social History Smoking Status: Former smoker Tobacco Type: Cigarettes Age Started Using Tobacco: 15; Age Quit Using Tobacco: 43; packs per day: 1; Cigarettes Per Day: 1 pack a day.; Second Hand Exposure: No; Do You Dip or Chew Tobacco: No; Hx Alcohol Use: No Hx Substance Use: No Preferred Language: Luxembourgish Communication Ability: Effective Visual Impairment: Limited Hearing Ability: Normal [employer] Required: No Beliefs That Will Affect Care: None marital status: / Current Living Situation: Alone current occupational status: retired How many Children do You have: 1 Feels Safe at Home: Yes Childhood Exposure to Second-Hand Smoke: Yes Diet: regular caffeine: Yes during the past year weight has: decreased > 10 lbs Dental Care, Regularly: Yes Physical Activity Frequency: Does not Exercise Seatbelt Use: always Sunscreen Use: Yes Assistive Devices: Glasses and Walker Review of Systems Review of Systems: see HPI Physical Exam Physical Exam: The patient is tired, alert and oriented 3, however mildly confused. Pale, diaphoretic. HEENT- EOMI, mucous membranes dry. Hearing grossly intact. Heart-normal S1 and S2. No murmurs, rubs or gallops. Lungs-clear bilaterally, no respiratory distress, no accessory muscle use. Abdomen-normal bowel sounds and soft. No ascites noted. Non-tender. Extremities- no clubbing, cyanosis, or edema. Results & Data Results & Data Vital Signs (Past 12 Hours) Vital Signs Temp Pulse Pulse Resp BP BP Pulse Ox 08/13/24 02:00 81 18 134/86 98 08/13/24 02:00 80 23 95 08/13/24 02:00 134/86 08/13/24 01:48 80 25 H 95 08/13/24 01:33 82 24 95 08/13/24 01:31 107/57 L 08/13/24 01:31 107/57 L 08/13/24 01:31 107/57 L 08/13/24 01:24 78 23 08/13/24 01:15 80 23 08/13/24 01:03 80 24 95 08/13/24 01:00 121/55 L 08/13/24 01:00 121/55 L 08/13/24 00:21 79 25 H 95 08/13/24 00:00 76 25 H 96 08/12/24 23:54 79 18 95 08/12/24 23:48 77 27 H 96 08/12/24 23:30 78 18 95 08/12/24 23:30 109/47 L 08/12/24 23:30 109/47 L 08/12/24 23:30 109/47 L 08/12/24 23:15 79 24 94 08/12/24 23:05 80 17 98 08/12/24 23:05 80 17 97 08/12/24 23:03 81 26 H 92 08/12/24 23:00 119/52 L 08/12/24 22:56 38 C H 83 17 117/54 L 92 08/12/24 22:56 38 C H 83 17 117/54 L 92 08/12/24 22:48 117/54 L O2 Del Method O2 Flow Rate 08/13/24 02:00 Nasal Cannula 3 08/13/24 02:00 08/13/24 02:00 08/13/24 01:48 08/13/24 01:33 08/13/24 01:31 08/13/24 01:31 08/13/24 01:31 08/13/24 01:24 08/13/24 01:15 08/13/24 01:03 08/13/24 01:00 08/13/24 01:00 08/13/24 00:21 08/13/24 00:00 08/12/24 23:54 Room Air 08/12/24 23:48 08/12/24 23:30 08/12/24 23:30 08/12/24 23:30 08/12/24 23:30 08/12/24 23:15 08/12/24 23:05 Room Air 08/12/24 23:05 Room Air 08/12/24 23:03 08/12/24 23:00 08/12/24 22:56 Nasal Cannula 4 08/12/24 22:56 Nasal Cannula 4 08/12/24 22:48 Laboratory Results reviewed cbc, pt/inr, cmp, mag, procal, ua, covid/flu/rsv Diagnostic Findings reviewed AP CT, CXR Medications Administered ED - Zozyn 4.5 g IV, NSS 2L bolus ECG Additional Comments: ordered Code Status & VTE Plan Code Status full code VTE Prophylaxis Plan VTE Prophylaxis will be ordered: Yes Supervising Physician Co-Signing Physician Notes patient seen and examined, chart reviewed, case discussed with GINO Blanton and agree with the assessment plan as document above Patient with UTI/fever, elevated troponin Found to have new onset atrial fibrillation Follow cultures Continue Zosyn Symptomatic care Heparin drip for new onset atrial fibrillation Check echocardiogram Remainder as above PG Care Time/CCT Total # of Minutes Spent Total Time Spent with Patient: Total time spent is greater than 50% in coordination of care (as documented) at patient's floor/unit and/or counseling patient: Coding Level of Care Code 18581 INT INP/OBS CARE 375MIN Diagnoses Urinary tract infection N39.0 Fever R50.9 Elevated troponin R79.89 Cirrhosis, nonalcoholic K74.60
[2024-08-13 03:13] LABS: Influenza A virus by PCR Negative (Neg); Influenza B virus by PCR Negative (Neg); RSV by PCR Negative (Neg); SARS CoV2 RNA(COVID-19) Ceph NEGATIVE (Negative)
[2024-08-13] MEDS ORDERED: MELATONIN 3 MG TAB PO PRN (03:41)
[2024-08-13] MEDS ORDERED: DOCUSATE SODIUM 100 MG CAP PO PRN (03:41)
[2024-08-13] MEDS: LACTATED RINGER'S 1,000 ML IV SCH (03:49)
--- NOTE | 2024-08-13 04:02 | Communication Note ---
Date of Service: August 13, 2024 EKG ordered given troponin elevation. Show A-fib, rate 78. Rate has been well controlled. No noted history of A fib; considered new onset. [id number] score 6 = 9.7% stroke risk per year HAS-BLED score 3 = 5.8% risk for major bleeding will start on low-dose heparin drip, no bolus; transition to DOAC when stable will order echocardiogram
[2024-08-13] MEDS: HEPARIN 25000 UNIT/500 ML D5W 25,000 UNITS/500 ML BAG IV SCH (04:59)
[2024-08-13 05:00] LABS: Basophils # (auto) 0.03 K/uL (0.00-0.20); Basophils % (auto) 0.3 %; Eosinophils # (auto) 0.02 K/uL (0.00-0.50); Eosinophils % (auto) 0.2 %; Hematocrit (blood only) 34.2 % (37.0-47.0); Hemoglobin 11.6 g/dl (12.0-16.0); Immature Granulocytes # (auto) 0.03 K/uL (0.01-0.20); Immature Granulocytes % (auto) 0.3 %; Lymphocytes # (auto) 0.66 K/uL (1.20-3.40); Lymphocytes % (auto) 7.3 %; Mean Corpuscular Hemoglobin 30.6 pg (25.0-34.0); Mean Corpuscular Hgb Conc 33.9 g/dL (32.0-36.0); Mean Corpuscular Volume 90.2 fL (80.0-100.0); Mean Platelet Volume 10.8 fL (9.4-12.4); Monocytes # (auto) 0.66 K/uL (0.11-0.59); Monocytes % (auto) 7.3 %; Neutrophils # (auto) 7.66 K/uL (1.40-6.50); Neutrophils % (auto) 84.6 %; Platelet Count 149 K/uL (130-400); RDW Coefficient of Variation 13.4 % (11.5-14.5); Red Blood Count 3.79 M/uL (4.20-5.40); White Blood Count 9.06 K/ul (4.8-10.8)
[2024-08-13] MEDS: Heparin IV Adult Wt-Based Low-Dose *NO* INITIAL Bolus Protocol IV SCH (05:05)
[2024-08-13 05:17] LABS: Albumin Globulin Ratio 1.6 (0.9-2); Albumin Level 3.6 gm/dl (3.4-5.0); BUN Creatinine Ratio 24.7 (10-20); Bilirubin,Total 1.6 mg/dl (0.2-1.0); Creatinine Clr Calc Pharmacy 51.3 ml/min; Globulin 2.3 gm/dl (2.5-4.0); Magnesium 1.7 mg/dl (1.7-2.4); Total Protein 5.9 gm/dl (6.0-8.3)
[2024-08-13 05:47] LABS: Partial Thromboplastin Time 27 Seconds (21-31)
[2024-08-13] MEDS: ONDANSETRON INJ 2 MG/ML 2 ML VIAL IV PRN (06:44)
[2024-08-13] MEDS: LEVOTHYROXINE SODIUM 125 MCG TABLET PO SCH (07:11)
[2024-08-13] MEDS: PIPERACILLIN/TAZOBACTAM 4.5 GM/100 ML BAG IV SCH (07:13)
[2024-08-13] MEDS: LOSARTAN POTASSIUM 50 MG TAB PO SCH (09:29)
[2024-08-13] MEDS: amLODIPine BESYLATE 5 MG TAB PO SCH (09:29)
[2024-08-13] MEDS: PANTOprazole 40 MG TAB PO SCH (09:29)
[2024-08-13] MEDS: METOPROLOL TARTRATE 25 MG TAB PO SCH (09:29)
[2024-08-13] MEDS: ISOSORBIDE MONO EXTENDED REL 60 MG TABCR PO SCH (09:29)
[2024-08-13] MEDS: ASPIRIN 81 MG ECTAB PO SCH (09:29)
[2024-08-13] MEDS: OXYBUTYNIN CHLORIDE XL 5 MG TABCR PO SCH (09:30)
[2024-08-13] MEDS: CLOPIDOGREL BISULFATE 75 MG TAB PO SCH (09:30)
[2024-08-13 11:26] LABS: ANTI-Xa, UFH(UnfractionatedHep 0.18 IU/ml (0.3-0.7)
[2024-08-13] MEDS: HEPARIN SOD (PORCINE) 1000 UNIT/ML IV ONE (12:21)
[2024-08-13] MEDS: HEPARIN SOD (PORCINE) 1000 UNIT/ML ONE (12:21)
[2024-08-13] MEDS: Nursing to Pharmacy Communication SCH (13:31)
[2024-08-13] MEDS ORDERED: Nursing to Pharmacy Communication SCH (16:30)
[2024-08-13 18:54] LABS: ANTI-Xa, UFH(UnfractionatedHep 0.47 IU/ml (0.3-0.7)
--- NOTE | 2024-08-13 20:13 | XCELERA ---
[id number] [id number]
[2024-08-13] MEDS: ATORVASTATIN 40 MG TAB PO SCH (20:14)
[2024-08-13] MEDS: FAMOTIDINE 40 MG TABLET PO SCH (20:14)
[2024-08-14] MEDS: ACETAMINOPHEN 325 MG TAB PO PRN (00:37)
--- NOTE | 2024-08-14 04:11 | Electrocardiogram Report ---
Test Reason : Blood Pressure : */* mmHG Vent. Rate : 78 BPM Atrial Rate : 78 BPM P-R Int : 232 ms QRS Dur : 126 ms QT Int : 400 ms P-R-T Axes : * 44 16 degrees QTcB Int : 456 ms Sinus rhythm with 1st degree A-V block Right bundle branch block Cannot rule out Inferior infarct , age undetermined Abnormal ECG When compared with ECG of 19-Feb-2024 23:51, Minimal criteria for Inferior infarct are now Present Nonspecific T wave abnormality no longer evident in Anterior leads Confirmed by José Luis Araujo ([id number]) on 08/14/2024 4:11:32 AM Referred By: REFERRED SELF Confirmed By: José Luis Araujo
[2024-08-14 06:18] LABS: Basophils # (auto) 0.02 K/uL (0.00-0.20); Basophils % (auto) 0.4 %; Eosinophils # (auto) 0.15 K/uL (0.00-0.50); Eosinophils % (auto) 2.7 %; Hematocrit (blood only) 32.2 % (37.0-47.0); Hemoglobin 10.8 g/dl (12.0-16.0); Immature Granulocytes # (auto) 0.03 K/uL (0.01-0.20); Immature Granulocytes % (auto) 0.5 %; Lymphocytes # (auto) 0.74 K/uL (1.20-3.40); Lymphocytes % (auto) 13.5 %; Mean Corpuscular Hemoglobin 30.3 pg (25.0-34.0); Mean Corpuscular Hgb Conc 33.5 g/dL (32.0-36.0); Mean Corpuscular Volume 90.2 fL (80.0-100.0); Mean Platelet Volume 10.8 fL (9.4-12.4); Monocytes # (auto) 0.62 K/uL (0.11-0.59); Monocytes % (auto) 11.3 %; Neutrophils # (auto) 3.93 K/uL (1.40-6.50); Neutrophils % (auto) 71.6 %; Platelet Count 110 K/uL (130-400); RDW Coefficient of Variation 13.3 % (11.5-14.5); Red Blood Count 3.57 M/uL (4.20-5.40); White Blood Count 5.49 K/ul (4.8-10.8)
[2024-08-14 06:31] LABS: Albumin Globulin Ratio 1.4 (0.9-2); Albumin Level 3.3 gm/dl (3.4-5.0); BUN Creatinine Ratio 23.9 (10-20); Bilirubin,Total 2.1 mg/dl (0.2-1.0); Calcium 8.5 mg/dl (8.6-10.3); Creatinine Clr Calc Pharmacy 58.5 ml/min; Globulin 2.3 gm/dl (2.5-4.0); Potassium 3.8 mmol/L (3.5-5.1); Total Protein 5.6 gm/dl (6.0-8.3)
[2024-08-14 06:47] LABS: ANTI-Xa, UFH(UnfractionatedHep 0.52 IU/ml (0.3-0.7)
--- NOTE | 2024-08-14 07:19 | Electrocardiogram Report ---
Test Reason : Blood Pressure : */* mmHG Vent. Rate : 70 BPM Atrial Rate : * BPM P-R Int : * ms QRS Dur : 86 ms QT Int : 402 ms P-R-T Axes : * 55 35 degrees QTcB Int : 434 ms Sinus rhythm with 1st degree AV block and occasional PACs Nonspecific ST abnormality Abnormal ECG Confirmed by David Mcdonald ([id number]) on 08/14/2024 7:19:14 AM Referred By: REFERRED SELF Confirmed By: David Mcdonald
[2024-08-14] MEDS ORDERED: FUROSEMIDE INJ 20 MG/2 ML VIAL IV ONE (08:16)
[2024-08-14] MEDS: FUROSEMIDE INJ 20 MG/2 ML VIAL IV ONE (08:43)
--- NOTE | 2024-08-14 09:05 | Cardiology Consultation ---
Date of Consultation August 14, 2024 Assessment & Plan (1) Elevated troponin: (2) CAD (coronary artery disease): (3) Valvular heart disease: (4) Acute diastolic (congestive) heart failure: Plan 1. Occasional PACs: In the outpatient setting she was noted to have fairly frequent premature atrial contractions and occasional premature ventricular contractions. She is also noted to have a significant first-degree AV block. However, she has no symptoms associated with these abnormalities. She appears to maintain a reasonable level of activity without dizziness or limiting dyspnea. No sense of palpitations currently. I feel that her telemetry and EKG were initially misinterpreted as atrial fibrillation. I do not believe she has atrial fibrillation. I will discontinue her anticoagulation. 2. Elevated troponin: I am not sure how to interpret an elevated troponin in the setting of a urinary tract infection. It is unclear to me why the troponin was initially measured, perhaps due to the patient's confusion? She is known to have significant coronary disease and is likely to have elevated biomarkers under any stress. She has a history of angina as well. However, I do not think this is healthcare representative of an acute coronary syndrome and I would not treated as such. She can be continued on her usual aspirin and Plavix. 3. Coronary artery disease: She had a remote coronary bypass in 2019 underwent percutaneous intervention to the right coronary artery for symptoms of accelerating angina. He does not endorse symptoms of angina currently. At this point I would simply recommend continued aggressive secondary prevention with aspirin, Plavix and atorvastatin. 4. Angina: She has been maintained on outpatient regimen for angina to consist of amlodipine, metoprolol and isosorbide mononitrate. 5. First-degree AV block: She has a fairly long first-degree AV block. However, no symptoms associated with bradycardia or significant pauses. 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 She is on metoprolol and in the absence of more significant conduction disease or symptoms associated with bradycardia I think we will continue the current dose. 6. Valvular heart disease: She has an element of aortic stenosis, aortic regurgitation and mitral regurgitation. However, none of these are severe. These will be monitored in the outpatient setting. 7. Heart failure with preserved ejection fraction, acute: I think this is iatrogenic. She has been administered a significant amount of fluids since she was admitted. He does have some crackles on exam. At this point I would certainly limit any additional volume administration and consider mild diuresis for persistent dyspnea and rales. In the absence of new cardiac symptoms or concerns I will sign off at this time. Please feel free to contact the [facility] cardiology service for any additional questions. Thank you History of Present Illness Reason for Consultation: Atrial fibrillation, elevated troponin Requesting Physician: Angelique Attending Physician: Christiane Mernio MD History of Present Illness The patient is an 84-year-old woman with an extensive history of cardiac disease to include coronary disease status post both surgical and percutaneous intervention, angina, PVCs, PACs and aortic stenosis who was referred to the hospital for treatment of a urinary tract infection. It seems that outpatient management was initiated but she was not responding well and she was advised to come to the hospital for more intensive treatment of urinary tract infection. In the emergency room cardiac troponin was checked for reasons that are not clear. This was elevated. According to the patient she was not having any specific cardiac symptoms at the time of admission. Her presentation involved an element of confusion which was common during prior urinary tract infections. At some point the patient was felt to have atrial fibrillation and was placed on an heparin infusion. A cardiology consult was also placed for evaluation of atrial fibrillation. Patient states that she has been doing well at home until recently. She has been ambulating with a cane or a wheeled walker. She is able to perform usual activities such as cleaning and laundry. She did not describe symptoms of angina recently. Unfortunately, her last January and around that time she was using some supplemental nitroglycerin. She has not done so recently. She also had a sense of palpitation around that time but more recently has not been aware of palpitations. She specifically denied dizziness or lightheadedness. She is not limited by breathing difficulty. She has not noticed any swelling in her lower extremities. Feeling much better today. She feels that her mentation is much more clear. Allergies Allergy/AdvReac Type Severity Reaction Status Date / Time Cipro Allergy Intermediate RASH Verified 10/22/16 09:26 meperidine Allergy Mild NAUSEA AND Verified 08/05/24 08:29 VOMITING morphine Allergy Mild NAUSEA AND Verified 08/05/24 08:29 VOMITING adhesive Allergy Unknown ADHESIVE Verified 08/05/24 08:29 TAPE-BLISTERS clindamycin Allergy Unknown per PCP Verified 08/05/24 08:29 records codeine Allergy Unknown Nausea Verified 08/05/24 08:29 ciprofloxacin Allergy Verified 08/05/24 08:29 oxycodone AdvReac Severe NAUSEA/VOMI Verified 08/05/24 08:29 TING sulfamethoxazole AdvReac Vomiting Verified 08/05/24 08:29 [From Bactrim] trimethoprim [From Bactrim] AdvReac Vomiting Verified 08/05/24 08:29 Home Medications Medication Instructions Recorded Confirmed Type vitamin E (dl, acetate) 180 mg 400 units PO QAM 10/27/18 08/13/24 History (400 unit) capsule lactobacillus combination no.9 4 4,000 mmu cells PO QAM 02/04/19 08/13/24 History billion cell capsule (Adult 50 Plus Probiotic) aspirin 81 mg tablet,delayed 81 mg PO QAM 11/25/19 08/13/24 History release Wheeled Walker #1 ea 10/06/23 08/13/24 Rx nitroglycerin 0.4 mg sublingual 0.4 mg sublingual ONCE PRN Chest 11/10/23 08/13/24 Rx tablet Pain #25 tabs metoprolol tartrate 25 mg tablet 25 mg PO BID #180 tabs 11/25/23 08/13/24 Rx mecobalamin (vitamin B12) 1,000 500 mcg PO Q OTHER DAY 02/19/24 08/13/24 History mcg chewable tablet cholecalciferol (vitamin D3) 125 125 mcg PO DAILY 02/20/24 08/13/24 History mcg (5,000 unit) tablet (Vitamin D3) econazole nitrate 1 % topical cream 1 applic topical DAILY PRN fungus 02/20/24 08/13/24 History clopidogrel 75 mg tablet 75 mg PO QAM #90 tabs 03/09/24 08/13/24 Rx esomeprazole magnesium 40 mg 40 mg PO QAM #90 caps 03/11/24 08/13/24 Rx capsule,delayed release (Nexium) tolterodine 4 mg capsule,extended 4 mg PO QAM #90 caps 04/05/24 08/13/24 Rx release 24 hr atorvastatin 80 mg tablet 80 mg PO QPM #90 tabs 05/06/24 08/13/24 Rx icosapent ethyl 1 gram capsule 2 g (2 x 1 gram) PO BID #360 caps 05/07/24 08/13/24 Rx (Vascepa) potassium chloride 10 mEq 10 meq PO DAILY with lasix #90 caps 05/20/24 08/13/24 Rx capsule,extended release famotidine 40 mg tablet 40 mg PO HS #90 tabs 06/07/24 08/13/24 Rx levothyroxine 125 mcg tablet 125 mcg PO QAM #60 tabs 08/05/24 08/13/24 Rx ondansetron HCl 4 mg tablet 4 mg PO Q8H PRN nausea and 08/12/24 08/13/24 Rx vomiting #30 tabs sulfamethoxazole 800 1 tab PO BID #14 tabs 08/12/24 08/13/24 Rx mg-trimethoprim 160 mg tablet (Bactrim DS) amlodipine 5 mg tablet 5 mg PO QAM 08/13/24 08/13/24 History furosemide 40 mg tablet (Lasix) 40 mg PO QAM edema 08/13/24 08/13/24 History isosorbide mononitrate 60 mg 60 mg PO QAM 08/13/24 08/13/24 History tablet,extended release 24 hr telmisartan 40 mg tablet 40 mg PO QAM 08/13/24 08/13/24 History Patient History Medical History Cirrhosis, nonalcoholic GERD (gastroesophageal reflux disease) CAD (coronary artery disease) Elevated troponin Nasopharyngitis History of inverted papilloma Gout 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 (SNHL) of both ears Hip pain Pulmonary nodule 1 cm or greater in diameter Acute diastolic (congestive) heart failure NSTEMI (non-ST elevated myocardial infarction) Allergic rhinitis due to allergen Allergic rhinitis Knee pain, bilateral Chronic osteoarthritis Dupuytren's contracture of hand Splenomegaly (~09/2011) ITP (idiopathic thrombocytopenic purpura) (~09/2011) Asthma SD (myocardial infarction) Surgical History H/O wisdom tooth extraction H/O colonoscopy History of tonsillectomy History of hysterectomy History of cataract surgery History of carotid endarterectomy Hx of CABG Family History Unknown Hypertension Mother Diabetes Father Heart disease Myocardial infarction Hypertension Cancer Aunt Lung cancer Denies family history of Ovarian cancer Prostate cancer Breast cancer Colorectal cancer Stroke Social History Smoking Status: Never smoker Tobacco Type: Cigarettes Age Started Using Tobacco: 15; Age Quit Using Tobacco: 43; packs per day: 1; Cigarettes Per Day: 1 pack a day.; Second Hand Exposure: No; Do You Dip or Chew Tobacco: No; Hx Alcohol Use: No Hx Substance Use: No Preferred Language: [place] Communication Ability: Effective Visual Impairment: Limited Hearing Ability: Normal It Admin Required: No Beliefs That Will Affect Care: None marital status: / Current Living Situation: Alone current occupational status: retired How many Children do You have: 1 Feels Safe at Home: Yes Safety Concerns: Feels Safe At This Time Childhood Exposure to Second-Hand Smoke: Yes Diet: regular caffeine: Yes during the past year weight has: decreased > 10 lbs Dental Care, Regularly: Yes Physical Activity Frequency: Does not Exercise Seatbelt Use: always Sunscreen Use: Yes Assistive Devices: Glasses Review of Systems Review of Systems: Per HPI Physical Exam Physical Exam: She is alert and oriented x3. Mood affect appear normal. She answered all questions appropriately. HEENT: Sclerae are anicteric. Pupils are equal and reactive to light and accommodation. Extraocular movements were intact. Neuro: Cranial nerves intact Chest: Well-healed sternotomy surgical scar Lungs: Crackles bilaterally. She has normal respiratory effort without use of accessory muscles. There is normal pulmonary excursion. Cardiac: The rhythm was regular with occasional ectopy. S1 and S2 were normal. Crescendo systolic murmur. The PMI was not markedly displaced on palpation. Abdomen: The abdomen was soft and nontender. Extremities: Patient has bilateral radial pulses that are equal in intensity. There is no evidence cyanosis or clubbing. There was no evidence of significant peripheral edema bilaterally. Skin: There are no rashes noted on examination today. Results & Data Vital Signs (Past 12 Hours) Vital Signs Temp Pulse Resp BP Pulse Ox O2 Del Method O2 Flow Rate 08/14/24 07:39 36.4 C L 58 L 21 118/58 L 96 Nasal Cannula 2 08/14/24 05:36 36.4 C L 57 L 16 132/62 97 Oxymask 2 08/14/24 01:36 37.1 C 08/14/24 00:23 37.5 C 65 16 132/51 L 91 Nasal Cannula 2 08/13/24 22:28 Nasal Cannula 2 Laboratory Results Abnormal Lab Results 08/13/24 08/13/24 08/13/24 10:34 15:59 18:14 WBC RBC Hgb Hct MCV MCH MCHC RDW Std Deviation RDW Coeff of [place] Plt Count MPV Immature Gran % (Auto) Neut % (Auto) Lymph % (Auto) [place] % (Auto) Eos % (Auto) Baso % (Auto) Neut # (Auto) Lymph # (Auto) [place] # (Auto) Eos # (Auto) Baso # (Auto) Immature Gran # (Auto) Heparin Anti-Xa, Unfract 0.18 L 0.47 Sodium Potassium Chloride Carbon Dioxide Anion Gap BUN Creatinine Est Cr Clr Drug Dosing eGFR BUN/Creatinine Ratio Glucose Calcium Total Bilirubin AST ALT Alkaline Phosphatase Troponin I High Sens 798.2 H* D 1050.3 H* D Total Protein Albumin Globulin Albumin/Globulin Ratio 08/14/24 05:47 WBC 5.49 RBC 3.57 L Hgb 10.8 L Hct 32.2 L MCV 90.2 MCH 30.3 MCHC 33.5 RDW Std Deviation 44.0 RDW Coeff of [place] 13.3 Plt Count 110 L MPV 10.8 Immature Gran % (Auto) 0.5 Neut % (Auto) 71.6 Lymph % (Auto) 13.5 [place] % (Auto) 11.3 Eos % (Auto) 2.7 Baso % (Auto) 0.4 Neut # (Auto) 3.93 Lymph # (Auto) 0.74 L [place] # (Auto) 0.62 H Eos # (Auto) 0.15 Baso # (Auto) 0.02 Immature Gran # (Auto) 0.03 Heparin Anti-Xa, Unfract 0.52 Sodium 136 Potassium 3.8 Chloride 102 Carbon Dioxide 32 Anion Gap 2 L BUN 16 Creatinine 0.67 Est Cr Clr Drug Dosing 58.5 eGFR 85.07 BUN/Creatinine Ratio 23.9 H Glucose 103 H Calcium 8.5 L Total Bilirubin 2.1 H AST 30 ALT 24 Alkaline Phosphatase 46 Troponin I High Sens 707.3 H* D Total Protein 5.6 L Albumin 3.3 L Globulin 2.3 L Albumin/Globulin Ratio 1.4 Diagnostic Findings Echocardiogram 08/13/2024: Ejection fraction 60 to 65%. Moderate LVH. Severe left and mild right atrial dilation. Mild aortic stenosis with mild aortic regurgitation. Moderate mitral regurgitation PG Care Time/CCT Total # of Minutes Spent Total Time Spent with Patient: Total time spent is greater than 50% in coordination of care (as documented) at patient's floor/unit and/or counseling patient: Coding Level of Care Code 65314 INT INP/OBS CARE MIN Diagnoses Elevated troponin R79.89 CAD (coronary artery disease) I25.119 Associated angina: with unspecified angina Coronary Disease-Associated Artery/Lesion type: unspecified vessel or lesion type [place] vs. transplanted heart: unspecified whether [place] or transplanted heart Valvular heart disease I38 Acute diastolic (congestive) heart failure I50.31 (2) CAD (coronary artery disease) Associated angina: with unspecified angina Coronary Disease-Associated Artery/Lesion type: unspecified vessel or lesion type [place] vs. transplanted h eart: unspecified whether [place] or transplanted heart Qualified Code(s): I25.119 - Atherosclerotic heart disease of [place] coronary artery with unspecified angina pectoris
--- NOTE | 2024-08-14 17:59 | Hospitalist Progress Note ---
Date of Service August 14, 2024 Assessment & Plan (1) Urinary tract infection: Plan: Continue patient on Zosyn for ESBL E. coli (2) Fever: Plan: Fever is getting better as patient is on antibiotics (3) Elevated troponin: Plan: Patient had elevated troponin in the setting of infection patient does have history of angina however she is denying chest pain overnight with IV fluids patient became fluid overloaded will diurese her (4) Cirrhosis, nonalcoholic: Plan: Patient has history of nonalcoholic steatohepatitis Plan Patient is an 84-year-old female with a past medical history of CAD s/p CABG x4V, asthma on nocturnal oxygen 2l NC, diastolic CHF, nonalcoholic cirrhosis with history of prior TIA, GERD. Patient presented after failing outpatient treatment with Bactrim for ESBL E. coli, symptomatic with dysuria, flank pain, and febrile. Patient does appear sick at bedside, however does not meet SIRS criteria and has no leukocytosis. She is being admitted for IV management. #UTI/fever - Patient failed outpatient treatment of Bactrim, history of ESBL E. coli; cultures /6 grew ESBL susceptible to Zosyn. Patient with dysuria. Patient does appear sick, however does not meet SIRS criteria with no leukocytosis - She does have a fever with temperature 38 degrees C. Lactate and procalcitonin negative. AP CT showed cystitis, no pyelonephritis noted. Continue Zosyn - P #Elevated troponin Trop 41.2 -> 251.7. suspect 2/2 demand in setting of infection, similar presentation in February 2024 with troponin elevated to 210. Patient denies any chest pain. - Appreciate cardiology input #Nonalcoholic liver cirrhosis LFTs stable. INR 1.1 - Trend CMP with Tylenol use #CAD s/p CABG x [address] Fish. - trending troponin as above - Continue aspirin, Plavix, atorvastatin, isosorbide mononitrate, metoprolol #HTN stable - Continue amlodipine and telmisartan - Holding Lasix as patient appears dry #Asthma/nocturnal hypoxia stable - 2L oxygen via nasal cannula at bedtime #GERD stable Continue PPI #Diastolic CHF stable - Holding as needed Lasix as patient appears dry #Hypothyroidism - stable - Continue Synthroid VTE ppx: SCDs, low risk and history of ITP Dispo: PCU with concern for early sepsis Admission and Anticipated Discharge Date Admission Date: August 13, 2024 Subjective Patient is feeling better Review of Systems Review of Systems: She is alert and oriented x3. Mood affect appear normal. She answered all questions appropriately. HEENT: Sclerae are anicteric. Pupils are equal and reactive to light and accommodation. Extraocular movements were intact. Neuro: Cranial nerves intact Chest: Well-healed sternotomy surgical scar Lungs: Crackles bilaterally. She has normal respiratory effort without use of accessory muscles. There is normal pulmonary excursion. Cardiac: The rhythm was regular with occasional ectopy. S1 and S2 were normal. Crescendo systolic murmur. The PMI was not markedly displaced on palpation. Abdomen: The abdomen was soft and nontender. Extremities: Patient has bilateral radial pulses that are equal in intensity. There is no evidence cyanosis or clubbing. There was no evidence of significant peripheral edema bilaterally. Skin: There are no rashes noted on examination today. Results & Data Results & Data Vital Signs (Past 12 Hours) Vital Signs Temp Pulse Pulse Resp BP Pulse Ox O2 Del Method 08/14/24 17:44 37.1 C 08/14/24 16:04 36.9 C 08/14/24 15:26 36.4 C L 59 L 16 119/58 L 3 L Nasal Cannula 08/14/24 15:18 57 L 08/14/24 11:41 36.8 C 61 18 112/37 L 89 L Nasal Cannula 08/14/24 09:00 48 L 08/14/24 09:00 Oxymask 08/14/24 07:39 36.4 C L 58 L 21 118/58 L 96 Nasal Cannula O2 Flow Rate 08/14/24 17:44 08/14/24 16:04 08/14/24 15:26 3 08/14/24 15:18 08/14/24 11:41 2 08/14/24 09:00 08/14/24 09:00 2 08/14/24 07:39 2 PG Care Time/CCT Total # of Minutes Spent Total Time Spent with Patient: Total time spent is greater than 50% in coordination of care (as documented) at patient's floor/unit and/or counseling patient: Coding Level of Care Code 96924 SUB INP/OBS CARE 2/35MIN Diagnoses Urinary tract infection N39.0 Fever R50.9 Elevated troponin R79.89 Cirrhosis, nonalcoholic K74.60
[2024-08-15 06:35] LABS: Basophils # (auto) 0.01 K/uL (0.00-0.20); Basophils % (auto) 0.2 %; Eosinophils % (auto) 5.9 %; Hematocrit (blood only) 29.6 % (37.0-47.0); Hemoglobin 10.3 g/dl (12.0-16.0); Immature Granulocytes # (auto) 0.01 K/uL (0.01-0.20); Immature Granulocytes % (auto) 0.2 %; Lymphocytes # (auto) 0.49 K/uL (1.20-3.40); Lymphocytes % (auto) 9.6 %; Mean Corpuscular Hgb Conc 34.8 g/dL (32.0-36.0); Mean Corpuscular Volume 89.2 fL (80.0-100.0); Mean Platelet Volume 10.8 fL (9.4-12.4); Monocytes # (auto) 0.62 K/uL (0.11-0.59); Monocytes % (auto) 12.2 %; Neutrophils # (auto) 3.67 K/uL (1.40-6.50); Neutrophils % (auto) 71.9 %; Platelet Count 109 K/uL (130-400); RDW Coefficient of Variation 13.2 % (11.5-14.5); RDW Standard Deviation 43.7 fL (36.4-46.3); Red Blood Count 3.32 M/uL (4.20-5.40)
[2024-08-15 07:03] LABS: Anion Gap 3 (3-11); Blood Urea Nitrogen 15 mg/dl (6-23); C Reactive Protein < 0.50 mg/dl (0-0.5); Calcium 8.4 mg/dl (8.6-10.3); Carbon Dioxide 33 mmol/L (21-32); Chloride 100 mmol/L (98-107); Creatinine Clr Calc Pharmacy 63.2 ml/min; Glucose 93 mg/dl (70-99(Fasting)); Potassium 3.4 mmol/L (3.5-5.1); Sodium 136 mmol/L (136-145)
--- NOTE | 2024-08-15 11:28 | Hospitalist Progress Note ---
Date of Service August 15, 2024 Assessment & Plan (1) Urinary tract infection: Plan: Continue patient on Zosyn for ESBL E. coli I will switch to p.o. Bactrim (2) Fever: Plan: Fever present on admission now rate (3) Elevated troponin: Plan: Appreciate cardiology input most likely due to demand ischemia in the setting of (4) Cirrhosis, nonalcoholic: Plan: Patient has history of nonalcoholic steatohepatitis Plan Patient is an 84-year-old female with a past medical history of CAD s/p CABG x4V, asthma on nocturnal oxygen 2l NC, diastolic CHF, nonalcoholic cirrhosis with history of prior TIA, GERD. Patient presented after failing outpatient treatment with Bactrim for ESBL E. coli, upon reviewing the chart with infectious disease patient literally had a day of Bactrim so she had not failed but her clinical condition worsened and that is why she came to the hospital .symptomatic with dysuria, flank pain, and febrile. Patient does appear sick at bedside, however does not meet SIRS criteria and has no leukocytosis. She is being admitted for IV management. #UTI/fever - Patient just started outpatient treatment of Bactrim, history of ESBL E. coli; cultures 5/6 grew ESBL susceptible to Zosyn. Patient with dysuria. Patient does appear sick, however does not meet SIRS criteria with no leukocytosis - She does have a fever with temperature 38 degrees C. Lactate and procalcitonin negative. AP CT showed cystitis, no pyelonephritis noted. I will switch Zosyn to Bactrim for discharge - P #Elevated troponin Trop 41.2 -> 251.7. suspect 2/2 demand in setting of infection, similar presentation in February 2024 with troponin elevated to 210. Patient denies any chest pain. - Appreciate cardiology input - Continue home medication #Nonalcoholic liver cirrhosis LFTs stable. INR 1.1 - Trend CMP with Tylenol use - This appears to be stable #CAD s/p CABG x [address] Fish. - trending troponin as above - Continue aspirin, Plavix, atorvastatin, isosorbide mononitrate, metoprolol #HTN stable - Continue amlodipine and telmisartan - Holding Lasix as patient appears dry #Asthma/nocturnal hypoxia stable - 2L oxygen via nasal cannula at bedtime - On 511 patient's oxygen saturation was 85% on ambulation on room air PT OT has been asked to see patient and encourage patient to do incentive #GERD stable Continue PPI #Diastolic CHF stable - Holding as needed Lasix as patient appears dry #Hypothyroidism - stable - Continue Synthroid VTE ppx: SCDs, low risk and history of ITP Dispo: Discharge patient home tomorrow if oxygen saturation improves Admission and Anticipated Discharge Date Admission Date: August 13, 2024 Subjective Patient is feeling better 84-year-old female who had ESBL E. coli UTI patient was on Zosyn she is doing better we will switch her meds to p.o. Bactrim. Patient was saturating 85% on room air incentive spirometry was provided to patient Review of Systems Review of Systems: Positive for shortness of breath negative for chest pain negative for abdominal pain Physical Exam Physical Exam: She is alert and oriented x3. Mood affect appear normal. She answered all questions appropriately. HEENT: Sclerae are anicteric. Pupils are equal and reactive to light and accommodation. Extraocular movements were intact. Neuro: Cranial nerves intact Chest: Well-healed sternotomy surgical scar Lungs: Crackles bilaterally. She has normal respiratory effort without use of accessory muscles. There is normal pulmonary excursion. Cardiac: The rhythm was regular with occasional ectopy. S1 and S2 were normal. Crescendo systolic murmur. The PMI was not markedly displaced on palpation. Abdomen: The abdomen was soft and nontender. Extremities: Patient has bilateral radial pulses that are equal in intensity. There is no evidence cyanosis or clubbing. There was no evidence of significant peripheral edema bilaterally. Skin: There are no rashes noted on examination today. Results & Data Results & Data Vital Signs (Past 12 Hours) Vital Signs Temp Pulse Pulse Resp BP Pulse Ox O2 Del Method 08/15/24 09:00 56 L 08/15/24 09:00 Nasal Cannula 08/15/24 07:00 36.8 C 71 20 130/68 96 Nasal Cannula 08/15/24 03:28 36.4 C L 57 L 18 124/56 L 96 Nasal Cannula O2 Flow Rate 08/15/24 09:00 08/15/24 09:00 2 08/15/24 07:00 08/15/24 03:28 PG Care Time/CCT Total # of Minutes Spent Total Time Spent with Patient: Total time spent is greater than 50% in coordination of care (as documented) at patient's floor/unit and/or counseling patient: Coding Level of Care Code 33901 SUB INP/OBS CARE 2/35MIN Diagnoses Urinary tract infection N39.0 Fever R50.9 Elevated troponin R79.89 Cirrhosis, nonalcoholic K74.60 Time Spent (min) 35
[2024-08-15] MEDS: FUROSEMIDE 40 MG TAB PO SCH (15:46)
[2024-08-15] MEDS: SULFAMETHOXAZOLE/TRIMETHOPRIM DS 800/160MG TAB PO SCH (20:22)
[2024-08-16 06:07] LABS: Basophils # (auto) 0.01 K/uL (0.00-0.20); Basophils % (auto) 0.2 %; Eosinophils # (auto) 0.25 K/uL (0.00-0.50); Eosinophils % (auto) 4.8 %; Hematocrit (blood only) 29.1 % (37.0-47.0); Hemoglobin 10.2 g/dl (12.0-16.0); Immature Granulocytes # (auto) 0.01 K/uL (0.01-0.20); Immature Granulocytes % (auto) 0.2 %; Lymphocytes # (auto) 0.42 K/uL (1.20-3.40); Mean Corpuscular Hemoglobin 30.4 pg (25.0-34.0); Mean Corpuscular Hgb Conc 35.1 g/dL (32.0-36.0); Mean Corpuscular Volume 86.6 fL (80.0-100.0); Mean Platelet Volume 11.1 fL (9.4-12.4); Monocytes # (auto) 0.61 K/uL (0.11-0.59); Monocytes % (auto) 11.6 %; Neutrophils # (auto) 3.96 K/uL (1.40-6.50); Neutrophils % (auto) 75.2 %; Platelet Count 109 K/uL (130-400); RDW Coefficient of Variation 13.1 % (11.5-14.5); RDW Standard Deviation 41.3 fL (36.4-46.3); Red Blood Count 3.36 M/uL (4.20-5.40); White Blood Count 5.26 K/ul (4.8-10.8)
--- NOTE | 2024-08-16 07:36 | Hospitalist Progress Note ---
Date of Service August 16, 2024 Assessment & Plan (1) Urinary tract infection: (2) Elevated troponin: (3) Cirrhosis, nonalcoholic: Plan Patient is an 84-year-old female with a past medical history of CAD s/p CABG x4V, asthma on nocturnal oxygen 2l NC, diastolic CHF, nonalcoholic cirrhosis with history of prior TIA, GERD. Patient presented after failing outpatient treatment with Bactrim for ESBL E. coli uti. She is being admitted for IV management. #UTI/fever - outpatient treatment of Bactrim, history of ESBL E. coli; cultures /6 grew ESBL susceptible to Zosyn. Lactate and procalcitonin negative. AP CT showed cystitis, no pyelonephritis noted. Zosyn restarted with fever recurrence 08/16 #Elevated troponin Trop 41.2 -> 251.7. demand ischemia, similar presentation in February 2024 with troponin elevated to 210. Patient denies any chest pain. - Appreciate cardiology input CAD s/p CABG x [address] Fish. - trending troponin as above - Continue aspirin, Plavix, atorvastatin, isosorbide mononitrate, metoprolol, telmisartan #Diastolic CHF acute on chronic, increasing parenteral lasix based on hypoxia and CXR, augmenting potassium #Nonalcoholic liver cirrhosis LFTs stable. INR 1.1 - Trend CMP with Tylenol use - This appears to be stable #Asthma/nocturnal hypoxia stable - 2L oxygen via nasal cannula at bedtime - On 08/15 patient's oxygen saturation was 85% on ambulation on room air PT OT has been asked to see patient and encourage patient to do incentive #GERD stable Continue PPI #Hypothyroidism - stable - Continue Synthroid VTE ppx: SCDs, low risk and history of ITP Admission and Anticipated Discharge Date Admission Date: August 13, 2024 Subjective pt is still with some hypoxia, cxr looks like mild HF switched to Bactrim but developed fever to 100.8 did have some diuresis with initial lasix Physical Exam Physical Exam: lungs are with rales L> R abd is soft and non tender cardiac is regular without murmur Results & Data Results & Data Vital Signs (Past 12 Hours) Vital Signs Temp Pulse Pulse Resp BP Pulse Ox O2 Del Method 08/15/24 23:14 60 08/15/24 22:00 98.2 F 58 L 18 158/55 H 95 Nasal Cannula 08/15/24 20:29 Nasal Cannula 08/15/24 19:33 55 L 18 130/75 90 Room Air O2 Flow Rate 08/15/24 23:14 08/15/24 22:00 2 08/15/24 20:29 2 08/15/24 19:33 Laboratory Results review cbc review chemistry, augmented potassium PG Care Time/CCT Total # of Minutes Spent Total Time Spent with Patient: Total time spent is greater than 50% in coordination of care (as documented) at patient's floor/unit and/or counseling patient: Coding Level of Care Code 45895 SUB INP/OBS CARE 3/50MIN Diagnoses Urinary tract infection N39.0 Elevated troponin R79.89 Cirrhosis, nonalcoholic K74.60
--- NOTE | 2024-08-16 09:02 | XRay Report ---
XR chest 1V portable CLINICAL HISTORY: eval chf COMPARISON STUDY: 08/13/2024 FINDINGS: Stable CABG. Stable prominent cardiomegaly with increased pulmonary vascular congestion. Th ere is mildly increased diffuse pulmonary interstitial opacity. No lobar consolidation or pleural eff usion. No pneumothorax. IMPRESSION: Increased CHF. ACT 112: Negative or not required by law. Electronically signed by: Renaldo Mendoza M.D. 08/16/2024 9:00 AM
[2024-08-16 09:29] LABS: BUN Creatinine Ratio 26.8 (10-20); Calcium 8.4 mg/dl (8.6-10.3); Creatinine Clr Calc Pharmacy 67.7 ml/min; Magnesium 1.8 mg/dl (1.7-2.4); Potassium 3.3 mmol/L (3.5-5.1)
[2024-08-16] MEDS: FUROSEMIDE 40 MG/4 ML VIAL IV ONE ×2 (09:38→15:54)
[2024-08-16] MEDS: MAGNESIUM SULFATE / D5W 1 GM/100 ML BAG IV ONE (10:52)
[2024-08-16] MEDS: POTASSIUM CHLORIDE CRTAB 20 MEQ TABCR PO STA (10:52)
[2024-08-16] MEDS: PIPERACILLIN/TAZOBACTAM 4.5 GM/100 ML BAG IV ONE (15:54)
[2024-08-16] MEDS ORDERED: PIPERACILLIN/TAZOBACTAM 4.5 GM/100 ML BAG IV SCH (22:00)
[2024-08-16] MEDS: ERTAPENEM 1000MG 1,000 MG/10 ML SYR IV SCH (22:27)
[2024-08-17 06:19] LABS: BUN Creatinine Ratio 25.9 (10-20); Calcium 8.4 mg/dl (8.6-10.3); Creatinine Clr Calc Pharmacy 64.8 ml/min; Potassium 3.4 mmol/L (3.5-5.1)
--- NOTE | 2024-08-17 07:06 | Hospitalist Progress Note ---
Date of Service August 17, 2024 Assessment & Plan (1) Urinary tract infection: (2) Hypoxia: (3) Elevated troponin: (4) Cirrhosis, nonalcoholic: Plan Patient is an 84-year-old female with a past medical history of CAD s/p CABG x4V, asthma on nocturnal oxygen 2l NC, diastolic CHF, nonalcoholic cirrhosis with history of prior TIA, GERD. Patient presented after failing outpatient treatment with Bactrim for ESBL E. coli uti. She is being admitted for IV management. #UTI/fever - outpatient treatment of Bactrim, history of ESBL E. coli; cultures /6 grew ESBL susceptible to Zosyn. Lactate and procalcitonin negative. AP CT showed cystitis, no pyelonephritis noted. Zosyn restarted with fever recurrence 08/16, changed to ertapenem overnight, ID recommends 7 day course, and does not endorse fosfomycin, otherwise try bactrim with zofran but pt did have nausea with bactrim #Diastolic CHF acute on chronic, concern as origin of hypoxia, increasing parenteral lasix based on hypoxia and CXR, augmenting potassium with persistent hypoxia and fever negative resp viral screen #Elevated troponin Trop 41.2 -> 251.7. demand ischemia, similar presentation in February 2024 with troponin elevated to 210. Patient denies any chest pain. - Appreciate cardiology input CAD s/p CABG x [address] Fish. - trending troponin as above - Continue aspirin, Plavix, atorvastatin, isosorbide mononitrate, metoprolol, telmisartan #Nonalcoholic liver cirrhosis LFTs stable. INR 1.1 - Trend CMP with Tylenol use - This appears to be stable #Asthma/nocturnal hypoxia stable - 2L oxygen via nasal cannula at bedtime - On 08/15 patient's oxygen saturation was 85% on ambulation on room air PT OT has been asked to see patient and encourage patient to do incentive #GERD stable Continue PPI #Hypothyroidism - stable - Continue Synthroid VTE ppx: SCDs, low risk and history of ITP Admission and Anticipated Discharge Date Admission Date: August 13, 2024 Subjective Pt is feeling better has now returned to RA while awake, she is still fatigued but overall less shortness of breath Physical Exam Physical Exam: lungs are with rales L> R abd is soft and non tender cardiac is regular without murmur Results & Data Results & Data Vital Signs (Past 12 Hours) Vital Signs Temp Pulse Pulse Resp BP Pulse Ox O2 Del Method 08/17/24 03:38 97.7 F 61 18 150/65 H 91 Nasal Cannula 08/16/24 21:33 57 L 08/16/24 19:50 Nasal Cannula 08/16/24 19:20 98.1 F 54 L 16 117/69 93 Room Air O2 Flow Rate 08/17/24 03:38 2 08/16/24 21:33 08/16/24 19:50 2 08/16/24 19:20 Laboratory Results review chemistry PG Care Time/CCT Total # of Minutes Spent Total Time Spent with Patient: Total time spent is greater than 50% in coordination of care (as documented) at patient's floor/unit and/or counseling patient: Coding Level of Care Code 51301 SUB INP/OBS CARE 3/50MIN Diagnoses Urinary tract infection N39.0 Hypoxia R09.02 Elevated troponin R79.89 Cirrhosis, nonalcoholic K74.60
[2024-08-17] MEDS: FUROSEMIDE 40 MG/4 ML VIAL IV SCH (07:59)
[2024-08-17 08:19] LABS: Influenza A virus by PCR Negative (Neg); Influenza B virus by PCR Negative (Neg); RSV by PCR Negative (Neg); SARS CoV2 RNA(COVID-19) Ceph NEGATIVE (Negative)
--- NOTE | 2024-08-17 09:22 | Infectious Disease Consult ---
Date of Consultation August 17, 2024 Assessment & Plan (1) UTI due to extended-spectrum beta lactamase (ESBL) producing Escherichia coli: (2) Fever: Plan 84yo F with h/o CAD s/p 4vCABG, asthma on qhs 2L NC, diastolic CHF, nonalcoholic cirrhosis, TIA, recurrent UTIs with ESBL E coli who presented on 08/13 with left flank pain, dysuria, subjective fevers. She was recently noted to have ESBL E coli on urine cx outpatient on 08/10. Was prescribed Bactrim 08/12, took 2 doses, but came to ED d/t ongoing dysuria. On admission, she was febrile to 38, vss. No leukocytosis, Cr wnl. AST/ALT wnl. Troponin elevated. CRP < 0.5. PCT < 0.02. UA 21-50 WBC. Flu/COVID/RSV neg. CXR no acute findings. CTAP w/o con with irregularity with mild thickening of the urinary bladder wall, possibility of cystitis, reduced vs prior study. She was given zosyn, then abx changed to Bactrim on 08/15. She developed fevers on 08/16 afternoon and abx changed back to zosyn->ertapenem. She has been on O2. CXR on 08/16 showed increased CHF. BCX ngtd. UCx with mixed organisms. Preferred treatment of ESBL organism is with carbapenem over pip-tazo, despite sensitivity being reported. I did change her to ertapenem last night. Today her dysuria is resolved, which she says was still present yesterday. Note UCx with low count mixed organisms, likely since she did have a couple doses of Bactrim prior to her admission. She also had been vomiting yesterday and unable to keep anything down, therefore possible that she was unable to keep Bactrim down, which could explain why she has had fevers. Id like to keep her on ertapenem for now to ensure she doesnt have any further fevers, though she is asking about going home. Since she has had fevers and flank pain, I do not think the UTI is consistent with a simple cystitis, in which case, Fosfomycin is not recommended. Her options would be either to complete therapy with Bactrim (which she has been unable to tolerate PO unless we try giving with zofran) or with ertapenem IV. # ESBL UTI # Fever # Nausea/Vomiting with Bactrim - monitor fever curve - if recurrence of fevers, then would obtain blood cx and pursue repeat CTAP w IV contrast this time to ensure no progression/complication of an upper tract infection - continue ertapenem 1g IV daily - if she remains afebrile with clinical improvement and is ready for discharge, would complete 7d of abx (start 08/16) with either ertapenem IV or Bactrim PO (only if she is able to tolerate Bactrim without vomiting, may consider giving with zofran) Will continue to follow. If questions or concerns, contact via [employer] or Infectious Disease Call Center . Donna Ferreira MD [facility], Division of Infectious Diseases Consultation Information Consultation was provided via telemedicine using two-way real-time interactive telecommunication between the patient and the telemedicine provider. For the duration of the visit, the provider was performing the assessment from a different facility than the patient. This includesuse of bluetooth stethoscope forauscultationperformed by the telepresenter that the telemedicine provider can hear if described in the physical exam. [employer] contact information: Please call [facility] [phone]. (Phone Number For Physician Use Only) After establishing a telemedicine visit, patient was: Patient was verified with two unique identifiers, Patient/authorized rep acknowledged consent and understanding and Gave permission to continue telehealth session Time Spent with Patient: Initial => 75 min History of Present Illness Reason for Consultation: esbl ? fosfomycin Attending Physician: Jerry Kraus MD History of Present Illness 84yo F with h/o CAD s/p 4vCABG, asthma on qhs 2L NC, diastolic CHF, nonalcoholic cirrhosis, TIA, recurrent UTIs with ESBL E coli who presented on 08/13 with left flank pain, dysuria, subjective fevers. She was recently noted to have ESBL E coli on urine cx outpatient on 08/10. It seems she was prescribed bactrim on 08/12 but due to ongoing dysuria, she came to the ED. On admission, she was febrile to 38, vss. No leukocytosis, Cr wnl. AST/ALT wnl. Troponin elevated. CRP < 0.5. PCT < 0.02. UA 21-50 WBC. Flu/COVID/RSV neg. CXR no acute findings. CTAP w/o con with irregularity with mild thickening of the urinary bladder wall, possibility of cystitis, reduced vs prior study. She was given zosyn, then abx changed to Bactrim on 08/15. She developed fevers on 08/16 afternoon and abx changed back to zosyn->ertapenem. She has been on O2. CXR on 08/16 showed increased CHF. On evaluation, patient reports feeling better. She says she had dysuria up until yesterday and today its resolved. She has also had nausea and vomiting yesterday and says she threw up everything that she ate. She has had clumpy stools, not watery loose. Says she had pain in her left upper abdomen initially but this is resolved. Has baseline back pain. No hardware aside from brown stents. No SOB or chest pain. She does have a productive cough that started here. She only took 2 doses of Bactrim at home prior to admission. Allergies Allergy/AdvReac Type Severity Reaction Status Date / Time Cipro Allergy Intermediate RASH Verified 10/22/16 09:26 meperidine Allergy Mild NAUSEA AND Verified 08/05/24 08:29 VOMITING morphine Allergy Mild NAUSEA AND Verified 08/05/24 08:29 VOMITING adhesive Allergy Unknown ADHESIVE Verified 08/05/24 08:29 TAPE-BLISTERS clindamycin Allergy Unknown per PCP Verified 08/05/24 08:29 records codeine Allergy Unknown Nausea Verified 08/05/24 08:29 ciprofloxacin Allergy Verified 08/05/24 08:29 oxycodone AdvReac Severe NAUSEA/VOMI Verified 08/05/24 08:29 TING sulfamethoxazole AdvReac Vomiting Verified 08/05/24 08:29 [From Bactrim] trimethoprim [From Bactrim] AdvReac Vomiting Verified 08/05/24 08:29 Home Medications Medication Instructions Recorded Confirmed Type vitamin E (dl, acetate) 180 mg 400 units PO QAM 10/27/18 08/13/24 History (400 unit) capsule lactobacillus combination no.9 4 4,000 mmu cells PO QAM 02/04/19 08/13/24 History billion cell capsule (Adult 50 Plus Probiotic) aspirin 81 mg tablet,delayed 81 mg PO QAM 11/25/19 08/13/24 History release Wheeled Walker #1 ea 10/06/23 08/13/24 Rx nitroglycerin 0.4 mg sublingual 0.4 mg sublingual ONCE PRN Chest 11/10/23 08/13/24 Rx tablet Pain #25 tabs metoprolol tartrate 25 mg tablet 25 mg PO BID #180 tabs 11/25/23 08/13/24 Rx mecobalamin (vitamin B12) 1,000 500 mcg PO Q OTHER DAY 02/19/24 08/13/24 History mcg chewable tablet cholecalciferol (vitamin D3) 125 125 mcg PO DAILY 02/20/24 08/13/24 History mcg (5,000 unit) tablet (Vitamin D3) econazole nitrate 1 % topical cream 1 applic topical DAILY PRN fungus 02/20/24 08/13/24 History clopidogrel 75 mg tablet 75 mg PO QAM #90 tabs 03/09/24 08/13/24 Rx esomeprazole magnesium 40 mg 40 mg PO QAM #90 caps 03/11/24 08/13/24 Rx capsule,delayed release (Nexium) tolterodine 4 mg capsule,extended 4 mg PO QAM #90 caps 04/05/24 08/13/24 Rx release 24 hr atorvastatin 80 mg tablet 80 mg PO QPM #90 tabs 05/06/24 08/13/24 Rx icosapent ethyl 1 gram capsule 2 g (2 x 1 gram) PO BID #360 caps 05/07/24 08/13/24 Rx (Vascepa) potassium chloride 10 mEq 10 meq PO DAILY with lasix #90 caps 05/20/24 08/13/24 Rx capsule,extended release famotidine 40 mg tablet 40 mg PO HS #90 tabs 06/07/24 08/13/24 Rx levothyroxine 125 mcg tablet 125 mcg PO QAM #60 tabs 08/05/24 08/13/24 Rx ondansetron HCl 4 mg tablet 4 mg PO Q8H PRN nausea and 08/12/24 08/13/24 Rx vomiting #30 tabs sulfamethoxazole 800 1 tab PO BID #14 tabs 08/12/24 08/13/24 Rx mg-trimethoprim 160 mg tablet (Bactrim DS) amlodipine 5 mg tablet 5 mg PO QAM 08/13/24 08/13/24 History furosemide 40 mg tablet (Lasix) 40 mg PO QAM edema 08/13/24 08/13/24 History isosorbide mononitrate 60 mg 60 mg PO QAM 08/13/24 08/13/24 History tablet,extended release 24 hr telmisartan 40 mg tablet 40 mg PO QAM 08/13/24 08/13/24 History Patient History Medical History Cirrhosis, nonalcoholic GERD (gastroesophageal reflux disease) CAD (coronary artery disease) Elevated troponin Nasopharyngitis History of inverted papilloma Gout 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 (SNHL) of both ears Hip pain Pulmonary nodule 1 cm or greater in diameter Acute diastolic (congestive) heart failure NSTEMI (non-ST elevated myocardial infarction) Allergic rhinitis due to allergen Allergic rhinitis Knee pain, bilateral Chronic osteoarthritis Dupuytren's contracture of hand Splenomegaly (~09/2011) ITP (idiopathic thrombocytopenic purpura) (~09/2011) Asthma PR (myocardial infarction) Surgical History H/O wisdom tooth extraction H/O colonoscopy History of tonsillectomy History of hysterectomy History of cataract surgery History of carotid endarterectomy Hx of CABG Family History Unknown Hypertension Mother Diabetes Father Heart disease Myocardial infarction Hypertension Cancer Aunt Lung cancer Denies family history of Ovarian cancer Prostate cancer Breast cancer Colorectal cancer Stroke Social History Smoking Status: Never smoker Tobacco Type: Cigarettes Age Started Using Tobacco: 15; Age Quit Using Tobacco: 43; packs per day: 1; Cigarettes Per Day: 1 pack a day.; Second Hand Exposure: No; Do You Dip or Chew Tobacco: No; Hx Alcohol Use: No Hx Substance Use: No Preferred Language: Maldivian Communication Ability: Effective Visual Impairment: Limited Hearing Ability: Normal Straightener Hand Required: No Beliefs That Will Affect Care: None marital status: / Current Living Situation: Alone current occupational status: retired How many Children do You have: 1 Feels Safe at Home: Yes Safety Concerns: Feels Safe At This Time Childhood Exposure to Second-Hand Smoke: Yes Diet: regular caffeine: Yes during the past year weight has: decreased > 10 lbs Dental Care, Regularly: Yes Physical Activity Frequency: Does not Exercise Seatbelt Use: always Sunscreen Use: Yes Assistive Devices: Cane, Oxygen - at Night, Stair Lift and Walker Review of System 10-point review of systems reviewed and are negative except for as above. Physical Exam Physical Exam: General: Awake, alert, no acute distress HEENT: NC/AT, EOMI, mmm Neck: supple Lungs: CTA bl, no w/c/r Heart: no appreciable murmurs Abdomen: soft, TTP in RLQ Back: ttp in upper back, some right CVA tenderness Ext: no LE edema Skin: no rash Neuro: moving all extremities Results & Data Vital Signs (Past 12 Hours) Vital Signs Temp Pulse Pulse Resp BP Pulse Ox O2 Del Method 08/17/24 08:03 36.5 C 61 18 102/62 95 Nasal Cannula 08/17/24 07:14 58 L 08/17/24 03:38 36.5 C 61 18 150/65 H 91 Nasal Cannula 08/16/24 21:33 57 L O2 Flow Rate 08/17/24 08:03 1.5 08/17/24 07:14 08/17/24 03:38 2 08/16/24 21:33 Laboratory Results Labs reviewed. Diagnostic Findings Imaging reviewed.
[2024-08-17] MEDS: POTASSIUM CHLORIDE CRTAB 20 MEQ TABCR PO SCH (11:36)
--- NOTE | 2024-08-17 17:44 | Electrocardiogram Report ---
Test Reason : Blood Pressure : */* mmHG Vent. Rate : 61 BPM Atrial Rate : 62 BPM P-R Int : * ms QRS Dur : 122 ms QT Int : 436 ms P-R-T Axes : * 21 -4 degrees QTcB Int : 438 ms Sinus rhythm with 1st degree AV block Right bundle branch block Cannot rule out Anterior infarct , age undetermined Abnormal ECG When compared with ECG of 13-Aug-2024 03:48, Right bundle branch block is now Present Confirmed by David Mcdonald ([id number]) on 08/17/2024 5:44:42 PM Referred By: REFERRED SELF Confirmed By: David Mcdonald
[2024-08-18 05:57] LABS: Hematocrit (blood only) 31.3 % (37.0-47.0); Mean Corpuscular Hemoglobin 30.3 pg (25.0-34.0); Mean Corpuscular Hgb Conc 35.1 g/dL (32.0-36.0); Mean Corpuscular Volume 86.2 fL (80.0-100.0); Mean Platelet Volume 10.7 fL (9.4-12.4); Platelet Count 127 K/uL (130-400); RDW Coefficient of Variation 13.3 % (11.5-14.5); RDW Standard Deviation 41.4 fL (36.4-46.3); Red Blood Count 3.63 M/uL (4.20-5.40); White Blood Count 5.56 K/ul (4.8-10.8)
--- NOTE | 2024-08-18 07:01 | Hospitalist Progress Note ---
Date of Service August 18, 2024 Assessment & Plan (1) Urinary tract infection: (2) Hypoxia: (3) Elevated troponin: (4) Cirrhosis, nonalcoholic: Plan Patient is an 84-year-old female with a past medical history of CAD s/p CABG x4V, asthma on nocturnal oxygen 2l NC, diastolic CHF, nonalcoholic cirrhosis with history of prior TIA, GERD. Patient presented after failing outpatient treatment with Bactrim for ESBL E. coli uti. Attempts to retry Bactrim resulted in fever, ID consult recommends 7 days of Ertapenem, LD 08/23/24 #UTI/fever - outpatient treatment of Bactrim, history of ESBL E. coli; cultures 08/10 grew ESBL susceptible to Zosyn. Lactate and procalcitonin negative. AP CT showed cystitis, no pyelonephritis noted. Zosyn restarted with fever recurrence 08/16, changed to ertapenem overnight, ID recommends 7 day course, and does not endorse fosfomycin, otherwise try bactrim with zofran but pt did have nausea with bactrim and did not tolerate this on 2 occasions #Diastolic CHF acute on chronic, concern as origin of hypoxia, increasing parenteral lasix based on hypoxia and CXR, augmenting potassium with persistent hypoxia and fever negative resp viral screen #Elevated troponin Trop 41.2 -> 251.7. demand ischemia, similar presentation in February 2024 with troponin elevated to 210. Patient denies any chest pain. - Appreciate cardiology input CAD s/p CABG x [address] Fish. - trending troponin as above - Continue aspirin, Plavix, atorvastatin, isosorbide mononitrate, metoprolol, telmisartan #Nonalcoholic liver cirrhosis LFTs stable. INR 1.1 - Trend CMP with Tylenol use - This appears to be stable #Asthma/nocturnal hypoxia stable - 2L oxygen via nasal cannula at bedtime - On 08/15 patient's oxygen saturation was 85% on ambulation on room air PT OT has been asked to see patient and encourage patient to do incentive #GERD stable Continue PPI #Hypothyroidism - stable - Continue Synthroid VTE ppx: SCDs, low risk and history of ITP Admission and Anticipated Discharge Date Admission Date: August 13, 2024 Results & Data Results & Data Vital Signs (Past 12 Hours) Vital Signs Temp Pulse Pulse Resp BP Pulse Ox O2 Del Method 08/18/24 03:25 97.9 F 56 L 16 130/65 94 Nasal Cannula 08/17/24 23:39 97.7 F 59 L 17 135/70 95 Nasal Cannula 08/17/24 21:49 57 L 08/17/24 20:00 Room Air 08/17/24 19:47 97.5 F L 61 16 150/64 H 91 Room Air O2 Flow Rate 08/18/24 03:25 2 08/17/24 23:39 2 08/17/24 21:49 08/17/24 20:00 08/17/24 19:47 PG Care Time/CCT Total # of Minutes Spent Total Time Spent with Patient: Total time spent is greater than 50% in coordination of care (as documented) at patient's floor/unit and/or counseling patient: Coding Diagnoses Urinary tract infection N39.0 Hypoxia R09.02 Elevated troponin R79.89 Cirrhosis, nonalcoholic K74.60
[2024-08-18 08:20] VITALS: BP 116/62; RESP 18; TEMP 98.2; O2SAT 92
[2024-08-18 12:10] VITALS: PULSE 56
--- NOTE | 2024-08-18 14:35 | Discharge Summary ---
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 Patient presented after failing outpatient treatment with Bactrim for ESBL E. coli uti. Attempts to retry Bactrim resulted in fever, ID consult recommends 7 days of Ertapenem, LD 08/23/24 #UTI/fever - outpatient treatment of Bactrim, history of ESBL E. coli; cultures 08/10 grew ESBL susceptible to Zosyn. Lactate and procalcitonin negative. AP CT showed cystitis, no pyelonephritis noted. Zosyn restarted with fever recurrence 08/16, changed to ertapenem overnight, ID recommends 7 day course, and does not endorse fosfomycin, otherwise try bactrim with zofran but pt did have nausea with bactrim and did not tolerate this on 2 occasions #Diastolic CHF acute on chronic, concern as origin of hypoxia, increasing parenteral lasix based on hypoxia and CXR, augmenting potassium patient was discharged on oral Lasix therapy daily #Elevated troponin Trop 41.2 -> 251.7. demand ischemia, similar presentation in February 2024 with troponin elevated to 210. Patient denies any chest pain. - Appreciate cardiology input CAD s/p CABG x [address] Fish. - trending troponin as above - Continue aspirin, Plavix, atorvastatin, isosorbide mononitrate, metoprolol, telmisartan #Nonalcoholic liver cirrhosis LFTs stable. INR 1.1 - This appears to be stable #Asthma/nocturnal hypoxia stable - 2L oxygen via nasal cannula with ambulation and at bedtime #GERD stable Continue PPI #Hypothyroidism - stable - Continue Synthroid Of note patient has a history of ITP and we are avoiding use of chemoprophylaxis for DVT prevention in the future Notes For Next Care Provider Patient may need volume status and Lasix attended to in the future Admission HPI Per Admitting Provider Patient is an 84-year-old female with a past medical history of CAD s/p CABG x4V, asthma on nocturnal oxygen 2l NC, diastolic CHF, nonalcoholic cirrhosis with history of prior TIA, GERD. Patient presented after failing outpatient treatment with Bactrim for ESBL E. coli, symptomatic with dysuria, flank pain, and febrile. Patient does appear sick at bedside, however does not meet SIRS criteria and has no leukocytosis. She is being admitted for IV management. Patient seen at bedside. She is somewhat of a poor historian mildly confused. She stated that she has had dysuria that has not improved on Bactrim. She does have a history of allergy to Bactrim however they gave her Zofran to assist with this. She denies any reaction. She also noted a history of recurrent UTIs with ESBL E. coli. Patient stated she has had intermittent abdominal pain, however denies any current pain. She denies feeling feverish, dizzy, lightheaded, hav ing shortness of breath, chest pain, hematuria. She stated she uses 2 L of oxygen at night. She missed her evening medications. She wishes to be full code. Discharge Exam Pleasant patient in no active distress family members and POA are at the bedside Card exam is controlled with a systolic murmur lungs are left-sided basilar rales but otherwise clear abdomen NABS Discharge Plan Discharge Items Patient Disposition: Home - Home Health Services Reason For Visit: UTI, Fever, ESBL FAILED OUT PT Discharge Diagnosis: urinary tract infection with resistant bacteria mild flare of heart failure Condition on Discharge: Fair Activity: Resume your previous activity Non-emergency contact: Primary Care Provider Call non-emergency contact if: your symptoms worsen Follow-up/Referrals: Michael Christie DO [Primary Care Provider] - 08/24/24 11:30 am (Primary care hospital follow up scheduled on 08/24/24 at 11:30 with Michael Christie) Diet: Low Sodium (2gm) Addtl Attending Provider Instructions: you did have symptoms from a urinary tract infection and will require home IV medicines during your stay you had some lower oxygen levels from fluid in your lungs, be sure to take you Lasix(frusemide) daily Please be sure to see your family doctor next week Pending Studies at Discharge: No Stand-Alone Forms: [employer], Smoking Cessation Medications and DC Order Prescriptions: New ertapenem 1 gram recon soln 1 g IV DAILY 5 Days Qty: 5 0RF Continued (DME) Wheeled Walker Misc See Rx Instructions .Route Qty: 1 0RF Rx Instructions: SARAH RAMIREZ nitroglycerin 0.4 mg tablet, sublingual 0.4 mg SL ONCE PRN (Reason: Chest Pain) Qty: 25 4RF metoprolol tartrate 25 mg tablet 25 mg PO BID Qty: 180 3RF mecobalamin (vitamin B12) 1,000 mcg tablet,chewable 500 mcg PO Q OTHER DAY clopidogrel 75 mg tablet 75 mg PO QAM Qty: 90 3RF esomeprazole magnesium [Nexium] 40 mg capsule,delayed release(DR/EC) 40 mg PO QAM Qty: 90 3RF tolterodine 4 mg capsule,extended release 24hr 4 mg PO QAM Qty: 90 3RF Rx Instructions: TAKE 1 CAPSULE BY MOUTH EVERY MORNING atorvastatin 80 mg tablet 80 mg PO QPM Qty: 90 3RF icosapent ethyl [Vascepa] 1 gram capsule 2 g PO BID Qty: 360 3RF potassium chloride 10 mEq capsule, extended release 10 meq PO DAILY Qty: 90 3RF famotidine 40 mg tablet 40 mg PO HS Qty: 90 3RF levothyroxine 125 mcg tablet 125 mcg PO QAM Qty: 60 1RF ondansetron HCl 4 mg tablet 4 mg PO Q8H PRN (Reason: nausea and vomiting) Qty: 30 0RF vitamin E (dl, acetate) 400 unit capsule 400 units PO QAM Adult 50 Plus Probiotic 4 billion cell capsule 4,000 mmu cells PO QAM aspirin 81 mg Tablet,Delayed Release (Dr/Ec) 81 mg PO QAM econazole nitrate 1 % cream 1 applic topical DAILY PRN (Reason: fungus) Rx Instructions: 1 application topical daily PRN; cholecalciferol (vitamin D3) [Vitamin D3] 125 mcg (5,000 unit) Tablet 125 mcg PO DAILY amlodipine 5 mg tablet 5 mg PO QAM furosemide [Lasix] 40 mg tablet 40 mg PO QAM isosorbide mononitrate 60 mg tablet extended release 24 hr 60 mg PO QAM telmisartan 40 mg tablet 40 mg PO QAM Discontinued sulfamethoxazole-trimethoprim [Bactrim DS] 800-160 mg tablet 1 tab PO BID Qty: 14 0RF Discharge Orders: Discharge Order (Routine); Ordered 08/18/24 Ordered By: Jerry Lewis/Other Patient Handouts: ESBL-Producing Bacteria Admission Data Admit Date/Time: 08/13/24 02:44 Attending Provider: Jerry Kraus Admit Provider: Amalia Trejo Primary Care Provider: Michael Christie Other Providers: Amalia Trejo; José Luis Araujo; Lisa Waddell; Slime Hirsch; Donna Ferreira; Shilpi Ferrara; Tracy Rudolph; Franny Robert; [facility]; [facility]; [place] [facility] Other Interventions: Discharge Summary Assessment (RN) Last Done: 08/18/24 12:08 Hospital Stay Data Consultations 08/13/24 02:20 ED Decision to Admit Stat 08/13/24 16:56 Consult Cardiology Routine 08/17/24 08:08 Consult Infectious Diseases Routine Diagnostic Imagining Performed 08/13/24 00:10 CT abd pelvis wo con Stat 08/18/24 11:27 US guide vascular access Routine Pending Results Patient Have Any Pending Studies at Discharge: No Discharge Instructions Given to Patient (Per Discharging Provider) you did have symptoms from a urinary tract infection and will require home IV medicines during your stay you had some lower oxygen levels from fluid in your lungs, be sure to take you Lasix(frusemide) daily Please be sure to see your family doctor next week Total Time Total Time Spent Total Time Spent (In Minutes): It required greater than 30 minutes to prepare this patient for discharge. Coding Level of Care Code 53071 INP/OBS DISCH >30 MIN Diagnoses Urinary tract infection N39.0 Hypoxia R09.02 Elevated troponin R79.89 Cirrhosis, nonalcoholic K74.60
== END 2024-08-18 14:55 | disposition home health service (06) | DRG 689 ==
LOC: ED 22:43 → SUATTDRO 08-13 02:44 → EDINP 08-13 02:44 → 2E 08-13 15:04